=== PATIENT | male | born 1950 | race Caucasian/White ===

== ENCOUNTER 2018-04-05 10:00 | Inpatient (IN) ==
--- NOTE | 2018-04-05 10:06 | Emergency Department Note ---
Disposition Clinical Impression: Non-STEMI (non-ST elevated myocardial infarction) A-fib Qualifiers: Atrial fibrillation type: unspecified Qualified Code(s): I48.91 - Unspecified atrial fibrillation Disposition: Admitted As Inpatient Condition: Fair [facility] Care Provider[facility] - Forms: ED Satisfaction Letter Time of Disposition: 10:35 Chest Pain HPI - General Chief Complaint: ED Chest Pain Time Seen by Provider: 04/05/18 10:03 Source: patient, EMS Mode of arrival: EMS Limitations: no limitations Vital Signs Reviewed: Yes Nursing Notes Reviewed: Yes - History of Present Illness HPI Narrative: 68-year-old male who comes in complaining of intermittent chest pain since Friday. Patient was seen at the [facility] and evaluated was found to be in atrial fibrillation with controlled ventricular response. Patient has no history of A. fib. He was also noted to have an elevated troponin at the OR of 0.064 there are high normal is 0.045. Wrist some renal insufficiency also noted. He is on Plavix. Pt complaint: chest pain Onset (ago): day(s) Duration: intermittent Onset: during rest Pain Location: substernal, left chest Severity: moderate, now resolved Quality: tightness, aching Pain Radiation: none Improves with: nothing Worsens with: nothing Treatments prior to arrival chest pain: aspirin - Related Data Home Medications Medication Instructions Recorded Confirmed Clopidogrel [Plavix] 75 mg PO DAILY 10/29/15 10/29/15 Allergies Allergy/AdvReac Type Severity Reaction Status Date / Time No Known Allergies Allergy Verified 10/29/15 14:38 All systems ED: reviewed and negative except as stated. Constitutional: Denies: fever, chills, weakness, weight change Eyes: Denies: eye pain, eye discharge, vision change ENT ED: Denies: ear pain, throat pain, dental pain, hearing loss, epistaxis, congestion, dysphagia Cardiovascular: Reports: chest pain. Denies: palpitations, dyspnea on exertion , edema, syncope Respiratory: Denies: cough, dyspnea, wheezes, hemoptysis, stridor Gastrointestinal: Reports: nausea. Denies: abdominal pain, vomiting, diarrhea, constipation, hematemesis, melena, hematochezia Genitourinary: Denies: urgency, dysuria, frequency, hematuria Musculoskeletal: Denies: back pain, neck pain, arthralgia, myalgia Integumentary: Denies: rash, abrasion, lesions Neurological: Denies: headache, weakness, numbness, paresthesias, confusion, abnormal gait, vertigo Psychiatric: Denies: anxiety, depression, suicidal thoughts, homicidal thoughts , auditory hallucinations, visual hallucinations Endocrine: Denies: fatigue Hematological/Lymphatic: Denies: easy bleeding, easy bruising Allergic/Immunologic: Denies: facial swelling, urticaria Chest Pain PMH - Past Medical History Medical history: Reports: hypertension, other Psychiatric history: Reports: no psych history - Social History Smoking Status: Current every day smoker Alcohol use: Reports: occasionally Drug use: Reports: none Physical Exam - General Limitations: no limitations General appearance: alert, in no apparent distress - Head Head exam: atraumatic, normocephalic, normal inspection - Eye Eye exam: Present: normal appearance, PERRL, EOMI - ENT ENT exam: normal exam, normal oropharynx, mucous membranes moist - Neck Neck exam: Present: normal inspection, full ROM, trachea midline - Chest Chest inspection: Present: normal inspection, symmetric chest wall rise - Respiratory Respiratory exam: Present: normal lung sounds bilaterally - Cardiovascular Cardiovascular exam: Present: regular rate, irregular rhythm, normal heart sounds - Abdominal Exam Abdominal exam: Present: soft, Non-Tender. Absent: tenderness, distention, guarding, rebound, rigidity - Extremities Exam Extremities exam: Present: normal inspection, full ROM. Absent: tenderness, pedal edema - Expanded Lower Extremity Exam Neurovascular/Tendon exam: Absent: motor deficit, sensory deficit, tendon deficit Gait: observed and normal - Back Exam Back exam: Present: normal inspection, full ROM. Absent: tenderness - Neurological Exam Neurological exam: Present: alert, oriented X3 - Psychiatric Psychiatric exam: Present: normal affect, normal mood - Skin Skin exam: Present: warm, dry, intact, normal color Course - Reevaluation(s) Reevaluation #1: [facility] trop[facility] 0.064, CK 80, calcium 9.3, sodium 133, potassium 4.3, chloride 101, CO2 26, glucose 133, BUN/creatinine 21, creatinine 1.54, GFR 47, WBC 13, H&H 17/48.6, platelets 710 Time: 10:08 - Consultations Consultation #1: Discussed with Dr. Pineda, recommends heparinization he will see in consult. Time: 10:34 Consultation #2: Discussed with Dr. Guadarrama, admit. Time: 10:44 Vital Signs Temperature 98.3 F 04/05/18 10:03 Pulse Rate 73 04/05/18 10:03 Respiratory Rate 14 04/05/18 10:03 Blood Pressure 170/89 04/05/18 10:03 O2 Sat by Pulse Oximetry 98 04/05/18 10:03 Temperature 98.3 F 04/05/18 10:03 Pulse Rate 73 04/05/18 10:03 Respiratory Rate 14 04/05/18 10:03 Blood Pressure 170/89 04/05/18 10:03 O2 Sat by Pulse Oximetry 98 04/05/18 10:03 Oxygen Delivery Oxygen Delivery Room Air Chest Pain - EKG Data EKG attestation: Yes I reviewed and interpreted this EKG. Rate: normal Rhythm: A.Fib [place]/QRS: normal Interpretation: no acute changes Heart Score - Score History: Moderately Suspicious EKG: Non Specific repolarisation Disturbance Age: Greater than 65 Risk Factors: Equal/Greater than 3 risk factor or history of atherosclerotic disease Troponin: 1-3x normal limit HEART Score Total: 7 Critical Care Time Critical Care Time: Yes Total Critical Care Time: 30 Attestation: The high probability of a clinically significant, sudden or life threatening deterioration of the [cardiovascular] system(s) required my full and direct attention, intervention and personal management. The aggregate critical care time was [30] minutes. This time is in addition to time spent performing reported procedures but includes the following: [x] Data Review and interpretation [x] Patient assessment and monitoring of vital signs [x] Documentation [x] Medication orders and management
[2018-04-05] MEDS ORDERED: *HR* Heparin 5,000 UNIT/ML VIAL IVP ONE (10:32)
[2018-04-05] MEDS ORDERED: *HR* Heparin 5,000 UNIT/ML VIAL IVP PRN (10:32)
[2018-04-05 11:06] LABS: Hematocrit 50.6 % (37.5-50.1); Hemoglobin 17.2 g/dL (12.9-16.9); Mean Corpuscular Hemoglobin 31.1 pg (28.0-33.3); Mean Corpuscular Volume 91.5 fL (83.0-100.0); Mean Platelet Volume 9.4 fL (9.4-12.4); Platelet Count 691 K/mcL (140-400); Red Blood Count 5.53 M/mcL (4.19-5.50); Red Cell Distribution Width 14.6 % (11.5-14.5)
[2018-04-05 11:12] LABS: INR 1.1; Prothrombin Time 11.3 Seconds (9.4-12.1)
[2018-04-05 11:15] LABS: Activated Partial Thrombo Time 36.3 Seconds (26.0-36.0)
[2018-04-05] MEDS ORDERED: Acetaminophen 325 MG TABLET PO PRN (11:32)
[2018-04-05] MEDS ORDERED: Naloxone 0.4 MG/ML INJ IVP PRN (11:32)
[2018-04-05] MEDS: Heparin 25,000 UNIT/500 ML D5W 25,000 UNIT/500 ML BAG IVC SCH (11:36)
--- NOTE | 2018-04-05 11:37 | Internal Med History&Physical ---
<Estrella Powell Ravi - Last Filed: 04/05/18 11:51> Date of Encounter: 04/05/18 Time of Encounter: 11:35 Internal Medicine - H&P: HPI Chief complaint: New onset Afib/Chest Pain Admitted From: Emergency Dept History of present illness: Mr. Nair is a 68 year old male with significant past medical history of hyperlipidemia, PAD and hypertension presenting to the emergency department with chief complaint of chest pain and new onset atrial fibrillation. Patient was sent from [facility] after they determined he had new onset atrial fibrillation. He is currently rate controlled. Patient states on Friday he started having some substernal chest pressure that did not radiate. He describes some nausea and dizziness with these symptoms as well. Worst symptoms were Friday afternoon. Now he has had these symptoms on and off since. Denies any chest pain at this time. Denies any history of coronary artery disease. States he had a catheterization approximately 10 years or longer ago with no intervention. Currently taking Plavix and baby aspirin. Patient has history of fem-pop bypass on the right side. States he has a history of stroke with no residual effects. Patient denies any history of GI bleeds. Denies any hematuria, hematemesis, melena, or hematochezia. Past Med Surg Social Fam HX - Past Medical History Medical history: hypertension, other Additional medical history: PVD. Psychiatric history: no psych history - Past Surgical History Additional surgical history: Back surgery. Shoulder surgery. - Social History Smoking Status: Current every day smoker Smokeless Tobacco Status: No Alcohol use: occasionally Drug use: none Internal Medicine - H&P: Meds Clopidogrel [Plavix] 75 mg PO DAILY 10/29/15 [History] Amlodipine Besylate 10 mg PO DAILY 04/05/18 [History] Aspirin [Lo-Dose Aspirin EC] 81 mg PO DAILY 04/05/18 [History] Atenolol [Tenormin] 50 mg PO DAILY 04/05/18 [History] Atorvastatin [Lipitor] 20 mg PO HS 04/05/18 [History] Calcium Carbonate [Calcium] 600 mg PO DAILY 04/05/18 [History] Ergocalciferol (VITAMIN D2) [Vitamin D] 400 unit PO DAILY 04/05/18 [History] Lisinopril [Zestril] 5 mg PO DAILY 04/05/18 [History] Vit C/E/Zn/Coppr/Lutein/Zeaxan [Preservision Areds 2 Softgel] 1 cap PO BID 04/05 [History] 3 Allergy/AdvReac Type Severity Reaction Status Date / Time adhesive tape Allergy See Verified 04/05/18 10:59 Comments Iodinated Contrast- Oral and Allergy See Verified 04/05/18 10:59 IV Dye Comments All Systems PM: A 10-system review of systems was performed and is negative for pertinent findings except as documented above in the HPI. - Constitutional Constitutional: as per HPI - EENT Eyes: as per HPI Nose, mouth and throat: as per HPI - Cardiovascular Cardiovascular ROS IM: chest pain, lightheadedness, palpitations, no syncope - Respiratory Respiratory: no cough, no hemoptysis, no wheezing - Gastrointestinal Gastrointestinal: nausea, no abdominal pain, no hematemesis, no hematochezia, no melena, no vomiting - Genitourinary Genitourinary ROS male: as per HPI - Musculoskeletal Musculoskeletal ROS IM: as per HPI - Neurological Neurological ROS: as per HPI - Constitutional Vitals: Temp Pulse Resp BP Pulse Ox 98.3 F 73 14 170/89 98 04/05/18 10:03 04/05/18 10:03 04/05/18 10:03 04/05/18 10:03 04/05/18 10:03 General appearance: Present: A&O X 3, pleasant, no acute distress, answers questions appropriately - Head Head exam: Present: atraumatic, normocephalic - Respiratory Respiratory exam: Present: CTAB. Absent: accessory muscle use, rales, rhonchi, wheezes - Cardiovascular Cardiovascular exam: Absent: clicks, gallop, rubs Additional comments: regular rate, irregular rhythm - GI/Abdominal GI/Abdominal exam: Present: normal bowel sounds, soft, no peritoneal signs. Absent: distended, tenderness - Neurological Exam Neurological exam: Present: alert, oriented X3, no focal deficits Internal Med - H&P Results - Labs CBC & Chem 7: 04/05/18 10:46 Labs: Short CBC 04/05/18 Range/Units 10:46 WBC 13.1 H (4.3-11.1) K/mcL Hgb 17.2 H (12.9-16.9) g/dL Hct 50.6 H (37.5-50.1) % Plt Count 691 H (140-400) K/mcL - Assessment and plan (1) New onset atrial fibrillation Current Visit: Yes Status: Acute Assessment and plan: New-onset atrial fibrillation. Rate controlled. Patient denies chest pain at this time. Cardiology consulted. Started on heparin drip. Switched patient's atenolol to metoprolol. Repeat troponin 3 pending. Lipid panel in a.m. Magnesium in a.m. (2) Non-STEMI (non-ST elevated myocardial infarction) Current Visit: Yes Status: Acute Assessment and plan: Patient has elevated troponin with history of chest pain. EKG shows new onset atrial fibrillation but no signs of acute ischemia patient on beta gabe, statin, aspirin and heparin drip Cardiology consulted Ordered echo With patient's pmhx and elevated troponin cardiac cath could be considered, will defer decision to cardiology Will place patient NPO at midnight (3) HLD (hyperlipidemia) Current Visit: Yes Status: Chronic Assessment and plan: Continue home medications Qualifiers: Hyperlipidemia type: unspecified Qualified Code(s): E78.5 - Hyperlipidemia , unspecified (4) HTN (hypertension) Current Visit: Yes Status: Chronic Assessment and plan: Discontinued atenolol. Started metoprolol. Patient's blood pressure well controlled at home. Qualifiers: Hypertension type: unspecified Qualified Code(s): I10 - Essential (primary ) hypertension (5) PAD (peripheral artery disease) Current Visit: Yes Status: Chronic Assessment and plan: Patient on plavix and aspirin Fem/Pop bypass with Dr. Canales Continue home medications (6) DVT prophylaxis Current Visit: Yes Status: Acute Assessment and plan: Patient on heparin drip - Time Spent With Patient Total time spent is greater than 50% in coordination of care (as documented) at patient's floor/unit and/or counseling patient: <ChiaraPercygiovanni - Last Filed: 04/05/18 13:52> Date of Encounter: 04/05/18 Internal Medicine - H&P: HPI History of present illness: Mr. Nair is a 68 year old male All Systems PM: A 10-system review of systems was performed and is negative for pertinent findings except as documented above in the HPI. - Constitutional Vitals: Temp Pulse Resp BP Pulse Ox 97.4 F L 86 16 134/82 99 04/05/18 13:19 04/05/18 13:19 04/05/18 13:19 04/05/18 13:19 04/05/18 13:19 Internal Med - H&P Results - Labs CBC & Chem 7: 04/05/18 10:46 - Attending Attestation I examined this patient and my medical decision-making was reviewed with the Resident Physician Dr. Powell. I agree with the documented findings, disposition and treatment plan as described except to the extent set forth below. Mr. Nair is a 68 y/o M with known HTN, HLD, TIA, Severe PAD pt admitted here for acute CP. Pt stated he has been having Left and substernal chest pain since last one week. His pain is non radiating, associated with nausea. His trop was elevated at [facility] so he was sent to our ER for further work up. He also has new onset Afob. He denied any active CP Now. Gen: A, A, O x3 Chest: Diminished BS b/l Heart: S1S2+ Irregular rate and rythm a/p 1. Acute CP 2. Acute NSTEMI trop x 3 Heparin gtt ASA and Nitro PRN BB - Metoprolol 3. New onset Afib rate controlled check TSH on tele d/c Atenolol and placed him on Metoprolol 25mg BID on Heparin gtt for anti coag His CHADVASC 4 - Time Spent With Patient Total time spent is greater than 50% in coordination of care (as documented) at patient's floor/unit and/or counseling patient:
[2018-04-05 12:52] LABS: Troponin I 0.07 ng/mL (< 0.04)
[2018-04-05 13:00] LABS: Thyroid Stimulating Hormone 0.9 mcIU/mL (0.340-5.600)
--- NOTE | 2018-04-05 16:19 | Event Note ---
Date of Encounter: 04/05/18 Time of Encounter: 16:15 - Cardiology Event Note Consult ordered for NSTEMI / chest pain with normal rate. Patient on aspirin/ plavix, recommend heparin drip. Depending on renal function tomorrow, will tentatively plan on [facility] Friday or Friday. Full consult to follow.
[2018-04-05 18:11] LABS: Activated Partial Thrombo Time 119.6 Seconds (26.0-36.0)
[2018-04-05 18:13] LABS: Heparin anti-factor XA UFH 0.5 IU/mL (0.30-0.70)
[2018-04-06 00:41] LABS: Basophils % 0.8 %; Hematocrit 47.9 % (37.5-50.1); Hemoglobin 16.9 g/dL (12.9-16.9); Immature Granulocytes % 0.3 % (0-4); Lymphocytes % 16.6 %; Mean Corpuscular HGB Conc 35.3 g/dL (31.6-35.5); Mean Corpuscular Hemoglobin 31.9 pg (28.0-33.3); Mean Corpuscular Volume 90.4 fL (83.0-100.0); Mean Platelet Volume 9.4 fL (9.4-12.4); Monocytes % 9.8 %; Neutrophils # 10.8 K/mcL (1.6-8.9); Platelet Count 643 K/mcL (140-400); Red Cell Distribution Width 14.9 % (11.5-14.5); Segmented Neutrophils % 72.5 %
[2018-04-06 00:42] LABS: Basophils # 0.1 K/mcL (0.0-0.2); Lymphocytes # 2.5 K/mcL (0.6-4.6); Monocytes # 1.5 K/mcL (0.0-1.3)
[2018-04-06 00:51] LABS: INR 1.1; Prothrombin Time 11.3 Seconds (9.4-12.1)
[2018-04-06 01:00] LABS: BUN/Creatinine Ratio 19 (6-26); Blood Urea Nitrogen 26 mg/dL (8-23); Calcium 9.2 mg/dL (8.6-10.3); Carbon Dioxide 24 mEq/L (23-29); Chloride 99 mEq/L (98-107); Chol/HDL Ratio 2.5 (0-4.9); Cholesterol 133 mg/dL (< 200); Glucose 95 mg/dL (70-105); HDL Cholesterol 54 mg/dL (40-59); LDL Cholesterol,Calculated 60 mg/dL (0-99); Magnesium 2.1 mg/dL (1.6-2.6); Osmolality,Calculated 277 (280-300); Potassium 4.1 mEq/L (3.5-5.1); Sodium 131 mEq/L (136-145); Triglycerides 94 mg/dL (< 150); eGFR For African Americans > 60 (> 60); eGFR For Non-African Americans 52 (> 60)
[2018-04-06] MEDS: *HR* Heparin 5,000 UNIT/ML VIAL IVP PRN (01:33)
--- NOTE | 2018-04-06 08:08 | Cardiology Consult Note ---
Addendum entered and electronically signed by Terrell Cason DO 04/06/18 11:29: Creatinine improving. Clear for LHC. Will get pt on add-on list. Also, reviewed "iodinated contrast dye" allergy; pt has no knowledge of ever having reactions to contrast. Has an LHC about 10 years ago with no associated contrast reaction he is aware of. Also had myelogram utilizing contrast with no known reaction. Unsure where documented allergy originated. Original Note: <Terrell Cason - Last Filed: 04/06/18 10:16> Date of Encounter: 04/06/18 Time of Encounter: 08:07 Assessment and Plan (1) Non-STEMI (non-ST elevated myocardial infarction) Current Visit: Yes Status: Acute Agree with current meds. Cont heparin for now. No known history of CKD, but elevated creatinine; will recheck now and plan to proceed with LHC today ( tentative) if stable/improved. (2) New onset atrial fibrillation Current Visit: Yes Status: Acute New. Paroxysmal. Spontaneously reverted to NSR / sinus bradycardia. [id number] = 5 based on age and history. - cont on telemetry - suspect ischemic trigger; plan is for LHC today or tomorrow pending stable/ improving renal function - no med changes at this time - will need anticoagulant upon discharge; defer initiation until after LHC completed. Discussion w patient/family: The assessment and plan as outlined above was discussed with the patient and/or family members who expressed understanding and agreement. All questions were answered. Thank you for involving us in the care of your patient. Please call with any questions. History of Present Illness Consult date: 04/05/18 Requesting physician: Ja Esparza Consult reason: NSTEMI / CP Chief complaint: CP History of present illness: Mr. Nair is a 68 year old male with past medical history of HLP, PAD, HTN, CVA (no residual deficits), and LHC "10 years ago" without intervenable findings. No known history of chronic kidney disease though he does have a mildly elevated creatinine. Currently on aspirin, Plavix, lisinopril, atenolol , amlodipine, and atorvastatin. No other relevant cardiac history. Denies use of tobacco, alcohol, or illicit substances. Patient states woke up at 0230 [place] morning with retro sternal chest pain he describes as an intense stabbing pain. Pain did not radiate or migrate. Pain was associated with lightheadedness, profuse sweating, and abdominal discomfort/ nausea. Patient states has not had any pain like this in the past. Patient says he slept through most of Friday and woke up Friday morning with relatively minimal pain. Did have one episode throughout Friday that he localizes as more left lateral chest wall and characterizes as "different from the other pain". This episode of pain lasted only a few seconds and then abated on its own. Patient states on Friday, he continued to feel dizzy, lightheaded, and had ongoing abdominal upset prompting his presentation to the [facility]. [facility] transferred patient due to acute chest pain, elevated troponins, and new onset AF (no known history). Patient admitted here to hospital service and started on heparin drip. Initial EKG obtained at this medical Center at 10 AM on 04/05/2018 demonstrated atrial fibrillation with a ventricular rate of 67 beats per minute; there were no ischemic changes on EKG. At this point, patient seems to spontaneously converted to sinus rhythm with pulse rate currently in the 50s to 80s. Patient is not having any ongoing symptoms such as chest pain, dizziness, lightheadedness, palpitations, shortness of breath, abdominal discomfort, or pedal edema. Past Med Surg Social Fam HX - Past Medical History Source: patient, old records reviewed Medical history: atrial fibrillation (NEW DX), CVA, hyperlipidemia, hypertension , peripheral artery disease, other Additional medical history: PVD. Psychiatric history: no psych history - Past Surgical History Surgical History: no surgical history, LE vascular intervention Additional surgical history: Back surgery. Shoulder surgery. - Social History Smokeless Tobacco Status: No Alcohol use: occasionally Drug use: none Medications and Allergies Clopidogrel [Plavix] 75 mg PO DAILY 10/29/15 [History] Amlodipine Besylate 10 mg PO DAILY 04/05/18 [History] Aspirin [Lo-Dose Aspirin EC] 81 mg PO DAILY 04/05/18 [History] Atenolol [Tenormin] 50 mg PO DAILY 04/05/18 [History] Atorvastatin [Lipitor] 20 mg PO HS 04/05/18 [History] Calcium Carbonate [Calcium] 600 mg PO DAILY 04/05/18 [History] Ergocalciferol (VITAMIN D2) [Vitamin D] 400 unit PO DAILY 04/05/18 [History] Lisinopril [Zestril] 5 mg PO DAILY 04/05/18 [History] Vit C/E/Zn/Coppr/Lutein/Zeaxan [Preservision Areds 2 Softgel] 1 cap PO BID 04/05 [History] 3 Allergy/AdvReac Type Severity Reaction Status Date / Time adhesive tape Allergy See Verified 04/05/18 10:59 Comments Iodinated Contrast- Oral and Allergy See Verified 04/05/18 10:59 IV Dye Comments All Systems Review: Otherwise, denies true syncope, fevers, chills, sweats, myalgias, cough, congestion, palpitations, shortness of breath, vomiting, diarrhea, constipation , blood in stools, black tarry stools, dysuria, hematuria, rash, or pedal edema. Physical Examination General: Conversant, No Apparent Distress HEENT: Atraumatic, Normocephaly, Mucus Membranes Moist Cardiac: Reg Rate and Rhythm (rate approximate 60 and regular), Normal S1 and S2 , No Murmur Lungs: Normal Breath Sounds, No Wheeze, Rales, Rhonchi Neuro: Alert and responsive, No focal deficits noted Abdomen: Soft, Non-Tender Skin: No rashes noted on visualized skin Extremities: No Clubbing, No Cyanosis, No Edema, Normal Pulses Results 04/06/18 00:18 04/06/18 00:18 Lab Results 04/05/18 04/05/18 04/06/18 17:31 17:31 00:18 WBC Hgb Hct Plt Count INR APTT 119.6 H* D Sodium Potassium Chloride Carbon Dioxide BUN Creatinine Glucose Calcium Magnesium Troponin I 0.06 H* 0.07 H* 04/06/18 04/06/18 04/06/18 00:18 00:18 00:18 WBC 14.9 H Hgb 16.9 Hct 47.9 Plt Count 643 H INR 1.1 APTT Sodium 131 L Potassium 4.1 Chloride 99 Carbon Dioxide 24 BUN 26 H Creatinine 1.35 H Glucose 95 Calcium 9.2 Magnesium 2.1 Troponin I 04/06/18 00:18 WBC Hgb Hct Plt Count INR APTT 43.8 H D Sodium Potassium Chloride Carbon Dioxide BUN Creatinine Glucose Calcium Magnesium Troponin I Consult Discharge Plan - Plan [facility]errals: [facility] [Primary Care Provider[facility] - <Sarita Marshjaime - Last Filed: 04/06/18 19:28> Date of Encounter: 04/06/18 - Attending Attestation I examined this patient and my medical decision-making was reviewed with the Resident Physician. I agree with the documented findings, disposition and treatment plan as described except to the extent set forth below. 68-year-old male history of PAD, hypertension, hyperlipidemia, atrial fibrillation presents with non-ST elevation myocardial infarction status post left heart catheter found to have three-vessel disease to be evaluated by CT surgery continue heparin for atrial fibrillation and high risk for stroke Assessment and Plan Discussion w patient/family: The assessment and plan as outlined above was discussed with the patient and/or family members who expressed understanding and agreement. All questions were answered. Thank you for involving us in the care of your patient. Please call with any questions. History of Present Illness History of present illness: Mr. Nair is a 68 year old male All Systems Review: The remainder of the systems were reviewed and are negative Physical Examination Vital Signs, Last 4 Hours Temp Pulse Resp BP Pulse Ox 04/06/18 18:56 97.7 F 63 16 123/78 96 04/06/18 16:55 98.2 F 64 16 130/68 96 04/06/18 16:04 65 16 127/68 96 Results 04/06/18 00:18 04/06/18 09:49 Lab Results 04/06/18 04/06/18 04/06/18 00:18 00:18 00:18 WBC 14.9 H Hgb 16.9 Hct 47.9 Plt Count 643 H INR 1.1 APTT Sodium Potassium Chloride Carbon Dioxide BUN Creatinine Glucose Calcium Magnesium Troponin I 0.07 H* 04/06/18 04/06/18 04/06/18 00:18 00:18 08:00 WBC Hgb Hct Plt Count INR APTT 43.8 H D 68.0 H D Sodium 131 L Potassium 4.1 Chloride 99 Carbon Dioxide 24 BUN 26 H Creatinine 1.35 H Glucose 95 Calcium 9.2 Magnesium 2.1 Troponin I 04/06/18 04/06/18 09:49 14:37 WBC Hgb Hct Plt Count INR APTT 40.8 H Sodium 131 L Potassium 4.3 Chloride 98 Carbon Dioxide 25 BUN 22 Creatinine 1.24 Glucose 120 H Calcium 9.7 Magnesium Troponin I
[2018-04-06] MEDS: amLODIPine 5 MG TABLET PO SCH (08:34)
[2018-04-06] MEDS: Cholecalciferol (D-3) 1,000 UNIT TABLET PO SCH (08:34)
[2018-04-06] MEDS: Aspirin Enteric Coated 81 MG Tablet PO SCH (08:35)
[2018-04-06 11:27] LABS: BUN/Creatinine Ratio 18 (6-26); Blood Urea Nitrogen 22 mg/dL (8-23); Calcium 9.7 mg/dL (8.6-10.3); Carbon Dioxide 25 mEq/L (23-29); Chloride 98 mEq/L (98-107); Glucose 120 mg/dL (70-105); Osmolality,Calculated 277 (280-300); Potassium 4.3 mEq/L (3.5-5.1); Sodium 131 mEq/L (136-145); eGFR For African Americans > 60 (> 60); eGFR For Non-African Americans 58 (> 60)
[2018-04-06] MEDS ORDERED: Verapamil 5 MG/2 ML VIAL ONE (11:46)
[2018-04-06] MEDS ORDERED: 0.9 % Sodium Chloride 1,000 ML ONE ×2 (11:47→12:34)
[2018-04-06] MEDS ORDERED: ISOVUE-370 200 ML INFUS..BTL IV ONE (11:47)
[2018-04-06] MEDS ORDERED: Heparin 1,000 UNITS/500 mL 500 ML ONE (11:47)
[2018-04-06] MEDS ORDERED: *HR* Heparin 10,000 UNIT/10 ML VIAL ONE (11:47)
[2018-04-06] MEDS ORDERED: Nitroglycerin 1,000 MCG/10 ML VIAL IV ONE (11:47)
[2018-04-06] MEDS ORDERED: *HR* Midazolam HCl 2 MG/2 ML VIAL ONE ×2 (12:34→12:45)
[2018-04-06] MEDS ORDERED: *HR* FentaNYL (PF) 100 MCG/2 ML VIAL ONE (12:34)
[2018-04-06] MEDS ORDERED: methylPREDNISolone 125 MG/2 ML VIAL ONE (12:35)
--- NOTE | 2018-04-06 12:45 | Pre-Sedation Evaluation ---
Pre-sedation evaluation - Pre-sedation checklist Date of procedure: 04/06/18 Procedure: [facility] Recent Vitals: Last Vital Signs Temp 97.6 F 04/06/18 12:05 Pulse 59 04/06/18 12:05 Resp 15 04/06/18 12:05 BP 146/66 04/06/18 12:05 Pulse Ox 98 04/06/18 12:05 H&P (including ROS) documented in medical record: Yes Previous reaction to sedatives/anesthetics: No Dietary Status: NPO after Midnight Dentition: No loose teeth or bridges ASA Classification *see protocol: CLASS II-Mild systemic disease Plan of Care: Pt appropriate candidate for procedure/moderate/conscious sedation , Risks/benefits of procedure/sedation discussed w/ patient/family
[2018-04-06] MEDS ORDERED: Ondansetron 4 MG/2 ML VIAL IVP PRN (13:38)
--- NOTE | 2018-04-06 13:46 | Invasive Diagnostic Lab Proc ---
Name: Naldo Nair Date of Study: 04/06/2018 Date: 1950 Ht: 68.0in Medical Record#: [id number] Age: 68 Wt: 163.36lb Gender: Male BSA: 1.88 Order #: [id number] BMI: 24.84 Physicians Procedure Physician: Matthew Pineda MD, [facility] Referring MD: Referring MD: Staff Name Position Time In Julieta Valdez RT (R) Scrub 12:34 PM Jorge, Joslyn RT (R) 12:34 PM Julieta Valdez RT (R) Monitor 12:34 PM Jasmin Saldana RN Airline Operations Agent 12:34 PM Wendy Li RN Airline Operations Agent 12:45 PM Sophie Knox RN Airline Operations Agent 12:45 PM Indications Indication Non-Stemi Procedures Performed Procedure L HRT ARTERY/VENTRICLE ANGIO Pre-Procedure Checklist Informed consent is complete signed and on chart. H&P is on chart. ID band is on and ID verified with patient. Patient NPO for procedure The procedure was described for the patient and questions were answered. ECG is on chart. Plan of Care Patient will tolerate the procedure without complications. Adequate level of comfort will be maintained. Hemodynamics will remain stable Patient will recover from procedure without complications. Respiratory function will be maintained. Cardiac rhythm will remain stable. Patient temperature will be maintained. Patient and/or family have verbalized understanding of the procedure. Patient Education Chief Complaint/Reason for Test: Cardiac Cath Developmental Category: Geriatric (65+ years) Developmentally Appropriate for Age: Yes Learning Barriers: None Education Needs: Procedure Education Method: Verbal Information Taught: Cardiac Cath Educational Evaluation: Able to repeat information Intravenous Access Time IV Size Location DC'd Fluid/Drip Rate Units RN 20g 1 10/30" Patent On Arrival 0.9NaCl ml/hr Allergies Iodinated Contrast- Oral and IV Dye adhesive tape TAPE No Known Allergies NKA Vital Signs Time BP (mmHg) HR (bpm) O2 Sat. RR (bpm) LOC 12:39 PM 102 / 73 52 100 % 12:44 PM 113 / 87 62 100 % 12:49 PM 176 / 72 77 99 % 12:54 PM 147 / 99 71 98 % 12:59 PM 145 / 72 64 99 % 01:04 PM 145 / 74 62 99 % 01:09 PM 121 / 86 61 99 % 01:14 PM 129 / 65 66 98 % 01:19 PM 140 / 123 58 98 % 01:24 PM 112 / 55 60 99 % 01:29 PM 125 / 68 60 99 % Procedural Medications Time Medication Dose Units Method Given By 12:35 PM Oxygen 2 L/min nasal cannula Jasmin Saldana RN 12:35 PM Versed 2 mg Intravenous Wendy Li RN 12:35 PM Fentanyl 50 mcg Intravenous Wendy Li RN 12:35 PM Benadryl 50 mg Intravenous Jasmin Saldana RN 12:35 PM Solu-medrol 125 mg Intravenous Jasmin Saldana RN 01:03 PM Lidocaine 2% 0.5 ml Subcutaneous Matthew Pineda MD, [facility] 01:03 PM Versed 1 mg Intravenous Wendy Li RN 01:03 PM Fentanyl 25 mcg Intravenous Wendy Li RN 01:07 PM Lidocaine 2% 18 ml Subcutaneous Matthwe Pineda MD, [facility] ASA Classification: CLASS II- Mild systemic disease (i.e. well-controlled diabetes, hypertension, asthma, cigarette smoking) Fatou Score Preprocedure Postprocedure Activity 2- Moves 4 extremities sustained head lift Activity 2- Moves 4 extremities sustained head lift Circulation 2- SBP +/= 20 points of pre-anesthetic level Circulation 2- SBP +/= 20 points of pre-anesthetic level Consciousness 2- Awake and alert oriented x 3 Consciousness 2- Awake and alert oriented x 3 O2 Saturation 2- Able to maintain O2 satruation of 92% on room air O2 Saturation 2- Able to maintain O2 satruation of 92% on room air Respiratory 2- Able to deep breathe and cough well Respiratory 2- Able to deep breathe and cough well Total Score 10 Total Score 10 Contrast Agent: Isovue Diagnostic Contrast: 56 ml Total Contrast: 56 ml Fluoro Dose: 191 mGy Procedure Log Time Note Enter By 12:33 PM CathStat 12:33 PM Vitals capture started with the following parameters, Patient=Adult, Interval=5 min, Initial Iefmxdzv=180 mmHg, Deflation Rate=5 mmHg, Cuff placed on Right Arm 12:34 PM Pt arrived to phlebotomy lab assistant 2 at 12:34 [email or web address] 12:34 PM Joslyn Patel RT (R) Position: Time in: 12:34 [email or web address] 12:34 PM Julieta Valdez RT (R) Position: Monitor Time in: 12:34 [email or web address] 12:34 PM Jasmin Saldana RN Position: Airline Operations Agent Time in: 12:34 [email or web address] 12:34 PM Patient charges- Angio tray pack, Navilyst 3mm J, Pulse Oximetry and ACIST tubing and transducer [email or web address] 12:34 PM Case Delayed No [email or web address] 12:35 PM Hair removed from procedure site in holding area using clippers. Right wrist prepped with Chloraprep by Joslyn Patel RT (R), then patient was draped. Skin intact. [email or web address] 12:35 PM Hair removed from procedure site in holding area using clippers. Right groin prepped with Chloraprep by Joslyn Patel RT (R), then patient was draped. Skin intact. [email or web address] 12:35 PM Physician arrived 12:35 [email or web address] 12:35 PM ASA Class CLASS II- Mild systemic disease (i.e. well-controlled diabetes, hypertension, asthma, cigarette smoking) [email or web address] 12:35 PM Meet and dada completed [email or web address] 12:35 PM Sign in performed according to hospital policy. [email or web address] 12:35 PM Procedure start 12:35 [email or web address] 12:35 PM Time: 12:35 Oxygen on at 2 L/min per nasal cannula by Jasmin Saldana RN [email or web address] 12:35 PM Time: 12:35 Versed 2 mg Intravenous Given by Wendy Li RN [email or web address] 12:35 PM Time: 12:35 Fentanyl 50 mcg Intravenous Given by Wendy Li RN [email or web address] 12:35 PM Time: 12:35 Benadryl 50 mg Intravenous Given by Jasmin Saldana RN [email or web address] 12:36 PM Time: 12:35 Solu-medrol 125 mg Intravenous Given by Jasmin Saldana RN [email or web address] 12:36 PM Recorded ECG: HR=61 Condition=Condition 1 12:36 PM Recorded ECG: HR=62 Condition=Condition 1 12:38 PM Vitals capture started with the following parameters, Patient=Adult, Interval=5 min, Initial Lnnyfxav=014 mmHg, Deflation Rate=5 mmHg, Cuff placed on Right Arm 12:39 PM HR=52 bpm, AWMH=291/73 mmhg, HzP0=157.0 %, Comment=NSR 12:40 PM Pressure channel 1 zero failed. 12:44 PM HR=62 bpm, SJJL=132/87 mmhg, EcE2=840.0 % 12:45 PM Wendy Li RN Position: Airline Operations Agent Time in: 12:45 to relieve Les Jasmin RN [email or web address] 12:45 PM Sophie Knox RN Position: Airline Operations Agent Time in: 12:45 to relieve Snow Saldanaclyde EAGLE [email or web address] 12:47 PM Pressure channel 1 zeroed. 12:49 PM HR=77 bpm, CPES=166/72 mmhg, SpO2=99.0 %, Comment=NSR 12:54 PM HR=71 bpm, NPKO=532/99 mmhg, SpO2=98.0 %, Comment=NSR 12:59 PM HR=64 bpm, UWBG=298/72 mmhg, SpO2=99.0 %, Comment=NSR 01:03 PM Time out performed according to hospital policy [email or web address] 01:03 PM Time: 13:03 0.5 ml Lidocaine 2% to right radial Subcutaneous Given by Matthew Pineda MD, [facility] [email or web address] 01:03 PM Time: 13:03 Versed 1 mg Intravenous Given by Wendy Li RN [email or web address] 01:04 PM Time: 13:03 Fentanyl 25 mcg Intravenous Given by Wendy Li RN [email or web address] 01:04 PM HR=62 bpm, ZUGQ=392/74 mmhg, SpO2=99.0 %, Comment=NSR 01:06 PM Unsuccessful access attempt # 1 into the right Radial artery. Manual pressure applied to achieve hemostasis.. [email or web address] 01:08 PM Time: 13:07 18 ml Lidocaine 2% to left groin Subcutaneous Given by Matthew Pineda MD, [facility] [email or web address] 01:09 PM HR=61 bpm, GCAA=017/86 mmhg, SpO2=99.0 %, Comment=NSR 01:10 PM Unsuccessful access attempt # 1 into the left Femoral artery. Manual pressure applied to achieve hemostasis.. [email or web address] 01:11 PM Access obtained by percutaneous puncture. 5Fr 10cm Terumo [place] sheath placed in left Femoral artery. [id number] [email or web address] 01:12 PM 0.035 145cm Navilyst 3mmJ wire [id number] [email or web address] 01:12 PM 5Fr FL 4 catheter inserted over the wire DNC [email or web address] 01:12 PM LCA angiography performed in multiple views. [email or web address] 01:13 PM Recorded Pressure: Ao, HR=59, Condition=Condition 1 (Aorta) Ao 113/59/83 01:13 PM Recorded Pressure: Ao, HR=60, Condition=Condition 1 (Aorta) Ao 115/66/88 01:14 PM HR=66 bpm, JDJW=352/65 mmhg, SpO2=98.0 %, Comment=NSR 01:16 PM Lesion found in LMCA. Pre Stenosis: 50 Pre ARJ Flow: 3: Complete and Brisk Flow/Perfusion [email or web address] 01:16 PM Lesion found in LMCA. Pre Stenosis: 50 Pre RAJ Flow: 3: Complete and Brisk Flow/Perfusion [email or web address] 01:16 PM Lesion found in Proximal Circumflex. Pre Stenosis: 90 Pre RAJ Flow: 3: Complete and Brisk Flow/Perfusion [email or web address] 01:17 PM Lesion found in 1st Marginal. Pre Stenosis: 90 Pre RAJ Flow: 3: Complete and Brisk Flow/Perfusion [email or web address] 01:17 PM Catheter removed [email or web address] 01:17 PM 5Fr FR 4 catheter inserted over the wire DN [email or web address] 01:18 PM Pressure channel 1 zero failed. 01:18 PM RCA angiography performed in multiple views. [email or web address] 01:19 PM Recorded Pressure: Ao, HR=59, Condition=Condition 1 (Aorta) Ao 101/60/78 01:19 PM Lesion found in Mid RCA. Pre Stenosis: 90 Pre RAJ Flow: 3: Complete and Brisk Flow/Perfusion [email or web address] 01:19 PM HR=58 bpm, SEBE=059/123 mmhg, SpO2=98.0 %, Comment=NSR 01:19 PM Lesion found in Proximal RCA. Pre Stenosis: 70 Pre RAJ Flow: 3: Complete and Brisk Flow/Perfusion [email or web address] 01:19 PM Coronary Dominance: right [email or web address] 01:19 PM Catheter removed [email or web address] 01:20 PM 5Fr Pigtail catheter inserted over the wire DN [email or web address] 01:20 PM Pressure channel 1 zero failed. 01:20 PM Pressure channel 1 zeroed. 01:20 PM Recorded Pressure: LV, HR=63, Condition=Condition 1 (Left Ventricle) LV 125/-8/2 01:21 PM Catheter selectively placed in left ventricle [email or web address] 01:21 PM Bolus angiogram of left Ventricle complete: 12 ml/sec for a total of 20 mls [email or web address] 01:21 PM Recorded Pressure: LV, Ao, HR=66, Condition=Condition 1 (Left Ventricle) LV 124/-8/3, (Aorta) Ao 125/52/80 01:21 PM Catheter removed [email or web address] 01:22 PM Bolus angiogram of left Femoral complete: 4 ml/sec for a total of 7 mls [email or web address] 01:24 PM HR=60 bpm, BSGO=521/55 mmhg, SpO2=99.0 %, Comment=NSR 01:25 PM Procedure completed at 13:25 [email or web address] 01:25 PM Did you address RAJ flow and Dominance? Yes [email or web address] 01:25 PM Sign out completed: Radiation Dose 191.05 mGy Fluoro Time: 1.1 Isovue 370 - 200ml contrast 56 ml given by Matthew Pineda MD, FACC. Complications: NoneCardiac Rehab Consult needed: NoConfirmed administered medications: Yes [email or web address] 01:25 PM Isovue 370 - 200ml,1 Bottle(s) used. [email or web address] 01:25 PM Arterial sheath pulled, Mynx closure device used and was Successful S/N. [email or web address] 01:26 PM Estimated Blood Loss: minimal [email or web address] 01:26 PM Post ECG NSR [email or web address] 01:26 PM Post Blood Pressure 112/55 [email or web address] 01:26 PM 13:26 Post Pulses Bilateral DP & PT 1+ [email or web address] 01:26 PM Information taught Cardiac Cath and Mynx [email or web address] 01:26 PM Education needs Procedure, Plan of Care, and Disease Process [email or web address] 01:26 PM Learning barriers :None [email or web address] 01:26 PM Education Methods Verbal [email or web address] 01:26 PM Education evaluation Able to repeat information [email or web address] 01:26 PM Site status No bleeding/hematoma - Lt Groin as reported by Joslyn Patel RT (R) at 13:26 [email or web address] 01:26 PM Opsite applied [email or web address] 01:26 PM Delay to floor No [email or web address] 01:27 PM Family placed in not available. [email or web address] 01:27 PM Complications: None [email or web address] 01:27 PM Fluoro Time: 1.1 [email or web address] 01:27 PM Isovue 370 - 200ml contrast [address] Pineda. [email or web address] 01:27 PM Radiation Dose 191.05 mGy [email or web address] 01:29 PM HR=60 bpm, QYVT=304/68 mmhg, SpO2=99.0 %, Comment=NSR 01:35 PM Conversation between Interventionalist and CT Surgeon. [email or web address] 01:37 PM Report given to Anuradha EAGLE Pt taken to 2A Room #26. 13:37 [email or web address] 01:38 PM Patient out of room: 13:38 [email or web address] Complications Complication None None Hemodynamics Pressures Site Systolic/A Wave Diastolic/V Wave Mean AO 113 59 83 AO 115 66 88 AO 101 60 78 LV 125 -8 2 LV 124 -8 3 AO 125 52 80 Post Procedure Information Blood Pressure: 112/55 mmHg Rhythm: NSR Post procedural instructions were given Surgery consult for CABG Closure Device Time Device Success/Fail 04/06/2018 1:27:00 PM Perclose ProGlide Successful Site Checks Time Location Status Staff Sheath In? Note 01:26 PM Lt Groin No bleeding/hematoma Joslyn Patel RT (R) Pulses Time Site Pre-Procedure Post-Procedure Note Bilateral radial 2+ Bilateral DP & PT 1+ 1:26:00 PM Bilateral DP & PT 1+ Updated by Julieta Valdez, RT(R) on 04/06/2018 1:39:04 PM electronically signed on 04/06/2018 1:39:30 PM with status of Final
--- NOTE | 2018-04-06 14:02 | Internal Med Progress Note ---
<Garrett Giraldo - Last Filed: 04/06/18 15:00> Date of Encounter: 04/06/18 Time of Encounter: 10:00 - Assessment and plan (1) Non-STEMI (non-ST elevated myocardial infarction) Current Visit: Yes Status: Acute Assessment and plan: Per cardiology, add-on for [facility] today, creatinine stable Troponin elevated at .07 but adynamic No chest pain, dyspnea, or lightheadedness (2) New onset atrial fibrillation Current Visit: Yes Status: Acute Assessment and plan: Reverted to NSR, on toprol 25mg po BID Possibly due to ischemic trigger, [facility] planned today (3) HTN (hypertension) Current Visit: Yes Status: Chronic Assessment and plan: Continuing metoprolol Qualifiers: Hypertension type: unspecified Qualified Code(s): I10 - Essential (primary ) hypertension (4) DVT prophylaxis Current Visit: Yes Status: Acute Assessment and plan: On Heparin low-dose protocol (5) PAD (peripheral artery disease) Current Visit: Yes Status: Chronic Assessment and plan: Patient on plavix and aspirin Fem/Pop bypass with Dr. Canales Continue home medications - Time Spent With Patient Total time spent is greater than 50% in coordination of care (as documented) at patient's floor/unit and/or counseling patient: - Subjective Interval history: Patient reverted to NSR, paroxysmal afib. Pt without chest pain, dyspnea, syncope, lightheadedness today. - Constitutional Vitals: Temp Pulse Resp BP Pulse Ox 97.6 F 59 15 146/66 98 04/06/18 12:05 04/06/18 12:05 04/06/18 12:05 04/06/18 12:05 04/06/18 12:05 General appearance: Present: A&O X 3, pleasant, no acute distress, answers questions appropriately - Head Head exam: Present: atraumatic, normocephalic - Neck Neck exam general surgery: Present: full ROM - Respiratory Respiratory exam: Present: CTAB. Absent: tachypnea - Cardiovascular Cardiovascular exam: Present: +S1, +S2. Absent: systolic murmur, tachycardia - Extremities Exam Extremities exam: Absent: calf tenderness - Neurological Exam Neurological exam: Present: alert, oriented X3 - Skin Skin exam: Absent: diaphoretic Internal Medicine: Result - Labs CBC & Chem 7: 04/06/18 00:18 04/06/18 09:49 Labs: Short CBC 04/06/18 Range/Units 00:18 WBC 14.9 H (4.3-11.1) K/mcL Hgb 16.9 (12.9-16.9) g/dL Hct 47.9 (37.5-50.1) % Plt Count 643 H (140-400) K/mcL Neutrophils # 10.8 H (1.6-8.9) K/mcL BMP 04/06/18 04/06/18 00:18 09:49 Sodium 131 L 131 L Potassium 4.1 4.3 Chloride 99 98 Carbon Dioxide 24 25 BUN 26 H 22 Creatinine 1.35 H 1.24 Glucose 95 120 H Calcium 9.2 9.7 Cardiac Enzymes 04/05/18 04/06/18 Range/Units 17:31 00:18 Troponin I 0.06 H* 0.07 H* (< 0.04) ng/mL - ABG Interpretation ABG results: PT/INR, D-dimer PT 11.3 Seconds (9.4-12.1) 04/06/18 00:18 - Impressions Impressions Echocardiogram 04/06/18 11:50 Impressions: LVEF 60%. Normal LV chamber size, wall thickness and function. Mild left ventricular diastolic dysfunction. Normal right ventricular structure and function. No evidence of pulmonary hypertension. No significant valvular dysfunction. Left Ventricular Wall Motion: Rest Echo Findings All wall segments showed normal motion. Findings: Study Quality * Technically adequate exam. ECG Findings * Sinus bradycardia. Left Ventricle * LVEF 60%. * Normal LV chamber size, wall thickness and function. * Mild left ventricular diastolic dysfunction. Right Ventricle * Normal right ventricular structure and function. Left Atrium * Mildly dilated left atrium. Right Atrium * Normal right atrial size. Aortic Valve * Trileaflet aortic valve. * Mildly calcified aortic valve leaflets. * No aortic regurgitation. * No aortic stenosis. Mitral Valve * Normal mitral valve structure and function. * No mitral stenosis. * Trace mitral regurgitation. Tricuspid Valve * Normal tricuspid valve structure and function. * Trace tricuspid regurgitation. * No evidence of pulmonary hypertension. Pulmonic Valve * Normal pulmonic valve structure and function. * No pulmonic regurgitation. Aorta * Normally sized aortic root. Pericardium * The pericardium appears normal. IVC * Normal IVC dimensions and inspiratory collapse. Pulmonary Artery * Normal visualized portions of the main pulmonary artery. Consult Discharge Plan - Plan [facility]errals: [facility] Care Provider[facility] - <CullenchanelleeliShaji carias - Last Filed: 04/06/18 16:15> Date of Encounter: 04/06/18 - Assessment and plan (1) Non-STEMI (non-ST elevated myocardial infarction) Current Visit: Yes Status: Acute (2) New onset atrial fibrillation Current Visit: Yes Status: Acute (3) HTN (hypertension) Current Visit: Yes Status: Chronic Qualifiers: Hypertension type: unspecified Qualified Code(s): I10 - Essential (primary ) hypertension (4) DVT prophylaxis Current Visit: Yes Status: Acute (5) PAD (peripheral artery disease) Current Visit: Yes Status: Chronic - Time Spent With Patient Total time spent is greater than 50% in coordination of care (as documented) at patient's floor/unit and/or counseling patient: - Constitutional Vitals: Temp Pulse Resp BP Pulse Ox 98.2 F 65 16 127/68 96 04/06/18 14:08 04/06/18 16:04 04/06/18 16:04 04/06/18 16:04 04/06/18 16:04 Internal Medicine: Result - Labs CBC & Chem 7: 04/06/18 00:18 04/06/18 09:49 Labs: Short CBC 04/06/18 Range/Units 00:18 WBC 14.9 H (4.3-11.1) K/mcL Hgb 16.9 (12.9-16.9) g/dL Hct 47.9 (37.5-50.1) % Plt Count 643 H (140-400) K/mcL Neutrophils # 10.8 H (1.6-8.9) K/mcL BMP 04/06/18 04/06/18 00:18 09:49 Sodium 131 L 131 L Potassium 4.1 4.3 Chloride 99 98 Carbon Dioxide 24 25 BUN 26 H 22 Creatinine 1.35 H 1.24 Glucose 95 120 H Calcium 9.2 9.7 Cardiac Enzymes 04/05/18 04/06/18 Range/Units 17:31 00:18 Troponin I 0.06 H* 0.07 H* (< 0.04) ng/mL - ABG Interpretation ABG results: PT/INR, D-dimer PT 11.3 Seconds (9.4-12.1) 04/06/18 00:18 - Impressions Impressions Echocardiogram 04/06/18 11:50 Impressions: LVEF 60%. Normal LV chamber size, wall thickness and function. Mild left ventricular diastolic dysfunction. Normal right ventricular structure and function. No evidence of pulmonary hypertension. No significant valvular dysfunction. Left Ventricular Wall Motion: Rest Echo Findings All wall segments showed normal motion. Findings: Study Quality * Technically adequate exam. ECG Findings * Sinus bradycardia. Left Ventricle * LVEF 60%. * Normal LV chamber size, wall thickness and function. * Mild left ventricular diastolic dysfunction. Right Ventricle * Normal right ventricular structure and function. Left Atrium * Mildly dilated left atrium. Right Atrium * Normal right atrial size. Aortic Valve * Trileaflet aortic valve. * Mildly calcified aortic valve leaflets. * No aortic regurgitation. * No aortic stenosis. Mitral Valve * Normal mitral valve structure and function. * No mitral stenosis. * Trace mitral regurgitation. Tricuspid Valve * Normal tricuspid valve structure and function. * Trace tricuspid regurgitation. * No evidence of pulmonary hypertension. Pulmonic Valve * Normal pulmonic valve structure and function. * No pulmonic regurgitation. Aorta * Normally sized aortic root. Pericardium * The pericardium appears normal. IVC * Normal IVC dimensions and inspiratory collapse. Pulmonary Artery * Normal visualized portions of the main pulmonary artery. - Attending Attestation I examined this patient and my medical decision-making was reviewed with the Resident Physician Dr. Giraldo. I agree with the documented findings, disposition and treatment plan as described except to the extent set forth below. Mr. Nair is a 68 y/o M with known HTN, HLD, TIA, Severe PAD pt admitted here for acute CP. Pt stated he has been having Left and substernal chest pain since last one week. His pain is non radiating, associated with nausea. His trop was elevated at [facility] so he was sent to our ER for further work up. He also has new onset Afoib. He denied any active CP Now. Converted to NSR now Gen: A, A, O x3 Chest: Diminished BS b/l Heart: S1S2+ RRR a/p 1. Acute CP 2. Acute NSTEMI trop x 3 Heparin gtt ASA and Nitro PRN BB - Metoprolol Scheduled for [facility] today 3. New onset Afib rate controlled and converted to NSR now on tele d/c Atenolol and placed him on Metoprolol 25mg BID on Heparin gtt for anti coag His [facility]VASC 4
--- NOTE | 2018-04-06 15:32 | Electrocardiograph Report ---
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
--- NOTE | 2018-04-06 18:25 | Cardiothoracic Consult Note ---
Date of Encounter: 04/06/18 Time of Encounter: 18:18 Assessment and Plan (1) Non-STEMI (non-ST elevated myocardial infarction) Current Visit: Yes Status: Acute The patient is a 68-year-old hypertensive male with hypercholesterolemia, known cerebrovascular disease, and known peripheral arterial disease. The patient is had 'indigestion' symptoms for the last several months; however, on Friday, 05/2018, he had severe, nonradiating substernal chest pain with associated nausea and vomiting. He was evaluated at the [facility] emergency department and found to have paroxysmal atrial fibrillation and elevated troponin I levels consistent with an acute NSTEMI. He was treated medically and then transferred to [facility] for further cardiac care. The patient underwent cardiac catheterization today was found to have severe 3 vessel CAD and an LVEF 65%. In particular, the patient has a 50% proximal left main lesion, a 50% distal left main lesion, a 95% ostial/proximal LCx lesion, a 90% proximal OM1 lesion, a 70% proximal RCA lesion, and a 90% mid RCA lesion. He has been recommended for combined CABG and modified Maze procedure. I concur with this recommendation. The STS risk calculator gives the patient and operative mortality risk 3.02%, deep sternal wound infection 0.48%, permanent stroke risk 3.03%, renal failure risk 5.05%, and reoperation risk 9.34 %. The patient understands the procedure, benefits, alternatives, and risks, and gives his informed consent. The patient has been on Plavix for his right femoral-popliteal bypass graft and this will need to be stopped for 5-7 days prior to CABG. Tentatively the patient is scheduled for combined CABG and modified Maze procedure on 04/14/2018. The assessment and plan as outlined above was discussed with the patient and/or family members who expressed understanding and agreement. All questions were answered. - History of Present Illness Consult date: 04/06/18 Requesting physician: Matthew Pineda Consult reason: CABG evaluation Chief complaint: NSTEMI History of present illness: Mr. Nair is a 68 year old hypertensive man with hypercholesterolemia, known cerebrovascular disease, and known peripheral arterial disease. He states that during the last several months he is experienced 'indigestion', both with activity and particularly at night. He has had lightheadedness and presyncope, but denies any substernal chest pain, shortness of breath, dyspnea exertion nausea, or vomiting. However, on 04/03/2018 the patient had severe, nonradiating substernal chest pain and nausea and vomiting. The patient was evaluated at the [facility] emergency department where he is found to have atrial fibrillation with a rapid ventricular response. He also had elevated troponin I levels consistent with an acute NSTEMI. He was treated medically with resolution of his chest pain and transferred to [facility] for further cardiac care. A transthoracic echocardiogram revealed a left ventricular ejection fraction 60 % with normal left ventricular chamber size wall thickness, and function. No significant valvular dysfunction was noted, but mild left ventricular diastolic dysfunction was present. The patient underwent cardiac catheterization today was found to have severe 3 vessel CAD and an LVEF 65%. In particular the patient had a 50% proximal left main lesion, a 50% distal left main lesion, a 95 % ostial/proximal LCx lesion, a 90% proximal OM1 lesion, a 70% proximal RCA lesion, and a 90% mid RCA lesion. The patient has been recommended for combined CABG and modified Maze procedure. Past Med Surg Social Fam HX - Past Medical History Medical history: atrial fibrillation (NEW DX), coronary artery disease, CVA, hyperlipidemia, hypertension, peripheral artery disease, other Additional medical history: PVD. Psychiatric history: no psych history - Past Surgical History Surgical History: LE vascular intervention (Right femoral-popliteal bypass), other (Left knee arthroscopy, lumbar laminectomy 3) Additional surgical history: Back surgery. Shoulder surgery. - Social History Smoking Status: Current every day smoker Packs per day: 1 PPD 60 years Smokeless Tobacco Status: No Alcohol use: occasionally Drug use: none Occupational status: retired Current living situation: Home - Independent Activity Level: Independent ambulation Recent Out of Country Travel Within the Last 8 Weeks: No Exposure or Possible Exposure to Illness During Travel: No Medications and Allergies Clopidogrel [Plavix] 75 mg PO DAILY 10/29/15 [History] Amlodipine Besylate 10 mg PO DAILY 04/05/18 [History] Aspirin [Lo-Dose Aspirin EC] 81 mg PO DAILY 04/05/18 [History] Atenolol [Tenormin] 50 mg PO DAILY 04/05/18 [History] Atorvastatin [Lipitor] 20 mg PO HS 04/05/18 [History] Calcium Carbonate [Calcium] 600 mg PO DAILY 04/05/18 [History] Ergocalciferol (VITAMIN D2) [Vitamin D] 400 unit PO DAILY 04/05/18 [History] Lisinopril [Zestril] 5 mg PO DAILY 04/05/18 [History] Vit C/E/Zn/Coppr/Lutein/Zeaxan [Preservision Areds 2 Softgel] 1 cap PO BID 04/05 [History] 3 Allergy/AdvReac Type Severity Reaction Status Date / Time adhesive tape Allergy See Verified 04/05/18 10:59 Comments Iodinated Contrast- Oral and Allergy See Verified 04/05/18 10:59 IV Dye Comments All Systems Review: The remainder of the systems were reviewed and are negative Physical Examination Vital Signs, Last 4 Hours Temp Pulse Resp BP Pulse Ox 04/06/18 16:55 98.2 F 64 16 130/68 96 04/06/18 16:04 65 16 127/68 96 04/06/18 15:15 68 16 145/90 98 04/06/18 14:47 56 16 141/63 98 04/06/18 14:45 57 16 130/69 97 04/06/18 14:20 57 16 136/78 96 General: Conversant, No Apparent Distress HEENT: Atraumatic, Normocephaly, Trachea midline Neck: No JVD, Normal carotid pulses Cardiac: Reg Rate and Rhythm, Normal S1 and S2, No Murmur Lungs: Normal Breath Sounds, No Wheeze, Rales, Rhonchi Neuro: Alert and responsive, No focal deficits noted, Motor nerves intact, Sensory nerves intact Vascular: Normal capillary refill Abdomen: Soft, Non-tender Skin: No rashes noted on visualized skin Musculoskeletal: No Chest Wall Tenderness Extremities: No Clubbing, No Cyanosis, No Edema Results 04/06/18 00:18 04/06/18 09:49 Lab Results, Last 24 hours 04/06/18 04/06/18 04/06/18 00:18 00:18 00:18 WBC 14.9 H Hgb 16.9 Hct 47.9 Plt Count 643 H INR 1.1 APTT Sodium Potassium Chloride Carbon Dioxide BUN Creatinine Glucose Calcium Magnesium Troponin I 0.07 H* 04/06/18 04/06/18 04/06/18 00:18 00:18 08:00 WBC Hgb Hct Plt Count INR APTT 43.8 H D 68.0 H D Sodium 131 L Potassium 4.1 Chloride 99 Carbon Dioxide 24 BUN 26 H Creatinine 1.35 H Glucose 95 Calcium 9.2 Magnesium 2.1 Troponin I 04/06/18 04/06/18 09:49 14:37 WBC Hgb Hct Plt Count INR APTT 40.8 H Sodium 131 L Potassium 4.3 Chloride 98 Carbon Dioxide 25 BUN 22 Creatinine 1.24 Glucose 120 H Calcium 9.7 Magnesium Troponin I Consult Discharge Plan - Plan [facility]: [facility] [Primary Care Provider] -
[2018-04-06] MEDS: Heparin 25,000 UNIT/500 ML D5W 25,000 UNIT/500 ML BAG IVC SCH (20:22)
[2018-04-07 06:37] LABS: Basophils % 0.1 %; Hematocrit 45.3 % (37.5-50.1); Hemoglobin 15.8 g/dL (12.9-16.9); Immature Granulocytes % 0.6 % (0-4); Lymphocytes % 4.9 %; Mean Corpuscular HGB Conc 34.9 g/dL (31.6-35.5); Mean Corpuscular Hemoglobin 31.6 pg (28.0-33.3); Mean Corpuscular Volume 90.6 fL (83.0-100.0); Mean Platelet Volume 9.7 fL (9.4-12.4); Monocytes # 0.8 K/mcL (0.0-1.3); Monocytes % 4.2 %; Platelet Count 618 K/mcL (140-400); Red Cell Distribution Width 14.6 % (11.5-14.5); Segmented Neutrophils % 90.2 %
[2018-04-07 06:47] LABS: BUN/Creatinine Ratio 22 (6-26); Blood Urea Nitrogen 26 mg/dL (8-23); Calcium 9.1 mg/dL (8.6-10.3); Carbon Dioxide 19 mEq/L (23-29); Chloride 101 mEq/L (98-107); Glucose 189 mg/dL (70-105); Osmolality,Calculated 280 (280-300); Potassium 4.3 mEq/L (3.5-5.1); Sodium 130 mEq/L (136-145); eGFR For African Americans > 60 (> 60); eGFR For Non-African Americans > 60 (> 60)
[2018-04-07] MEDS: Cholecalciferol (D-3) 1,000 UNIT TABLET PO SCH (08:24)
[2018-04-07] MEDS: Aspirin Enteric Coated 81 MG Tablet PO SCH (08:24)
[2018-04-07] MEDS: amLODIPine 5 MG TABLET PO SCH (08:24)
--- NOTE | 2018-04-07 09:19 | Cardiothoracic Progress Note ---
Date of Encounter: 04/07/18 Time of Encounter: :18 - Assessment and plan (1) Non-STEMI (non-ST elevated myocardial infarction) Current Visit: Yes Status: Acute The patient is a 68-year-old hypertensive male with hypercholesterolemia, known cerebrovascular disease, and known peripheral arterial disease. The patient is had 'indigestion' symptoms for the last several months; however, on Friday, 05/2018, he had severe, nonradiating substernal chest pain with associated nausea and vomiting. He was evaluated at the [facility] emergency department and found to have paroxysmal atrial fibrillation and elevated troponin I levels consistent with an acute NSTEMI. He was treated medically and then transferred to [facility] for further cardiac care. The patient underwent cardiac catheterization today was found to have severe 3 vessel CAD and an LVEF 65%. In particular, the patient has a 50% proximal left main lesion, a 50% distal left main lesion, a 95% ostial/proximal LCx lesion, a 90% proximal OM1 lesion, a 70% proximal RCA lesion, and a 90% mid RCA lesion. He has been recommended for combined CABG and modified Maze procedure. I concur with this recommendation. The STS risk calculator gives the patient and operative mortality risk 3.02%, deep sternal wound infection 0.48%, permanent stroke risk 3.03%, renal failure risk 5.05%, and reoperation risk 9.34 %. The patient understands the procedure, benefits, alternatives, and risks, and gives his informed consent. The patient has been on Plavix for his right femoral-popliteal bypass graft and this will need to be stopped for 5-7 days prior to CABG. Tentatively the patient is scheduled for combined CABG and modified Maze procedure on 04/14/2018. The assessment and plan as outlined above was discussed with the patient and/or family members who expressed understanding and agreement. All questions were answered. - Subjective Interval history: The patient is resting comfortably in his hospital bed. He has no complaints of sternal chest pain. Vital Signs, Last 4 Hours Temp Pulse Resp BP Pulse Ox 04/07/18 08:30 98 04/07/18 08:00 98.2 F 62 17 135/72 98 Clinical Data, last 8 Hours Output, Urine Amount 250 Output, Urine Amount 400 Weight 04/05/18 04/06/18 04/07/18 23:59 23:59 23:59 Weight 75.189 kg 73.709 kg - Physical Examination General: Conversant, No Apparent Distress Neck: No JVD, Normal carotid pulses Cardiac: Reg Rate and Rhythm, Normal S1 and S2, No Murmur Lungs: Normal Breath Sounds, No Wheeze, Rales, Rhonchi Neuro: Alert and responsive, No focal deficits noted Vascular: Normal capillary refill Musculoskeletal: No Chest Wall Tenderness Extremities: No Clubbing, No Cyanosis, No Edema - Labs 04/07/18 06:08 04/07/18 06:08 Lab Results, Last 24 hours 04/06/18 04/06/18 04/06/18 09:49 14:37 22:29 WBC Hgb Hct Plt Count APTT 40.8 H 99.2 H D Sodium 131 L Potassium 4.3 Chloride 98 Carbon Dioxide 25 BUN 22 Creatinine 1.24 Glucose 120 H Calcium 9.7 04/07/18 04/07/18 04/07/18 06:08 06:08 06:08 WBC 19.9 H Hgb 15.8 Hct 45.3 Plt Count 618 H APTT 66.7 H Sodium 130 L Potassium 4.3 Chloride 101 Carbon Dioxide 19 L BUN 26 H Creatinine 1.19 Glucose 189 H Calcium 9.1 Consult Discharge Plan - Plan [facility]errals: [facility] [Primary Care Provider] -
--- NOTE | 2018-04-07 10:52 | Cardiology Progress Note ---
Date of Encounter: 04/07/18 Time of Encounter: 10:50 Assessment and Plan (1) New onset atrial fibrillation Current Visit: Yes Status: Acute Per Cardiology: Apparent new onset. Spontaneously reverted to NSR / sinus bradycardia. Average heart rate past 12 hrs = 66, remains sinus rhythm. On BB. Planned MAZE with CABG next week. [id number] = 5 based on age and history. On IV Hep gtt. (2) CAD (coronary artery disease) Current Visit: Yes Status: Acute Per Cardiology: [facility]: Impressions: There is severe multivessel coronary artery disease. 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 Recommendations: Optimal medical therapy of patient's disease. Aggressive risk factor modification. Suggest patient have Elective coronary artery bypass surgery. ECHO: Impressions: LVEF 60%. Normal LV chamber size, wall thickness and function. Mild left ventricular diastolic dysfunction. Normal right ventricular structure and function. No evidence of pulmonary hypertension. No significant valvular dysfunction. Left Ventricular Wall Motion: Rest Echo Findings All wall segments showed normal motion. Per CT Surgery: "The patient has been on Plavix for his right femoral-popliteal bypass graft and this will need to be stopped for 5-7 days prior to CABG. Tentatively the patient is scheduled for combined CABG and modified Maze procedure on 04/14/2018". Chest pain-free. On asa, statin, BB, ACEI-- rec hold a few days prior to surgery. On IV Hep gtt. Qualifiers: Coronary Disease-Associated Artery/Lesion type: zuni artery [place] vs. transplanted heart: zuni heart Associated angina: without angina Qualified Code(s): I25.10 - Atherosclerotic heart disease of zuni coronary artery without angina pectoris Discussion w patient/family: The assessment and plan as outlined above was discussed with the patient who expressed understanding and agreement. All questions were answered. Thank you for involving us in the care of your patient. Please call with any questions. Subjective Principal diagnosis: CAD Interval history: Patient denies any chest pain, short of breath, palpitations. Denies any concerns from his right wrist and left groin site. Objective Vital Signs, Last 4 Hours Temp Pulse Resp BP Pulse Ox 04/07/18 08:30 98 04/07/18 08:00 98.2 F 62 17 135/72 98 General: Conversant, No Apparent Distress HEENT: Atraumatic, Normocephaly, Mucus Membranes Moist Neck: No JVD, Normal carotid pulses Cardiac: Reg Rate and Rhythm, Normal S1 and S2, No Murmur Lungs: Normal Breath Sounds, No Wheeze, Rales, Rhonchi Neuro: Alert and responsive, No focal deficits noted Abdomen: Soft, Non-Tender Skin: No rashes noted on visualized skin, Other (Right wrist joint intact with no bleeding or hematoma, right radial pulse 2+ palpable; left femoral site trying intact with no bleeding, no ecchymosis, no hematoma, left PT and DP pulses 1+ palpable) Musculoskeletal: No Chest Wall Tenderness Extremities: No Clubbing, No Cyanosis, No Edema, Normal Pulses Results 04/07/18 06:08 04/07/18 06:08 Lab Results Laboratory Tests 04/05/18 04/05/18 04/05/18 10:46 11:49 17:31 WBC 13.1 H INR Creatinine Est GFR (Non-Af Amer) Troponin I 0.07 H* 0.06 H* TSH 0.900 04/06/18 04/06/18 04/07/18 00:18 00:18 06:08 WBC 19.9 H INR 1.1 Creatinine Est GFR (Non-Af Amer) Troponin I 0.07 H* TSH 04/07/18 06:08 WBC INR Creatinine 1.19 Est GFR (Non-Af Amer) > 60 Troponin I TSH ITS Impressions Echocardiogram 04/06/18 11:50 Impressions: LVEF 60%. Normal LV chamber size, wall thickness and function. Mild left ventricular diastolic dysfunction. Normal right ventricular structure and function. No evidence of pulmonary hypertension. No significant valvular dysfunction. Left Ventricular Wall Motion: Rest Echo Findings All wall segments showed normal motion. Findings: Study Quality * Technically adequate exam. ECG Findings * Sinus bradycardia. Left Ventricle * LVEF 60%. * Normal LV chamber size, wall thickness and function. * Mild left ventricular diastolic dysfunction. Right Ventricle * Normal right ventricular structure and function. Left Atrium * Mildly dilated left atrium. Right Atrium * Normal right atrial size. Aortic Valve * Trileaflet aortic valve. * Mildly calcified aortic valve leaflets. * No aortic regurgitation. * No aortic stenosis. Mitral Valve * Normal mitral valve structure and function. * No mitral stenosis. * Trace mitral regurgitation. Tricuspid Valve * Normal tricuspid valve structure and function. * Trace tricuspid regurgitation. * No evidence of pulmonary hypertension. Pulmonic Valve * Normal pulmonic valve structure and function. * No pulmonic regurgitation. Aorta * Normally sized aortic root. Pericardium * The pericardium appears normal. IVC * Normal IVC dimensions and inspiratory collapse. Pulmonary Artery * Normal visualized portions of the main pulmonary artery. Active Medications Acetaminophen (Tylenol) 650 mg PO Q6HR PRN PRN Reason: Mild Pain/Fever Stop: 10/05/18 11:33 Hydrocodone Bitart/Acetaminophen ([place] 5-325 Mg) 1 tab PO Q6HR PRN PRN Reason: Moderate Pain Stop: 10/05/18 11:33 Amlodipine Besylate (Norvasc) 10 mg PO DAILY CESAR Stop: 10/06/18 09:01 Last Admin: 04/07/18 08:24 Dose: 10 mg Aspirin (Aspirin Ec) 81 mg PO DAILY CESAR Stop: 10/06/18 09:01 Last Admin: 04/07/18 08:24 Dose: 81 mg Atorvastatin Calcium (Lipitor) 20 mg PO HS CESAR Stop: 10/05/18 21:01 Last Admin: 04/06/18 20:16 Dose: 20 mg Calcium Carbonate (Tums) 500 mg PO DAILY CESAR Stop: 10/06/18 09:01 Last Admin: 04/07/18 08:24 Dose: 500 mg Heparin Sodium (Porcine) (Heparin) 4,000 unit IVP Q6HR PRN PRN Reason: SEE COMMENTS Stop: 10/05/18 10:33 Last Admin: 04/06/18 16:08 Dose: 4,000 unit Heparin Sodium (Porcine) (Heparin) 2,000 unit IVP Q6H PRN PRN Reason: SEE COMMENTS Stop: 10/05/18 10:33 Last Admin: 04/06/18 01:33 Dose: 2,000 unit Heparin Sodium/Dextrose (Heparin 25,000 Unit/500 Ml D5w) 25,000 unit in 500 mls @ 17.736 mls/hr IVC .Q24H CESAR; 12 UNIT/KG/HR PRN Reason: Protocol Stop: 10/05/18 10:46 Last Titration: 04/07/18 06:49 Dose: 12.34 unit/kg/hr, 18.253 mls/hr Lisinopril (Zestril) 5 mg PO DAILY CESAR PRN Reason: Protocol Stop: 10/06/18 09:01 Last Admin: 04/07/18 08:24 Dose: 5 mg Metoprolol Tartrate (Lopressor) 25 mg PO BID CESAR Stop: 10/05/18 11:46 Last Admin: 04/07/18 08:24 Dose: 25 mg Naloxone HCl (Narcan) 0.4 mg IVP Q2MIN PRN PRN Reason: SEE COMMENTS Stop: 10/05/18 11:33 Ondansetron HCl (Zofran) 4 mg IVP Q6HR PRN; Protocol PRN Reason: Nausea And Vomiting Stop: 10/06/18 13:39 Vitamin D (Vitamin D) 1,000 unit PO DAILY CESAR Stop: 10/06/18 09:01 Last Admin: 04/07/18 08:24 Dose: 1,000 unit - Imaging and Cardiology Echo: report reviewed Cardiac cath: report reviewed Consult Discharge Plan - Plan [facility]errals: [facility] [Primary Care Provider] -
--- NOTE | 2018-04-07 15:15 | Internal Med Progress Note ---
<Garrett Giraldo - Last Filed: 04/07/18 15:34> Date of Encounter: 04/07/18 Time of Encounter: 09:30 - Assessment and plan (1) Non-STEMI (non-ST elevated myocardial infarction) Current Visit: Yes Status: Acute Assessment and plan: S/p C with multivessel disease. No chest pain, dyspnea, or lightheadedness. Plan for CABG 04/14 after plavix washout. (2) New onset atrial fibrillation Current Visit: Yes Status: Acute Assessment and plan: Reverted to NSR, currently on toprol 25mg po BID Possibly due to ischemic trigger, MAZE procedure also planned in conjunction with CABG with cardiothoracic surgery. (3) HTN (hypertension) Current Visit: Yes Status: Chronic Assessment and plan: Continuing metoprolol Qualifiers: Hypertension type: unspecified Qualified Code(s): I10 - Essential (primary ) hypertension (4) DVT prophylaxis Current Visit: Yes Status: Acute Assessment and plan: Heparin drip (5) PAD (peripheral artery disease) Current Visit: Yes Status: Chronic Assessment and plan: Holding plavix in setting of pre-op optimization for CABG. Fem/Pop bypass with Dr. Canales - Time Spent With Patient Total time spent is greater than 50% in coordination of care (as documented) at patient's floor/unit and/or counseling patient: - Subjective Interval history: Patient has stayed in NSR since yesterday. Pt continues to be without chest pain , dyspnea, syncope, lightheadedness today. He has chosen to go with elective CABG with cardiothoracic, staying inpatient for plavix washout. - Constitutional Vitals: Temp Pulse Resp BP Pulse Ox 97.8 F 63 16 137/70 97 04/07/18 11:34 04/07/18 11:34 04/07/18 11:34 04/07/18 11:34 04/07/18 11:34 General appearance: Present: A&O X 3, pleasant, no acute distress, answers questions appropriately - Head Head exam: Present: atraumatic - Eye Eye exam: Present: EOMI, conjuntiva pink, sclera anicteric - ENT ENT exam: Present: mucous membranes moist - Neck Neck exam general surgery: Present: full ROM. Absent: lymphadenopathy - Respiratory Respiratory exam: Present: CTAB. Absent: accessory muscle use, rhonchi - Cardiovascular Cardiovascular exam: Present: +S1, +S2. Absent: JVD, systolic murmur Additional comments: HR averages in mid 60s, regular - GI/Abdominal GI/Abdominal exam: Present: no peritoneal signs - Extremities Exam Extremities exam: Present: pedal edema, warm - Neurological Exam Neurological exam: Present: no focal deficits - Psychiatric Psychiatric exam: Present: normal affect, normal mood Internal Medicine: Result - Labs CBC & Chem 7: 04/07/18 06:08 04/07/18 06:08 Labs: Short CBC 04/07/18 Range/Units 06:08 WBC 19.9 H (4.3-11.1) K/mcL Hgb 15.8 (12.9-16.9) g/dL Hct 45.3 (37.5-50.1) % Plt Count 618 H (140-400) K/mcL Neutrophils # 18.0 H (1.6-8.9) K/mcL BMP 04/07/18 06:08 Sodium 130 L Potassium 4.3 Chloride 101 Carbon Dioxide 19 L BUN 26 H Creatinine 1.19 Glucose 189 H Calcium 9.1 - ABG Interpretation ABG results: PT/INR, D-dimer PT 11.3 Seconds (9.4-12.1) 04/06/18 00:18 Consult Discharge Plan - Plan [facility]errals: [facility] [Primary Care Provider] - <Shaji Guadarrama - Last Filed: 04/07/18 18:40> Date of Encounter: 04/07/18 - Assessment and plan (1) Non-STEMI (non-ST elevated myocardial infarction) Current Visit: Yes Status: Acute (2) New onset atrial fibrillation Current Visit: Yes Status: Acute (3) HTN (hypertension) Current Visit: Yes Status: Chronic Qualifiers: Hypertension type: unspecified Qualified Code(s): I10 - Essential (primary ) hypertension (4) DVT prophylaxis Current Visit: Yes Status: Acute (5) PAD (peripheral artery disease) Current Visit: Yes Status: Chronic - Time Spent With Patient Total time spent is greater than 50% in coordination of care (as documented) at patient's floor/unit and/or counseling patient: - Constitutional Vitals: Temp Pulse Resp BP Pulse Ox 97.5 F L 5 18 104/62 95 04/07/18 15:48 04/07/18 15:48 04/07/18 15:48 04/07/18 15:48 04/07/18 15:48 Internal Medicine: Result - Labs CBC & Chem 7: 04/07/18 06:08 04/07/18 06:08 Labs: Short CBC 04/07/18 Range/Units 06:08 WBC 19.9 H (4.3-11.1) K/mcL Hgb 15.8 (12.9-16.9) g/dL Hct 45.3 (37.5-50.1) % Plt Count 618 H (140-400) K/mcL Neutrophils # 18.0 H (1.6-8.9) K/mcL BMP 04/07/18 06:08 Sodium 130 L Potassium 4.3 Chloride 101 Carbon Dioxide 19 L BUN 26 H Creatinine 1.19 Glucose 189 H Calcium 9.1 - ABG Interpretation ABG results: PT/INR, D-dimer PT 11.3 Seconds (9.4-12.1) 04/06/18 00:18 - Attending Attestation I examined this patient and my medical decision-making was reviewed with the Resident Physician Dr. Giraldo. I agree with the documented findings, disposition and treatment plan as described except to the extent set forth below. Mr. Nair is a 68 y/o M with known HTN, HLD, TIA, Severe PAD pt admitted here for acute CP. Pt stated he has been having Left and substernal chest pain since last one week. His pain is non radiating, associated with nausea. His trop was elevated at [facility] so he was sent to our ER for further work up. He also has new onset Afoib. He denied any active CP Now. Converted to NSR now Gen: A, A, O x3 Chest: Diminished BS b/l Heart: S1S2+ RRR a/p 1. Acute CP 2. Acute NSTEMI trop x 3 Heparin gtt ASA and Nitro PRN BB - Metoprolol LHC showed severe triple vessel disease CTS consulted for CABG CABG on Friday after Plavix washout 3. New onset Afib rate controlled and converted to NSR now on tele d/c Atenolol and placed him on Metoprolol 25mg BID on Heparin gtt for anti coag His CHADVASC 4
[2018-04-08] MEDS: Heparin 25,000 UNIT/500 ML D5W 25,000 UNIT/500 ML BAG IVC SCH (00:25)
--- NOTE | 2018-04-08 07:26 | Cardiothoracic Progress Note ---
Date of Encounter: 04/08/18 Time of Encounter: 07:24 - Assessment and plan (1) CAD (coronary artery disease) Current Visit: Yes Status: Acute The assessment and plan as outlined above was discussed with the patient and/or family members who expressed understanding and agreement. All questions were answered. We are awaiting approval from the OR concerning possible open heart surgery. We have also stopped his Plavix. We will tentatively plan for his coronary artery bypass grafting on next Friday. Qualifiers: Coronary Disease-Associated Artery/Lesion type: [place] artery [place] vs. transplanted heart: [place] heart Associated angina: without angina Qualified Code(s): I25.10 - Atherosclerotic heart disease of [place] coronary artery without angina pectoris - Subjective Interval history: The patient has had no chest pain and no angina. He has no complaints. Clinical Data, last 8 Hours Output, Urine Amount 300 Weight 04/06/18 04/07/18 04/08/18 23:59 23:59 23:59 Weight 73.709 kg 76.3 kg Lungs are clear to percussion and auscultation. Heart is in a normal sinus rhythm. Carotid duplex reveals a 60-79% block in his left carotid. His right carotid is okay. Echocardiogram reveals no significant valvular dysfunction. - Labs 04/07/18 06:08 04/07/18 06:08 Lab Results, Last 24 hours 04/07/18 13:02 APTT 58.9 H Consult Discharge Plan - Plan [facility]: [facility] [Primary Care Provider[facility] -
--- NOTE | 2018-04-08 09:31 | Internal Med Progress Note ---
<Arvind Gaitan - Last Filed: 04/08/18 09:29> Date of Encounter: 04/08/18 Time of Encounter: 09:29 - Assessment and plan (1) Non-STEMI (non-ST elevated myocardial infarction) Current Visit: Yes Status: Acute Assessment and plan: S/p C with multivessel disease. No chest pain, dyspnea, or lightheadedness. Plan for CABG 04/14 after plavix washout. (2) New onset atrial fibrillation Current Visit: Yes Status: Acute Assessment and plan: Reverted to NSR, currently on toprol 25mg po BID Possibly due to ischemic trigger, MAZE procedure also planned in conjunction with CABG with cardiothoracic surgery. Continue heparin drip for anticoagulation (3) HTN (hypertension) Current Visit: Yes Status: Chronic Assessment and plan: Continuing metoprolol Qualifiers: Hypertension type: unspecified Qualified Code(s): I10 - Essential (primary ) hypertension (4) DVT prophylaxis Current Visit: Yes Status: Acute Assessment and plan: Currently on Heparin drip (5) PAD (peripheral artery disease) Current Visit: Yes Status: Chronic Assessment and plan: Holding plavix in setting of pre-op optimization for CABG. Fem/Pop bypass with Dr. Canales - Time Spent With Patient Total time spent is greater than 50% in coordination of care (as documented) at patient's floor/unit and/or counseling patient: - Subjective Interval history: Patient seen and examined at bedside. Patient states that he feels pretty good today. Denies any chest pain, shortness of breath, abdominal pain, nausea, vomiting - Constitutional Vitals: Temp Pulse Resp BP Pulse Ox 97.6 F 52 15 146/69 100 04/08/18 07:53 04/08/18 07:53 04/08/18 07:53 04/08/18 07:53 04/08/18 07:53 General appearance: Present: A&O X 3, pleasant, no acute distress, answers questions appropriately - Respiratory Respiratory exam: Present: CTAB. Absent: rales, rhonchi, wheezes - Cardiovascular Cardiovascular exam: Present: RRR. Absent: gallop, rubs, systolic murmur, tachycardia - GI/Abdominal GI/Abdominal exam: Present: soft. Absent: distended, tenderness - Extremities Exam Extremities exam: Present: warm. Absent: pedal edema, tenderness - Neurological Exam Neurological exam: Present: alert, oriented X3, no focal deficits Internal Medicine: Result - Labs CBC & Chem 7: 04/07/18 06:08 04/07/18 06:08 - ABG Interpretation ABG results: PT/INR, D-dimer PT 11.3 Seconds (9.4-12.1) 04/06/18 00:18 - Impressions Impressions Chest X-Ray 04/08/18 00:01 IMPRESSION: No acute process. Stable exam. D/ / Rakesh Brown MD / Rakesh Brown MD Interpreting Provider: Rakesh Brown MD Consult Discharge Plan - Plan [facility]errals: [facility] [Primary Care Provider] - <Shaji Guadarrama - Last Filed: 04/08/18 14:30> Date of Encounter: 04/08/18 - Assessment and plan (1) Non-STEMI (non-ST elevated myocardial infarction) Current Visit: Yes Status: Acute (2) New onset atrial fibrillation Current Visit: Yes Status: Acute (3) HTN (hypertension) Current Visit: Yes Status: Chronic Qualifiers: Hypertension type: unspecified Qualified Code(s): I10 - Essential (primary ) hypertension (4) DVT prophylaxis Current Visit: Yes Status: Acute (5) PAD (peripheral artery disease) Current Visit: Yes Status: Chronic - Time Spent With Patient Total time spent is greater than 50% in coordination of care (as documented) at patient's floor/unit and/or counseling patient: - Constitutional Vitals: Temp Pulse Resp BP Pulse Ox 98.0 F 54 16 147/70 98 04/08/18 12:24 04/08/18 12:24 04/08/18 12:24 04/08/18 12:24 04/08/18 12:24 Internal Medicine: Result - Labs CBC & Chem 7: 04/07/18 06:08 04/07/18 06:08 - ABG Interpretation ABG results: PT/INR, D-dimer PT 11.3 Seconds (9.4-12.1) 04/06/18 00:18 - Impressions Impressions Chest X-Ray 04/08/18 00:01 IMPRESSION: No acute process. Stable exam. D/ / Rakesh Brown MD / Rakesh Brown MD Interpreting Provider: Rakesh Brown MD - Attending Attestation I examined this patient and my medical decision-making was reviewed with the Resident Physician Dr. Gaitan. I agree with the documented findings, disposition and treatment plan as described except to the extent set forth below. Mr. Nair is a 68 y/o M with known HTN, HLD, TIA, Severe PAD pt admitted here for acute CP. Pt stated he has been having Left and substernal chest pain since last one week. His pain is non radiating, associated with nausea. His trop was elevated at [facility] so he was sent to our ER for further work up. He also has new onset Afib. He denied any active CP Now. Converted to NSR now Gen: A, A, O x3 Chest: Diminished BS b/l Heart: S1S2+ RRR a/p 1. Acute CP 2. Acute NSTEMI trop x 3 Heparin gtt ASA and Nitro PRN BB - Metoprolol LHC showed severe triple vessel disease CTS consulted for CABG CABG on Friday after Plavix washout 3. Paroxysmal Afib rate controlled and converted to NSR now on tele d/c Atenolol and placed him on Metoprolol 25mg BID on Heparin gtt for anti coag His CHADVASC 4
[2018-04-08] MEDS: Cholecalciferol (D-3) 1,000 UNIT TABLET PO SCH (09:43)
[2018-04-08] MEDS: Aspirin Enteric Coated 81 MG Tablet PO SCH (09:43)
[2018-04-08] MEDS: amLODIPine 5 MG TABLET PO SCH (09:44)
--- NOTE | 2018-04-08 11:03 | Cardiology Progress Note ---
<Terrell Cason - Last Filed: 04/08/18 11:26> Date of Encounter: 04/08/18 Time of Encounter: 11:03 Assessment and Plan (1) CAD (coronary artery disease) Current Visit: Yes Status: Acute No new changes in plan at this time. Tentative plan for CABG on 04/14/18, delayed due to Plavix which is held. LHC: Impressions: There is severe multivessel coronary artery disease. 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 ECHO: LVEF 60%. Normal LV chamber size, wall thickness and function. Mild left ventricular diastolic dysfunction. Qualifiers: Coronary Disease-Associated Artery/Lesion type: [place] artery [place] vs. transplanted heart: [place] heart Associated angina: without angina Qualified Code(s): I25.10 - Atherosclerotic heart disease of [place] coronary artery without angina pectoris (2) New onset atrial fibrillation Current Visit: Yes Status: Acute Apparently new, spontaneously reverted to NSR with no interim recurrence. [id number] = 5 based on age and history. On IV Hep gtt. Planned MAZE with CABG next week. No new suggestions at this time. Discussion w patient/family: The assessment and plan as outlined above was discussed with the patient and/or family members who expressed understanding and agreement. All questions were answered. Thank you for involving us in the care of your patient. Please call with any questions. Subjective Principal diagnosis: CAD Interval history: Asymptomatic at this time explicitly denying chest pain and other ACS equivalent symptoms. No questions or concerns at this time. Objective Vital Signs, Last 4 Hours Temp Pulse Resp BP Pulse Ox 04/08/18 07:53 97.6 F 52 15 146/69 100 General: Conversant, No Apparent Distress HEENT: Atraumatic, Normocephaly, Mucus Membranes Moist Neck: Normal carotid pulses Cardiac: Reg Rate and Rhythm, Normal S1 and S2, No Murmur Lungs: Normal Breath Sounds, No Wheeze, Rales, Rhonchi Neuro: Alert and responsive, No focal deficits noted Abdomen: Soft, Non-Tender Skin: No rashes noted on visualized skin Musculoskeletal: No Chest Wall Tenderness Extremities: No Clubbing, No Cyanosis, No Edema, Normal Pulses Results 04/07/18 06:08 04/07/18 06:08 Lab Results 04/07/18 13:02 APTT 58.9 H - VTE Documentation of Mechanical Device: Graduated compression elastic hosiery Consult Discharge Plan - Plan [facility]errals: [facility] [Primary Care Provider] - <Sparkle Marsh - Last Filed: 04/08/18 11:46> Date of Encounter: 04/08/18 Assessment and Plan (1) CAD (coronary artery disease) Current Visit: Yes Status: Acute No new changes in plan at this time. Tentative plan for CABG on 04/14/18, delayed due to Plavix which is held. C: Impressions: There is severe multivessel coronary artery disease. 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 ECHO: LVEF 60%. Normal LV chamber size, wall thickness and function. Mild left ventricular diastolic dysfunction. I examined this patient and my medical decision-making was reviewed with the Resident Physician. I agree with the documented findings, disposition and treatment plan as described except to the extent set forth below. Awaiting CABG , Stable continue to hold plavix Qualifiers: Coronary Disease-Associated Artery/Lesion type: [place] artery [place] vs. transplanted heart: [place] heart Associated angina: without angina Qualified Code(s): I25.10 - Atherosclerotic heart disease of [place] coronary artery without angina pectoris Discussion w patient/family: The assessment and plan as outlined above was discussed with the patient and/or family members who expressed understanding and agreement. All questions were answered. Thank you for involving us in the care of your patient. Please call with any questions. Objective Vital Signs, Last 4 Hours Temp Pulse Resp BP Pulse Ox 04/08/18 07:53 97.6 F 52 15 146/69 100 Results 04/07/18 06:08 04/07/18 06:08 Lab Results 04/07/18 13:02 APTT 58.9 H
[2018-04-08] MEDS: *HR* Heparin 5,000 UNIT/ML VIAL IVP PRN (18:54)
--- NOTE | 2018-04-09 06:30 | Cardiothoracic Progress Note ---
Date of Encounter: 04/09/18 Time of Encounter: 06:29 - Assessment and plan (1) Non-STEMI (non-ST elevated myocardial infarction) Current Visit: Yes Status: Acute The patient is a 68-year-old hypertensive male with hypercholesterolemia, known cerebrovascular disease, and known peripheral arterial disease. The patient is had 'indigestion' symptoms for the last several months; however, on Friday, 05/2018, he had severe, nonradiating substernal chest pain with associated nausea and vomiting. He was evaluated at the [facility] emergency department and found to have paroxysmal atrial fibrillation and elevated troponin I levels consistent with an acute NSTEMI. He was treated medically and then transferred to [facility] for further cardiac care. The patient underwent cardiac catheterization today was found to have severe 3 vessel CAD and an LVEF 65%. In particular, the patient has a 50% proximal left main lesion, a 50% distal left main lesion, a 95% ostial/proximal LCx lesion, a 90% proximal OM1 lesion, a 70% proximal RCA lesion, and a 90% mid RCA lesion. He has been recommended for combined CABG and modified Maze procedure. I concur with this recommendation. The STS risk calculator gives the patient and operative mortality risk 3.02%, deep sternal wound infection 0.48%, permanent stroke risk 3.03%, renal failure risk 5.05%, and reoperation risk 9.34 %. The patient understands the procedure, benefits, alternatives, and risks, and gives his informed consent. The patient has been on Plavix for his right femoral-popliteal bypass graft and this will need to be stopped for 5-7 days prior to CABG. Tentatively the patient is scheduled for combined CABG and modified Maze procedure on 04/14/2018. The assessment and plan as outlined above was discussed with the patient and/or family members who expressed understanding and agreement. All questions were answered. - Subjective Interval history: The patient is resting comfortably in his hospital bed. He has no complaints of substernal chest pain. Vital Signs, Last 4 Hours Temp Pulse Resp BP Pulse Ox 04/09/18 04:49 98.1 F 61 16 142/70 97 Weight 04/07/18 04/08/18 04/09/18 23:59 23:59 23:59 Weight 76.3 kg 76.7 kg - Physical Examination General: Conversant, No Apparent Distress Neck: No JVD, Normal carotid pulses Cardiac: Reg Rate and Rhythm, Normal S1 and S2, No Murmur Lungs: Normal Breath Sounds, No Wheeze, Rales, Rhonchi Neuro: Alert and responsive, No focal deficits noted Musculoskeletal: No Chest Wall Tenderness Extremities: No Clubbing, No Cyanosis, No Edema - Labs 04/07/18 06:08 04/07/18 06:08 Lab Results, Last 24 hours 04/08/18 04/09/18 14:44 00:51 APTT 50.7 H 88.2 H D - VTE Documentation of Mechanical Device: Graduated compression elastic hosiery Consult Discharge Plan - Plan [facility]errals: [facility] [Primary Care Provider] -
[2018-04-09] MEDS: Heparin 25,000 UNIT/500 ML D5W 25,000 UNIT/500 ML BAG IVC SCH ×2 (07:08→23:39)
[2018-04-09] MEDS: amLODIPine 5 MG TABLET PO SCH (07:30)
[2018-04-09] MEDS: Aspirin Enteric Coated 81 MG Tablet PO SCH (07:30)
[2018-04-09] MEDS: Cholecalciferol (D-3) 1,000 UNIT TABLET PO SCH (07:30)
--- NOTE | 2018-04-09 10:27 | Internal Med Progress Note ---
<Garrett Giraldo - Last Filed: 04/09/18 13:43> Date of Encounter: 04/09/18 Time of Encounter: 08:00 - Assessment and plan (1) Non-STEMI (non-ST elevated myocardial infarction) Current Visit: Yes Status: Acute Assessment and plan: S/p C with multivessel disease. Continues to deny chest pain, dyspnea, or lightheadedness. Plan for CABG and MAZE procedure 04/14 after plavix washout complete. (2) New onset atrial fibrillation Current Visit: Yes Status: Acute Assessment and plan: Reverted to NSR, currently on toprol 25mg po BID Possibly due to ischemic trigger, MAZE procedure also planned in conjunction with CABG with cardiothoracic surgery. Continue heparin drip for anticoagulation (3) HTN (hypertension) Current Visit: Yes Status: Chronic Assessment and plan: Metoprolol 25mg BID, no hypotension, bradycardia Qualifiers: Hypertension type: unspecified Qualified Code(s): I10 - Essential (primary ) hypertension (4) DVT prophylaxis Current Visit: Yes Status: Acute Assessment and plan: Currently on Heparin drip (5) PAD (peripheral artery disease) Current Visit: Yes Status: Chronic Assessment and plan: Holding plavix in setting of pre-op optimization for CABG. Fem/Pop bypass with Dr. Canales - Time Spent With Patient Total time spent is greater than 50% in coordination of care (as documented) at patient's floor/unit and/or counseling patient: - Subjective Interval history: No events overnight, patient continuing plavix washout, has not had dyspnea, lightheadedness, chest discomfort, or weakness. - Constitutional Vitals: Temp Pulse Resp BP Pulse Ox 97.9 F 53 16 154/75 97 04/09/18 07:13 04/09/18 07:13 04/09/18 07:13 04/09/18 07:13 04/09/18 07:13 General appearance: Present: A&O X 3, pleasant, no acute distress, answers questions appropriately - Head Head exam: Present: atraumatic, normal inspection - Eye Eye exam: Present: EOMI. Absent: conjunctival injection - Neck Neck exam general surgery: Present: full ROM - Respiratory Respiratory exam: Present: CTAB. Absent: accessory muscle use - Cardiovascular Cardiovascular exam: Present: RRR, +S1, +S2. Absent: JVD, systolic murmur, tachycardia - Extremities Exam Extremities exam: Absent: calf tenderness, cyanotic - Neurological Exam Neurological exam: Present: no focal deficits - Psychiatric Psychiatric exam: Present: normal affect, normal mood Internal Medicine: Result - Labs CBC & Chem 7: 04/07/18 06:08 04/07/18 06:08 - ABG Interpretation ABG results: PT/INR, D-dimer PT 11.3 Seconds (9.4-12.1) 04/06/18 00:18 - VTE Documentation of Mechanical Device: Graduated compression elastic hosiery Consult Discharge Plan - Plan Referrals: [facility] [Primary Care Provider] - <Shaji Guadarrama - Last Filed: 04/09/18 14:28> Date of Encounter: 04/09/18 - Assessment and plan (1) Non-STEMI (non-ST elevated myocardial infarction) Current Visit: Yes Status: Acute (2) New onset atrial fibrillation Current Visit: Yes Status: Acute (3) HTN (hypertension) Current Visit: Yes Status: Chronic Qualifiers: Hypertension type: unspecified Qualified Code(s): I10 - Essential (primary ) hypertension (4) DVT prophylaxis Current Visit: Yes Status: Acute (5) PAD (peripheral artery disease) Current Visit: Yes Status: Chronic - Time Spent With Patient Total time spent is greater than 50% in coordination of care (as documented) at patient's floor/unit and/or counseling patient: - Constitutional Vitals: Temp Pulse Resp BP Pulse Ox 98.4 F 61 16 145/78 96 04/09/18 11:50 04/09/18 11:50 04/09/18 11:50 04/09/18 11:50 04/09/18 11:50 Internal Medicine: Result - Labs CBC & Chem 7: 04/07/18 06:08 04/07/18 06:08 - ABG Interpretation ABG results: PT/INR, D-dimer PT 11.3 Seconds (9.4-12.1) 04/06/18 00:18 - Attending Attestation I examined this patient and my medical decision-making was reviewed with the Resident Physician Dr. Giraldo. I agree with the documented findings, disposition and treatment plan as described except to the extent set forth below. Mr. Nair is a 68 y/o M with known HTN, HLD, TIA, Severe PAD pt admitted here for acute CP. Pt stated he has been having Left and substernal chest pain since last one week. His pain is non radiating, associated with nausea. His trop was elevated at [facility] so he was sent to our ER for further work up. He also has new onset Afib. He denied any active CP Now. Converted to NSR now. No events over night.. Currently on Heparin gtt Gen: A, A, O x3 Chest: Diminished BS b/l Heart: S1S2+ RRR a/p 1. Acute CP 2. Acute NSTEMI Heparin gtt ASA and Nitro PRN BB - Metoprolol LHC showed severe triple vessel disease CTS consulted for CABG CABG on Friday after Plavix washout 3. Paroxysmal Afib rate controlled and converted to NSR now on tele d/c Atenolol and placed him on Metoprolol 25mg BID on Heparin gtt for anti coag His CHADVASC 4
[2018-04-10] MEDS: Heparin 25,000 UNIT/500 ML D5W 25,000 UNIT/500 ML BAG IVC SCH (07:47)
[2018-04-10] MEDS: Aspirin Enteric Coated 81 MG Tablet PO SCH (07:50)
[2018-04-10] MEDS: Cholecalciferol (D-3) 1,000 UNIT TABLET PO SCH (07:52)
[2018-04-10] MEDS: amLODIPine 5 MG TABLET PO SCH (07:54)
[2018-04-10] MEDS: *HR* HYDROcodone/Acet 5/325 mg TABLET PO PRN (07:59)
--- NOTE | 2018-04-10 08:53 | Cardiothoracic Progress Note ---
Date of Encounter: 04/10/18 Time of Encounter: 08:50 - Assessment and plan (1) CAD (coronary artery disease) Current Visit: Yes Status: Acute The patient is scheduled for open heart surgery on Friday which will include coronary artery bypass grafting, modified Maze procedure and left atrial appendage stapling. Operative consent was obtained. Risks of surgery include , myocardial infarction, stroke, infection, bleeding, clots around the heart, renal or respiratory failure, acute or chronic graft closure, phrenic nerve injury, sternal dehiscence and recurrent atrial fibrillation. The procedure, its risks, benefits and alternatives were explained and he does wish to proceed. He has no questions. Qualifiers: Coronary Disease-Associated Artery/Lesion type: [place] artery [place] vs. transplanted heart: [place] heart Associated angina: without angina Qualified Code(s): I25.10 - Atherosclerotic heart disease of [place] coronary artery without angina pectoris - Subjective Interval history: The patient has had no chest pain and no angina. Vital Signs, Last 4 Hours Temp Pulse Resp BP Pulse Ox 04/10/18 07:26 97.9 F 57 18 160/73 98 04/10/18 05:48 98.5 F 60 18 146/72 94 Clinical Data, last 8 Hours Output, Urine Amount 150 Weight 04/08/18 04/09/18 04/10/18 23:59 23:59 23:59 Weight 76.3 kg 76.7 kg 76.7 kg Lungs are clear to percussion and auscultation. Heart is in a regular rate and rhythm. - Labs 04/07/18 06:08 04/07/18 06:08 Lab Results, Last 24 hours 04/10/18 06:47 APTT 82.2 H - VTE Documentation of Mechanical Device: Graduated compression elastic hosiery Consult Discharge Plan - Plan Referrals: [facility] [Primary Care Provider] -
--- NOTE | 2018-04-10 13:58 | Internal Med Progress Note ---
<Garrett Giraldo - Last Filed: 04/10/18 14:01> Date of Encounter: 04/10/18 Time of Encounter: 10:15 - Assessment and plan (1) Non-STEMI (non-ST elevated myocardial infarction) Current Visit: Yes Status: Acute Assessment and plan: S/p C with multivessel disease. Continues to deny chest pain, dyspnea, or lightheadedness. Plan for CABG, MAZE, and Left atrial appendage stapling procedure 04/14 after plavix washout complete. (2) New onset atrial fibrillation Current Visit: Yes Status: Acute Assessment and plan: Reverted to NSR since day 1, currently on toprol 25mg po BID Possibly due to ischemic trigger, MAZE procedure + JOHN stapling also planned in conjunction with CABG with cardiothoracic surgery. Continue heparin drip for anticoagulation (3) HTN (hypertension) Current Visit: Yes Status: Chronic Assessment and plan: Metoprolol 25mg BID, no hypotension, bradycardia Qualifiers: Hypertension type: unspecified Qualified Code(s): I10 - Essential (primary ) hypertension (4) DVT prophylaxis Current Visit: Yes Status: Acute Assessment and plan: Currently on Heparin drip (5) PAD (peripheral artery disease) Current Visit: Yes Status: Chronic Assessment and plan: Holding plavix in setting of pre-op optimization for CABG. Fem/Pop bypass with Dr. Canales - Time Spent With Patient Total time spent is greater than 50% in coordination of care (as documented) at patient's floor/unit and/or counseling patient: - Subjective Interval history: Patient seen and evaluated at bedside, friend in accompaniment; patient has no questions at this time, continuing plan regarding plavix washout in preparation for CABG/MAZE/Left atrial appendage stapling next Saturday 04/14. Continues to deny chest pain, syncope, shortness of breath, leg swelling. - Constitutional Vitals: Temp Pulse Resp BP Pulse Ox 97.7 F 53 18 156/70 100 04/10/18 11:30 04/10/18 11:30 04/10/18 11:30 04/10/18 11:30 04/10/18 11:30 General appearance: Present: A&O X 3, pleasant, no acute distress, answers questions appropriately - Head Head exam: Present: atraumatic, normal inspection - Eye Eye exam: Present: EOMI, conjuntiva pink, sclera anicteric - Neck Neck exam general surgery: Present: full ROM. Absent: lymphadenopathy - Respiratory Respiratory exam: Present: CTAB. Absent: accessory muscle use - Cardiovascular Cardiovascular exam: Present: RRR, +S1, +S2. Absent: irregular rhythm, systolic murmur, tachycardia - GI/Abdominal GI/Abdominal exam: Absent: distended, firm, guarding - Extremities Exam Extremities exam: Present: warm. Absent: calf tenderness, pedal edema Additional comments: presence of graded compression stockings/hosiery - Neurological Exam Neurological exam: Present: alert, oriented X3. Absent: facial droop, speech deficit - Psychiatric Psychiatric exam: Present: normal affect, normal mood - Skin Skin exam: Present: normal color Internal Medicine: Result - Labs CBC & Chem 7: 04/07/18 06:08 04/07/18 06:08 - ABG Interpretation ABG results: PT/INR, D-dimer PT 11.3 Seconds (9.4-12.1) 04/06/18 00:18 - VTE Documentation of Mechanical Device: Graduated compression elastic hosiery Consult Discharge Plan - Plan [facility]errals: [facility]Primary Care Provider[facility] - <Shaji Guadarrama - Last Filed: 04/10/18 14:21> Date of Encounter: 04/10/18 - Assessment and plan (1) Non-STEMI (non-ST elevated myocardial infarction) Current Visit: Yes Status: Acute (2) New onset atrial fibrillation Current Visit: Yes Status: Acute (3) HTN (hypertension) Current Visit: Yes Status: Chronic Qualifiers: Hypertension type: unspecified Qualified Code(s): I10 - Essential (primary ) hypertension (4) DVT prophylaxis Current Visit: Yes Status: Acute (5) PAD (peripheral artery disease) Current Visit: Yes Status: Chronic - Time Spent With Patient Total time spent is greater than 50% in coordination of care (as documented) at patient's floor/unit and/or counseling patient: - Constitutional Vitals: Temp Pulse Resp BP Pulse Ox 97.7 F 53 18 156/70 100 04/10/18 11:30 04/10/18 11:30 04/10/18 11:30 04/10/18 11:30 04/10/18 11:30 Internal Medicine: Result - Labs CBC & Chem 7: 04/07/18 06:08 04/07/18 06:08 - ABG Interpretation ABG results: PT/INR, D-dimer PT 11.3 Seconds (9.4-12.1) 04/06/18 00:18 - Attending Attestation I examined this patient and my medical decision-making was reviewed with the Resident Physician Dr. Giraldo. I agree with the documented findings, disposition and treatment plan as described except to the extent set forth below. Mr. Nair is a 68 y/o M with known HTN, HLD, TIA, Severe PAD pt admitted here for acute CP. Pt stated he has been having Left and substernal chest pain since last one week. His pain is non radiating, associated with nausea. His trop was elevated at [facility] so he was sent to our ER for further work up. He also has new onset Afib. He denied any active CP Now. Converted to NSR now. No events over night.. Currently on Heparin gtt Gen: A, A, O x3 Chest: Diminished BS b/l Heart: S1S2+ RRR a/p 1. Acute CP 2. Acute NSTEMI Heparin gtt ASA and Nitro PRN BB - Metoprolol LHC showed severe triple vessel disease CTS consulted for CABG CABG on Friday after Plavix washout 3. Paroxysmal Afib rate controlled and converted to NSR now on tele d/c Atenolol and placed him on Metoprolol 25mg BID on Heparin gtt for anti coag His CHADVASC 4
[2018-04-11 01:37] LABS: Basophils # 0.1 K/mcL (0.0-0.2); Basophils % 0.7 %; Hematocrit 47.8 % (37.5-50.1); Hemoglobin 16.5 g/dL (12.9-16.9); Immature Granulocytes % 0.9 % (0-4); Lymphocytes # 2.6 K/mcL (0.6-4.6); Lymphocytes % 14.9 %; Mean Corpuscular HGB Conc 34.5 g/dL (31.6-35.5); Mean Corpuscular Hemoglobin 31.8 pg (28.0-33.3); Mean Corpuscular Volume 92.1 fL (83.0-100.0); Mean Platelet Volume 10.1 fL (9.4-12.4); Monocytes # 1.9 K/mcL (0.0-1.3); Monocytes % 10.7 %; Neutrophils # 12.7 K/mcL (1.6-8.9); Platelet Count 659 K/mcL (140-400); Red Blood Count 5.19 M/mcL (4.19-5.50); Red Cell Distribution Width 14.9 % (11.5-14.5); Segmented Neutrophils % 72.8 %
[2018-04-11 01:55] LABS: BUN/Creatinine Ratio 24 (6-26); Blood Urea Nitrogen 33 mg/dL (8-23); Carbon Dioxide 20 mEq/L (23-29); Chloride 100 mEq/L (98-107); Glucose 116 mg/dL (70-105); Osmolality,Calculated 278 (280-300); Potassium 4.6 mEq/L (3.5-5.1); Sodium 130 mEq/L (136-145); eGFR For African Americans > 60 (> 60); eGFR For Non-African Americans 50 (> 60)
[2018-04-11] MEDS: Aspirin Enteric Coated 81 MG Tablet PO SCH (08:02)
[2018-04-11] MEDS: amLODIPine 5 MG TABLET PO SCH (08:02)
[2018-04-11] MEDS: Cholecalciferol (D-3) 1,000 UNIT TABLET PO SCH (08:02)
[2018-04-11] MEDS: Heparin 25,000 UNIT/500 ML D5W 25,000 UNIT/500 ML BAG IVC SCH (09:39)
--- NOTE | 2018-04-11 09:39 | Cardiothoracic Progress Note ---
Date of Encounter: 04/11/18 Time of Encounter: 09:37 - Assessment and plan (1) CAD (coronary artery disease) Current Visit: Yes Status: Acute The patient is scheduled for open heart surgery on Friday. At this point, he has no questions. Qualifiers: Coronary Disease-Associated Artery/Lesion type: [place] artery [place] vs. transplanted heart: [place] heart Associated angina: without angina Qualified Code(s): I25.10 - Atherosclerotic heart disease of [place] coronary artery without angina pectoris - Subjective Interval history: The patient has had no angina and no chest pain. Vital Signs, Last 4 Hours Temp Pulse Resp BP Pulse Ox 04/11/18 07:10 97.4 F L 60 17 109/66 96 Clinical Data, last 8 Hours Output, Urine Amount 0 Output, Urine Amount 150 Weight 04/09/18 04/10/18 04/11/18 23:59 23:59 23:59 Weight 76.7 kg 76.7 kg 74.09 kg Lungs are clear to percussion and auscultation. Heart is in a normal sinus rhythm. - Labs 04/11/18 01:04 04/11/18 01:04 Lab Results, Last 24 hours 04/11/18 04/11/18 04/11/18 01:04 01:04 08:18 WBC 17.4 H Hgb 16.5 Hct 47.8 Plt Count 659 H APTT 93.7 H Sodium 130 L Potassium 4.6 Chloride 100 Carbon Dioxide 20 L BUN 33 H Creatinine 1.40 H Glucose 116 H Calcium 10.0 - VTE Documentation of Mechanical Device: Graduated compression elastic hosiery Consult Discharge Plan - Plan [facility]errals: [facility] [Primary Care Provider] -
--- NOTE | 2018-04-11 09:44 | Internal Med Progress Note ---
<KandyArvind Emely - Last Filed: 04/11/18 09:42> Date of Encounter: 04/11/18 Time of Encounter: 09:42 - Assessment and plan (1) Non-STEMI (non-ST elevated myocardial infarction) Current Visit: Yes Status: Acute Assessment and plan: S/p [facility] with multivessel disease. Continues to deny chest pain, dyspnea, or lightheadedness. Plan for CABG, MAZE, and Left atrial appendage stapling procedure 04/14 after plavix washout complete. (2) Leukocytosis Current Visit: Yes Status: Acute Assessment and plan: White count 17.4 this morning, was 19.9 on the . Unclear etiology, is neutrophil predominant. Also has thrombocytosis. No fever or any other clinical signs of infection. We will continue to monitor daily Qualifiers: Leukocytosis type: unspecified Qualified Code(s): D72.829 - Elevated white blood cell count, unspecified (3) New onset atrial fibrillation Current Visit: Yes Status: Acute Assessment and plan: Reverted to NSR since day 1, currently on toprol 25mg po BID Possibly due to ischemic trigger, MAZE procedure + JOHN stapling also planned in conjunction with CABG with cardiothoracic surgery. Continue heparin drip for anticoagulation (4) HTN (hypertension) Current Visit: Yes Status: Chronic Assessment and plan: Metoprolol 25mg BID, no hypotension, bradycardia Qualifiers: Hypertension type: unspecified Qualified Code(s): I10 - Essential (primary ) hypertension (5) PAD (peripheral artery disease) Current Visit: Yes Status: Chronic Assessment and plan: Holding plavix in setting of pre-op optimization for CABG. Fem/Pop bypass with Dr. Canales (6) DVT prophylaxis Current Visit: Yes Status: Acute Assessment and plan: Currently on Heparin drip (7) Elevated serum creatinine Current Visit: Yes Status: Acute Assessment and plan: Creatinine 1.4 this morning, with GFR 50. On presentation GFR was 52. Likely chronic kidney disease stage III. Patient continues to have good urine output. Continue to encourage by mouth intake and monitor serum creatinine daily. - Time Spent With Patient Total time spent is greater than 50% in coordination of care (as documented) at patient's floor/unit and/or counseling patient: - Subjective Interval history: Patient seen and examined at bedside. Patient states that he feels pretty good today, he has no complaints. Denies any chest pain, shortness of breath, abdominal pain, nausea, vomiting - Constitutional Vitals: Temp Pulse Resp BP Pulse Ox 97.4 F L 60 17 109/66 96 04/11/18 07:10 04/11/18 07:10 04/11/18 07:10 04/11/18 07:10 04/11/18 07:10 General appearance: Present: A&O X 3, pleasant, no acute distress, answers questions appropriately - Respiratory Respiratory exam: Present: CTAB. Absent: rales, rhonchi, wheezes - Cardiovascular Cardiovascular exam: Present: RRR. Absent: gallop, rubs, systolic murmur - GI/Abdominal GI/Abdominal exam: Present: normal bowel sounds, soft. Absent: distended, tenderness - Extremities Exam Extremities exam: Present: warm. Absent: pedal edema, tenderness Internal Medicine: Result - Labs CBC & Chem 7: 04/11/18 01:04 04/11/18 01:04 Labs: Short CBC 04/11/18 Range/Units 01:04 WBC 17.4 H (4.3-11.1) K/mcL Hgb 16.5 (12.9-16.9) g/dL Hct 47.8 (37.5-50.1) % Plt Count 659 H (140-400) K/mcL Neutrophils # 12.7 H (1.6-8.9) K/mcL BMP 04/11/18 01:04 Sodium 130 L Potassium 4.6 Chloride 100 Carbon Dioxide 20 L BUN 33 H Creatinine 1.40 H Glucose 116 H Calcium 10.0 - ABG Interpretation ABG results: PT/INR, D-dimer PT 11.3 Seconds (9.4-12.1) 04/06/18 00:18 - VTE Documentation of Mechanical Device: Graduated compression elastic hosiery Consult Discharge Plan - Plan [facility]errals: [facility] [Primary Care Provider] - <Shaji Guadarrama - Last Filed: 04/11/18 15:24> Date of Encounter: 04/11/18 - Assessment and plan (1) Non-STEMI (non-ST elevated myocardial infarction) Current Visit: Yes Status: Acute (2) New onset atrial fibrillation Current Visit: Yes Status: Acute (3) HTN (hypertension) Current Visit: Yes Status: Chronic Qualifiers: Hypertension type: unspecified Qualified Code(s): I10 - Essential (primary ) hypertension (4) DVT prophylaxis Current Visit: Yes Status: Acute (5) PAD (peripheral artery disease) Current Visit: Yes Status: Chronic (6) Leukocytosis Current Visit: Yes Status: Acute Qualifiers: Leukocytosis type: unspecified Qualified Code(s): D72.829 - Elevated white blood cell count, unspecified (7) Elevated serum creatinine Current Visit: Yes Status: Acute - Time Spent With Patient Total time spent is greater than 50% in coordination of care (as documented) at patient's floor/unit and/or counseling patient: - Constitutional Vitals: Temp Pulse Resp BP Pulse Ox 97.6 F 65 17 127/67 97 04/11/18 15:18 04/11/18 15:18 04/11/18 15:18 04/11/18 15:18 04/11/18 15:18 Internal Medicine: Result - Labs CBC & Chem 7: 04/11/18 01:04 04/11/18 01:04 Labs: Short CBC 04/11/18 Range/Units 01:04 WBC 17.4 H (4.3-11.1) K/mcL Hgb 16.5 (12.9-16.9) g/dL Hct 47.8 (37.5-50.1) % Plt Count 659 H (140-400) K/mcL Neutrophils # 12.7 H (1.6-8.9) K/mcL BMP 04/11/18 01:04 Sodium 130 L Potassium 4.6 Chloride 100 Carbon Dioxide 20 L BUN 33 H Creatinine 1.40 H Glucose 116 H Calcium 10.0 - ABG Interpretation ABG results: PT/INR, D-dimer PT 11.3 Seconds (9.4-12.1) 04/06/18 00:18 - Attending Attestation I examined this patient and my medical decision-making was reviewed with the Resident Physician Dr. Gaitan. I agree with the documented findings, disposition and treatment plan as described except to the extent set forth below. Mr. Nair is a 68 y/o M with known HTN, HLD, TIA, Severe PAD pt admitted here for acute CP. Pt stated he has been having Left and substernal chest pain since last one week. His pain is non radiating, associated with nausea. His trop was elevated at [facility] so he was sent to our ER for further work up. He also has new onset Afib. He denied any active CP Now. Converted to NSR now. No events over night.. Currently on Heparin gtt Gen: A, A, O x3 Chest: Diminished BS b/l Heart: S1S2+ RRR a/p 1. Acute CP 2. Acute NSTEMI Heparin gtt ASA and Nitro PRN BB - Metoprolol LHC showed severe triple vessel disease CTS consulted for CABG CABG on Friday after Plavix washout 3. Paroxysmal Afib rate controlled and converted to NSR now on tele on Metoprolol 25mg BID on Heparin gtt for anti coag His CHADVASC 4 4. Mild Leukocytosis + Thrombocytosis Seems to be chronic will obtain medical records from PCP office If they are chronically elevated -cocnerning for Myelo proliferative disorder Monitor closely No signs of Inf Reviewed CXR - WNL Will obtain UA 5. CKD-3 He does have chronic kidney disease.. Cr seems to be close to baseline
[2018-04-11 19:12] LABS: Bilirubin,Urine Negative (Negative); Blood,Urine Trace (Negative); Clarity,Urine Clear (Clear); Color,Urine Yellow (Yellow); Glucose,Urine (UA) Normal (Normal); Ketones,Urine Negative (Negative); Leukocyte Esterase,Urine Negative (Negative); Nitrite,Urine Negative (Negative); Protein,Urine 100 mg/dL (Neg-Trace); Specific Gravity,Urine 1.016 (1.010-1.025); Urobilinogen,Urine Normal (Normal)
[2018-04-11 19:14] LABS: Bacteria,Urine None Seen per hpf (None-Few); Hyaline Casts,Urine None Seen per lpf (None-Few); Squamous Epithelial Cell,Urine None Seen per lpf (None-Few); WBC,Urine 0-3 per hpf (0-3)
[2018-04-12 06:10] LABS: Basophils # 0.1 K/mcL (0.0-0.2); Basophils % 0.7 %; Hematocrit 47.6 % (37.5-50.1); Hemoglobin 16.4 g/dL (12.9-16.9); Immature Granulocytes % 1.1 % (0-4); Lymphocytes # 2.3 K/mcL (0.6-4.6); Lymphocytes % 14.2 %; Mean Corpuscular HGB Conc 34.5 g/dL (31.6-35.5); Mean Corpuscular Hemoglobin 31.7 pg (28.0-33.3); Mean Corpuscular Volume 91.9 fL (83.0-100.0); Mean Platelet Volume 10.1 fL (9.4-12.4); Monocytes # 1.6 K/mcL (0.0-1.3); Monocytes % 10.1 %; Neutrophils # 11.8 K/mcL (1.6-8.9); Platelet Count 676 K/mcL (140-400); Red Blood Count 5.18 M/mcL (4.19-5.50); Segmented Neutrophils % 73.9 %
[2018-04-12 06:37] LABS: BUN/Creatinine Ratio 21 (6-26); Blood Urea Nitrogen 29 mg/dL (8-23); Calcium 9.8 mg/dL (8.6-10.3); Carbon Dioxide 22 mEq/L (23-29); Chloride 100 mEq/L (98-107); Glucose 127 mg/dL (70-105); Osmolality,Calculated 279 (280-300); Potassium 4.3 mEq/L (3.5-5.1); Sodium 131 mEq/L (136-145); eGFR For African Americans > 60 (> 60); eGFR For Non-African Americans 52 (> 60)
[2018-04-12] MEDS: Aspirin Enteric Coated 81 MG Tablet PO SCH (07:38)
[2018-04-12] MEDS: Cholecalciferol (D-3) 1,000 UNIT TABLET PO SCH (07:38)
[2018-04-12] MEDS: amLODIPine 5 MG TABLET PO SCH (07:38)
--- NOTE | 2018-04-12 07:59 | Cardiothoracic Progress Note ---
Date of Encounter: 04/12/18 Time of Encounter: 07:57 - Assessment and plan (1) CAD (coronary artery disease) Current Visit: Yes Status: Acute The patient is scheduled for open heart surgery on Friday. He has no questions. Qualifiers: Coronary Disease-Associated Artery/Lesion type: [place] artery [place] vs. transplanted heart: [place] heart Associated angina: without angina Qualified Code(s): I25.10 - Atherosclerotic heart disease of [place] coronary artery without angina pectoris - Subjective Interval history: The patient has had no chest pain and has no complaints. Vital Signs, Last 4 Hours Temp Pulse Resp BP Pulse Ox 04/12/18 07:43 97.7 F 60 18 150/70 97 04/12/18 04:20 97.6 F 62 16 147/82 97 Clinical Data, last 8 Hours Output, Urine Amount 250 Output, Urine Amount 100 Weight 04/10/18 04/11/18 04/12/18 23:59 23:59 23:59 Weight 76.7 kg 74 kg Lungs are clear to percussion and auscultation. Heart is in a normal sinus rhythm. - Labs 04/12/18 05:36 04/12/18 05:36 Lab Results, Last 24 hours 04/11/18 04/11/18 04/11/18 08:18 15:56 22:29 WBC Hgb Hct Plt Count APTT 93.7 H 63.5 H 74.0 H Sodium Potassium Chloride Carbon Dioxide BUN Creatinine Glucose Calcium 04/12/18 04/12/18 05:36 05:36 WBC 16.0 H Hgb 16.4 Hct 47.6 Plt Count 676 H APTT Sodium 131 L Potassium 4.3 Chloride 100 Carbon Dioxide 22 L BUN 29 H Creatinine 1.35 H Glucose 127 H Calcium 9.8 - VTE Documentation of Mechanical Device: Graduated compression elastic hosiery Consult Discharge Plan - Plan [facility]errals: [facility] [Primary Care Provider] -
--- NOTE | 2018-04-12 08:26 | Internal Med Progress Note ---
<Arvind Gaitan - Last Filed: 04/12/18 08:24> Date of Encounter: 04/12/18 Time of Encounter: 08:24 - Assessment and plan (1) Non-STEMI (non-ST elevated myocardial infarction) Current Visit: Yes Status: Acute Assessment and plan: S/p C with multivessel disease. Continues to deny chest pain, dyspnea, or lightheadedness. Plan for CABG, with or without MAZE, and Left atrial appendage stapling procedure 04/14 after plavix washout complete. (2) Leukocytosis Current Visit: Yes Status: Acute Assessment and plan: White count 16.0 this morning, was 17.4 yesterday. Unclear etiology, is neutrophil predominant. Also has thrombocytosis. No fever or any other clinical signs of infection. We order pathology blood smear review. Have attempted to obtain records from [place] for previous lab results to see if this is a chronic issue. Qualifiers: Leukocytosis type: unspecified Qualified Code(s): D72.829 - Elevated white blood cell count, unspecified (3) New onset atrial fibrillation Current Visit: Yes Status: Acute Assessment and plan: Reverted to NSR since day 1, currently on toprol 25mg po BID Possibly due to ischemic trigger, MAZE procedure + JOHN stapling also planned in conjunction with CABG with cardiothoracic surgery. Continue heparin drip for anticoagulation (4) HTN (hypertension) Current Visit: Yes Status: Chronic Assessment and plan: Metoprolol 25mg BID, no hypotension, bradycardia Qualifiers: Hypertension type: unspecified Qualified Code(s): I10 - Essential (primary ) hypertension (5) PAD (peripheral artery disease) Current Visit: Yes Status: Chronic Assessment and plan: Holding plavix in setting of pre-op optimization for CABG. Fem/Pop bypass with Dr. Canales (6) DVT prophylaxis Current Visit: Yes Status: Acute Assessment and plan: Currently on Heparin drip (7) Elevated serum creatinine Current Visit: Yes Status: Acute Assessment and plan: Creatinine 1.35 this morning, with GFR 52. Stable from yesterday. Likely chronic kidney disease stage III however we do not have any old lab results and patient states he has never been told is having problems with his kidneys. Patient continues to have good urine output. [facility] - Time Spent With Patient Total time spent is greater than 50% in coordination of care (as documented) at patient's floor/unit and/or counseling patient: - Subjective Interval history: Patient seen and examined at bedside. Patient states that he feels pretty good today, he has no complaints. Denies any chest pain, shortness of breath, cough , abdominal pain, nausea, vomiting, dysuria - Constitutional Vitals: Temp Pulse Resp BP Pulse Ox 97.7 F 60 18 150/70 97 04/12/18 07:43 04/12/18 07:43 04/12/18 07:43 04/12/18 07:43 04/12/18 07:43 General appearance: Present: A&O X 3, pleasant, no acute distress, answers questions appropriately - Respiratory Respiratory exam: Present: CTAB. Absent: rales, rhonchi, wheezes - Cardiovascular Cardiovascular exam: Present: RRR. Absent: gallop, rubs, systolic murmur - GI/Abdominal GI/Abdominal exam: Present: normal bowel sounds, soft. Absent: distended, tenderness - Extremities Exam Extremities exam: Present: warm. Absent: pedal edema, tenderness - Neurological Exam Neurological exam: Present: alert, CN II-XII intact, oriented X3, no focal deficits Internal Medicine: Result - Labs CBC & Chem 7: 04/12/18 05:36 04/12/18 05:36 Labs: Short CBC 04/12/18 Range/Units 05:36 WBC 16.0 H (4.3-11.1) K/mcL Hgb 16.4 (12.9-16.9) g/dL Hct 47.6 (37.5-50.1) % Plt Count 676 H (140-400) K/mcL Neutrophils # 11.8 H (1.6-8.9) K/mcL BMP 04/12/18 05:36 Sodium 131 L Potassium 4.3 Chloride 100 Carbon Dioxide 22 L BUN 29 H Creatinine 1.35 H Glucose 127 H Calcium 9.8 Urine 04/11/18 Range/Units 19:02 Urine Color Yellow (Yellow) Urine Clarity Clear (Clear) Urine pH 6.0 (5.0-8.0) pH Units Ur Specific [place] 1.016 (1.010-1.025) Urine Protein 100 H (Neg-Trace) mg/dL Urine Glucose (UA) Normal (Normal) mg/dL - ABG Interpretation ABG results: PT/INR, D-dimer PT 11.3 Seconds (9.4-12.1) 04/06/18 00:18 - VTE Documentation of Mechanical Device: Graduated compression elastic hosiery Consult Discharge Plan - Plan Referrals: [facility] [Primary Care Provider] - <Shaji Guadarrama - Last Filed: 04/12/18 14:56> Date of Encounter: 04/12/18 - Assessment and plan (1) Non-STEMI (non-ST elevated myocardial infarction) Current Visit: Yes Status: Acute (2) New onset atrial fibrillation Current Visit: Yes Status: Acute (3) HTN (hypertension) Current Visit: Yes Status: Chronic Qualifiers: Hypertension type: unspecified Qualified Code(s): I10 - Essential (primary ) hypertension (4) DVT prophylaxis Current Visit: Yes Status: Acute (5) PAD (peripheral artery disease) Current Visit: Yes Status: Chronic (6) Leukocytosis Current Visit: Yes Status: Acute Qualifiers: Leukocytosis type: unspecified Qualified Code(s): D72.829 - Elevated white blood cell count, unspecified (7) Elevated serum creatinine Current Visit: Yes Status: Acute - Time Spent With Patient Total time spent is greater than 50% in coordination of care (as documented) at patient's floor/unit and/or counseling patient: - Constitutional Vitals: Temp Pulse Resp BP Pulse Ox 98.1 F 63 16 145/74 96 04/12/18 11:47 04/12/18 11:47 04/12/18 11:47 04/12/18 11:47 04/12/18 11:47 Internal Medicine: Result - Labs CBC & Chem 7: 04/12/18 05:36 04/12/18 05:36 Labs: Short CBC 04/12/18 Range/Units 05:36 WBC 16.0 H (4.3-11.1) K/mcL Hgb 16.4 (12.9-16.9) g/dL Hct 47.6 (37.5-50.1) % Plt Count 676 H (140-400) K/mcL Neutrophils # 11.8 H (1.6-8.9) K/mcL BMP 04/12/18 05:36 Sodium 131 L Potassium 4.3 Chloride 100 Carbon Dioxide 22 L BUN 29 H Creatinine 1.35 H Glucose 127 H Calcium 9.8 Urine 04/11/18 Range/Units 19:02 Urine Color Yellow (Yellow) Urine Clarity Clear (Clear) Urine pH 6.0 (5.0-8.0) pH Units Ur Specific [place] 1.016 (1.010-1.025) Urine Protein 100 H (Neg-Trace) mg/dL Urine Glucose (UA) Normal (Normal) mg/dL - ABG Interpretation ABG results: PT/INR, D-dimer PT 11.3 Seconds (9.4-12.1) 04/06/18 00:18 - Attending Attestation I examined this patient and my medical decision-making was reviewed with the Resident Physician Dr. Gaitan. I agree with the documented findings, disposition and treatment plan as described except to the extent set forth below. Mr. Nair is a 68 y/o M with known HTN, HLD, TIA, Severe PAD pt admitted here for acute CP. Pt stated he has been having Left and substernal chest pain since last one week. His pain is non radiating, associated with nausea. His trop was elevated at [facility] so he was sent to our ER for further work up. He also has new onset Afib. He denied any active CP Now. Converted to NSR now. No events over night.. Currently on Heparin gtt Gen: A, A, O x3 Chest: Diminished BS b/l Heart: S1S2+ RRR a/p 1. Acute CP 2. Acute NSTEMI Heparin gtt ASA and Nitro PRN BB - Metoprolol LHC showed severe triple vessel disease CTS consulted for CABG CABG on Friday after Plavix washout 3. Paroxysmal Afib rate controlled and converted to NSR now on tele on Metoprolol 25mg BID on Heparin gtt for anti coag His CHADVASC 4 4. Mild Leukocytosis + Thrombocytosis Seems to be chronic will obtain medical records from PCP office If they are chronically elevated -concerning for Myelo proliferative disorder Monitor closely No signs of Inf Reviewed CXR - WNL reviewed UA- completely benign 5. CKD-3 He does have chronic kidney disease.. Cr seems to be close to baseline
[2018-04-12] MEDS: Heparin 25,000 UNIT/500 ML D5W 25,000 UNIT/500 ML BAG IVC SCH (10:59)
[2018-04-13 05:18] LABS: Basophils # 0.1 K/mcL (0.0-0.2); Basophils % 0.8 %; Eosinophils % 0.1 %; Hematocrit 46.2 % (37.5-50.1); Hemoglobin 16.1 g/dL (12.9-16.9); Immature Granulocytes % 1.5 % (0-4); Lymphocytes # 2.4 K/mcL (0.6-4.6); Mean Corpuscular HGB Conc 34.8 g/dL (31.6-35.5); Mean Corpuscular Hemoglobin 32.2 pg (28.0-33.3); Mean Corpuscular Volume 92.4 fL (83.0-100.0); Mean Platelet Volume 10.2 fL (9.4-12.4); Monocytes # 1.9 K/mcL (0.0-1.3); Neutrophils # 12.4 K/mcL (1.6-8.9); Platelet Count 638 K/mcL (140-400); Red Cell Distribution Width 15.1 % (11.5-14.5); Segmented Neutrophils % 72.6 %
[2018-04-13 05:40] LABS: BUN/Creatinine Ratio 28 (6-26); Blood Urea Nitrogen 34 mg/dL (8-23); Calcium 9.7 mg/dL (8.6-10.3); Carbon Dioxide 21 mEq/L (23-29); Chloride 100 mEq/L (98-107); Glucose 109 mg/dL (70-105); Magnesium 1.9 mg/dL (1.6-2.6); Osmolality,Calculated 276 (280-300); Potassium 4.5 mEq/L (3.5-5.1); Sodium 129 mEq/L (136-145); eGFR For African Americans > 60 (> 60); eGFR For Non-African Americans 59 (> 60)
--- NOTE | 2018-04-13 06:52 | Cardiothoracic Progress Note ---
Date of Encounter: 04/13/18 Time of Encounter: 06:50 - Assessment and plan (1) CAD (coronary artery disease) Current Visit: Yes Status: Acute The patient is ready for open heart surgery tomorrow. He has no questions concerning the surgery. Qualifiers: Coronary Disease-Associated Artery/Lesion type: [place] artery [place] vs. transplanted heart: [place] heart Associated angina: without angina Qualified Code(s): I25.10 - Atherosclerotic heart disease of [place] coronary artery without angina pectoris - Subjective Interval history: The patient has had no angina. He states that they used the right greater saphenous vein for his right femoropopliteal. However he states that his left leg has no incisions and that the left greater saphenous vein has never been stripped. Vital Signs, Last 4 Hours Temp Pulse Resp BP Pulse Ox 04/13/18 04:15 97.6 F 55 17 135/74 96 Clinical Data, last 8 Hours Output, Urine Amount 1,000 Weight 04/11/18 04/12/18 04/13/18 23:59 23:59 23:59 Weight 74 kg 74.8 kg Lungs are clear to percussion and auscultation. Heart is in a normal sinus rhythm. - Labs 04/13/18 04:39 04/13/18 04:39 Lab Results, Last 24 hours 04/12/18 04/12/18 04/13/18 05:36 22:04 04:39 WBC 16.0 H 17.1 H Hgb 16.4 16.1 Hct 47.6 46.2 Plt Count 676 H 638 H APTT 61.9 H Sodium Potassium Chloride Carbon Dioxide BUN Creatinine Glucose Calcium Magnesium 04/13/18 04:39 WBC Hgb Hct Plt Count APTT Sodium 129 L Potassium 4.5 Chloride 100 Carbon Dioxide 21 L BUN 34 H Creatinine 1.22 Glucose 109 H Calcium 9.7 Magnesium 1.9 - VTE Documentation of Mechanical Device: Graduated compression elastic hosiery Consult Discharge Plan - Plan [facility]errals: [facility]Primary Care Provider[facility] -
[2018-04-13] MEDS: Aspirin Enteric Coated 81 MG Tablet PO SCH (08:32)
[2018-04-13] MEDS: Cholecalciferol (D-3) 1,000 UNIT TABLET PO SCH (08:32)
[2018-04-13] MEDS: amLODIPine 5 MG TABLET PO SCH (08:32)
--- NOTE | 2018-04-13 09:22 | Internal Med Progress Note ---
Addendum entered and electronically signed by Mk Marshall DO 13:10: A/P: (8) Thrombocytosis: possibly chronic, plan to review [facility] records today. Patient will likely need outpatient hematology follow up. Original Note: <Mk Marshall - Last Filed: 04/13/18 09:20> Date of Encounter: 04/13/18 Time of Encounter: 09:00 - Assessment and plan (1) Non-STEMI (non-ST elevated myocardial infarction) Current Visit: Yes Status: Acute Assessment and plan: S/p LHC with multivessel disease. Continues to deny chest pain, dyspnea, or lightheadedness. Plan for CABG, with or without MAZE, and Left atrial appendage stapling procedure 04/14 after plavix washout complete. (2) New onset atrial fibrillation Current Visit: Yes Status: Acute Assessment and plan: Reverted to NSR since day 1, currently on toprol 25mg po BID Possibly due to ischemic trigger, MAZE procedure + JOHN stapling also planned in conjunction with CABG with cardiothoracic surgery. Continue heparin drip for anticoagulation Of note, patient had a 6 beats of VTach yesterday afternoon. Potassium and Magnesium are in the normal range. (3) Leukocytosis Current Visit: Yes Status: Acute Assessment and plan: White count 17.1 this morning, was 17.4 at admission. Unclear etiology, is neutrophil predominant. Also has thrombocytosis. No fever or any other clinical signs of infection. We ordered pathology blood smear review. Have attempted to obtain records from [place] for previous lab results to see if this is a chronic issue. Qualifiers: Leukocytosis type: unspecified Qualified Code(s): D72.829 - Elevated white blood cell count, unspecified (4) HTN (hypertension) Current Visit: Yes Status: Chronic Assessment and plan: Metoprolol 25mg BID. no hypotension or bradycardia Qualifiers: Hypertension type: unspecified Qualified Code(s): I10 - Essential (primary ) hypertension (5) PAD (peripheral artery disease) Current Visit: Yes Status: Chronic Assessment and plan: Holding plavix in setting of pre-op optimization for CABG. Fem/Pop bypass with Dr. Canales (6) DVT prophylaxis Current Visit: Yes Status: Acute Assessment and plan: Currently on Heparin drip (7) Elevated serum creatinine Current Visit: Yes Status: Resolved Assessment and plan: Resolved this morning with Cr today of 1.22. However there is potential with review of recent labs for Cr. to rise. Possibly chronic kidney disease stage III however we do not have any old lab results and patient states he has never been told is having problems with his kidneys. Patient continues to have good urine output. Continue to monitor. May be able to get previous [facility] records. - Time Spent With Patient Total time spent is greater than 50% in coordination of care (as documented) at patient's floor/unit and/or counseling patient: - Subjective Interval history: Patient seen and examined while lying in bed. Patient denies any distress currently; denies shortness of breath, chest pain, abdominal pain, nausea, vomiting. Notes appetite is normal for him. Awaiting CABG tomorrow. - Constitutional Vitals: Temp Pulse Resp BP Pulse Ox 97.6 F 56 16 152/71 98 04/13/18 07:29 04/13/18 07:29 04/13/18 07:29 04/13/18 07:29 04/13/18 07:29 General appearance: Present: cooperative, A&O X 3, pleasant, no acute distress, answers questions appropriately - Head Head exam: Present: atraumatic, normal inspection, normocephalic - Eye Eye exam: Present: EOMI, normal appearance - ENT ENT exam: Present: mucous membranes moist - Neck Neck exam general surgery: Present: full ROM, normal inspection - Respiratory Respiratory exam: Present: CTAB. Absent: rales, respiratory distress, rhonchi, wheezes - Cardiovascular Cardiovascular exam: Present: RRR, +S1, +S2. Absent: gallop, rubs - GI/Abdominal GI/Abdominal exam: Present: normal bowel sounds, soft. Absent: tenderness - Extremities Exam Extremities exam: Present: warm. Absent: pedal edema, tenderness - Neurological Exam Neurological exam: Present: alert, oriented X3, no focal deficits. Absent: speech deficit - Psychiatric Psychiatric exam: Present: normal affect, normal mood - Skin Skin exam: Present: intact, normal color, warm Internal Medicine: Result - Labs CBC & Chem 7: 04/13/18 04:39 04/13/18 04:39 Labs: Short CBC 04/13/18 Range/Units 04:39 WBC 17.1 H (4.3-11.1) K/mcL Hgb 16.1 (12.9-16.9) g/dL Hct 46.2 (37.5-50.1) % Plt Count 638 H (140-400) K/mcL Neutrophils # 12.4 H (1.6-8.9) K/mcL BMP 04/13/18 04:39 Sodium 129 L Potassium 4.5 Chloride 100 Carbon Dioxide 21 L BUN 34 H Creatinine 1.22 Glucose 109 H Calcium 9.7 - ABG Interpretation ABG results: PT/INR, D-dimer PT 11.3 Seconds (9.4-12.1) 04/06/18 00:18 - VTE Documentation of Mechanical Device: Graduated compression elastic hosiery Consult Discharge Plan - Plan [facility]errals: [facility] [Primary Care Provider] - <Shaji Guadarrama - Last Filed: 04/13/18 18:06> Date of Encounter: 04/13/18 - Assessment and plan (1) Non-STEMI (non-ST elevated myocardial infarction) Current Visit: Yes Status: Acute (2) New onset atrial fibrillation Current Visit: Yes Status: Acute (3) HTN (hypertension) Current Visit: Yes Status: Chronic Qualifiers: Hypertension type: unspecified Qualified Code(s): I10 - Essential (primary ) hypertension (4) DVT prophylaxis Current Visit: Yes Status: Acute (5) PAD (peripheral artery disease) Current Visit: Yes Status: Chronic (6) Leukocytosis Current Visit: Yes Status: Acute Qualifiers: Leukocytosis type: unspecified Qualified Code(s): D72.829 - Elevated white blood cell count, unspecified (7) Elevated serum creatinine Current Visit: Yes Status: Resolved - Time Spent With Patient Total time spent is greater than 50% in coordination of care (as documented) at patient's floor/unit and/or counseling patient: - Constitutional Vitals: Temp Pulse Resp BP Pulse Ox 97.6 F 57 15 161/73 96 04/13/18 16:04 04/13/18 16:04 04/13/18 16:04 04/13/18 16:04 04/13/18 16:04 Internal Medicine: Result - Labs CBC & Chem 7: 04/13/18 04:39 04/13/18 04:39 Labs: Short CBC 04/13/18 Range/Units 04:39 WBC 17.1 H (4.3-11.1) K/mcL Hgb 16.1 (12.9-16.9) g/dL Hct 46.2 (37.5-50.1) % Plt Count 638 H (140-400) K/mcL Neutrophils # 12.4 H (1.6-8.9) K/mcL BMP 04/13/18 04:39 Sodium 129 L Potassium 4.5 Chloride 100 Carbon Dioxide 21 L BUN 34 H Creatinine 1.22 Glucose 109 H Calcium 9.7 - ABG Interpretation ABG results: PT/INR, D-dimer PT 11.3 Seconds (9.4-12.1) 04/06/18 00:18 - Attending Attestation I examined this patient and my medical decision-making was reviewed with the Resident Physician Dr. Hardin. I agree with the documented findings, disposition and treatment plan as described except to the extent set forth below. Mr. Nair is a 68 y/o M with known HTN, HLD, TIA, Severe PAD pt admitted here for acute CP. Pt stated he has been having Left and substernal chest pain since last one week. His pain is non radiating, associated with nausea. His trop was elevated at [facility] so he was sent to our ER for further work up. He also has new onset Afib. He denied any active CP Now. Converted to NSR now. No events over night.. Currently on Heparin gtt Gen: A, A, O x3 Chest: Diminished BS b/l Heart: S1S2+ RRR a/p 1. Acute CP 2. Acute NSTEMI Heparin gtt ASA and Nitro PRN BB - Metoprolol LHC showed severe triple vessel disease CTS consulted for CABG CABG on Friday after Plavix washout 3. Paroxysmal Afib rate controlled and converted to NSR now on tele on Metoprolol 25mg BID on Heparin gtt for anti coag His CHADVASC 4 4. Mild Leukocytosis + Thrombocytosis Seems to be chronic Reviewed medical records from PCP office concerning for Myelo proliferative disorder- Path smear pending May need out pt work up Monitor closely No signs of Inf Reviewed CXR - WNL reviewed UA- completely benign 5. CKD-3 He does have chronic kidney disease.. Cr seems to be close to baseline
[2018-04-13 09:34] LABS: Estimated Average Glucose 131 mg/dl; Hemoglobin A1C 6.2 %
[2018-04-13] MEDS: Heparin 25,000 UNIT/500 ML D5W 25,000 UNIT/500 ML BAG IVC SCH (10:50)
--- NOTE | 2018-04-13 17:38 | Anesthesia Evaluation PreOp ---
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 History: CVA (no residual) Other Medical History: Denies Any Significant HX Anesthesia History: No Prior Anesthetic Complications, Past Anesthesia (right Fem-Pop BPG, left AKS, back sx, shoulder sx) Alcohol Use: occasionally Drug use: none Medications and Allergies Clopidogrel [Plavix] 75 mg PO DAILY 10/29/15 [History] Amlodipine Besylate 10 mg PO DAILY 04/05/18 [History] Aspirin [Lo-Dose Aspirin EC] 81 mg PO DAILY 04/05/18 [History] Atenolol [Tenormin] 50 mg PO DAILY 04/05/18 [History] Atorvastatin [Lipitor] 20 mg PO HS 04/05/18 [History] Calcium Carbonate [Calcium] 600 mg PO DAILY 04/05/18 [History] Ergocalciferol (VITAMIN D2) [Vitamin D] 400 unit PO DAILY 04/05/18 [History] Lisinopril [Zestril] 5 mg PO DAILY 04/05/18 [History] Vit C/E/Zn/Coppr/Lutein/Zeaxan [Preservision Areds 2 Softgel] 1 cap PO BID 04/05 [History] 3 Allergy/AdvReac Type Severity Reaction Status Date / Time adhesive tape Allergy See Verified 04/05/18 10:59 Comments Iodinated Contrast- Oral and Allergy See Verified 04/05/18 10:59 IV Dye Comments - Meds/Allergy Pre-op Review Medications Reviewed: Yes Allergies Reviewed: Yes Beta Blockers on Current Med List: Yes Anesthesia Results - Labs 04/14/18 06:05 04/14/18 06:05 - Imaging Additional studies: cath: Impressions: There is severe multivessel coronary artery disease. 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 carotid studies: Impressions: The right carotid arteries have minimal plaque throughout. The left internal carotid artery has a 60-79% stenosis. echo: Impressions: LVEF 60%. Normal LV chamber size, wall thickness and function. Mild left ventricular diastolic dysfunction. Normal right ventricular structure and function. No evidence of pulmonary hypertension. No significant valvular dysfunction. Anesthesia Exam Selected Entries 04/13/18 16:04 Temperature 97.6 F Pulse Rate 57 Respiratory Rate 15 Blood Pressure 161/73 O2 Sat by Pulse Oximetry 96 Oxygen Delivery Method Room Air Weight: 75kg - HEENT Pupil (Motor): EOMI Mallampati: III Teeth: Normal, Poor dentition Oral Opening: Greater than 3 - DIETITIAN HELPER LOC: Oriented DIETITIAN HELPER Motor: Normal RUE, Normal LUE, Normal RLE, Normal LLE, Normal Face DIETITIAN HELPER Sensory: Normal: RUE, LUE, RLE, LLE, Face - Cardiac Rhythm: Regular Murmur: None - Pulmonary Breath Sounds: bilateral Clear Respiratory Effort: Symmetrical Anesthesia Assess/Plan ASA Score: 4 Modified [place] Scale for Level of Consciousness: Cooperative, oriented, and tranquil Anesthetic Plan: General Monitoring Plan: Standard Monitors, A-Line, PAC, KEVIN Recovery Plan: ICU (discussed GA, lines, KEVIN and blood products. Agrees to proceed.)
[2018-04-13] MEDS: Chlorhexidine Rinse 15 ML MOUTHWASH MM SCH (20:48)
[2018-04-13] MEDS: *HR* Heparin 5,000 UNIT/ML VIAL IVP PRN (23:56)
[2018-04-14] MEDS ORDERED: Aspirin 81 MG TAB.CHEW PO ONE (06:00)
[2018-04-14] MEDS ORDERED: Nitroglycerin 25 MG/250 ML INFUS..BTL IVC ONE (06:29)
[2018-04-14] MEDS ORDERED: NiCARdipine 2.5 MG/10 ML Syringe IVPB ONE (06:29)
[2018-04-14] MEDS ORDERED: *HR* PHENYLEPHRINE 1,000 MCG/10 ML SYRINGE IVP ONE (06:36)
[2018-04-14] MEDS ORDERED: *HR* Rocuronium Bromide 50 MG/5 ML VIAL ONE (06:36)
[2018-04-14] MEDS ORDERED: Famotidine 20 MG/2 ML VIAL ONE (06:37)
[2018-04-14] MEDS ORDERED: Tranexamic Acid 1,000 MG/10 ML VIAL ONE ×2 (06:37→09:32)
[2018-04-14] MEDS ORDERED: *HR* Etomidate 20 MG/10 ML AMPUL IVP ONE (06:37)
[2018-04-14] MEDS ORDERED: Protamine Sulfate 250 MG/25 ML VIAL IVP ONE (06:37)
[2018-04-14] MEDS ORDERED: *HR* Midazolam HCl 5 MG/5 ML VIAL IVP ONE (06:43)
[2018-04-14] MEDS ORDERED: *HR* FentaNYL (PF) 1,000 MCG/20 ML VIAL ONE (06:43)
[2018-04-14] MEDS ORDERED: CeFAZolin Syr 2,000MG/20 ML 2,000 MG/20 ML SYRINGE IVPB ONE (07:00)
[2018-04-14] MEDS ORDERED: Verapamil 5 MG/2 ML VIAL ONE (07:12)
[2018-04-14 07:21] LABS: Eosinophils % 0.1 %; Hematocrit 47.5 % (37.5-50.1); Hemoglobin 16.2 g/dL (12.9-16.9); Immature Granulocytes % 1.6 % (0-4); Lymphocytes % 12.6 %; Mean Corpuscular HGB Conc 34.1 g/dL (31.6-35.5); Mean Corpuscular Hemoglobin 31.6 pg (28.0-33.3); Mean Corpuscular Volume 92.8 fL (83.0-100.0); Mean Platelet Volume 10.4 fL (9.4-12.4); Monocytes % 9.5 %; Platelet Count 670 K/mcL (140-400); Red Blood Count 5.12 M/mcL (4.19-5.50); Red Cell Distribution Width 15.2 % (11.5-14.5); Segmented Neutrophils % 75.2 %
[2018-04-14 07:22] LABS: Basophils # 0.2 K/mcL (0.0-0.2); Lymphocytes # 2.4 K/mcL (0.6-4.6); Monocytes # 1.8 K/mcL (0.0-1.3); Neutrophils # 14.1 K/mcL (1.6-8.9)
[2018-04-14] MEDS: Chlorhexidine Rinse 15 ML MOUTHWASH MM SCH ×2 (07:22→20:52)
[2018-04-14 07:35] LABS: BUN/Creatinine Ratio 28 (6-26); Blood Urea Nitrogen 33 mg/dL (8-23); Carbon Dioxide 21 mEq/L (23-29); Chloride 100 mEq/L (98-107); Glucose 98 mg/dL (70-105); Osmolality,Calculated 279 (280-300); Potassium 4.5 mEq/L (3.5-5.1); Sodium 131 mEq/L (136-145); eGFR For African Americans > 60 (> 60); eGFR For Non-African Americans > 60 (> 60)
--- NOTE | 2018-04-14 07:55 | Event Note ---
Date of Encounter: 04/14/18 Time of Encounter: 07:53 Patient went to surgery this morning for CABG. He was not seen before going to surgery. Patient will be transported to the ICU postoperatively and cardiothoracic surgery will assume primary care of the patient. Please do not hesitate to call hospitalist group if anything is needed.
[2018-04-14] MEDS ORDERED: Heparin 15,000 UNIT in 0.9 % Sodium Chloride 500 ML IV SCH (08:00)
[2018-04-14] MEDS ORDERED: Dextrose 50 % in Water (Vial) 30 ML, Sodium Bicarbonate 20 MEQ, Lidocaine 1% 5 ML, Insu... TH SCH (08:00)
[2018-04-14] MEDS ORDERED: Insulin Human Regular 100 UNIT in 0.9 % Sodium Chloride 100 ML IV PRN (08:00)
[2018-04-14] MEDS ORDERED: Norepinephrine 4 MG in D5% in Water 250 ML IVC PRN (08:00)
[2018-04-14] MEDS ORDERED: Dextrose 50 % in Water (Vial) 30 ML, Sodium Bicarbonate 20 MEQ, Potassium Chloride 15 M... TH ONE (08:00)
[2018-04-14 08:41] LABS: ABG Base Excess -2 mEq/L (-2 to 3); ABG Chloride 101 mEq/L (98-107); ABG Glucose 102 mg/dL (60-95); ABG HCO3 23 mEq/L (21-27); ABG Ionized Calcium 1.19 mmol/L (1.15-1.35); ABG Oxygen Saturation 100 % (95-98); ABG PCO2 40 mmHg (35-45); ABG PH 7.37 pH Units (7.32-7.45); ABG PO2 316 mmHg (85-104); ABG TCO2 24 mEq/L (20-26)
--- NOTE | 2018-04-14 09:15 | Anesthesia Procedures ---
Date of Encounter: 04/14/18 Time of Encounter: 08:05 Procedures: Anesthesia - Arterial Line Consent obtained: written consent Time out performed: Yes Sedation: Versed (mg): 3 Sedation: Fentanyl (mcg): 150 Supplemental Oxygen via Nasal Cannula (L/min): 2 Local Anesthetic: Lidocaine 1% Amount of Anesthetic used (mls): 1 Size (Gauge): 20 Length (inches): 5 Technique Used: sterile prep, guide wire technique, direct puncture technique Post-Procedure: line taped into place, dry sterile dressing placed Patient tolerated procedure: well, no complications Complications: none Site: Radial R Comments: attempted left radial, able to access artery but unable to advance wire. A-line placed in right radial after 2 attempts - Central Line Placement Right IJ Consent obtained: written consent Time out performed: Yes Patient placed on monitor/pulse ox: Yes prep: mask, gown, gloves Central line prep: Chlorhexidine scrub, sterile drapes applied Ultrasound used for placement: Yes Technique: Seldinger Lumen Inserted: Introducer Post procedure: sutured in place, good blood return, all ports aspirated, flushed, capped, sterile dressing applied Patient tolerated procedure: well, no complications Complications: none Comments: right IJ introducer placed with US after patient intubated. Attempt x 1, [place] placed easily without arrythmia, wedge approx 58cm
[2018-04-14 09:37] LABS: ABG Base Excess -5 mEq/L (-2 to 3); ABG Chloride 107 mEq/L (98-107); ABG Glucose 130 mg/dL (60-95); ABG HCO3 21 mEq/L (21-27); ABG Ionized Calcium 0.97 mmol/L (1.15-1.35); ABG Oxygen Saturation 99 % (95-98); ABG PCO2 42 mmHg (35-45); ABG PH 7.31 pH Units (7.32-7.45); ABG PO2 152 mmHg (85-104); ABG TCO2 22 mEq/L (20-26)
[2018-04-14 10:06] LABS: ABG Base Excess 1 mEq/L (-2 to 3); ABG Chloride 94 mEq/L (98-107); ABG Glucose 136 mg/dL (60-95); ABG HCO3 26 mEq/L (21-27); ABG Ionized Calcium 1.07 mmol/L (1.15-1.35); ABG Oxygen Saturation 100 % (95-98); ABG PCO2 40 mmHg (35-45); ABG PH 7.42 pH Units (7.32-7.45); ABG PO2 615 mmHg (85-104); ABG TCO2 27 mEq/L (20-26)
[2018-04-14 10:25] LABS: VBG Base Excess 1 mEq/L; VBG Chloride 95 mEq/L (98-107); VBG Glucose 196 mg/dl (65-95); VBG HCO3 25 mEq/L (21-27); VBG Oxygen Saturation 87 %; VBG PCO2 41 mmHg (41-51); VBG PO2 54 mmHg (25-50); VBG Total CO2 27 mEq/L
[2018-04-14 11:06] LABS: ABG Base Excess 2 mEq/L (-2 to 3); ABG Chloride 95 mEq/L (98-107); ABG Glucose 154 mg/dL (60-95); ABG HCO3 27 mEq/L (21-27); ABG Ionized Calcium 0.98 mmol/L (1.15-1.35); ABG Oxygen Saturation 100 % (95-98); ABG PCO2 42 mmHg (35-45); ABG PH 7.42 pH Units (7.32-7.45); ABG PO2 573 mmHg (85-104); ABG TCO2 28 mEq/L (20-26)
[2018-04-14] MEDS ORDERED: Albumin Human 5% 25.0 GM/500 ML VIAL ONE (11:22)
[2018-04-14 12:03] LABS: ABG Base Excess -2 mEq/L (-2 to 3); ABG Chloride 99 mEq/L (98-107); ABG Glucose 74 mg/dL (60-95); ABG HCO3 24 mEq/L (21-27); ABG Oxygen Saturation 99 % (95-98); ABG PCO2 45 mmHg (35-45); ABG PH 7.34 pH Units (7.32-7.45); ABG PO2 134 mmHg (85-104); ABG TCO2 26 mEq/L (20-26)
[2018-04-14] MEDS ORDERED: *HR* Dextrose 50 % in Water (Syg) 50 ML SYRINGE IVP PRN (12:20)
[2018-04-14] MEDS ORDERED: *HR* Promethazine 25 MG/ML VIAL IVP PRN (12:20)
[2018-04-14] MEDS ORDERED: Insulin Regular, Human 100 UNIT/ML IV PRN (12:20)
[2018-04-14] MEDS ORDERED: Potassium Chloride 40 MEQ/200 ML BAG IVPB PRN (12:20)
[2018-04-14] MEDS: Norepinephrine 4 MG in D5% in Water 250 ML IVC SCH (12:30)
[2018-04-14] MEDS ORDERED: *HR* Dextrose 50 % in Water (Syg) 50 ML SYRINGE ONE (12:48)
[2018-04-14 12:57] LABS: ABG Base Excess -4 mEq/L (-2 to 3); ABG HCO3 21 mEq/L (21-27); ABG Oxygen Saturation 98 % (95-98); ABG PCO2 36 mmHg (35-45); ABG PH 7.37 pH Units (7.32-7.45); ABG PO2 112 mmHg (85-104); ABG TCO2 22 mEq/L (20-26); Blood Gas Modality VC; Blood Gas PEEP 5 cm H2O; Blood Gas Respiration Rate 10; Blood Gas VT 600 cc
[2018-04-14 13:00] LABS: Basophils # 0.1 K/mcL (0.0-0.2); Basophils % 0.5 %; Hematocrit 30.9 % (37.5-50.1); Hemoglobin 10.6 g/dL (12.9-16.9); Immature Granulocytes % 1.6 % (0-4); Lymphocytes # 2.9 K/mcL (0.6-4.6); Lymphocytes % 12.5 %; Mean Corpuscular HGB Conc 34.3 g/dL (31.6-35.5); Mean Corpuscular Hemoglobin 32.2 pg (28.0-33.3); Mean Corpuscular Volume 93.9 fL (83.0-100.0); Mean Platelet Volume 9.3 fL (9.4-12.4); Monocytes # 1.7 K/mcL (0.0-1.3); Monocytes % 7.5 %; Neutrophils # 18.1 K/mcL (1.6-8.9); Platelet Count 199 K/mcL (140-400); Red Blood Count 3.29 M/mcL (4.19-5.50); Segmented Neutrophils % 77.9 %
[2018-04-14] MEDS: Nitroglycerin 25 MG/250 ML INFUS..BTL IVC SCH (13:00)
[2018-04-14 13:08] LABS: INR 1.7
[2018-04-14 13:10] LABS: Activated Partial Thrombo Time 46.1 Seconds (26.0-36.0)
[2018-04-14 13:12] LABS: Prothrombin Time 18.7 Seconds (9.4-12.1)
--- NOTE | 2018-04-14 13:14 | Operative Note ---
Date of procedure: 04/14/18 Was there an fitter's assistant present: Yes Mediation Commissioner: Malachi Hernandez Estimated blood loss (cc): 750 Specimen: none Condition: critical Disposition: ICU Procedure in Detail: Preoperative diagnosis. Coronary artery disease and atrial fibrillation. Postoperative diagnosis. Same. Procedures. Coronary artery bypass grafting 3 with the left internal mammary artery to the LAD and saphenous vein grafts to the posterior descending branch of the right coronary artery and obtuse marginal branch of the circumflex coronary artery. Also, modified Maze procedure with bilateral pulmonary vein isolation and left atrial appendage stapling. Surgeon. Dr. Hudson Ewing. The patient is a 68-year-old gentleman who does have a history of smoking and drinks 5-6 beers per day. He presented with paroxysmal atrial fibrillation and a myocardial infarction with positive enzymes. Cardiac catheterization revealed severe coronary artery disease and he was referred for surgery. He was brought to the operating room where he is prepped and draped in standard fashion. The left greater saphenous vein was harvested from below the left knee to the left groin. This was done through 2 small incisions using the scope. These incisions were subsequently closed with a deep layer of 2-0 Vicryl and a 3-0 Vicryl subcuticular stitch. Standard median sternotomy was performed. The left internal mammary artery retractor was inserted and the left internal mammary artery was harvested in standard fashion using the Bovie electrocoagulation. Following this, the mammary retractor was removed and the standard sternal wedding makeup artist was inserted. Pericardium was opened in the midline and suspended with 2-0 silk stay sutures. Double pursestring of 20 [place] was placed in the aorta for the aortic cannulation site. A pursestring of 20 [place] was placed in the right atrial appendage for the venous uptake. The patient was heparinized. The aorta was cannulated without difficulty. 2 stage venous uptake cannula was inserted through the right atrial appendage. A pursestring of 3-0 silk was placed in the aorta and the cardioplegia needle was inserted through here. This was also used is an active and passive aortic vent. The patient was placed on cardiopulmonary bypass. First, we performed pulmonary vein isolation. The right superior and inferior pulmonary veins were encircled. The bipolar device was placed around the veins and the veins were isolated using radiofrequency ablation. Next, we isolated the left superior and inferior pulmonary veins. The veins were encircled and the device was placed. The veins were then isolated using bipolar radiofrequency ablation. Next, we stapled the left atrial appendage with a DRAKE stapler with a knife removed. There was some bleeding from the atrial appendage and we did control this with a stitch of 3-0 Prolene. At this point, the aorta was crossclamped and a liter of antegrade cardioplegia was given. Topical cooling with iced saline slush was also done. The posterior descending branch of the right coronary artery was dissected free with the [place] blade and opened with the [place] blade and the [place] scissors. This had a lumen of 1-1/2 mm and was relatively free of disease. A standard end -to-side anastomosis was constructed using the saphenous vein and a 7-0 Prolene. When this was completed, an additional dose of antegrade cardioplegia was given. Attention was turned to the circumflex. Obtuse marginal branch #2 was dissected free with the [place] blade and opened with the [place] blade and the [place] scissors. This had a lumen of 1-1/2 mm and was relatively free of disease. A standard end-to-side anastomosis was constructed using the saphenous vein and a 7-0 Prolene. When this was completed, the patient received a last dose of antegrade cardioplegia. Mammary pedicle was harvested. Tonsil clamp was placed distally and was divided with the Metzenbaum scissors. Distal end was tied off with 2-0 silk suture. Proximal end was trimmed and brought into the wound. The LAD was dissected free with the [place] blade and opened with the [place] blade and the [place]in scissors. This had a lumen of 1-1/2 mm with mild diffuse disease. A standard end-to-side anastomosis was constructed using the mammary artery and a 7-0 Prolene. When this was completed, the previously placed bulldog clamp was removed and hemostasis was good. Pedicle was tacked to the surface of the heart using 2 interrupted 5-0 silk sutures. Cross-clamp was removed and rewarming was begun. Total cross-clamp time was 46 minutes. A side-biting clamp was placed on the aorta and the cardioplegia needle was removed. 2 holes were made in the aorta using the [place] blade and the 4.4 mm aortic punch. 2 proximal anastomoses were constructed in standard fashion using the saphenous veins and 5-0 Prolene' s. When this is completed, the side-biting clamp was removed. Grafts were de- aired using a #25-gauge needle and the previously placed bulldog clamps were removed. Distal anastomoses were inspected and found to be hemostatic. Proximal anastomoses were marked with the marker from [employer] sponge. A pair of atrial and ventricular pacing wires were left. A 32 right angle chest tube to the left pleural space. A 32 right chest tube to the pericardial well. A 42 mediastinal chest tube. The patient was weaned from bypass and decannulated. I did place some FloSeal and fibrillar around the distal and proximal anastomoses. Pericardium was loosely closed with interrupted 2-0 silk sutures. We did use platelet rich and platelet poor plasma on the sternum and tissues above the sternum. The sternum was closed with #7 sternal wires in simple and [id number] fashion. Fascia was run with #1 Vicryl. Subcutaneous tissues with a 2-0 Vicryl. Skin was closed with a 3-0 Vicryl subcuticular stitch. The patient tolerated the procedure well and was returned to intensive care unit in satisfactory and stable condition. Total bypass time was 98 minutes. Total cross-clamp time was 46 minutes. He been cooled to 34.9 degrees.
[2018-04-14] MEDS: 0.9 % Sodium Chloride w KCl 20 MEQ/1,000 ML MLS IVC SCH (13:16)
[2018-04-14] MEDS ORDERED: Mannitol 25% vial 12.5 GM/50 ML VIAL IVP ONE (13:17)
[2018-04-14] MEDS ORDERED: *HR* Phenylephrine 10 MG/ML VIAL IVC ONE (13:17)
[2018-04-14] MEDS ORDERED: *HR* Magnesium Sulfate 2 GM/50 ML PIGGYBACK IVPB ONE (13:17)
[2018-04-14] MEDS ORDERED: *HR* Heparin 10,000 UNIT/10 ML VIAL IV ONE (13:17)
[2018-04-14] MEDS ORDERED: Lidocaine 2% Syringe 100 MG/5 ML IV ONE (13:17)
[2018-04-14] MEDS ORDERED: Tranexamic Acid 1,000 MG/10 ML VIAL IVPB ONE (13:17)
[2018-04-14] MEDS ORDERED: Sodium Bicarbonate 50 MEQ/50 ML VIAL IVC ONE (13:17)
[2018-04-14] MEDS ORDERED: Albumin Human 25% 25 GM/100 ML IV.SOLN IV ONE (13:17)
[2018-04-14 13:25] LABS: BUN/Creatinine Ratio 31 (6-26); Blood Urea Nitrogen 17 mg/dL (8-23); Calcium 4.7 mg/dL (8.6-10.3); Carbon Dioxide 15 mEq/L (23-29); Chloride 124 mEq/L (98-107); Glucose 24 mg/dL (70-105); Magnesium 1.4 mg/dL (1.6-2.6); Osmolality,Calculated 323 (280-300); Potassium 2.3 mEq/L (3.5-5.1); Sodium 158 mEq/L (136-145); eGFR For African Americans > 60 (> 60); eGFR For Non-African Americans > 60 (> 60)
[2018-04-14] MEDS ORDERED: Calcium Gluconate 2,000 MG in 0.9 % Sodium Chloride 100 ML IVPB ONE (13:52)
[2018-04-14] MEDS: *HR* FentaNYL (PF) 100 MCG/2 ML VIAL IVP PRN ×3 (14:08→21:28)
[2018-04-14] MEDS: niCARdipine 40 MG/200 ML MLS IVC SCH (14:20)
[2018-04-14] MEDS: Aspirin Enteric Coated 81 MG Tablet PO SCH (15:24)
[2018-04-14] MEDS: Cholecalciferol (D-3) 1,000 UNIT TABLET PO SCH (15:25)
[2018-04-14] MEDS: amLODIPine 5 MG TABLET PO SCH (15:25)
[2018-04-14] MEDS: *HR* HYDROcodone/Acet 5/325 mg TABLET PO PRN (15:58)
[2018-04-14] MEDS: Insulin Human Regular 100 UNIT in 0.9 % Sodium Chloride 100 ML IVC SCH (16:00)
[2018-04-14 16:56] LABS: ABG Base Excess -5 mEq/L (-2 to 3); ABG HCO3 20 mEq/L (21-27); ABG Oxygen Saturation 96 % (95-98); ABG PCO2 35 mmHg (35-45); ABG PH 7.36 pH Units (7.32-7.45); ABG PO2 83 mmHg (85-104); ABG TCO2 21 mEq/L (20-26); Blood Gas Modality VC; Blood Gas PEEP 5 cm H2O; Blood Gas Respiration Rate 10; Blood Gas VT 600 cc
--- NOTE | 2018-04-14 17:28 | Electrocardiograph Report ---
[place] [address] Test Date: 2018-04-14 Pat Name: Naldo Nair Department: 112 Room: 2A26 Gender: M Paper Stacker: JUANPABLO : 1950 Requested By: Shaji Guadarrama Order Number: [id number] Reading MD: Rach Richardson Measurements Intervals [place] Rate: 54 P: 64 OK: 163 QRS: 66 QRSD: 85 T: 74 QT: 405 QTc: 390 Interpretive Statements SINUS BRADYCARDIA Electronically Signed On 04-14-2018 17:26:41 EDT by Rach Richardson
--- NOTE | 2018-04-14 17:30 | Electrocardiograph Report ---
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
[2018-04-14 17:54] LABS: Alanine Aminotransferase 32 Units/L (7-52); Albumin 3.9 g/dL (3.5-5.7); Albumin/Globulin Ratio 2.6 (1.1-2.2); Alkaline Phosphatase 34 Units/L (34-104); Aspartate Amino Transferase 36 Units/L (13-39); BUN/Creatinine Ratio 21 (6-26); Bilirubin,Total 0.8 mg/dL (0.3-1.0); Blood Urea Nitrogen 29 mg/dL (8-23); Calcium 9.2 mg/dL (8.6-10.3); Carbon Dioxide 21 mEq/L (23-29); Chloride 104 mEq/L (98-107); Globulin 1.5 g/dL (2.4-3.5); Glucose 207 mg/dL (70-105); Osmolality,Calculated 290 (280-300); Potassium 4.6 mEq/L (3.5-5.1); Sodium 134 mEq/L (136-145); Total Protein 5.4 g/dL (6.4-8.9); eGFR For African Americans > 60 (> 60); eGFR For Non-African Americans 52 (> 60)
[2018-04-14 20:58] LABS: ABG Base Excess -4 mEq/L (-2 to 3); ABG HCO3 21 mEq/L (21-27); ABG Oxygen Saturation 98 % (95-98); ABG PCO2 34 mmHg (35-45); ABG PH 7.39 pH Units (7.32-7.45); ABG PO2 100 mmHg (85-104); ABG TCO2 22 mEq/L (20-26); Blood Gas Modality ASSIST CONTROL; Blood Gas PEEP 5 cm H2O; Blood Gas Respiration Rate 10; Blood Gas VT 600 cc
[2018-04-15] MEDS: *HR* FentaNYL (PF) 100 MCG/2 ML VIAL IVP PRN ×2 (01:05→05:16)
[2018-04-15] MEDS: 0.9 % Sodium Chloride w KCl 20 MEQ/1,000 ML MLS IVC SCH (02:23)
[2018-04-15 04:08] LABS: Basophils # 0.1 K/mcL (0.0-0.2); Basophils % 0.4 %; Hematocrit 31.7 % (37.5-50.1); Hemoglobin 10.7 g/dL (12.9-16.9); Immature Granulocytes % 1.4 % (0-4); Immature Platelets 6.1 % (1.1-6.1); Lymphocytes # 0.5 K/mcL (0.6-4.6); Lymphocytes % 2.3 %; Mean Corpuscular HGB Conc 33.8 g/dL (31.6-35.5); Mean Corpuscular Hemoglobin 31.8 pg (28.0-33.3); Mean Corpuscular Volume 94.3 fL (83.0-100.0); Mean Platelet Volume 10.2 fL (9.4-12.4); Monocytes # 2.8 K/mcL (0.0-1.3); Monocytes % 12.6 %; Neutrophils # 18.3 K/mcL (1.6-8.9); Platelet Count 320 K/mcL (140-400); Red Blood Count 3.36 M/mcL (4.19-5.50); Red Cell Distribution Width 15.4 % (11.5-14.5); Segmented Neutrophils % 83.3 %
[2018-04-15 04:17] LABS: INR 1.2; Prothrombin Time 12.5 Seconds (9.4-12.1)
[2018-04-15 04:32] LABS: BUN/Creatinine Ratio 20 (6-26); Blood Urea Nitrogen 28 mg/dL (8-23); Calcium 8.6 mg/dL (8.6-10.3); Carbon Dioxide 22 mEq/L (23-29); Chloride 106 mEq/L (98-107); Glucose 119 mg/dL (70-105); Osmolality,Calculated 287 (280-300); Potassium 5.8 mEq/L (3.5-5.1); Sodium 135 mEq/L (136-145); eGFR For African Americans > 60 (> 60); eGFR For Non-African Americans 50 (> 60)
[2018-04-15 04:35] LABS: ABG Base Excess -3 mEq/L (-2 to 3); ABG HCO3 22 mEq/L (21-27); ABG Oxygen Saturation 98 % (95-98); ABG PCO2 34 mmHg (35-45); ABG PH 7.41 pH Units (7.32-7.45); ABG PO2 111 mmHg (85-104); ABG TCO2 23 mEq/L (20-26); Blood Gas Modality ASSIST CONTROL; Blood Gas PEEP 5 cm H2O; Blood Gas Respiration Rate 10; Blood Gas VT 500 cc
[2018-04-15] MEDS: Nitroglycerin 25 MG/250 ML INFUS..BTL IVC SCH ×2 (05:36→20:42)
--- NOTE | 2018-04-15 06:33 | Cardiothoracic Progress Note ---
Date of Encounter: 04/15/18 Time of Encounter: 06:31 - Assessment and plan (1) CAD (coronary artery disease) Current Visit: Yes Status: Acute We will remove his Apex-Kimberly catheter and arterial line and discontinue his IV fluids. We will give him 1 dose of IV Lasix. We will leave his Ash catheter until tomorrow per the patient's request. We will leave him in the ICU for pulmonary toilet as he was an active smoker. Qualifiers: Coronary Disease-Associated Artery/Lesion type: [place] artery [place] vs. transplanted heart: [place] heart Associated angina: without angina Qualified Code(s): I25.10 - Atherosclerotic heart disease of [place] coronary artery without angina pectoris - Subjective Interval history: The patient is extubated. He has mild postoperative pain. He requests that we leave his Ash catheter until his chest tubes are removed tomorrow. Vital Signs, Last 4 Hours Temp Pulse Resp BP Pulse Ox 04/15/18 06:00 36.9 F L 77 16 138/78 100 04/15/18 05:00 37.3 F L 80 16 161/73 100 04/15/18 03:59 37.3 F L 78 14 153/65 100 04/15/18 03:46 15 155/61 96 04/15/18 03:00 37.3 F L 76 14 104/54 96 Oxgyen Flow Rate Oxygen Flow Rate (LPM) 3 Clinical Data, last 8 Hours Output, Chest Tube Drainage 10 Amount [#3] Output, Chest Tube Drainage 0 Amount [#3] Output, Chest Tube Drainage 0 Amount [#3] Output, Chest Tube Drainage 0 Amount [#3] Output, Chest Tube Drainage 20 Amount [#3] Output, Chest Tube Drainage 0 Amount [#3] Output, Chest Tube Drainage 0 Amount [#3] Output, Chest Tube Drainage 0 Amount [#3] Output, Chest Tube Drainage 0 Amount [#3] Output, Chest Tube Drainage 5 Amount [#3] Output, Chest Tube Drainage 5 Amount [#2] Output, Chest Tube Drainage 0 Amount [#2] Output, Chest Tube Drainage 0 Amount [#2] Output, Chest Tube Drainage 0 Amount [#2] Output, Chest Tube Drainage 0 Amount [#2] Output, Chest Tube Drainage 15 Amount [#2] Output, Chest Tube Drainage 5 Amount [#2] Output, Chest Tube Drainage 0 Amount [#2] Output, Chest Tube Drainage 0 Amount [#2] Output, Chest Tube Drainage 5 Amount [#2] Output, Chest Tube Drainage 10 Amount [#1] Output, Chest Tube Drainage 0 Amount [#1] Output, Chest Tube Drainage 0 Amount [#1] Output, Chest Tube Drainage 0 Amount [#1] Output, Chest Tube Drainage 0 Amount [#1] Output, Chest Tube Drainage 15 Amount [#1] Output, Chest Tube Drainage 5 Amount [#1] Output, Chest Tube Drainage 0 Amount [#1] Output, Chest Tube Drainage 0 Amount [#1] Output, Chest Tube Drainage 10 Amount [#1] Weight 04/13/18 04/14/18 04/15/18 23:59 23:59 23:59 Weight 75 kg Lungs are clear to percussion and auscultation. Heart is in a normal sinus rhythm. All incisions are healing well without signs of infection and the sternum is stable. Chest tube drainage is minimal and there is no air leak. - Labs 04/15/18 03:40 04/15/18 03:40 Lab Results, Last 24 hours 04/14/18 04/14/18 04/14/18 06:05 06:05 06:05 WBC 18.8 H Hgb 16.2 Hct 47.5 Plt Count 670 H INR APTT 63.1 H Sodium 131 L Potassium 4.5 Chloride 100 Carbon Dioxide 21 L BUN 33 H Creatinine 1.19 Glucose 98 Calcium 10.0 Magnesium 2.0 Total Bilirubin AST ALT Alkaline Phosphatase 04/14/18 04/14/18 04/14/18 12:47 12:47 12:47 WBC 23.2 H Hgb 10.6 L D Hct 30.9 L Plt Count 199 D INR 1.7 APTT 46.1 H Sodium 158 H D Potassium 2.3 L* D Chloride 124 H Carbon Dioxide 15 L BUN 17 Creatinine 0.54 L Glucose 24 L* Calcium 4.7 L* Magnesium 1.4 L Total Bilirubin AST ALT Alkaline Phosphatase 04/14/18 04/15/18 04/15/18 16:50 03:40 03:40 WBC 21.9 H Hgb 10.7 L Hct 31.7 L Plt Count 320 D INR APTT Sodium 134 L D 135 L Potassium 4.6 D 5.8 H D Chloride 104 106 Carbon Dioxide 21 L 22 L BUN 29 H 28 H Creatinine 1.35 H 1.40 H Glucose 207 H 119 H Calcium 9.2 8.6 Magnesium 2.0 Total Bilirubin 0.8 AST 36 ALT 32 Alkaline Phosphatase 34 04/15/18 03:40 WBC Hgb Hct Plt Count INR 1.2 APTT Sodium Potassium Chloride Carbon Dioxide BUN Creatinine Glucose Calcium Magnesium Total Bilirubin AST ALT Alkaline Phosphatase - VTE Documentation of Mechanical Device: Intermittent pneumatic compression device Consult Discharge Plan - Plan [facility]errals: [facility] [Primary Care Provider] -
[2018-04-15] MEDS ORDERED: Furosemide 40 MG/4 ML VIAL IVP ONE (06:36)
[2018-04-15] MEDS: niCARdipine 40 MG/200 ML MLS IVC SCH ×4 (07:16→21:54)
[2018-04-15] MEDS: Chlorhexidine Rinse 15 ML MOUTHWASH MM SCH ×2 (08:30→21:17)
[2018-04-15] MEDS: Aspirin Enteric Coated 81 MG Tablet PO SCH (08:30)
[2018-04-15] MEDS: *HR* OxyCODONE/APAP 5/325 TABLET PO PRN ×3 (08:30→16:50)
[2018-04-15] MEDS: amLODIPine 5 MG TABLET PO SCH (08:31)
[2018-04-15] MEDS: Cholecalciferol (D-3) 1,000 UNIT TABLET PO SCH (08:31)
[2018-04-15 13:27] LABS: BUN/Creatinine Ratio 19 (6-26); Blood Urea Nitrogen 27 mg/dL (8-23); Calcium 9.2 mg/dL (8.6-10.3); Carbon Dioxide 26 mEq/L (23-29); Chloride 100 mEq/L (98-107); Glucose 112 mg/dL (70-105); Osmolality,Calculated 280 (280-300); Potassium 4.8 mEq/L (3.5-5.1); Sodium 132 mEq/L (136-145); eGFR For African Americans > 60 (> 60); eGFR For Non-African Americans 50 (> 60)
[2018-04-15] MEDS: Insulin LISPRO 300 UNITS/3 ML VIAL SQ SCH ×2 (16:29→21:16)
[2018-04-15] MEDS: Insulin Human Regular 100 UNIT in 0.9 % Sodium Chloride 100 ML IVC SCH (16:53)
[2018-04-15] MEDS: Norepinephrine 4 MG in D5% in Water 250 ML IVC SCH (20:43)
[2018-04-15] MEDS ORDERED: SODIUM CHLORIDE 0.9% IVC SCH (21:30)
[2018-04-15] MEDS ORDERED: DILTIAZEM IVC SCH (21:30)
[2018-04-16] MEDS: *HR* OxyCODONE/APAP 5/325 TABLET PO PRN ×4 (01:32→17:28)
[2018-04-16] MEDS: *HR* HYDROcodone/Acet 5/325 mg TABLET PO PRN ×2 (03:29→14:23)
[2018-04-16 03:59] LABS: Basophils # 0.1 K/mcL (0.0-0.2); Basophils % 0.4 %; Hematocrit 30.8 % (37.5-50.1); Hemoglobin 10.4 g/dL (12.9-16.9); Immature Granulocytes % 0.6 % (0-4); Lymphocytes # 1.1 K/mcL (0.6-4.6); Lymphocytes % 5.6 %; Mean Corpuscular HGB Conc 33.8 g/dL (31.6-35.5); Mean Corpuscular Volume 94.8 fL (83.0-100.0); Mean Platelet Volume 10.8 fL (9.4-12.4); Monocytes # 2.5 K/mcL (0.0-1.3); Monocytes % 12.6 %; Neutrophils # 16.1 K/mcL (1.6-8.9); Platelet Count 305 K/mcL (140-400); Red Blood Count 3.25 M/mcL (4.19-5.50); Red Cell Distribution Width 15.5 % (11.5-14.5); Segmented Neutrophils % 80.8 %
[2018-04-16 04:19] LABS: Magnesium 2.2 mg/dL (1.6-2.6); Potassium 4.9 mEq/L (3.5-5.1)
--- NOTE | 2018-04-16 07:16 | Cardiothoracic Progress Note ---
Date of Encounter: 04/16/18 Time of Encounter: 07:13 - Assessment and plan (1) Non-STEMI (non-ST elevated myocardial infarction) Current Visit: Yes Status: Acute The patient remained hemodynamic stable overnight. He redeveloped atrial fibrillation with a rapid ventricular response and is being treated with a Cardizem drip. He now has a controlled rate, though the heart rhythm remains irregular. The chest tubes were removed. The patient will be monitored in the ICU today. The assessment and plan as outlined above was discussed with the patient and/or family members who expressed understanding and agreement. All questions were answered. - Subjective Procedure(s) Performed: POD#2 S/P CABG3, modified Maze procedure Interval history: The patient remained hemodynamically stable overnight; however, the redeveloped atrial fibrillation with rapid ventricular response last evening. He is being treated with Cardizem drip and has a controlled rate. He has no complaints of substernal chest pain. Vital Signs, Last 4 Hours Pulse Resp BP Pulse Ox 04/16/18 06:00 111 12 96/56 94 04/16/18 05:00 103 17 88/60 93 04/16/18 04:00 88 18 93/57 93 04/16/18 03:39 18 93 Oxgyen Flow Rate Oxygen Flow Rate (LPM) 2.5 Clinical Data, last 8 Hours Output, Chest Tube Drainage 30 Amount [#3] Output, Chest Tube Drainage 0 Amount [#3] Output, Chest Tube Drainage 10 Amount [#2] Output, Chest Tube Drainage 16 Amount [#2] Output, Chest Tube Drainage 0 Amount [#1] Output, Chest Tube Drainage 0 Amount [#1] Weight 04/14/18 04/15/18 04/16/18 23:59 23:59 23:59 Weight 78.2 kg - Physical Examination General: Conversant, No Apparent Distress Neck: No JVD, Normal carotid pulses Cardiac: Normal S1 and S2, No Murmur, Other (Irregular rate and rhythm (atrial fibrillation)) Incision: No signs of infection, Dry/intact dressing Sternum: Stable Chest tubes: Minimal drainage, Other (No air leak) Pacing Wires: In place Lungs: Normal Breath Sounds, No Wheeze, Rales, Rhonchi Neuro: Alert and responsive, No focal deficits noted Vascular: Normal capillary refill Extremities: No Clubbing, No Cyanosis, No Edema - Labs 04/16/18 03:20 04/16/18 03:20 Lab Results, Last 24 hours 04/15/18 04/16/18 04/16/18 11:58 03:20 03:20 WBC 19.9 H Hgb 10.4 L Hct 30.8 L Plt Count 305 Sodium 132 L 131 L Potassium 4.8 4.9 Chloride 100 99 Carbon Dioxide 26 25 BUN 27 H 34 H Creatinine 1.40 H 1.73 H Glucose 112 H 175 H Calcium 9.2 9.0 Magnesium 2.2 - VTE Documentation of Mechanical Device: Graduated compression elastic hosiery Consult Discharge Plan - Plan [facility]errals: [facility] [Primary Care Provider] -
[2018-04-16] MEDS: Chlorhexidine Rinse 15 ML MOUTHWASH MM SCH ×2 (09:00→21:17)
[2018-04-16] MEDS: Cholecalciferol (D-3) 1,000 UNIT TABLET PO SCH (09:01)
[2018-04-16] MEDS: Aspirin Enteric Coated 81 MG Tablet PO SCH (09:01)
[2018-04-16] MEDS: amLODIPine 5 MG TABLET PO SCH (09:02)
[2018-04-16] MEDS: Insulin LISPRO 300 UNITS/3 ML VIAL SQ SCH ×4 (09:03→21:21)
[2018-04-16] MEDS: *HR* Heparin 5,000 UNIT/ML VIAL SQ SCH ×2 (09:07→17:51)
--- NOTE | 2018-04-16 09:20 | Anesthesia Evaluation Post Op ---
Date of Encounter: 04/16/18 Time of Encounter: 09:18 - Vital Signs Vital Signs: Selected Entries 04/16/18 07:17 04/16/18 07:30 04/16/18 07:32 Temperature 98.3 F Pulse Rate 98 Respiratory Rate 17 Blood Pressure 119/68 O2 Sat by Pulse Oximetry 92 Fraction of Inspired Oxygen % 28 Oxygen Flow Rate (LPM) 2 Oxygen Delivery Method Nasal Cannula - Lungs Lungs: Clear Ascult./Percussion - Airway Airway: Non-obstructed - Cardiovascular Irregular Rate - Mental Status Mental Status: Alert & Oriented, Answers Appropriately - Pain Pain Scale: 3 Pain Scale used: Numeric (1 - 10) - Nausea Vomiting Nausea Vomiting: Not Present - Hydration Hydration: Tolerates oral liquids Notes: 04/16/18 09:19 Was doing well yesterday, developed A-fib with RVR overnight, was treated. RVR responds to Cardizem but still in a-fib. No apparent anesthesia complications. Patient will remain in ICU today.
[2018-04-16] MEDS: Nitroglycerin 25 MG/250 ML INFUS..BTL IVC SCH ×2 (10:00→18:00)
[2018-04-16] MEDS: Norepinephrine 4 MG in D5% in Water 250 ML IVC SCH (13:22)
[2018-04-16] MEDS: niCARdipine 40 MG/200 ML MLS IVC SCH ×3 (13:22→22:14)
[2018-04-17] MEDS: *HR* OxyCODONE/APAP 5/325 TABLET PO PRN ×5 (00:08→22:27)
[2018-04-17] MEDS: *HR* HYDROcodone/Acet 5/325 mg TABLET PO PRN (03:35)
[2018-04-17 03:45] LABS: Basophils # 0.1 K/mcL (0.0-0.2); Basophils % 0.4 %; Hematocrit 28.4 % (37.5-50.1); Hemoglobin 9.6 g/dL (12.9-16.9); Immature Granulocytes % 0.6 % (0-4); Lymphocytes # 1.2 K/mcL (0.6-4.6); Lymphocytes % 6.6 %; Mean Corpuscular HGB Conc 33.8 g/dL (31.6-35.5); Mean Corpuscular Hemoglobin 31.8 pg (28.0-33.3); Mean Platelet Volume 10.9 fL (9.4-12.4); Monocytes # 1.8 K/mcL (0.0-1.3); Monocytes % 10.1 %; Neutrophils # 14.9 K/mcL (1.6-8.9); Platelet Count 349 K/mcL (140-400); Red Blood Count 3.02 M/mcL (4.19-5.50); Red Cell Distribution Width 15.2 % (11.5-14.5); Segmented Neutrophils % 82.3 %
[2018-04-17 03:58] LABS: Calcium 8.8 mg/dL (8.6-10.3); Magnesium 2.4 mg/dL (1.6-2.6); Potassium 4.6 mEq/L (3.5-5.1)
[2018-04-17] MEDS: *HR* Heparin 5,000 UNIT/ML VIAL SQ SCH ×2 (06:05→16:27)
--- NOTE | 2018-04-17 08:15 | Cardiothoracic Progress Note ---
Date of Encounter: 04/17/18 Time of Encounter: 08:13 - Assessment and plan (1) Non-STEMI (non-ST elevated myocardial infarction) Current Visit: Yes Status: Acute The patient remained hemodynamic stable overnight. He maintained atrial fibrillation with controlled rate on a Cardizem. The patient will be monitored in the ICU today. The assessment and plan as outlined above was discussed with the patient and/or family members who expressed understanding and agreement. All questions were answered. - Subjective Procedure(s) Performed: POD#3 S/P CABG3, modified Maze procedure Interval history: The patient remained hemodynamically stable overnight; however, remains in atrial fibrillation. He is being treated with Cardizem drip and has a controlled rate. He has no complaints of substernal chest pain. Vital Signs, Last 4 Hours Temp Pulse Resp BP Pulse Ox 04/17/18 07:33 98.1 F 04/17/18 06:00 101 18 111/57 90 04/17/18 05:00 97 18 98/61 92 Oxgyen Flow Rate Oxygen Flow Rate (LPM) 4 Clinical Data, last 8 Hours Output, Urine Amount 0 Weight 04/15/18 04/16/18 04/17/18 23:59 23:59 23:59 Weight 78.5 kg - Physical Examination General: Conversant, No Apparent Distress Neck: No JVD, Normal carotid pulses Cardiac: Normal S1 and S2, No Murmur, Other (Irregular rate and rhythm (atrial fibrillation)) Incision: No signs of infection, Dry/intact dressing Sternum: Stable Pacing Wires: In place Lungs: Normal Breath Sounds, No Wheeze, Rales, Rhonchi Neuro: Alert and responsive, No focal deficits noted Vascular: Normal capillary refill Extremities: No Clubbing, No Cyanosis, No Edema - Labs 04/17/18 03:25 04/17/18 03:25 Lab Results, Last 24 hours 04/17/18 04/17/18 03:25 03:25 WBC 18.1 H Hgb 9.6 L Hct 28.4 L Plt Count 349 Sodium 129 L Potassium 4.6 Chloride 99 Carbon Dioxide 23 BUN 37 H Creatinine 1.56 H Glucose 141 H Calcium 8.8 Magnesium 2.4 - VTE Documentation of Mechanical Device: Graduated compression elastic hosiery Consult Discharge Plan - Plan [facility]errals: [facility] [Primary Care Provider] -
[2018-04-17] MEDS: Aspirin Enteric Coated 81 MG Tablet PO SCH (08:45)
[2018-04-17] MEDS: Cholecalciferol (D-3) 1,000 UNIT TABLET PO SCH (08:45)
[2018-04-17] MEDS: Chlorhexidine Rinse 15 ML MOUTHWASH MM SCH ×2 (08:46→20:03)
[2018-04-17] MEDS: amLODIPine 5 MG TABLET PO SCH (08:46)
[2018-04-17] MEDS: Nitroglycerin 25 MG/250 ML INFUS..BTL IVC SCH ×2 (08:47→16:25)
[2018-04-17] MEDS: Insulin LISPRO 300 UNITS/3 ML VIAL SQ SCH ×4 (08:54→20:05)
[2018-04-17] MEDS: niCARdipine 40 MG/200 ML MLS IVC SCH ×2 (11:34→16:31)
[2018-04-17] MEDS: Norepinephrine 4 MG in D5% in Water 250 ML IVC SCH (11:35)
[2018-04-18] MEDS: *HR* OxyCODONE/APAP 5/325 TABLET PO PRN ×2 (03:12→12:17)
[2018-04-18] MEDS: Nitroglycerin 25 MG/250 ML INFUS..BTL IVC SCH (03:14)
[2018-04-18] MEDS: niCARdipine 40 MG/200 ML MLS IVC SCH (03:14)
[2018-04-18 04:07] LABS: BUN/Creatinine Ratio 25 (6-26); Blood Urea Nitrogen 32 mg/dL (8-23); Carbon Dioxide 19 mEq/L (23-29); Chloride 100 mEq/L (98-107); Glucose 141 mg/dL (70-105); Osmolality,Calculated 279 (280-300); Sodium 130 mEq/L (136-145); eGFR For African Americans > 60 (> 60); eGFR For Non-African Americans 57 (> 60)
[2018-04-18] MEDS: *HR* Heparin 5,000 UNIT/ML VIAL SQ SCH ×2 (06:18→16:40)
--- NOTE | 2018-04-18 07:12 | Cardiothoracic Progress Note ---
Date of Encounter: 04/18/18 Time of Encounter: 07:11 - Assessment and plan (1) Non-STEMI (non-ST elevated myocardial infarction) Current Visit: Yes Status: Acute The patient remained hemodynamic stable overnight. He maintained atrial fibrillation with controlled rate on a Cardizem. The patient will be transferred to the stepdown unit later today. The assessment and plan as outlined above was discussed with the patient and/or family members who expressed understanding and agreement. All questions were answered. - Subjective Procedure(s) Performed: POD#4 S/P CABG3, modified Maze procedure Interval history: The patient remained hemodynamically stable overnight; however, remains in atrial fibrillation. He is being treated with Cardizem drip and has a controlled rate. He has no complaints. Vital Signs, Last 4 Hours Pulse Resp BP Pulse Ox 04/18/18 06:00 106 16 107/74 90 04/18/18 05:00 97 16 122/87 93 04/18/18 04:00 109 15 96/59 92 04/18/18 03:48 17 101/68 92 Oxgyen Flow Rate Oxygen Flow Rate (LPM) 4 Clinical Data, last 8 Hours Output, Urine Amount 300 Weight 04/16/18 04/17/18 04/18/18 23:59 23:59 23:59 Weight 78.5 kg 77.8 kg - Physical Examination General: Conversant, No Apparent Distress Neck: No JVD, Normal carotid pulses Cardiac: Normal S1 and S2, No Murmur, Other (Irregular rate and rhythm (atrial fibrillation)) Incision: No signs of infection, Dry/intact dressing Sternum: Stable Pacing Wires: In place Lungs: Normal Breath Sounds, No Wheeze, Rales, Rhonchi Neuro: Alert and responsive, No focal deficits noted Vascular: Normal capillary refill Extremities: No Clubbing, No Cyanosis, No Edema - Labs 04/17/18 03:25 04/18/18 03:20 Lab Results, Last 24 hours 04/18/18 03:20 Sodium 130 L Potassium 4.0 Chloride 100 Carbon Dioxide 19 L BUN 32 H Creatinine 1.26 Glucose 141 H Calcium 9.0 - VTE Documentation of Mechanical Device: Graduated compression elastic hosiery Consult Discharge Plan - Plan [facility]errals: [facility] [Primary Care Provider] -
[2018-04-18] MEDS: Chlorhexidine Rinse 15 ML MOUTHWASH MM SCH ×2 (08:27→20:33)
[2018-04-18] MEDS: Cholecalciferol (D-3) 1,000 UNIT TABLET PO SCH (08:27)
[2018-04-18] MEDS: Aspirin Enteric Coated 81 MG Tablet PO SCH (08:28)
[2018-04-18] MEDS: amLODIPine 5 MG TABLET PO SCH (08:28)
[2018-04-18] MEDS: Insulin LISPRO 300 UNITS/3 ML VIAL SQ SCH ×4 (08:28→20:34)
[2018-04-18] MEDS ORDERED: Ondansetron 4 MG/2 ML VIAL IVP PRN (11:04)
[2018-04-18] MEDS ORDERED: Acetaminophen 325 MG TABLET PO PRN (11:04)
[2018-04-18] MEDS ORDERED: *HR* Dextrose 50 % in Water (Syg) 50 ML SYRINGE IVP PRN (11:04)
[2018-04-18] MEDS ORDERED: Naloxone 0.4 MG/ML INJ IVP PRN (11:04)
[2018-04-19] MEDS: *HR* OxyCODONE/APAP 5/325 TABLET PO PRN ×3 (00:25→21:11)
[2018-04-19 04:19] LABS: BUN/Creatinine Ratio 26 (6-26); Blood Urea Nitrogen 33 mg/dL (8-23); Calcium 8.7 mg/dL (8.6-10.3); Carbon Dioxide 21 mEq/L (23-29); Chloride 101 mEq/L (98-107); Glucose 109 mg/dL (70-105); Osmolality,Calculated 280 (280-300); Potassium 3.9 mEq/L (3.5-5.1); Sodium 131 mEq/L (136-145); eGFR For African Americans > 60 (> 60); eGFR For Non-African Americans 56 (> 60)
[2018-04-19] MEDS: *HR* Heparin 5,000 UNIT/ML VIAL SQ SCH ×2 (06:02→16:56)
[2018-04-19] MEDS: Insulin LISPRO 300 UNITS/3 ML VIAL SQ SCH ×4 (07:16→21:14)
[2018-04-19] MEDS: Cholecalciferol (D-3) 1,000 UNIT TABLET PO SCH (07:23)
[2018-04-19] MEDS: Chlorhexidine Rinse 15 ML MOUTHWASH MM SCH ×2 (07:23→21:12)
[2018-04-19] MEDS: Aspirin Enteric Coated 81 MG Tablet PO SCH (07:23)
--- NOTE | 2018-04-19 07:35 | Cardiothoracic Progress Note ---
Date of Encounter: 04/19/18 Time of Encounter: 07:32 - Assessment and plan (1) Non-STEMI (non-ST elevated myocardial infarction) Current Visit: Yes Status: Acute The patient remained hemodynamic stable overnight. He maintained atrial fibrillation with controlled rate on a Cardizem. The patient will continuing ambulating in the hallways. He will be transferred to the [facility] inpatient rehabilitation unit upon discharge. The assessment and plan as outlined above was discussed with the patient and/or family members who expressed understanding and agreement. All questions were answered. - Subjective Procedure(s) Performed: POD#5 S/P CABG3, modified Maze procedure Interval history: The patient remained hemodynamically stable overnight; however, remains in atrial fibrillation. He is being treated with Cardizem and has a controlled rate. He has no complaints. Vital Signs, Last 4 Hours Temp Pulse Resp BP Pulse Ox 04/19/18 07:05 97.9 F 112 19 103/65 90 04/19/18 03:42 98.3 F 102 18 102/66 96 Oxgyen Flow Rate Oxygen Flow Rate (LPM) 3 Weight 04/17/18 04/18/18 04/19/18 23:59 23:59 23:59 Weight 77.8 kg 76.8 kg - Physical Examination General: Conversant, No Apparent Distress Neck: No JVD, Normal carotid pulses Cardiac: Normal S1 and S2, No Murmur, Other (Irregular rate and rhythm (atrial fibrillation)) Incision: No signs of infection, Dry/intact dressing Sternum: Stable Pacing Wires: In place Lungs: Normal Breath Sounds (Left lung gonzales), Other (Rhonchi in the right lung gonzales) Neuro: Alert and responsive, No focal deficits noted Vascular: Normal capillary refill Extremities: No Clubbing, No Cyanosis, No Edema - Labs 04/17/18 03:25 04/19/18 03:45 Lab Results, Last 24 hours 04/19/18 03:45 Sodium 131 L Potassium 3.9 Chloride 101 Carbon Dioxide 21 L BUN 33 H Creatinine 1.28 Glucose 109 H Calcium 8.7 - VTE Documentation of Mechanical Device: Graduated compression elastic hosiery Consult Discharge Plan - Plan Referrals: [facility] [Primary Care Provider] -
[2018-04-20] MEDS: *HR* OxyCODONE/APAP 5/325 TABLET PO PRN ×3 (06:26→20:07)
[2018-04-20] MEDS: *HR* Heparin 5,000 UNIT/ML VIAL SQ SCH (06:26)
[2018-04-20] MEDS: Cholecalciferol (D-3) 1,000 UNIT TABLET PO SCH (08:56)
[2018-04-20] MEDS: Chlorhexidine Rinse 15 ML MOUTHWASH MM SCH ×2 (08:57→20:07)
[2018-04-20] MEDS: Insulin LISPRO 300 UNITS/3 ML VIAL SQ SCH ×4 (08:57→20:10)
[2018-04-20] MEDS: Aspirin Enteric Coated 81 MG Tablet PO SCH (08:57)
[2018-04-20] MEDS ORDERED: *HR* Metoprolol 5 MG/5 ML VIAL IVP ONE ×2 (09:17→09:39)
--- NOTE | 2018-04-20 09:27 | Cardiothoracic Progress Note ---
Date of Encounter: 04/20/18 Time of Encounter: 09:25 - Assessment and plan (1) Non-STEMI (non-ST elevated myocardial infarction) Current Visit: Yes Status: Acute The patient remained hemodynamic stable overnight. He redeveloped atrial fibrillation with RVR (rate had been controlled to this point ). The patient will be started on Xarelto for his atrial fibrillation and started on digoxin for better rate control. He is unable to take amiodarone because of a contrast allergy and his beta gabe cannot be increased due to low systolic blood pressure. He will be seen by the nutrition tech date. He will continue ambulating in the hallways. The assessment and plan as outlined above was discussed with the patient and/or family members who expressed understanding and agreement. All questions were answered. - Subjective Procedure(s) Performed: POD#6 S/P CABG3, modified Maze procedure Interval history: The patient remained hemodynamically stable overnight; however, remains in atrial fibrillation. He is being treated with Cardizem and has a controlled rate. He has no complaints. Vital Signs, Last 4 Hours Temp Pulse Resp BP Pulse Ox 04/20/18 07:33 17 94 04/20/18 06:38 97.6 F 104 18 131/91 93 Oxgyen Flow Rate Oxygen Flow Rate (LPM) 2 Clinical Data, last 8 Hours Output, Urine Amount 325 Weight 04/18/18 04/19/18 04/20/18 23:59 23:59 23:59 Weight 76.8 kg - Physical Examination General: Conversant, No Apparent Distress Neck: No JVD, Normal carotid pulses Cardiac: Normal S1 and S2, No Murmur, Other Incision: No signs of infection, Dry/intact dressing Sternum: Stable Pacing Wires: In place Lungs: Normal Breath Sounds, No Wheeze, Rales, Rhonchi Neuro: Alert and responsive, No focal deficits noted Vascular: Normal capillary refill Musculoskeletal: No Chest Wall Tenderness Extremities: No Clubbing (Irregular rate and rhythm (atrial fibrillation with RVR)), No Cyanosis, No Edema - Labs 04/17/18 03:25 04/19/18 03:45 - VTE Documentation of Mechanical Device: Graduated compression elastic hosiery Consult Discharge Plan - Plan [facility]errals: [facility] [Primary Care Provider] -
[2018-04-20] MEDS ORDERED: Digoxin Oral Liquid 125 MCG/2.5 ML ORAL.SYG PO SCH (09:45)
--- NOTE | 2018-04-20 10:28 | Cardiology Progress Note ---
Date of Encounter: 04/20/18 Time of Encounter: 10:25 Assessment and Plan (1) Atrial flutter Current Visit: Yes Status: Acute New A-Fib during hospital stay, converted back to SR. Has since went into A- Flutter RVR. HR 140s this AM. S/P CABG x 3 and Modified MAZE procedure 04/14/18. TTE EF preserved, no significant valvular dysfunction. Gave one time dose of IV Lopressor 5mg and increased PO Lopressor from 25mg to 50mg BID. Dr. Martinez gave dose of PO Digoxin this AM--125mcg and started daily dosing. HR improved, 110s at bedside. BP marginal--low 100s systolic. Will re-evaluate later today and if remains RVR will consider IV digoxin loading. [id number] (Age, CAD, HTN). Dose of therapeutic Lovenox given this AM. Recommend nursing home AC. Will sesay check Xarelto. Pt agreeable. HGB 17.2 on admission 04/05/18. HGB 9.6 on 04/17. Will recheck CBC. Qualifiers: Atrial flutter type: unspecified Qualified Code(s): I48.92 - Unspecified atrial flutter (2) CAD (coronary artery disease) Current Visit: Yes Status: Acute S/P CABG x 3 04/14. ASA, Statin, BB. Qualifiers: Coronary Disease-Associated Artery/Lesion type: [place] artery [place] vs. transplanted heart: [place] heart Associated angina: without angina Qualified Code(s): I25.10 - Atherosclerotic heart disease of [place] coronary artery without angina pectoris Discussion w patient/family: The assessment and plan as outlined above was discussed with the patient and/or family members who expressed understanding and agreement. All questions were answered. Thank you for involving us in the care of your patient. Please call with any questions. I will discuss all the above with Dr. Pineda and make changes as necessary. Subjective Principal diagnosis: CAD Interval history: Cardiology reconsulted due to A-Flutter RVR. 12 hr tele AVG HR 93, but HR this AM 140s. S/P CABG x 3 and modified MAZE procedure 04/14/18. Pt denies acute complaints, but states he did feel palpitations this AM. Objective Vital Signs, Last 4 Hours Temp Pulse Resp BP Pulse Ox 04/20/18 07:33 17 94 04/20/18 06:38 97.6 F 104 18 131/91 93 Vital Signs Temp Pulse Resp BP Pulse Ox 04/20/18 07:33 17 94 04/20/18 06:38 97.6 F 104 18 131/91 93 04/20/18 03:53 109 16 117/71 93 04/20/18 03:21 16 92 04/19/18 23:45 17 95 04/19/18 23:12 98 F 68 16 106/64 97 04/19/18 20:07 98.8 F 84 18 98/53 97 04/19/18 19:55 20 97 04/19/18 16:46 19 94 04/19/18 16:30 98.1 F 116 19 105/87 94 04/19/18 16:17 116 04/19/18 11:36 101 04/19/18 11:23 97.7 F 103 18 101/73 89 04/19/18 11:03 19 90 Intake and Output 04/19/18 04/20/18 04/20/18 23:59 07:59 15:59 Intake Total 740 / 740 200 / 200 Output Total 325 / 325 Balance 740 / 740 -125 / -125 Intake: Oral 740 / 740 200 / 200 Output: Urine 325 / 325 Other: Meal Dinner Percent of Meal Consumed 80% # Voids 1 Blood Glucose* 169 118 General: Conversant, No Apparent Distress HEENT: Atraumatic, Normocephaly, Mucus Membranes Moist Neck: No JVD, Normal carotid pulses Cardiac: Other (irregularly irregular rhythm) Lungs: Other (diminished) Neuro: Alert and responsive, No focal deficits noted Abdomen: Soft, Non-Tender Skin: No rashes noted on visualized skin Musculoskeletal: No Chest Wall Tenderness Extremities: No Clubbing, No Cyanosis, No Edema, Normal Pulses Results 04/17/18 03:25 04/19/18 03:45 Active Medications Acetaminophen (Tylenol) 650 mg PO Q6HR PRN PRN Reason: Mild Pain/Fever Stop: 10/05/18 11:33 Albuterol Sulfate (Albuterol Inhaler) 2 puff IH [id number] [facility] Stop: 10/14/18 16:01 Last Admin: 04/20/18 07:32 Dose: 2 puff Aspirin (Aspirin Ec) 81 mg PO DAILY [facility] Stop: 10/06/18 09:01 Last Admin: 04/20/18 08:57 Dose: 81 mg Atorvastatin Calcium (Lipitor) 20 mg PO HS [facility] Stop: 10/05/18 21:01 Last Admin: 04/19/18 21:11 Dose: 20 mg Calcium Carbonate (Tums) 500 mg PO DAILY [facility] Stop: 10/06/18 09:01 Last Admin: 04/20/18 08:57 Dose: 500 mg Chlorhexidine Gluconate (Chlorhexidine Rinse) 15 ml MM BID [facility] Stop: 10/14/18 21:01 Last Admin: 04/20/18 08:57 Dose: 15 ml Dextrose/Water (Dextrose 50% (Syg)) 12.5 ml IVP AD PRN PRN Reason: Hypoglycemia Stop: 10/14/18 12:21 Digoxin (Lanoxin) 125 mcg PO DAILY [facility] Stop: 10/20/18 09:46 Last Admin: 04/20/18 10:08 Dose: 125 mcg Docusate Sodium (Colace) 100 mg PO BID [facility] Stop: 10/14/18 21:01 Last Admin: 04/20/18 08:56 Dose: 100 mg Enoxaparin Sodium (Lovenox) 80 mg 1 mg/kg (80 mg) SQ Q12HCO [facility] PRN Reason: Protocol Stop: 10/20/18 18:01 Insulin Human Lispro (Humalog) 0 units SQ HS [facility] PRN Reason: Protocol Stop: 10/15/18 21:01 Last Admin: 04/19/18 21:14 Dose: Not Given Insulin Human Lispro (Humalog) 0 units SQ TIDAC [facility] PRN Reason: Protocol Stop: 10/15/18 16:31 Last Admin: 04/20/18 08:57 Dose: Not Given Metoprolol Tartrate (Lopressor) 50 mg PO BID [facility] Stop: 10/20/18 21:01 Naloxone HCl (Narcan) 0.4 mg IVP Q2MIN PRN PRN Reason: SEE COMMENTS Stop: 10/05/18 11:33 Ondansetron HCl (Zofran) 4 mg IVP Q6HR PRN; Protocol PRN Reason: Nausea And Vomiting Stop: 10/06/18 13:39 Oxycodone/Acetaminophen (Percocet 5/325) 1 each PO Q4HR PRN PRN Reason: Severe Pain Stop: 10/14/18 12:21 Last Admin: 04/20/18 06:26 Dose: 1 each Polyethylene Glycol (Miralax) 17 gm PO BID PRN PRN Reason: Constipation Stop: 10/18/18 13:40 Last Admin: 04/18/18 14:12 Dose: 17 gm Vitamin D (Vitamin D) 1,000 unit PO DAILY [facility] Stop: 10/06/18 09:01 Last Admin: 04/20/18 08:56 Dose: 1,000 unit - Imaging and Cardiology Echo: report reviewed Cardiac cath: report reviewed - EKG Interpretation EKG results cardiology: other (12 hr tele AVG HR 93, A-Flutter) - VTE Documentation of Mechanical Device: Graduated compression elastic hosiery Consult Discharge Plan - Plan Referrals: Rach Richardson MD [Partnered Physician] - (office will call patient at home with follow up appointment) [place],PCP [Primary Care Provider] - 05/01/18 11:00 am Hudson Ewing MD [Partnered Physician] - 05/14/18 2:30 pm
[2018-04-20 11:22] LABS: Basophils # 0.1 K/mcL (0.0-0.2); Basophils % 0.7 %; Hematocrit 33.2 % (37.5-50.1); Lymphocytes # 1.4 K/mcL (0.6-4.6); Lymphocytes % 8.1 %; Mean Corpuscular Hemoglobin 32.2 pg (28.0-33.3); Mean Corpuscular Volume 94.6 fL (83.0-100.0); Mean Platelet Volume 10.1 fL (9.4-12.4); Monocytes # 1.8 K/mcL (0.0-1.3); Monocytes % 10.9 %; Neutrophils # 13.4 K/mcL (1.6-8.9); Platelet Count 685 K/mcL (140-400); Red Blood Count 3.51 M/mcL (4.19-5.50); Red Cell Distribution Width 14.9 % (11.5-14.5); Segmented Neutrophils % 79.3 %
[2018-04-20 11:30] LABS: Hemoglobin 11.3 g/dL (12.9-16.9)
[2018-04-20] MEDS ORDERED: *HR* Digoxin 0.5 MG/2 ML AMPUL IVP ONE (12:47)
[2018-04-20] MEDS ORDERED: *HR* Enoxaparin 80 MG/0.8 ML SYRINGE SQ SCH (18:00)
[2018-04-20] MEDS: *HR* Digoxin 0.5 MG/2 ML AMPUL IVP SCH ×2 (18:06→23:18)
[2018-04-20] MEDS: *HR* Rivaroxaban 10 MG TABLET PO SCH (18:07)
[2018-04-21] MEDS: *HR* OxyCODONE/APAP 5/325 TABLET PO PRN ×3 (02:39→17:44)
[2018-04-21] MEDS: Insulin LISPRO 300 UNITS/3 ML VIAL SQ SCH ×4 (07:33→21:11)
--- NOTE | 2018-04-21 07:54 | Cardiothoracic Progress Note ---
Date of Encounter: 04/21/18 Time of Encounter: 07:51 - Assessment and plan (1) Non-STEMI (non-ST elevated myocardial infarction) Current Visit: Yes Status: Acute The patient remained hemodynamic stable overnight. He remains in atrial fibrillation; however, the rate is not controlled with the addition of digoxin and increasing the dose of metoprolol. Cardiology had mentioned that the patient will possibly undergo KEVIN cardioversion if he does not regained normal sinus rhythm. He will continue ambulating in the hallways. The assessment and plan as outlined above was discussed with the patient and/or family members who expressed understanding and agreement. All questions were answered. - Subjective Procedure(s) Performed: POD#7 S/P CABG3, modified Maze procedure Interval history: The patient remained hemodynamically stable overnight; however, remains in atrial fibrillation. He is being treated with Cardizem, digoxin, and increased the metoprolol dosage, and has a controlled rate. He has no complaints. Vital Signs, Last 4 Hours Temp Pulse Resp BP Pulse Ox 04/21/18 07:15 97.4 F L 82 18 127/90 94 04/21/18 04:24 17 125/63 97 Oxgyen Flow Rate Oxygen Flow Rate (LPM) 2 Clinical Data, last 8 Hours Output, Urine Amount 725 Output, Urine Amount 450 Weight 04/19/18 04/20/18 04/21/18 23:59 23:59 23:59 Weight 76.8 kg 76.5 kg - Physical Examination General: Conversant, No Apparent Distress Neck: No JVD, Normal carotid pulses Cardiac: Normal S1 and S2, No Murmur, Other (Irregular rate and rhythm (atrial fibrillation)) Incision: No signs of infection, Dry/intact dressing Sternum: Stable Lungs: Normal Breath Sounds, No Wheeze, Rales, Rhonchi Neuro: Alert and responsive, No focal deficits noted Extremities: No Clubbing, No Cyanosis, No Edema - Labs 04/20/18 11:11 04/19/18 03:45 Lab Results, Last 24 hours 04/20/18 04/20/18 11:11 11:11 WBC 16.8 H Hgb 11.3 L D Hct 33.2 L Plt Count 685 H D TSH 1.275 - VTE Documentation of Mechanical Device: Graduated compression elastic hosiery Consult Discharge Plan - Plan Referrals: Rach Richardson MD [Partnered Physician] - (office will call patient at home with follow up appointment) [facility],PC[facility] [Primary Care Provider] - 05/01/18 11:00 am Hudson Ewing MD [Partnered Physician] - 05/14/18 2:30 pm
[2018-04-21] MEDS: Aspirin Enteric Coated 81 MG Tablet PO SCH (08:06)
[2018-04-21] MEDS: Cholecalciferol (D-3) 1,000 UNIT TABLET PO SCH (08:06)
[2018-04-21] MEDS: Chlorhexidine Rinse 15 ML MOUTHWASH MM SCH ×2 (08:06→21:16)
[2018-04-21] MEDS ORDERED: Lidocaine Viscous Oral Soln 15 ML SOLUTION MM PRN (11:01)
[2018-04-21] MEDS ORDERED: 0.9 % Sodium Chloride 500 ML IVC ONE (11:02)
[2018-04-21] MEDS ORDERED: Tetracaine/Benzocaine/Butamben 200MG/SPRAY (100SPY/BOT) MM ONE (11:02)
[2018-04-21] MEDS: *HR* Midazolam HCl 5 MG/5 ML VIAL IVP PRN ×3 (11:40→11:50)
[2018-04-21] MEDS: *HR* FentaNYL (PF) 100 MCG/2 ML VIAL IVP PRN (11:45)
--- NOTE | 2018-04-21 12:28 | Event Note ---
Date of Encounter: 04/21/18 Time of Encounter: 12:26 - Cardiology Event Note Successful KEVIN/DCCV, now in sinus rhythm. Continue BB. Will stop Digoxin. Cardiology signing off. Reconsult PRN. Will coordinate outpt follow-up.
--- NOTE | 2018-04-21 16:17 | Electrocardiograph Report ---
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
--- NOTE | 2018-04-21 16:19 | Electrocardiograph Report ---
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
[2018-04-21] MEDS: *HR* Rivaroxaban 10 MG TABLET PO SCH (16:24)
[2018-04-22 04:37] LABS: BUN/Creatinine Ratio 24 (6-26); Blood Urea Nitrogen 27 mg/dL (8-23); Calcium 8.7 mg/dL (8.6-10.3); Carbon Dioxide 19 mEq/L (23-29); Chloride 105 mEq/L (98-107); Glucose 120 mg/dL (70-105); Osmolality,Calculated 280 (280-300); Potassium 4.6 mEq/L (3.5-5.1); Sodium 132 mEq/L (136-145); eGFR For African Americans > 60 (> 60); eGFR For Non-African Americans > 60 (> 60)
[2018-04-22] MEDS: *HR* OxyCODONE/APAP 5/325 TABLET PO PRN (05:53)
[2018-04-22 07:59] VITALS: BP 146/80
--- NOTE | 2018-04-22 08:15 | Discharge Summary ---
Orders not resulted at time of discharge: Pending orders 04/13/18 07:09 Red Blood Cells [BBK] Routine Type and Screen [BBK] Routine Date of Encounter: 04/22/18 Time of Encounter: 08:12 - Discharge Diagnosis (1) Non-STEMI (non-ST elevated myocardial infarction) Priority: Primary Status: Acute - Hospital Course Hospital course: Mr. Nair is a 68 year old hypertensive man with hypercholesterolemia, known cerebrovascular disease, and known peripheral arterial disease. He states that during the last several months he is experienced 'indigestion', both with activity and particularly at night. He has had lightheadedness and presyncope, but denies any substernal chest pain, shortness of breath, dyspnea exertion nausea, or vomiting. However, on 04/03/2018 the patient had severe, nonradiating substernal chest pain and nausea and vomiting. The patient was evaluated at the [facility] emergency department where he is found to have atrial fibrillation with a rapid ventricular response. He also had elevated troponin I levels consistent with an acute NSTEMI. He was treated medically with resolution of his chest pain and transferred to [facility] for further cardiac care. A transthoracic echocardiogram revealed a left ventricular ejection fraction 60 % with normal left ventricular chamber size wall thickness, and function. No significant valvular dysfunction was noted, but mild left ventricular diastolic dysfunction was present. The patient underwent cardiac catheterization today was found to have severe 3 vessel CAD and an LVEF 65%. In particular the patient had a 50% proximal left main lesion, a 50% distal left main lesion, a 95 % ostial/proximal LCx lesion, a 90% proximal OM1 lesion, a 70% proximal RCA lesion, and a 90% mid RCA lesion. The patient has been recommended for combined CABG and modified Maze procedure. The patient had been on Plavix preoperatively for his right femoropopliteal bypass and this was stopped for 6 days preoperatively. He underwent a CABG 3 with modified Maze procedure and left atrial appendage stapling on 04/14/2018. His postoperative course was uncomplicated; however, he redeveloped atrial fibrillation with a rapid ventricular response on POD #2. This was treated medically for several days, but he remained in atrial fibrillation with a controlled rate. He was ambulating in the hallways without difficulty. He underwent a transthoracic echocardiogram with direct cardioversion on POD #7 with return to normal sinus rhythm. The patient was discharged home on POD #8. - Time Spent with Patient Total time spent providing and/or coordinating discharge services: - Discharge Medications Prescriptions: OxyCODONE/APAP 5/325 [Percocet 5/325 MG] 1 each PO Q4HR PRN 7 Days #42 tablet PRN Reason: Severe Pain Metoprolol [Lopressor] 50 mg PO BID #60 tablet Rivaroxaban [Xarelto] 20 mg PO 1700 #30 tablet Home Medications: Clopidogrel [Plavix] 75 mg PO DAILY 10/29/15 [History] Amlodipine Besylate 10 mg PO DAILY 04/05/18 [History] Aspirin [Lo-Dose Aspirin EC] 81 mg PO DAILY 04/05/18 [History] Atorvastatin [Lipitor] 20 mg PO HS 04/05/18 [History] Calcium Carbonate [Calcium] 600 mg PO DAILY 04/05/18 [History] Ergocalciferol (VITAMIN D2) [Vitamin D] 400 unit PO DAILY 04/05/18 [History] Lisinopril [Zestril] 5 mg PO DAILY 04/05/18 [History] Vit C/E/Zn/Coppr/Lutein/Zeaxan [Preservision Areds 2 Softgel] 1 cap PO BID 04/05 [History] Metoprolol [Lopressor] 50 mg PO BID #60 tablet 04/22/18 [Rx] OxyCODONE/APAP 5/325 [Percocet 5/325 MG] 1 each PO Q4HR PRN 7 Days #42 tablet [Rx] Rivaroxaban [Xarelto] 20 mg PO 1700 #30 tablet 04/22/18 [Rx] Allergies/Adverse Reactions: 3 Allergy/AdvReac Type Severity Reaction Status Date / Time adhesive tape Allergy See Verified 04/05/18 10:59 Comments Iodinated Contrast- Oral and Allergy See Verified 04/05/18 10:59 IV Dye Comments Date of admission: 04/05/18 12:26 Primary care physician: [facility]CP [facility] Consults: 04/06/18 13:50 Consult to Cardiothoracic Surgery [CONS] Routine Consulting Provider: Cardiothoracic Surgery Michelle Reason for Consult: cabg Call Completed: Yes 04/07/18 08:46 Consult to Continuous Improvement Consultant [CONS] Routine Reason for SW Consult: Patient will be having CABG next Friday. Dr. Martinez would like the [facility] notified as well as conformation that the patient can have the open heart surgery at [facility]. 04/14/18 12:20 Consult to Cardiac Rehabilitation-Phase1 [CONS] Routine Comment: Reason for Consult: Post open heart Call Completed: Yes 04/16/18 09:21 Consult to Occupational Therapy [CONS] Stat Comment: Evaluate, develop and implement POC Reason for Consult: s/p open heart surgery Does patient have active BEDREST order?: No Is patient medically & hemodynamically stable?: Yes Consult to Physical Therapy [CONS] Stat Comment: Evaluate, develop and implement POC Reason for Consult: s/p open heart surgery Does patient have active BEDREST order?: No Is patient medically & hemodynamically stable?: Yes 04/20/18 10:09 Consult to Cardiology [CONS] Routine Comment: Consulting Provider: Cardiology [place] Reason for Consult: Atrial fibrillation with RVR Time Notified: 09:24 Call Completed: Yes Procedure(s) Performed: 1. Cardiac catheterization performed 04/06/2018. 2. CABG 3 (METCALF to LAD, SVG to OM1, SVG to PDA) performed 04/14/2018. 3. Modified Maze procedure using radiofrequency ablation performed 04/14/2018. 4. Left atrial appendage stapling performed 04/14/2018. 5. Endoscopic vein harvesting, greater saphenous vein from left lower extremity performed 04/14/2018. 6. Transesophageal echocardiogram with cardioversion performed 04/21/2018. Discharging clinician: Nishi Martinez Anticipated date of discharge: 04/22/18 Physical Examination Vital Signs, Last 4 Hours Temp Pulse Resp BP Pulse Ox 04/22/18 07:50 97.5 F L 76 18 146/80 94 04/22/18 07:34 17 96 04/22/18 04:15 20 97 General: Conversant, No Apparent Distress HEENT: Atraumatic, Normocephaly, Trachea midline Neck: No JVD, Normal carotid pulses Cardiac: Reg Rate and Rhythm, Normal S1 and S2, No Murmur Lungs: Normal Breath Sounds, No Wheeze, Rales, Rhonchi Neuro: Alert and responsive, No focal deficits noted Vascular: Normal capillary refill Abdomen: Soft, Non-tender Skin: No rashes noted on visualized skin Extremities: No Clubbing, No Cyanosis, No Edema - Patient Status Disposition: Home, Self-Care Condition: Good Functional capacity at discharge: independent ambulation Overall status at discharge: patient is progressing back to baseline - Discharge Instructions Follow Up With: Rach Richardson MD [Partnered Physician] - (office will call patient at home with follow up appointment) PA,PCP [Primary Care Provider] - 05/01/18 11:00 am Hudson Ewing MD [Partnered Physician] - 05/14/18 2:30 pm - Diet and Activity Activity: sternal precautions, no driving for four weeks, no lifting greater than 10 pounds for eight weeks Diet: low fat, low cholesterol Open Heart Registry Aspirin Cont/Prescribed at DC: Yes Beta Ralph Cont/Prescribed at DC: Yes Statin Cont/Prescribed at DC: Yes LEONA/ARB Cont/Prescribed at DC: Yes - VTE Documentation of Mechanical Device: Graduated compression elastic hosiery
[2018-04-22] MEDS: Aspirin Enteric Coated 81 MG Tablet PO SCH (08:39)
[2018-04-22] MEDS: Cholecalciferol (D-3) 1,000 UNIT TABLET PO SCH (08:39)
[2018-04-22] MEDS: Chlorhexidine Rinse 15 ML MOUTHWASH MM SCH (08:39)
[2018-04-22] MEDS: Insulin LISPRO 300 UNITS/3 ML VIAL SQ SCH (08:41)
--- NOTE | 2018-04-22 17:46 | Electrocardiograph Report ---
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
== END 2018-04-22 13:10 | disposition home or self-care (01) | DRG 229 ==
LOC: EMEROO 10:00 → 2ANU 12:26 → ICNU 04-14 12:02 → 2NNU 04-18 15:17
PROVIDERS: ADMIT Family Medicine; ATTEND Family Medicine

== ENCOUNTER 2018-08-23 01:11 | Inpatient (IN) ==
--- NOTE | 2018-08-23 01:26 | Emergency Department Note ---
Disposition Clinical Impression: Shortness of breath Chest pain Qualifiers: Chest pain type: unspecified Qualified Code(s): R07.9 - Chest pain, unspecified Disposition: Admitted As Inpatient Condition: Good Time of Disposition: 03:55 Chest Pain HPI - General Chief Complaint: ED Chest Pain Stated Complaint: Chest Pain Time Seen by Provider: 08/23/18 01:19 Vital Signs Reviewed: Yes Nursing Notes Reviewed: Yes - History of Present Illness HPI Narrative: 68-year-old male former smoker with complaint of 8 out of 10 chest pain. He states that that it awoke him from sleep. He also mention he had similar symptoms yesterday. He describes the pain as 8 out of 10, midsternum with radia tion into his back, accompanied with shortness of breath diaphoresis and nausea. He had arrived via squad. Squad reports 92% with some mild labored breathing on room air when they had arrived, they had given aspirin and placed on 4 L which had improved his symptoms. Patient does mention that he has had some slightly worse right lower extremity swelling, but states that he does have peripheral arterial disease, does describe chronic right lower extremity swelling. He does mention he had a bypass surgery approximately 4 months ago as well. He denies any near syncopal symptoms, palpitations, fever, cough, abdominal pain - Related Data Home Medications Medication Instructions Recorded Confirmed Clopidogrel [Plavix] 75 mg PO DAILY 10/29/15 04/05/18 Amlodipine Besylate 10 mg PO DAILY 04/05/18 04/05/18 Aspirin [Lo-Dose Aspirin EC] 81 mg PO DAILY 04/05/18 04/05/18 Atorvastatin [Lipitor] 20 mg PO HS 04/05/18 04/05/18 Calcium Carbonate [Calcium] 600 mg PO DAILY 04/05/18 04/05/18 Ergocalciferol (VITAMIN D2) 400 unit PO DAILY 04/05/18 04/05/18 [Vitamin D] Lisinopril [Zestril] 5 mg PO DAILY 04/05/18 04/05/18 Vit C/E/Zn/Coppr/Lutein/Zeaxan 1 cap PO BID 04/05/18 04/05/18 [Preservision Areds 2 Softgel] Previous Rx's Medication Instructions Recorded Metoprolol [Lopressor] 50 mg PO BID #60 tablet 04/22/18 OxyCODONE/APAP 5/325 [Percocet 1 each PO Q4HR PRN 7 Days #42 04/22/18 5/325 MG] tablet Rivaroxaban [Xarelto] 20 mg PO 1700 #30 tablet 04/22/18 Allergies Allergy/AdvReac Type Severity Reaction Status Date / Time adhesive tape Allergy See Verified 08/23/18 01:15 Comments Iodinated Contrast- Oral and Allergy See Verified 08/23/18 01:15 IV Dye Comments All systems ED: reviewed and negative except as stated. Review of Systems: As Per HPI Constitutional: Denies: fever, chills Eyes: Denies: vision change ENT ED: Denies: throat pain Cardiovascular: Reports: as per HPI Respiratory: Reports: as per HPI. Denies: cough Gastrointestinal: Reports: as per HPI. Denies: abdominal pain Genitourinary: Denies: dysuria Musculoskeletal: Denies: back pain, neck pain Integumentary: Denies: rash Neurological: Denies: headache, weakness, numbness, paresthesias Endocrine: Denies: fatigue Hematological/Lymphatic: Denies: easy bleeding Allergic/Immunologic: Denies: facial swelling Chest Pain PMH - Past Medical History Medical history: Reports: atrial fibrillation, coronary artery disease, CVA, hyperlipidemia, hypertension, peripheral artery disease, other Surgical history: Reports: coronary bypass (CABG), LE vascular intervention, other Psychiatric history: Reports: no psych history - Social History Smoking Status: Former smoker Alcohol use: Reports: occasionally Drug use: Reports: none Physical Exam - General Limitations: no limitations General appearance: alert, in no apparent distress - Head Head exam: normocephalic - Eye Eye exam: Present: EOMI. Absent: conjunctival injection - ENT ENT exam: mucous membranes moist - Neck Neck exam: Present: full ROM - Chest Chest inspection: Present: normal inspection, symmetric chest wall rise - Respiratory Respiratory exam: Present: normal lung sounds bilaterally. Absent: respiratory distress - Cardiovascular Cardiovascular exam: Present: regular rate, normal rhythm - Abdominal Exam Abdominal exam: Present: soft, Non-Tender - Extremities Exam Extremities exam: Present: full ROM, normal capillary refill - Expanded Lower Extremity Exam Hip/Pelvis exam: Present: full ROM. Absent: tenderness Upper leg exam: Absent: tenderness Knee exam: Absent: tenderness Lower leg exam: Present: swelling (Right lower extremity). Absent: palpable cord, Homans' sign Ankle exam: Absent: tenderness Neurovascular/Tendon exam: Absent: pulse deficit, motor deficit, sensory deficit Gait: not tested/not observed - Neurological Exam Neurological exam: Present: alert - Psychiatric Psychiatric exam: Present: normal affect, normal mood - Skin Skin exam: Present: warm, dry, intact, normal color. Absent: rash, cyanosis, diaphoresis Course Course Narrative: Patient is a 68-year-old male former smoker arrives via squad with complaint of chest pain that awoke him from sleep just prior to arrival. He describes as starting out as feeling like bad heart burn, then also pressure with radiation to his back. Pain is accompanied with nausea and diaphoresis shortness of breath. He feels it did worsen when he moved around. Past medical history includes CAD with a CABG in March 2018, PAD, Cecily currie. Reported chronic right lower extremity swelling. Squad had administered aspirin, placed him on 4 L oxygen. Right now he states his pain has improved. Pt takes Plavix and Xarelto. He mentioned he also had a injury on the extensor surface of his left wrist yesterday caused by sheet metal. He had controlled bleeding at home with bandage. Patient seen and examined. No acute distress. No cyanosis or diaphoresis. Lungs CTA. No abdominal tenderness. RLE edema no tenderness. approx 3cm skin tear on left wrist no active bleeding. No evidence of infection. Workup initiated. Analgesics declined. Will need Tdap update. EKG: SR, possible borderline ST depression on anterior leads when compared to previous EKG. - Reevaluation(s) Reevaluation #1: Medical records reviewed. Proximally 5 months ago, patient had presented to this emergency department, and was admitted for an STEMI, had a left heart catheterization with recommendations for a elective CABG which was performed. Patient describes chronic right lower extremity swelling, which had been worsening since the saphenous vein harvesting from his CABG. No history of DVT or PE, however patient does have peripheral arterial disease. Tonight's workup Critical trop called at 0.04. Pt does have elvated creatine, worse than previous but within the range of his previous values in EMR. CXR as read by radiologist 7.3 cm rounded opacity at medial right lung base, and acute pulmonary edema. Differential include infiltrate, mass, airspace disease, eventration of left hemidiaphragm. Discussed with attending Dr. Garrett. We will f/u with CT chest. Will plan for hospital admission as well. Time: 02:06 Reevaluation #2: Pt discussed with and accepted by hospitalist Dr. Wells. We also discussed patient's CT findings of herniated omentum. I will plan to discuss with radiologist to determine if any further evaluation or surgical consult would be useful. Time: 03:43 - Consultations Consultation #1: I discussed patient's CT scan with radiologist Dr. Chong, who mentioned [facility]. Regarding the herniated omentum, he feels that there is no appreciable worsening, and feels since this has not been worsening since 2014 less concerning for any need for surgical intervention. Time: 03:50 Vital Signs Temperature 97.9 F 08/23/18 01:17 Pulse Rate 86 08/23/18 01:17 Respiratory Rate 26 08/23/18 01:17 Blood Pressure 168/71 08/23/18 01:17 O2 Sat by Pulse Oximetry 96 08/23/18 01:17 Temperature 98 F 08/23/18 05:38 Pulse Rate 80 08/23/18 05:38 Respiratory Rate 16 08/23/18 05:38 Blood Pressure 162/69 08/23/18 05:38 O2 Sat by Pulse Oximetry 97 08/23/18 05:38 Oxygen Delivery Oxygen Delivery Room Air Chest Pain - MDM Narrative Medical decision making narrative: Patient presented from home with chest pain shortness of breath. Symptoms had resolved on their own here. Patient did receive aspirin per squad report. Did have an elevated troponin which is new, however he did also have an elevated creatinine as well. His symptoms or worsening on exertion, and with the midsternal, with radiation to his back. His EKG showed some minimal ST depression in anterior leads that appeared to be new as well. He did have an abnormality on his chest x-ray, which was followed up with a CT scan that showed a. Herniated omentum. I had also discussed this with the radiologist who states there is no appreciable change from the previous CT scan at 2013. Patient was discussed with hospitalist who accepted patient for ACS rule out. Pt discussed with Dr. Garrett who also had facetime with patient and agreed for work up and disposition. Chest X-Ray 08/23/18 01:20 IMPRESSION: Acute pulmonary interstitial edema. 7.3 cm rounded opacity at the medial right lung base. This may represent a mass or localized airspace disease. Focal eventration of the left hemidiaphragm not entirely excluded. When the patient is able, a follow-up PA and lateral examination the chest is recommended. D/ / Angel Flores MD / Angel Flores MD Interpreting Provider: Angel Flores MD Chest CT 08/23/18 02:09 IMPRESSION: 1. Trace bilateral pleural effusions with septal thickening most consistent with pulmonary edema. 2. Herniated omentum accounts for the apparent mass noted on conventional radiograph. 3. Ground-glass opacities in the left apex are nonspecific though are most likely infectious or inflammatory. D/ / Kei Chong MD / Kei Chong MD Interpreting Provider: Kei Chong MD Laboratory Tests 08/23/18 08/23/18 08/23/18 01:28 01:28 01:28 WBC 13.7 H RBC 5.26 Hgb 13.5 Hct 41.0 MCV 77.9 L MCH 25.7 L MCHC 32.9 RDW 15.8 H Plt Count 705 H MPV 9.9 Immature Gran % 0.2 Seg Neutrophils % 76.4 Lymphocytes % 12.5 Monocytes % 10.2 Eosinophils % 0.1 Basophils % 0.6 Neutrophils # 10.4 H Lymphocytes # 1.7 Monocytes # 1.4 H Eosinophils # 0.0 Basophils # 0.1 PT 12.6 H INR 1.1 APTT 39.0 H Sodium 129 L Potassium 4.4 Chloride 101 Carbon Dioxide 16 L BUN 29 H Creatinine 1.46 H Est GFR ( Amer) 58 L Est GFR (Non-Af Amer) 48 L BUN/Creatinine Ratio 20 Glucose 110 H Calculated Osmolality 274 L Calcium 9.1 Troponin I 0.04 H* - Lab Data Lab results reviewed: Yes I reviewed the patient's lab results. Result diagrams: 08/23/18 01:28 08/23/18 01:28 Lab Results 08/23/18 08/23/18 08/23/18 Range/Units 01:28 01:28 01:28 WBC 13.7 H (4.3-11.1) K/mcL RBC 5.26 (4.19-5.50) M/mcL Hgb 13.5 (12.9-16.9) g/dL Hct 41.0 (37.5-50.1) % MCV 77.9 L (83.0-100.0) fL MCH 25.7 L (28.0-33.3) pg MCHC 32.9 (31.6-35.5) g/dL RDW 15.8 H (11.5-14.5) % Plt Count 705 H (140-400) K/mcL MPV 9.9 (9.4-12.4) fL Immature Gran % 0.2 (0-4) % Seg Neutrophils % 76.4 % Lymphocytes % 12.5 % Monocytes % 10.2 % Eosinophils % 0.1 % Basophils % 0.6 % Neutrophils # 10.4 H (1.6-8.9) K/mcL Lymphocytes # 1.7 (0.6-4.6) K/mcL Monocytes # 1.4 H (0.0-1.3) K/mcL Eosinophils # 0.0 (0.0-0.6) K/mcL Basophils # 0.1 (0.0-0.2) K/mcL PT 12.6 H (9.4-12.1) Seconds INR 1.1 APTT 39.0 H (26.0-36.0) Seconds Sodium 129 L (136-145) mEq/L Potassium 4.4 (3.5-5.1) mEq/L Chloride 101 (98-107) mEq/L Carbon Dioxide 16 L (23-29) mEq/L BUN 29 H (8-23) mg/dL Creatinine 1.46 H (0.70-1.30) mg/dL Est GFR ( Amer) 58 L (> 60) Est GFR (Non-Af Amer) 48 L (> 60) BUN/Creatinine Ratio 20 (6-26) Glucose 110 H (70-105) mg/dL Calculated Osmolality 274 L (280-300) Calcium 9.1 (8.6-10.3) mg/dL Troponin I 0.04 H* (< 0.04) ng/mL - Radiology Data Radiology results reviewed: Yes I reviewed the patient's radiology results. - EKG Data EKG attestation: Yes I reviewed and interpreted this EKG. EKG shows normal: sinus rhythm Rate: normal Rhythm: NSR [place]/QRS: right axis deviation When compared to previous EKG there are: changes noted (possible borderline ST depression on anterior leads when compared to preivous EKG fro 03/2018.) Heart Score - Score History: Moderately Suspicious EKG: Non Specific repolarisation Disturbance Age: Greater than 65 Risk Factors: Equal/Greater than 3 risk factor or history of atherosclerotic disease Troponin: 1-3x normal limit HEART Score Total: 7
[2018-08-23 01:39] LABS: Basophils # 0.1 K/mcL (0.0-0.2); Basophils % 0.6 %; Eosinophils % 0.1 %; Hemoglobin 13.5 g/dL (12.9-16.9); Immature Granulocytes % 0.2 % (0-4); Lymphocytes # 1.7 K/mcL (0.6-4.6); Lymphocytes % 12.5 %; Mean Corpuscular HGB Conc 32.9 g/dL (31.6-35.5); Mean Corpuscular Hemoglobin 25.7 pg (28.0-33.3); Mean Corpuscular Volume 77.9 fL (83.0-100.0); Mean Platelet Volume 9.9 fL (9.4-12.4); Monocytes # 1.4 K/mcL (0.0-1.3); Monocytes % 10.2 %; Neutrophils # 10.4 K/mcL (1.6-8.9); Platelet Count 705 K/mcL (140-400); Red Blood Count 5.26 M/mcL (4.19-5.50); Red Cell Distribution Width 15.8 % (11.5-14.5); Segmented Neutrophils % 76.4 %
[2018-08-23 01:47] LABS: INR 1.1; Prothrombin Time 12.6 Seconds (9.4-12.1)
[2018-08-23 02:00] LABS: Calcium 9.1 mg/dL (8.6-10.3); Potassium 4.4 mEq/L (3.5-5.1)
[2018-08-23 02:05] LABS: Troponin I 0.04 ng/mL (< 0.04)
--- NOTE | 2018-08-23 03:27 | Emergency Department Note ---
Disposition Clinical Impression: Shortness of breath Chest pain Qualifiers: Chest pain type: unspecified Qualified Code(s): R07.9 - Chest pain, unspecified Disposition: Admitted As Inpatient Condition: Good General Adult HPI - General Chief complaint: ED Chest Pain Stated complaint: Chest Pain Time Seen by Provider: 08/23/18 01:19 Source: patient Limitations: no limitations Nursing Notes Reviewed: Yes Vital Signs Reviewed: Yes - History of Present Illness Pain Scale: 0 - Related Data Home Medications Medication Instructions Recorded Confirmed Clopidogrel [Plavix] 75 mg PO DAILY 10/29/15 04/05/18 Amlodipine Besylate 10 mg PO DAILY 04/05/18 04/05/18 Aspirin [Lo-Dose Aspirin EC] 81 mg PO DAILY 04/05/18 04/05/18 Atorvastatin [Lipitor] 20 mg PO HS 04/05/18 04/05/18 Calcium Carbonate [Calcium] 600 mg PO DAILY 04/05/18 04/05/18 Ergocalciferol (VITAMIN D2) 400 unit PO DAILY 04/05/18 04/05/18 [Vitamin D] Lisinopril [Zestril] 5 mg PO DAILY 04/05/18 04/05/18 Vit C/E/Zn/Coppr/Lutein/Zeaxan 1 cap PO BID 04/05/18 04/05/18 [Preservision Areds 2 Softgel] Previous Rx's Medication Instructions Recorded Metoprolol [Lopressor] 50 mg PO BID #60 tablet 04/22/18 OxyCODONE/APAP 5/325 [Percocet 1 each PO Q4HR PRN 7 Days #42 04/22/18 5/325 MG] tablet Rivaroxaban [Xarelto] 20 mg PO 1700 #30 tablet 04/22/18 Allergies Allergy/AdvReac Type Severity Reaction Status Date / Time adhesive tape Allergy See Verified 08/23/18 01:15 Comments Iodinated Contrast- Oral and Allergy See Verified 08/23/18 01:15 IV Dye Comments Constitutional: Denies: fever, chills Eyes: Denies: vision change ENT ED: Denies: throat pain Cardiovascular: Reports: as per HPI Respiratory: Reports: as per HPI. Denies: cough Gastrointestinal: Reports: as per HPI. Denies: abdominal pain Genitourinary: Denies: dysuria Musculoskeletal: Denies: back pain, neck pain Integumentary: Denies: rash Neurological: Denies: headache, weakness, numbness, paresthesias Endocrine: Denies: fatigue Hematological/Lymphatic: Denies: easy bleeding Allergic/Immunologic: Denies: facial swelling Past Medical History - Past Medical History Medical history: Reports: atrial fibrillation, coronary artery disease, CVA, hyperlipidemia, hypertension, peripheral artery disease, other Surgical history: Reports: coronary bypass (CABG), LE vascular intervention, other Psychiatric history: Reports: no psych history - Social History Smoking Status: Former smoker Smokeless Tobacco Status: No Alcohol use: Reports: occasionally Drug use: Reports: none Physical Exam - General Limitations: no limitations General appearance: alert, in no apparent distress Course Vital Signs Temperature 97.9 F 08/23/18 01:17 Pulse Rate 86 08/23/18 01:17 Respiratory Rate 26 08/23/18 01:17 Blood Pressure 168/71 08/23/18 01:17 O2 Sat by Pulse Oximetry 96 08/23/18 01:17 Temperature 97.9 F 08/23/18 01:17 Pulse Rate 83 08/23/18 04:15 Respiratory Rate 18 08/23/18 04:15 Blood Pressure 133/71 08/23/18 04:15 O2 Sat by Pulse Oximetry 97 08/23/18 04:15 Oxygen Delivery Oxygen Delivery Room Air Medical Decision Making - [facility] Narrative Medical decision making narrative: Chest X-Ray 08/23/18 01:20 IMPRESSION: Acute pulmonary interstitial edema. 7.3 cm rounded opacity at the medial right lung base. This may represent a mass or localized airspace disease. Focal eventration of the left hemidiaphragm not entirely excluded. When the patient is able, a follow-up PA and lateral examination the chest is recommended. D/ / Angel Flores MD / Angel Flores MD Interpreting Provider: Angel Flores MD Chest CT 08/23/18 02:09 IMPRESSION: 1. Trace bilateral pleural effusions with septal thickening most consistent with pulmonary edema. 2. Herniated omentum accounts for the apparent mass noted on conventional radiograph. 3. Ground-glass opacities in the left apex are nonspecific though are most likely infectious or inflammatory. D/ / Kei Chong MD / Kei Chong MD Interpreting Provider: Kei Chong MD - Medical Records Medical records reviewed: Yes I reviewed the patient's medical records. - Lab Data Lab results reviewed: Yes I reviewed the patient's lab results. Result diagrams: 08/23/18 01:28 08/23/18 01:28 Lab Results 08/23/18 08/23/18 08/23/18 Range/Units 01: 01: 01:28 WBC 13.7 H (4.3-11.1) K/mcL RBC 5.26 (4.19-5.50) M/mcL Hgb 13.5 (12.9-16.9) g/dL Hct 41.0 (37.5-50.1) % MCV 77.9 L (83.0-100.0) fL MCH 25.7 L (28.0-33.3) pg MCHC 32.9 (31.6-35.5) g/dL RDW 15.8 H (11.5-14.5) % Plt Count 705 H (140-400) K/mcL MPV 9.9 (9.4-12.4) fL Immature Gran % 0.2 (0-4) % Seg Neutrophils % 76.4 % Lymphocytes % 12.5 % Monocytes % 10.2 % Eosinophils % 0.1 % Basophils % 0.6 % Neutrophils # 10.4 H (1.6-8.9) K/mcL Lymphocytes # 1.7 (0.6-4.6) K/mcL Monocytes # 1.4 H (0.0-1.3) K/mcL Eosinophils # 0.0 (0.0-0.6) K/mcL Basophils # 0.1 (0.0-0.2) K/mcL PT 12.6 H (9.4-12.1) Seconds INR 1.1 APTT 39.0 H (26.0-36.0) Seconds Sodium 129 L (136-145) mEq/L Potassium 4.4 (3.5-5.1) mEq/L Chloride 101 (98-107) mEq/L Carbon Dioxide 16 L (23-29) mEq/L BUN 29 H (8-23) mg/dL Creatinine 1.46 H (0.70-1.30) mg/dL Est GFR ( Amer) 58 L (> 60) Est GFR (Non-Af Amer) 48 L (> 60) BUN/Creatinine Ratio 20 (6-26) Glucose 110 H (70-105) mg/dL Calculated Osmolality 274 L (280-300) Calcium 9.1 (8.6-10.3) mg/dL Troponin I 0.04 H* (< 0.04) ng/mL - Radiology Data Radiology results reviewed: Yes I reviewed the patient's radiology results. Chest X-Ray 08/23/18 01:20 IMPRESSION: Acute pulmonary interstitial edema. 7.3 cm rounded opacity at the medial right lung base. This may represent a mass or localized airspace disease. Focal eventration of the left hemidiaphragm not entirely excluded. When the patient is able, a follow-up PA and lateral examination the chest is recommended. D/ / Angel Flores MD / Angel Flores MD Interpreting Provider: Angel Flores MD Chest CT 08/23/18 02:09 IMPRESSION: 1. Trace bilateral pleural effusions with septal thickening most consistent with pulmonary edema. 2. Herniated omentum accounts for the apparent mass noted on conventional radiograph. 3. Ground-glass opacities in the left apex are nonspecific though are most likely infectious or inflammatory. D/ / Kei Chong MD / Kei Chong MD Interpreting Provider: Kei Chong MD - EKG Data EKG #1 EKG attestation: Yes I reviewed and interpreted this EKG. EKG results narrative: EKG shows a normal sinus rhythm with ventricular rate of 83. No ST segment elevation. There is minimal anterior ST segment depressions with normal upright T waves. No arrhythmia or ectopy. Critical Care Time Critical Care Time: No Attestation Statement - Attestation Attestation: I, Hudson Garrett MD, personally evaluated this patient and discussed their management with the midlevel provicer, PAC/PULPING MACHINE OPERATOR. I reviewed the midlevel provider's note and agree with the documented findings, medical decision making, and plan of care. 68-year-old male with history of coronary artery disease and CABG about 4 months ago presents to the emergency department with a complaint of some mid chest pain which awoke him from sleep about 2-3 hours prior to arrival in the emergency department. The pain radiated to the right shoulder. There was some nausea and diaphoresis associated with the pain. Also shortness of breath. Patient is pain-free at time of my examination. He states that he did have a similar episode of pain yesterday which resolved spontaneously. On examination patient is a well-developed well-nourished well-appearing elderly male in no acute distress. He is alert and oriented 3. There is no cyanosis or diaphoresis. Chest is nontender to palpation. Breath sounds are clear and equal bilaterally. Heart regular rate and rhythm. Abdomen soft and nontender with normal bowel sounds. There is edema of the right lower extremity which patient states is chronic and unchanged. EKG shows a normal sinus rhythm with mild anterior ST segment depression. No ST elevation or T-wave changes. Labs reviewed. Troponin 0.04 however 3 previous troponins back in March were 0.06-0.07. Chest x-ray showed a rounded masslike lesion in the right medial lower chest. Also read as some interstitial edema. A CT of the chest was obtained and the masslike lesion was felt to be herniated omentum which was present on prior CT 4 years ago and not significantly changed per consultation with the radiologist to read this CT. The hospitalist, Dr. Wells, was consulted and accepted admission of the patient.
[2018-08-23] MEDS ORDERED: Tdap (Boostrix) Vaccine 0.5 ML SYRINGE IM ONE (03:33)
[2018-08-23] MEDS ORDERED: Furosemide 20 MG/2 ML VIAL IVP ONE (03:34)
--- NOTE | 2018-08-23 04:14 | Internal Med History&Physical ---
<Shannan Garrett N - Last Filed: 08/23/18 06:51> Date of Encounter: 08/23/18 Time of Encounter: 04:14 Internal Medicine - H&P: HPI Chief complaint: Chest pain Admitted From: Emergency Dept History of present illness: Mr. Nair is a 68 year old male with a history of atrial fibrillation, CAD, CVA, hyperlipidemia, HTN, and PAD. He is approximately 4 months s/p CABG. He presented to the ED due to 9/10 chest pain that was midsternal and radiated to his right shoulder. He states that this pain woke him up from sleeping. He reports associated diaphoresis, nausea, and shortness of breath. He reports a similar episode yesterday that initially felt like indigestion; however, that discomfort resolved on its own. He states that this pain feels like what he experienced prior to his CABG. He received aspirin from EMS en route to the ED. EKG performed in the ED demonstrated borderline right axis deviation with borderline ST depression in anterolateral leads. Troponin was elevated at 0.04. Laboratory studies were also significant for elevated WBC count at 13.7 and elevated serum creatinine at 1.46. He was admitted to the hospitalist service for further workup and management. ROS was negative for recent fever, sinus pain/congestion, sore throat, cough, or wheezing. He denied any abdominal pain or change in bowel habits. He did report urinary frequency and urgency; however, he states that this is a chronic problem. He denies any dysuria. Patient was seen and evaluated at the bedside. He voices no chest pain or discomfort at this time. He denies any ongoing shortness of breath or nausea. Past Med Surg Social Fam HX - Past Medical History Medical history: atrial fibrillation, coronary artery disease, CVA, hyperlipidemia, hypertension, peripheral artery disease, other Additional medical history: PVD. Psychiatric history: no psych history - Past Surgical History Surgical History: coronary bypass (CABG), LE vascular intervention, other Additional surgical history: Back surgery. Shoulder surgery, Left Knee. - Social History Smoking Status: Former smoker Smokeless Tobacco Status: No Alcohol use: occasionally Drug use: none - Family History Mother Living Status: Age at : 48 Hx Family Cancer: Yes (Stomach) Father Living Status: Age at : 64 Hx Family Cardiac Disorders: Yes ([place] cause of ) Internal Medicine - H&P: Meds Clopidogrel [Plavix] 75 mg PO DAILY 10/29/15 [History] Amlodipine Besylate 10 mg PO DAILY 04/05/18 [History] Aspirin [Lo-Dose Aspirin EC] 81 mg PO DAILY 04/05/18 [History] Atorvastatin [Lipitor] 20 mg PO HS 04/05/18 [History] Calcium Carbonate [Calcium] 600 mg PO DAILY 04/05/18 [History] Ergocalciferol (VITAMIN D2) [Vitamin D] 400 unit PO DAILY 04/05/18 [History] Lisinopril [Zestril] 5 mg PO DAILY 04/05/18 [History] Vit C/E/Zn/Coppr/Lutein/Zeaxan [Preservision Areds 2 Softgel] 1 cap PO BID 04/05/18 [History] Metoprolol [Lopressor] 50 mg PO BID #60 tablet 04/22/18 [Rx] OxyCODONE/APAP 5/325 [Percocet 5/325 MG] 1 each PO Q4HR PRN 7 Days #42 tablet 04/22/18 [Rx] Rivaroxaban [Xarelto] 20 mg PO 1700 #30 tablet 04/22/18 [Rx] Allergy/AdvReac Type Severity Reaction Status Date / Time adhesive tape Allergy See Verified 08/23/18 01:15 Comments Iodinated Contrast- Oral and Allergy See Verified 08/23/18 01:15 IV Dye Comments All Systems PM: A 10-system review of systems was performed and is negative for pertinent findings except as documented above in the HPI. - Constitutional Vitals: Temp Pulse Resp BP Pulse Ox 97.9 F 83 19 157/69 96 08/23/18 01:17 08/23/18 03:48 08/23/18 03:48 08/23/18 03:48 08/23/18 03:48 Exam: GENERAL: Pleasant elderly male sitting at the side of the bed. He is awake and alert and does not appear to be in acute distress. HEENT: Atraumatic and normocephalic. NECK: Soft and nontender. No JVD or lymphadenopathy. CARDIOVASCULAR: Regular rate and rhythm. S1 and S2 present. No murmurs, gallops, or rubs. RESPIRATORY: Diffusely decreased breath sounds bilaterally. No wheezes, rales, or rhonchi present. No accessory muscle use noted. GASTROINTESTINAL: Active bowel sounds x 4 quadrants. Abdomen is soft and nontender. EXTREMITIES: No clubbing or cyanosis. Right lower extremity demonstrates 1+ pitting edema. 2+ pedal pulses bilaterally. SKIN: Warm and dry. Small abrasion to left forearm that appears to be healing well without evidence of infection. NEUROLOGIC: Alert and oriented x 3. Patient is cooperative with exam and answers questions appropriately. No apparent focal deficits. Internal Med - H&P Results - Labs CBC & Chem 7: 08/23/18 01:28 08/23/18 01:28 Labs: Short CBC 08/23/18 Range/Units 01:28 WBC 13.7 H (4.3-11.1) K/mcL Hgb 13.5 (12.9-16.9) g/dL Hct 41.0 (37.5-50.1) % Plt Count 705 H (140-400) K/mcL Neutrophils # 10.4 H (1.6-8.9) K/mcL BMP 08/23/18 01:28 Sodium 129 L Potassium 4.4 Chloride 101 Carbon Dioxide 16 L BUN 29 H Creatinine 1.46 H Glucose 110 H Calcium 9.1 Cardiac Enzymes 08/23/18 Range/Units 01:28 Troponin I 0.04 H* (< 0.04) ng/mL - Impressions ITS Impressions Chest X-Ray 08/23/18 01:20 IMPRESSION: Acute pulmonary interstitial edema. 7.3 cm rounded opacity at the medial right lung base. This may represent a mass or localized airspace disease. Focal eventration of the left hemidiaphragm not entirely excluded. When the patient is able, a follow-up PA and lateral examination the chest is recommended. D/ / Angel Flores MD / Angel Flores MD Interpreting Provider: Angel Flores MD Chest CT 08/23/18 02:09 IMPRESSION: 1. Trace bilateral pleural effusions with septal thickening most consistent with pulmonary edema. 2. Herniated omentum accounts for the apparent mass noted on conventional radiograph. 3. Ground-glass opacities in the left apex are nonspecific though are most likely infectious or inflammatory. D/ / Kei Chong MD / Kei Chong MD Interpreting Provider: Kei Chong MD - Assessment and plan (1) Chest pain Current Visit: Yes Status: Acute Assessment and plan: Initial EKG performed in the ED demonstrated borderline ST depressions in rene lateral leads; however, these were not present on repeat EKG performed later in the morning. Repeat EKG demonstrated new peaked T-waves in V3-V5. Initial troponin was elevated at 0.04; repeat troponin pending. - Trend troponins - Telemetry monitoring - Continue home dose of aspirin, statin, and beta gabe - Heparin gtt - Consult to cardiology - Nitroglycerin SL PRN chest pain Qualifiers: Chest pain type: unspecified Qualified Code(s): R07.9 - Chest pain, unspecified (2) HTN (hypertension) Current Visit: Yes Status: Chronic Assessment and plan: Patient's blood pressure was elevated at the time of presentation to the ED. Repeat BP measurements have continued to be elevated; however, patient states that he has not had the blood pressure medications he normally takes at night. Will continue home blood pressure medications: - Amlodipine 10mg daily - Lisinopril 5mg daily - Metoprolol 50mg BID Qualifiers: Hypertension type: essential hypertension Qualified Code(s): I10 - Essent ial (primary) hypertension (3) HLD (hyperlipidemia) Current Visit: Yes Status: Chronic Assessment and plan: - Continue home medication of atorvastatin 20mg QHS Qualifiers: Hyperlipidemia type: unspecified Qualified Code(s): E78.5 - Hyperlipidemia, unspecified (4) PAD (peripheral artery disease) Current Visit: Yes Status: Chronic Assessment and plan: - Continue plavix 75mg daily (5) DVT prophylaxis Current Visit: Yes Status: Acute Assessment and plan: - Continue plavix and heparin gtt (6) JUAN MANUEL (acute kidney injury) Current Visit: Yes Status: Suspected Assessment and plan: Laboratory studies revealed an elevated serum creatinine of 1.46. Chest CT demo nstrated trace bilateral pleural effusions with septal thickening most consistent with pulmonary edema and ground-glass opacitices in left apex. He was administered one dose of lasix while in the ED. - Repeat electrolyte panels - BNP - Time Spent With Patient Total time spent is greater than 50% in coordination of care (as documented) at patient's floor/unit and/or counseling patient: <Ruth Wells - Last Filed: 08/23/18 07:39> Internal Medicine - H&P: HPI History of present illness: Mr. Nair is a 68 year old male All Systems PM: A 10-system review of systems was performed and is negative for pertinent findings except as documented above in the HPI. - Constitutional Vitals: Temp Pulse Resp BP Pulse Ox 97.9 F 82 16 131/73 97 08/23/18 07:24 08/23/18 07:24 08/23/18 07:24 08/23/18 07:24 08/23/18 07:24 Internal Med - H&P Results - Labs CBC & Chem 7: 08/23/18 01:28 08/23/18 01:28 Labs: Short CBC 08/23/18 Range/Units 01:28 WBC 13.7 H (4.3-11.1) K/mcL Hgb 13.5 (12.9-16.9) g/dL Hct 41.0 (37.5-50.1) % Plt Count 705 H (140-400) K/mcL Neutrophils # 10.4 H (1.6-8.9) K/mcL BMP 08/23/18 01:28 Sodium 129 L Potassium 4.4 Chloride 101 Carbon Dioxide 16 L BUN 29 H Creatinine 1.46 H Glucose 110 H Calcium 9.1 Cardiac Enzymes 08/23/18 Range/Units 01:28 Troponin I 0.04 H* (< 0.04) ng/mL - Impressions ITS Impressions Chest X-Ray 08/23/18 01:20 IMPRESSION: Acute pulmonary interstitial edema. 7.3 cm rounded opacity at the medial right lung base. This may represent a mass or localized airspace disease. Focal eventration of the left hemidiaphragm not entirely excluded. When the patient is able, a follow-up PA and lateral examination the chest is recommended. D/ / Angel Flores MD / Angel Flores MD Interpreting Provider: Angel Flores MD Chest CT 08/23/18 02:09 IMPRESSION: 1. Trace bilateral pleural effusions with septal thickening most consistent with pulmonary edema. 2. Herniated omentum accounts for the apparent mass noted on conventional radiograph. 3. Ground-glass opacities in the left apex are nonspecific though are most likely infectious or inflammatory. D/ / Kei Chong MD / Kei Chong MD Interpreting Provider: Kei Chong MD - Assessment and plan (1) HLD (hyperlipidemia) Current Visit: Yes Status: Chronic Qualifiers: Hyperlipidemia type: unspecified Qualified Code(s): E78.5 - Hyperlipidemia, unspecified (2) HTN (hypertension) Current Visit: Yes Status: Chronic Qualifiers: Hypertension type: essential hypertension Qualified Code(s): I10 - Essential (primary) hypertension (3) DVT prophylaxis Current Visit: Yes Status: Acute (4) PAD (peripheral artery disease) Current Visit: Yes Status: Chronic (5) Chest pain Current Visit: Yes Status: Acute Qualifiers: Chest pain type: unspecified Qualified Code(s): R07.9 - Chest pain, unspecified (6) JUAN MANUEL (acute kidney injury) Current Visit: Yes Status: Suspected - Time Spent With Patient Total time spent is greater than 50% in coordination of care (as documented) at patient's floor/unit and/or counseling patient: - Attending Attestation Patient seen and examined. Chart reviewed. Case discussed with resident. Agree with assessment and plan. Review of EKG does not show any significant changes. Second troponin is still pending. Resident discussed case this morning with cardiology who recommended starting patient on heparin drip for now. Will see patient in the morning.
[2018-08-23] MEDS ORDERED: Naloxone 0.4 MG/ML INJ IVP PRN (05:07)
[2018-08-23] MEDS ORDERED: *HR* OxyCODONE/APAP 5/325 TABLET PO PRN (05:59)
[2018-08-23] MEDS ORDERED: Nitroglycerin 0.4 MG TAB.SUBL SL PRN (06:54)
[2018-08-23] MEDS ORDERED: *HR* Heparin 5,000 UNIT/ML VIAL IVP ONE (07:22)
[2018-08-23] MEDS ORDERED: *HR* Heparin 5,000 UNIT/ML VIAL IVP PRN ×2 (07:22)
[2018-08-23] MEDS: amLODIPine 5 MG TABLET PO SCH (08:03)
[2018-08-23] MEDS: Aspirin Enteric Coated 81 MG Tablet PO SCH (08:03)
[2018-08-23] MEDS: Heparin 25,000 UNIT/500 ML D5W 25,000 UNIT/500 ML BAG IVC SCH (08:04)
[2018-08-23 08:23] LABS: Hematocrit 41.2 % (37.5-50.1); Hemoglobin 13.6 g/dL (12.9-16.9); Mean Corpuscular Hemoglobin 25.5 pg (28.0-33.3); Mean Corpuscular Volume 77.3 fL (83.0-100.0); Mean Platelet Volume 10.1 fL (9.4-12.4); Platelet Count 692 K/mcL (140-400); Red Blood Count 5.33 M/mcL (4.19-5.50); Red Cell Distribution Width 15.8 % (11.5-14.5)
[2018-08-23 08:30] LABS: Heparin anti-factor XA UFH 0.51 IU/mL (0.30-0.70)
[2018-08-23 08:31] LABS: INR 1.2
[2018-08-23 08:44] LABS: BUN/Creatinine Ratio 21 (6-26); Blood Urea Nitrogen 28 mg/dL (8-23); Calcium 9.3 mg/dL (8.6-10.3); Carbon Dioxide 21 mEq/L (23-29); Chloride 102 mEq/L (98-107); Glucose 109 mg/dL (70-105); Osmolality,Calculated 280 (280-300); Sodium 132 mEq/L (136-145); eGFR For Non-African Americans 53 (> 60)
[2018-08-23 08:47] LABS: Troponin I 0.32 ng/mL (< 0.04)
--- NOTE | 2018-08-23 09:11 | Cardiology History & Physical ---
Date of Encounter: 08/23/18 Time of Encounter: 09:00 Assessment and Plan (1) JUAN MANUEL (acute kidney injury) Current Visit: Yes Status: Suspected Gentle hydration NS 50 cc/ hr. The assessment and plan as outlined above was discussed with the patient and/or family members who expressed understanding and agreement. All questions were answered. (2) CAD (coronary artery disease) Current Visit: No Status: Acute Continue medical therapy. The assessment and plan as outlined above was discu ssed with the patient and/or family members who expressed understanding and agreement. All questions were answered. Qualifiers: Coronary Disease-Associated Artery/Lesion type: [place] artery [place] vs. transplanted heart: [place] heart Associated angina: without angina Qualified Code(s): I25.10 - Atherosclerotic heart disease of [place] coronary artery without angina pectoris (3) Non-STEMI (non-ST elevated myocardial infarction) Current Visit: No Status: Acute Continue heparin drip, trend troponin. Troponin increasing with history of typical angina. A/R/B of [facility] discussed w him, he is aware and agreeable with p joanie. Steroids will be given overnight for IVP dye allergy. The assessment and plan as outlined above was discussed with the patient and/or family members who expressed understanding and agreement. All questions were answered. History of Present Illness Chief complaint: chest pain HPI: Mr. Nair is a 68 year old male with history of dyslipidemia, previous CVA, CAD sp 03/2018 CABG 3vsl, AF sp MAZE w recurrence and on anticoagulation/rate control w history of DCCV after CABG. He presents with his typical angina with feeling of severe indigestion 10/10 then dyspnea that did not resolve until given medical therapy in ED. Currently asymptomatic and EKG negative. Past Med Surg Social Fam HX - Past Medical History Medical history: atrial fibrillation, coronary artery disease, CVA, hyperlipidemia, hypertension, peripheral artery disease, other Additional medical history: PVD. Psychiatric history: no psych history - Past Surgical History Surgical History: coronary bypass (CABG), LE vascular intervention, other Additional surgical history: Back surgery. Shoulder surgery, Left Knee. - Social History Smoking Status: Former smoker Smokeless Tobacco Status: No Alcohol use: occasionally Drug use: none - Family History Mother Living Status: Age at : 48 Hx Family Cancer: Yes (Stomach) Father Living Status: Age at : 64 Hx Family Cardiac Disorders: Yes (PR cause of ) Medications and Allergies Clopidogrel [Plavix] 75 mg PO DAILY 10/29/15 [History] Amlodipine Besylate 10 mg PO DAILY 04/05/18 [History] Aspirin [Lo-Dose Aspirin EC] 81 mg PO DAILY 04/05/18 [History] Atorvastatin [Lipitor] 20 mg PO HS 04/05/18 [History] Calcium Carbonate [Calcium] 600 mg PO DAILY 04/05/18 [History] Ergocalciferol (VITAMIN D2) [Vitamin D] 800 unit PO DAILY 04/05/18 [History] Lisinopril [Zestril] 5 mg PO DAILY 04/05/18 [History] Vit C/E/Zn/Coppr/Lutein/Zeaxan [Preservision Areds 2 Softgel] 1 cap PO BID 04/05/18 [History] OxyCODONE/APAP 5/325 [Percocet 5/325 MG] 1 each PO Q4HR PRN 7 Days #42 tablet 04/22/18 [Rx] Rivaroxaban [Xarelto] 20 mg PO 1700 #30 tablet 04/22/18 [Rx] Metoprolol [Lopressor] 50 mg PO BID 08/23/18 [History] Allergy/AdvReac Type Severity Reaction Status Date / Time adhesive tape Allergy See Verified 08/23/18 01:15 Comments Iodinated Contrast- Oral and Allergy See Verified 08/23/18 01:15 IV Dye Comments All Systems Review: The remainder of the systems were reviewed and are negative - Constitutional Constitutional: no chills, no fever(s) - EENT Eyes: no loss of vision, no pain Nose, mouth and throat: no bleeding gums, no epistaxis - Cardiovascular Cardiovascular: chest pain at rest, chest pain with exertion - Respiratory Respiratory: no hemoptysis, no wheezing - Gastrointestinal Gastrointestinal: no hematemesis, no hematochezia - Genitourinary Genitourinary: no dysuria, no hematuria - Musculoskeletal Musculoskeletal: no abnormal gait, no myalgias - Neurological Neurological: no abnormal speech, no syncope - Psychiatric Psychiatric: no hallucinations, no panic attacks - Hematological/Lymphatic Hematologic/Lymphatic: no easy bleeding, no easy bruising Physical Examination Vital Signs, Last 4 Hours Temp Pulse Resp BP Pulse Ox 08/23/18 07:24 97.9 F 82 16 131/73 97 08/23/18 05:38 98 F 80 16 162/69 97 General: Conversant HEENT: Atraumatic Neck: No JVD Cardiac: Reg Rate and Rhythm Lungs: Normal Breath Sounds Neuro: Alert and responsive Abdomen: Soft Skin: No rashes noted on visualized skin Musculoskeletal: No Chest Wall Tenderness Extremities: No Edema Results 08/23/18 08:10 08/23/18 08:10 Lab Results 08/23/18 08/23/18 08/23/18 01:28 01:28 01:28 WBC 13.7 H Hgb 13.5 Hct 41.0 Plt Count 705 H INR 1.1 APTT 39.0 H Sodium 129 L Potassium 4.4 Chloride 101 Carbon Dioxide 16 L BUN 29 H Creatinine 1.46 H Glucose 110 H Calcium 9.1 Troponin I 0.04 H* B-Natriuretic Peptide 08/23/18 08/23/18 08/23/18 08:10 08:10 08:10 WBC 12.6 H Hgb 13.6 Hct 41.2 Plt Count 692 H INR APTT Sodium 132 L Potassium 5.0 Chloride 102 Carbon Dioxide 21 L BUN 28 H Creatinine 1.33 H Glucose 109 H Calcium 9.3 Troponin I 0.32 H* B-Natriuretic Peptide 798 H 08/23/18 08:10 WBC Hgb Hct Plt Count INR 1.2 APTT Sodium Potassium Chloride Carbon Dioxide BUN Creatinine Glucose Calcium Troponin I B-Natriuretic Peptide - EKG Interpretation EKG results cardiology: personally reviewed, sinus rhythm, no diagnostic ischemia
[2018-08-23] MEDS ORDERED: 0.9 % Sodium Chloride 1,000 ML IVC SCH (09:15)
--- NOTE | 2018-08-23 19:07 | Event Note ---
Date of Encounter: 08/23/18 Time of Encounter: 11:00 Patient seen by nocturnalist earlier this morning and also by myself. Patient is a 68-year-old male with history of significant coronary arterial disease who presents with non-STEMI Plans for left heart catheterization on 08/24/18
[2018-08-23] MEDS: predniSONE 20 MG TABLET PO SCH (20:02)
[2018-08-24 09:04] LABS: BUN/Creatinine Ratio 21 (6-26); Blood Urea Nitrogen 25 mg/dL (8-23); Carbon Dioxide 22 mEq/L (23-29); Chloride 103 mEq/L (98-107); Glucose 167 mg/dL (70-105); Osmolality,Calculated 282 (280-300); Potassium 4.5 mEq/L (3.5-5.1); Sodium 132 mEq/L (136-145); eGFR For Non-African Americans > 60 (> 60)
[2018-08-24] MEDS: amLODIPine 5 MG TABLET PO SCH (09:25)
[2018-08-24] MEDS: Isosorbide MONOnitrate (24 HR) 30 MG TAB.ER.24H PO SCH (09:26)
[2018-08-24] MEDS: Aspirin Enteric Coated 81 MG Tablet PO SCH (09:26)
[2018-08-24] MEDS: predniSONE 20 MG TABLET PO SCH (09:26)
--- NOTE | 2018-08-24 10:14 | Event Note ---
Date of Encounter: 08/24/18 Time of Encounter: 09:30 - Cardiology Event Note BMP 08/24/18 Range/Units 08:32 Sodium 132 L (136-145) mEq/L Potassium 4.5 (3.5-5.1) mEq/L Chloride 103 (98-107) mEq/L Carbon Dioxide 22 L (23-29) mEq/L BUN 25 H (8-23) mg/dL Creatinine 1.18 (0.70-1.30) mg/dL Glucose 167 H (70-105) mg/dL Calcium 9.0 (8.6-10.3) mg/dL Cardiac Enzymes 08/23/18 Range/Units 14:00 Troponin I 0.62 H* (< 0.04) ng/mL Seen and examined. SCr now within normal limits. Plan for [facility] today as per Dr. Pineda's recommendations. Further recommendations to follow.
[2018-08-24] MEDS: Heparin 25,000 UNIT/500 ML D5W 25,000 UNIT/500 ML BAG IVC SCH (12:30)
[2018-08-24] MEDS ORDERED: ISOVUE-370 200 ML INFUS..BTL ONE ×2 (14:39→16:14)
[2018-08-24] MEDS ORDERED: 0.9 % Sodium Chloride 1,000 ML ONE ×2 (14:39→15:34)
[2018-08-24] MEDS ORDERED: *HR* Heparin 10,000 UNIT/10 ML VIAL ONE (14:39)
[2018-08-24] MEDS ORDERED: Heparin 1,000 UNITS/500 mL 500 ML ONE (14:39)
[2018-08-24] MEDS ORDERED: Nitroglycerin 1,000 MCG/10 ML VIAL IV ONE (14:40)
[2018-08-24] MEDS ORDERED: *HR* Midazolam HCl 2 MG/2 ML VIAL ONE (15:39)
[2018-08-24] MEDS ORDERED: *HR* FentaNYL (PF) 100 MCG/2 ML VIAL ONE (15:39)
--- NOTE | 2018-08-24 15:49 | Pre-Sedation Evaluation ---
Pre-sedation evaluation - Pre-sedation checklist Date of procedure: 08/24/18 Procedure: C Recent Vitals: Last Vital Signs Temp 98.0 F 08/24/18 15:05 Pulse 80 08/24/18 15:05 Resp 20 08/24/18 15:05 BP 151/76 08/24/18 15:05 Pulse Ox 97 08/24/18 15:05 H&P (including ROS) documented in medical record: Yes Previous reaction to sedatives/anesthetics: No Dietary Status: NPO after Midnight Dentition: No loose teeth or bridges ASA Classification *see protocol: CLASS II-Mild systemic disease Cardiac Registry (Cardio Only) - Functional Capacity Functional Capacity: >=4 METS with symptoms - Clincal Frailty Scale Clinical Frailty Scale: Vulnerable
--- NOTE | 2018-08-24 16:07 | Internal Med Progress Note ---
Hospitalist Progress Note - Encounter Date of Encounter: 08/24/18 Time of Encounter: 16:06 - Subjective Interval History: Pt denies CP or SOB. Pt states he is s/p quadruple bypass in March of 2018. He denies fever, chills, N/V or diarrhea. - Exam Vitals: Temp Pulse Resp BP Pulse Ox 98.0 F 80 20 151/76 97 08/24/18 15:05 08/24/18 15:05 08/24/18 15:05 08/24/18 15:05 08/24/18 15:05 Exam: GENERAL: Pleasant elderly male sitting at the side of the bed. He is awake and alert and does not appear to be in acute distress. HEENT: Atraumatic and normocephalic. NECK: Soft and nontender. No JVD or lymphadenopathy. CARDIOVASCULAR: Regular rate and rhythm. S1 and S2 present. No murmurs, gallops, or rubs. RESPIRATORY: Diffusely decreased breath sounds bilaterally. No wheezes, rales, or rhonchi present. No accessory muscle use noted. GASTROINTESTINAL: Active bowel sounds x 4 quadrants. Abdomen is soft and nontender. EXTREMITIES: No clubbing or cyanosis. Right lower extremity demonstrates 1+ pitting edema. 2+ pedal pulses bilaterally. SKIN: Warm and dry. Small abrasion to left forearm that appears to be healing well without evidence of infection. NEUROLOGIC: Alert and oriented x 3. Patient is cooperative with exam and answers questions appropriately. No apparent focal deficits. - Assessment and Plan (1) Non-STEMI (non-ST elevated myocardial infarction) Current Visit: No Status: Acute Assessment and Plan: Initial EKG performed in the ED demonstrated borderline ST depressions in anterolateral leads; however, these were not present on repeat EKG performed later in the morning. Repeat EKG demonstrated new peaked T-waves in V3-V5. Initial troponin 0.04; repeat troponin elevated at 0.32, then 0.62. -Pt was seen by cardiology and he is s/p LHC via R groin and 2 stents placed. - Cont telemetry monitoring - Continue home dose of aspirin, statin, and beta gabe - Heparin gtt per cardiology recommendations - Nitroglycerin SL PRN chest pain (2) Chest pain Current Visit: Yes Status: Acute Assessment and Plan: Improved sp LHC (3) HTN (hypertension) Current Visit: Yes Status: Chronic Assessment and Plan: Patient's blood pressure was elevated at the time of presentation to the ED. - will continue home blood pressure medications: - Amlodipine 10mg daily - Lisinopril 5mg daily - Metoprolol 50mg BID (4) HLD (hyperlipidemia) Current Visit: Yes Status: Chronic Assessment and Plan: - Continue home medication of atorvastatin 20mg QHS (5) PAD (peripheral artery disease) Current Visit: Yes Status: Chronic Assessment and Plan: - Continue plavix 75mg daily (6) JUAN MANUEL (acute kidney injury) Current Visit: Yes Status: Suspected Assessment and Plan: Laboratory studies revealed an elevated serum creatinine of 1.46. Chest CT demonstrated trace bilateral pleural effusions with septal thickening most consistent with pulmonary edema and ground-glass opacitices in left apex. He was administered one dose of lasix while in the ED. - Resolved, repeat Cr 1.18. - BNP 798 but no signs of overt overload at this time. (7) Hyponatremia Current Visit: Yes Status: Acute Assessment and Plan: Possibly medication induced. Will recheck levels in am. Will check sodium studies. Chest CT CT/CT chest wo con IMPRESSION: 1. Trace bilateral pleural effusions with septal thickening most consistent with pulmonary edema. 2. Herniated omentum accounts for the apparent mass noted on conventional radiograph. 3. Ground-glass opacities in the left apex are nonspecific though are most likely infectious or inflammatory. Chest x ray XR/XR chest 1V portable IMPRESSION: Acute pulmonary interstitial edema. 7.3 cm rounded opacity at the medial right lung base. This may represent a mass or localized airspace disease. Focal eventration of the left hemidiaphragm not entirely excluded. When the patient is able, a follow-up PA and lateral examination the chest is recommended. DVT Prophylaxis: Heparin gtt - Summary of Assessment and Plan Summary of Assessment and Plan: Mr. Nair is a 68 year old male with a history of atrial fibrillation, CAD, CVA, hyperlipidemia, HTN, and PAD. He is approximately 4 months s/p CABG. He presented to the ED due to 9/10 chest pain that was midsternal and radiated to his right shoulder. He states that this pain woke him up from sleeping. He reports associated diaphoresis, nausea, and shortness of breath. He reports a similar episode yesterday that initially felt like indigestion; however, that discomfort resolved on its own. He states that this pain feels like what he experienced prior to his CABG. He received aspirin from EMS en route to the ED. EKG performed in the ED demonstrated borderline right axis deviation with borderline ST depression in anterolateral leads. Troponin was elevated at 0.04. Laboratory studies were also significant for elevated WBC count at 13.7 and elevated serum creatinine at 1.46. He was admitted to the hospitalist service for further workup and management. ROS was negative for recent fever, sinus pain/congestion, sore throat, cough, or wheezing. He denied any abdominal pain or change in bowel habits. He did report urinary frequency and urgency; however, he states that this is a chronic problem. He denies any dysuria. Patient was seen and evaluated at the bedside. He voices no chest pain or discomfort at this time. He denies any ongoing shortness of breath or nausea. - Time Spent with Patient Total time spent is greater than 50% in coordination of care (as documented) at patient's floor/unit and/or counseling patient: less than 15 minutes Plan of Care Discussed with: patient Internal Medicine: Result - Labs CBC & Chem 7: 08/23/18 08:10 08/24/18 08:32 Labs: BMP 08/24/18 08:32 Sodium 132 L Potassium 4.5 Chloride 103 Carbon Dioxide 22 L BUN 25 H Creatinine 1.18 Glucose 167 H Calcium 9.0 - ABG Interpretation ABG results: PT/INR, D-dimer PT 13.0 Seconds (9.4-12.1) H 08/23/18 08:10 Consult Discharge Plan - Plan [facility]errals: [facility] [Primary Care Provider] - (2) Chest pain Qualifiers: Chest pain type: unspecified Qualified Code(s): R07.9 - Chest pain, unspecified (3) HTN (hypertension) Qualifiers: Hypertension type: essential hypertension Qualified Code(s): I10 - Essential (primary) hypertension (4) HLD (hyperlipidemia) Qualifiers: Hyperlipidemia type: unspecified Qualified Code(s): E78.5 - Hyperlipidemia, unspecified
[2018-08-24] MEDS ORDERED: Tirofiban 12.5 MG/250ML 12.5 MG/250 ML BAG ONE (16:18)
[2018-08-24] MEDS ORDERED: *HR* Nitroprusside 50 MG VIAL IVC ONE (16:53)
[2018-08-24] MEDS ORDERED: D5% in Water 250 ML ONE (16:55)
[2018-08-24] MEDS ORDERED: Tirofiban 12.5 MG/250ML 12.5 MG/250 ML BAG IVC SCH (17:30)
[2018-08-24 21:09] LABS: Basophils % 0.2 %; Hematocrit 37.4 % (37.5-50.1); Hemoglobin 12.4 g/dL (12.9-16.9); Immature Granulocytes % 0.5 % (0-4); Lymphocytes # 0.8 K/mcL (0.6-4.6); Lymphocytes % 5.8 %; Mean Corpuscular HGB Conc 33.2 g/dL (31.6-35.5); Mean Corpuscular Hemoglobin 25.9 pg (28.0-33.3); Mean Corpuscular Volume 78.2 fL (83.0-100.0); Mean Platelet Volume 10.2 fL (9.4-12.4); Monocytes # 0.6 K/mcL (0.0-1.3); Monocytes % 4.8 %; Neutrophils # 11.7 K/mcL (1.6-8.9); Platelet Count 681 K/mcL (140-400); Red Blood Count 4.78 M/mcL (4.19-5.50); Red Cell Distribution Width 15.9 % (11.5-14.5); Segmented Neutrophils % 88.7 %
[2018-08-25 04:44] LABS: Basophils % 0.2 %; Hematocrit 35.7 % (37.5-50.1); Hemoglobin 11.7 g/dL (12.9-16.9); Immature Granulocytes % 0.3 % (0-4); Lymphocytes # 1.1 K/mcL (0.6-4.6); Lymphocytes % 7.2 %; Mean Corpuscular HGB Conc 32.8 g/dL (31.6-35.5); Mean Corpuscular Hemoglobin 25.8 pg (28.0-33.3); Mean Corpuscular Volume 78.6 fL (83.0-100.0); Mean Platelet Volume 10.2 fL (9.4-12.4); Monocytes # 2.3 K/mcL (0.0-1.3); Monocytes % 15.6 %; Neutrophils # 11.4 K/mcL (1.6-8.9); Platelet Count 619 K/mcL (140-400); Red Blood Count 4.54 M/mcL (4.19-5.50); Red Cell Distribution Width 15.9 % (11.5-14.5); Segmented Neutrophils % 76.7 %
[2018-08-25 05:06] LABS: BUN/Creatinine Ratio 19 (6-26); Blood Urea Nitrogen 22 mg/dL (8-23); Calcium 8.9 mg/dL (8.6-10.3); Carbon Dioxide 22 mEq/L (23-29); Chloride 104 mEq/L (98-107); Glucose 114 mg/dL (70-105); Osmolality,Calculated 280 (280-300); Potassium 4.2 mEq/L (3.5-5.1); Sodium 133 mEq/L (136-145); eGFR For Non-African Americans > 60 (> 60)
[2018-08-25] MEDS: Isosorbide MONOnitrate (24 HR) 30 MG TAB.ER.24H PO SCH (08:11)
[2018-08-25] MEDS: Aspirin Enteric Coated 81 MG Tablet PO SCH (08:11)
[2018-08-25] MEDS: amLODIPine 5 MG TABLET PO SCH (08:11)
[2018-08-25] MEDS: Heparin 25,000 UNIT/500 ML D5W 25,000 UNIT/500 ML BAG IVC SCH (08:12)
--- NOTE | 2018-08-25 11:18 | Cardiology Progress Note ---
Date of Encounter: 08/25/18 Time of Encounter: 11:00 Assessment and Plan (1) Non-STEMI (non-ST elevated myocardial infarction) Current Visit: No Status: Acute S/p LHC that demonstrated 50% stenosis LMCA, 90% stenosis pLCx artery and 90% stenosis in the SVG to OM s/p PTCA and EDD. There was 80% stenosis in the mRCA s/p PTCA and EDD. The SVG to RPDA with 70% stenosis. TTE 07/08/18- LVEF 60%. Normal LV chamber size, wall thickness and function. Atypical septal motion consistent with post-operative status. Limited study; valves not assessed. Continue asa and plavix uninterrupted for min one year. Pt voiced understanding. He will require triple therapy secondary to atrial fibrillation. He was on triple therapy prior to procedure with no complication. Continue bb and statin. Cardiac rehab. Out-pt f/u will be coordinated with [facility]. Please call with questions. (2) A-fib Current Visit: No Status: Acute H/o atrial fibrillation. S/p maze procedure with re-occurrence. Currently NSR. Okay to restart xarelto. Heparin gtt discontinued. Qualifiers: Atrial fibrillation type: paroxysmal Qualified Code(s): I48.0 - Paroxysmal atrial fibrillation (3) CAD (coronary artery disease) Current Visit: Yes Status: Acute H/o CABG and maze procedure and now PCI. Continue medical therapy. The assessment and plan as outlined above was discussed with the patient and/or family members who expressed understanding and agreement. All questions were answered. Qualifiers: Coronary Disease-Associated Artery/Lesion type: [place] artery [place] vs. transplanted heart: [place] heart Associated angina: angina presence unspecified Qualified Code(s): I25.10 - Atherosclerotic heart disease of [place] coronary artery without angina pectoris (4) JOSE (acute kidney injury) Current Visit: Yes Status: Resolved Jose resolved. IV hydration given boni-procedure. Discussion w patient/family: The assessment and plan as outlined above was discussed with the patient and/or family members who expressed understanding and agreement. All questions were answered. Thank you for involving us in the care of your patient. Please call with any questions. Subjective Principal diagnosis: NSTEMI Interval history: Mr. Nair is ambulating in his room with no complaints. Denies chest pain. Objective Vital Signs, Last 4 Hours Temp Pulse Resp BP Pulse Ox 08/25/18 08:25 95 08/25/18 07:55 97.5 F L 75 17 141/73 96 General: Conversant, No Apparent Distress HEENT: Atraumatic, Normocephaly, Mucus Membranes Moist Neck: No JVD, Normal carotid pulses Cardiac: Reg Rate and Rhythm, Normal S1 and S2, No Murmur Lungs: Normal Breath Sounds, No Wheeze, Rales, Rhonchi Neuro: Alert and responsive, No focal deficits noted Abdomen: Soft, Non-Tender Skin: No rashes noted on visualized skin Musculoskeletal: No Chest Wall Tenderness Extremities: No Clubbing, No Cyanosis, No Edema, Normal Pulses, Other (Left femoral access site without hematoma or redness. ) Results 08/25/18 04:14 08/25/18 04:14 Lab Results 08/24/18 08/24/18 08/25/18 20:51 20:51 04:14 WBC 13.2 H 14.9 H Hgb 12.4 L 11.7 L Hct 37.4 L 35.7 L Plt Count 681 H 619 H Sodium 131 L Potassium Chloride Carbon Dioxide BUN Creatinine Glucose Calcium 08/25/18 04:14 WBC Hgb Hct Plt Count Sodium 133 L Potassium 4.2 Chloride 104 Carbon Dioxide 22 L BUN 22 Creatinine 1.18 Glucose 114 H Calcium 8.9 - Imaging and Cardiology Cardiac cath: report reviewed - EKG Interpretation EKG results cardiology: personally reviewed (EKG -NSR, no acute ST changes) Consult Discharge Plan - Plan Referrals: [facility] [Primary Care Provider] -
[2018-08-25 11:33] VITALS: BP 139/74
[2018-08-25] MEDS ORDERED: *HR* Rivaroxaban 10 MG TABLET PO SCH (12:00)
--- NOTE | 2018-08-25 13:07 | Discharge Summary ---
- NOTES TO OUTPATIENT PROVIDER Notes to Outpatient Provider: PCP in 5 to 7 days Orders not resulted at time of discharge: Pending orders 08/27/18 CBC out pt Date of Encounter: 08/25/18 Time of Encounter: 13:05 - Discharge Diagnosis (1) Non-STEMI (non-ST elevated myocardial infarction) Priority: Primary Status: Acute Assessment and Plan: Initial EKG performed in the ED demonstrated borderline ST depressions in anterolateral leads; however, these were not present on repeat EKG performed later in the morning. Repeat EKG demonstrated new peaked T-waves in V3-V5. Initial troponin 0.04; repeat troponin elevated at 0.32, then 0.62. -Pt was seen by cardiology and he is s/p LHC via R groin and 2 stents placed. - LHC demonstrated 50% stenosis LMCA, 90% stenosis pLCx artery and 90% stenosis in the SVG to OM s/p PTCA and EDD. There was 80% stenosis in the mRCA s/p PTCA and EDD. The SVG to RPDA with 70% stenosis. - Cont telemetry monitoring - Continue home dose of aspirin, statin, and beta gabe - Nitroglycerin SL PRN chest pain - Cardiology recommends cardiac rehab and out-pt f/u will be coordinated with [facility]. (2) A-fib Priority: Secondary Status: Acute Assessment and Plan: H/o atrial fibrillation. S/p maze procedure with re-occurrence. Currently NSR. Will restart xarelto. Heparin gtt discontinued. Qualifiers: Atrial fibrillation type: paroxysmal Qualified Code(s): I48.0 - Paroxysmal atrial fibrillation (3) Chest pain Priority: Primary Status: Acute Assessment and Plan: Resolved sp C Qualifiers: Chest pain type: unspecified Qualified Code(s): R07.9 - Chest pain, unspecified (4) HTN (hypertension) Priority: Secondary Status: Chronic Assessment and Plan: Patient's blood pressure was elevated at the time of presentation to the ED. - will continue home blood pressure medications: - Amlodipine 10mg daily - Lisinopril 5mg daily - Metoprolol 50mg BID Qualifiers: Hypertension type: essential hypertension Qualified Code(s): I10 - Essential (primary) hypertension (5) HLD (hyperlipidemia) Priority: Secondary Status: Chronic Assessment and Plan: - Continue home medication of atorvastatin 20mg QHS Qualifiers: Hyperlipidemia type: unspecified Qualified Code(s): E78.5 - Hyperlipidemia, unspecified (6) PAD (peripheral artery disease) Priority: Secondary Status: Chronic Assessment and Plan: - Continue plavix 75mg daily (7) JUAN MANUEL (acute kidney injury) Priority: Primary Status: Resolved Assessment and Plan: Laboratory studies revealed an elevated serum creatinine of 1.46. Chest CT demonstrated trace bilateral pleural effusions with septal thickening most consistent with pulmonary edema and ground-glass opacitices in left apex. He was administered one dose of lasix while in the ED. - Resolved, repeat Cr 1.18. - BNP 798 but no signs of overt overload at this time. (8) Hyponatremia Priority: Secondary Status: Acute Assessment and Plan: Possibly medication induced. Will recheck levels in am. Sodium studies ordered and showing serum osmolality 296, serum osmo 280, Serum Na 133. Urine NA not yet colleted. Na improved with IVF. Follow up out pt with PCP for close monitoring. Chest CT CT/CT chest wo con IMPRESSION: 1. Trace bilateral pleural effusions with septal thickening most consistent with pulmonary edema. 2. Herniated omentum accounts for the apparent mass noted on conventional radiograph. 3. Ground-glass opacities in the left apex are nonspecific though are most likely infectious or inflammatory. Chest x ray XR/XR chest 1V portable IMPRESSION: Acute pulmonary interstitial edema. 7.3 cm rounded opacity at the medial right lung base. This may represent a mass or localized airspace disease. Focal eventration of the left hemidiaphragm not entirely excluded. When the patient is able, a follow-up PA and lateral examination the chest is recommended. (9) CAD (coronary artery disease) Priority: Secondary Status: Acute Assessment and Plan: H/o CABG, March 2018, and maze procedure and now PCI. Continue medical therapy. Qualifiers: Coronary Disease-Associated Artery/Lesion type: [place] artery [place] vs. transplanted heart: [place] heart Associated angina: angina presence unspecified Qualified Code(s): I25.10 - Atherosclerotic heart disease of [place] coronary artery without angina pectoris (10) Leukocytosis Priority: Secondary Status: Acute Assessment and Plan: Likely reactive. Recommend repeat CBC in 08/27/2018 Pt has been afebrile. He denies fever or chills, sore throat, cough, or sputum. No diarrhea. Chest x ray 08/23/2018 XR/XR chest 1V portable IMPRESSION: Acute pulmonary interstitial edema. 7.3 cm rounded opacity at the medial right lung base. This may represent a mass or localized airspace disease. Focal eventration of the left hemidiaphragm not entirely excluded. When the patient is able, a follow-up PA and lateral examination the chest is recommended. Qualifiers: Leukocytosis type: unspecified Qualified Code(s): D72.829 - Elevated white blood cell count, unspecified Hospital course: History of presenting illness. Mr. Nair is a 68 year old male with past medical history of atrial fibrillation, CAD, CVA, hyperlipidemia, HTN, and PAD. He is approximately 4 months s/p CABG. He presented to the ED due to 9/10 chest pain that was midsternal and radiated to his right shoulder. He states that this pain woke him up from sleeping. He reports associated diaphoresis, nausea, and shortness of breath. He reports a similar episode yesterday that initially felt like indigestion; however, that discomfort resolved on its own. He states that this pain feels like what he experienced prior to his CABG. He received aspirin from EMS en route to the ED. EKG performed in the ED demonstrated borderline right axis deviation with borderline ST depression in anterolateral leads. Troponin was elevated at 0.04. Laboratory studies were also significant for elevated WBC count at 13.7 and elevated serum creatinine at 1.46. He was admitted to the hospitalist service for further workup and management. ROS was negative for recent fever, sinus pain/congestion, sore throat, cough, or wheezing. He denied any abdominal pain or change in bowel habits. He did report urinary frequency and urgency; however, he states that this is a chronic problem. He denies any dysuria. Patient was seen and evaluated at the bedside. He voices no chest pain or discomfort at this time. He denies any ongoing shortness of breath or nausea. See assessment and plan for complete history and physical. Discharge discussed with: patient - Time Spent with Patient Total time spent providing and/or coordinating discharge services: Greater than 30 minutes - Discharge Medications Home Medications: Clopidogrel [Plavix] 75 mg PO DAILY 10/29/15 [History] Amlodipine Besylate 10 mg PO DAILY 04/05/18 [History] Aspirin [Lo-Dose Aspirin EC] 81 mg PO DAILY 04/05/18 [History] Atorvastatin [Lipitor] 20 mg PO HS 04/05/18 [History] Calcium Carbonate [Calcium] 600 mg PO DAILY 04/05/18 [History] Ergocalciferol (VITAMIN D2) [Vitamin D] 800 unit PO DAILY 04/05/18 [History] Lisinopril [Zestril] 5 mg PO DAILY 04/05/18 [History] Vit C/E/Zn/Coppr/Lutein/Zeaxan [Preservision Areds 2 Softgel] 1 cap PO BID 04/05/18 [History] OxyCODONE/APAP 5/325 [Percocet 5/325 MG] 1 each PO Q4HR PRN 7 Days #42 tablet 04/22/18 [Rx] Rivaroxaban [Xarelto] 20 mg PO 1700 #30 tablet 04/22/18 [Rx] Metoprolol [Lopressor] 50 mg PO BID 08/23/18 [History] Allergies/Adverse Reactions: Allergy/AdvReac Type Severity Reaction Status Date / Time adhesive tape Allergy See Verified 08/23/18 01:15 Comments Iodinated Contrast- Oral and Allergy See Verified 08/23/18 01:15 IV Dye Comments Date of admission: 08/23/18 19:00 Primary care physician: [facility] Consults: 08/23/18 07:20 Consult to Cardiology [CONS] Routine Comment: Consulting Provider: [facility] Reason for Consult: Chest pain with elevated troponin and new peaked T waves on EKG Time Notified: 06:57 Call Completed: Yes 08/24/18 17:19 Consult to Cardiac Rehabilitation-Phase1 [CONS] Routine Comment: Reason for Consult: AMI Call Completed: Yes Consult to Nurse Navigator [CONS] Routine Comment: Discharging clinician: Karen Hannah Anticipated date of discharge: 08/25/18 - Constitutional Vitals: Temp Pulse Resp BP Pulse Ox 97.8 F 71 18 139/74 96 08/25/18 11:31 08/25/18 11:31 08/25/18 11:31 08/25/18 11:31 08/25/18 11:31 General appearance: Present: A&O X 3, no acute distress Exam: . - Head Head exam: Present: atraumatic, normocephalic - Eye Eye exam: Present: PERRL, conjuntiva pink, sclera anicteric Pupils: Present: PERRL - Neck Neck exam general surgery: Present: supple, trachea midline. Absent: ly mphadenopathy - Respiratory Respiratory exam: Present: CTAB. Absent: accessory muscle use, rales, rhonchi, wheezes - Cardiovascular Cardiovascular exam: Present: RRR, +S1, +S2. Absent: diastolic murmur, gallop, rubs, systolic murmur - GI/Abdominal GI/Abdominal exam: Present: normal bowel sounds, soft, no peritoneal signs. Absent: distended, tenderness - Extremities Exam Extremities exam: Present: warm, radial pulses palpable and symmetrical. Absent: calf tenderness, cyanotic, pedal edema - Neurological Exam Neurological exam: Present: CN II-XII intact, oriented X3, no focal deficits. Absent: pronater drift, facial droop, speech deficit - Skin Skin exam: Present: dry, intact - Patient Status Disposition: Home, Self-Care Condition: Good Overall status at discharge: patient is back to baseline - Discharge Instructions Follow [facility] With: [facility] [Primary Care Provider[facility] - - Diet and Activity Activity: increase activity as tolerated Diet: low fat, low cholesterol, low salt diet
--- NOTE | 2018-08-25 13:43 | Invasive Diagnostic Lab Proc ---
Name: Naldo Nair Date of Study: 08/24/2018 Date: 1950 Ht: 68.1in Medical Record#: [id number] Age: 68 Wt: 180.78lb Gender: Male BSA: 1.96 Order #: [id number] BMI: 27.4 Physicians Procedure Physician: Sparkle Marsh MD Referring MD: Referring MD: Staff Name Position Time In Julieta Valdez RT (R) Scrub 03:36 PM Jason Le RN Meat Process Worker 03:36 PM June Esteban RT Monitor 03:36 PM Indications Indication Non-Stemi Procedures Performed Procedure PRQ CARD EDD STENT W/ANGIO 1 VSL CORONARY ART/GRFT ANGIO S&I PRQ CARD EDD STENT W/ANGIO 1 VSL Pre-Procedure Checklist Informed consent is complete signed and on chart. H&P is on chart. ID band is on and ID verified with patient. Patient NPO for procedure The procedure was described for the patient and questions were answered. Blood Pressure: 162/92 ECG is on chart. Rhythm: NSR Plan of Care Patient will tolerate the procedure without complications. Adequate level of comfort will be maintained. Hemodynamics will remain stable Patient will recover from procedure without complications. Respiratory function will be maintained. Cardiac rhythm will remain stable. Patient temperature will be maintained. Patient and/or family have verbalized understanding of the procedure. Patient Education Chief Complaint/Reason for Test: Cardiac Cath Developmental Category: Geriatric (65+ years) Developmentally Appropriate for Age: Yes Learning Barriers: None Education Needs: Procedure Education Method: Verbal Information Taught: Cardiac Cath Educational Evaluation: Able to repeat information Intravenous Access Time IV Size Location DC'd Fluid/Drip Rate Units RN 05:09 PM 20g 1 10/30" Patent On Arrival Rt Wrist 0.9NaCl 25 ml/hr Allergies Iodinated Contrast- Oral and IV Dye adhesive tape TAPE Vital Signs Time BP (mmHg) HR (bpm) O2 Sat. RR (bpm) LOC 03:41 PM 162 / 92 83 97 % 20 03:45 PM 159 / 90 85 97 % 16 03:50 PM 147 / 89 81 95 % 15 03:55 PM 146 / 87 81 94 % 22 04:00 PM 145 / 79 79 94 % 21 04:05 PM 136 / 80 78 94 % 18 04:10 PM 145 / 76 66 96 % 18 04:15 PM 145 / 82 78 93 % 19 04:20 PM 146 / 83 76 93 % 17 04:25 PM 151 / 84 79 94 % 20 04:30 PM 146 / 81 83 95 % 21 04:35 PM 144 / 80 77 94 % 20 04:40 PM 138 / 80 79 92 % 21 04:45 PM 142 / 76 77 91 % 21 04:50 PM 143 / 82 74 94 % 23 04:55 PM 135 / 89 79 93 % 21 05:00 PM 139 / 80 75 94 % 18 05:05 PM 142 / 83 81 96 % 20 05:10 PM 143 / 81 76 92 % 18 05:34 PM 152 / 78 78 93 % 16 5 = Fully awake and oriented or at pre-proc level 05:46 PM 150 / 86 78 92 % 16 5 = Fully awake and oriented or at pre-proc level 06:20 PM 142 / 84 78 93 % 16 5 = Fully awake and oriented or at pre-proc level 06:38 PM 151 / 84 75 92 % 16 5 = Fully awake and oriented or at pre-proc level 06:52 PM 140 / 88 84 92 % 16 5 = Fully awake and oriented or at pre-proc level 07:00 PM 146 / 87 83 83 % 19 5 = Fully awake and oriented or at pre-proc level 07:20 PM 150 / 81 81 94 % 11 5 = Fully awake and oriented or at pre-proc level 07:29 PM 145 / 72 81 95 % 18 5 = Fully awake and oriented or at pre-proc level Procedural Medications Time Medication Dose Units Method Given By 03:53 PM Lidocaine 2% 10 ml Subcutaneous Sparkle Marsh MD 04:01 PM Nitroglycerin 100 mcg Intracoronary Tabitha Marsh MD 04:05 PM Heparin 1000 units Intravenous Jason Le RN 04:21 PM Aggrastat Bolus: 42 ml Intravenous Jason Le RN 04:21 PM Aggrastat 12.5mg/250ml 15 ml Intravenous Jason Le RN 04:22 PM Heparin 2500 units Intravenous Jason Le RN 04:57 PM Heparin 500 units Intravenous Jason Le RN 03:40 PM Versed 1 mg Intravenous Jason Le RN 03:40 PM Fentanyl 50 mcg Intravenous Jason Le RN 05:33 PM Plavix 75 mg Orally Jason Le RN ASA Classification: CLASS II- Mild systemic disease (i.e. well-controlled diabetes, hypertension, asthma, cigarette smoking) Fatou Score Preprocedure Postprocedure Activity 2- Moves 4 extremities sustained head lift Activity 2- Moves 4 extremities sustained head lift Circulation 2- SBP +/= 20 points of pre-anesthetic level Circulation 2- SBP +/= 20 points of pre-anesthetic level Consciousness 2- Awake and alert oriented x 3 Consciousness 2- Awake and alert oriented x 3 O2 Saturation 2- Able to maintain O2 satruation of 92% on room air O2 Saturation 2- Able to maintain O2 satruation of 92% on room air Respiratory 2- Able to deep breathe and cough well Respiratory 2- Able to deep breathe and cough well Total Score 10 Total Score 10 Contrast Agent: Isovue Diagnostic Contrast: 235 ml Total Contrast: 235 ml Fluoro Dose: 208 mGy Activated Clotting Time Time Seconds to Clot 04:22 PM 182 04:54 PM 205 05:13 PM 198 06:35 PM 162 Procedure Log Time Note Enter By 03:36 PM CathStat 03:36 PM [ Start or Stop Vital ] 03:36 PM Pt arrived to clam bed laborer 1 at 15:36 [email or web address] 03:36 PM Julieta Valdez RT (R) Position: Scrub Time in: 15:36 [email or web address] 03:36 PM Jason Le RN Position: Meat Process Worker Time in: 15:36 [email or web address] 03:36 PM June Esteban RT Position: Monitor Time in: 15:36 [email or web address] 03:36 PM Patient charges- Angio tray pack, Navilyst 3mm J, Pulse Oximetry and ACIST tubing and transducer kkallner 03:36 PM IV Supplies used: J loop Angio Cath. kkallner 03:37 PM Case Delayed No kkallner 03:37 PM Hair removed from procedure site in procedure lab using clippers. Bilateral groin prepped with Chloraprep by June Esteban RT, then patient was draped. Skin intact. [email or web address] 03:37 PM Physician arrived 15:37 kkallner 03:37 PM Meet and greet completed kkallner 03:37 PM Sign in performed according to hospital policy. Informed consent was obtained. kkallner 03:37 PM Procedure start 15:37 kkallner 03:39 PM Vitals capture started with the following parameters, Patient=Adult, Interval=5 min, Initial Wtgjcrfh=454 mmHg, Deflation Rate=3 mmHg, Cuff placed on Right Arm 03:39 PM Recorded ECG: HR=84 Condition=Condition 1 03:40 PM Time: 17:31 Versed 1 mg Intravenous Given by Jason Le RN kk 03:41 PM HR=83 bpm, LFSV=502/92 mmhg, SpO2=97.0 %, Resp=20 B/min 03:45 PM HR=85 bpm, AEBN=821/90 mmhg, SpO2=97.0 %, Resp=16 B/min 03:50 PM HR=81 bpm, HKQJ=212/89 mmhg, SpO2=95.0 %, Resp=15 B/min 03:53 PM Time out was performed according to hospital policy. Conscious sedation and anesthesia was achieved (see medication log with in this report above) kkallner 03:53 PM Clinical Presentation: Stable angina kkallner 03:53 PM Time: 15:53 Benadryl 25 mg Intravenous Given by Jason Le RN 03:53 PM Time: 15:53 10 ml Lidocaine 2% to left groin Subcutaneous Given by Sparkle Marsh MD kk 03:55 PM HR=81 bpm, NVNC=341/87 mmhg, SpO2=94.0 %, Resp=22 B/min 03:55 PM ASA Class CLASS II- Mild systemic disease (i.e. well-controlled diabetes, hypertension, asthma, cigarette smoking) [email or web address] 03:56 PM Pressure channel 1 zero failed. 03:56 PM Pressure channel 1 zero failed. 03:56 PM Pressure channel 1 zeroed. 03:56 PM Access obtained by percutaneous puncture. 6Fr 10cm Cordis Molly sheath placed in left Femoral artery. [id number] kkallner 03:57 PM Bolus angiogram of left Femoral complete: hand injected mls kkallner 03:57 PM 5Fr FR 4 catheter inserted over the wire DNC kkallner 03:58 PM wire removed kkallner 03:58 PM RCA angiography performed in multiple views. [email or web address] 03:58 PM Recorded Pressure: Ao, HR=81, Condition=Condition 1 (Aorta) Ao 160/89/121 03:59 PM Recorded Pressure: Ao, HR=76, Condition=Condition 1 (Aorta) Ao 110/70/88 04:00 PM SVG to the RPDA angio performed in multiple views. [email or web address] 04:00 PM HR=79 bpm, ONID=249/79 mmhg, SpO2=94.0 %, Resp=21 B/min 04:01 PM Time: 16:01 Nitroglycerin 100 mcg Intracoronary Given by Tabitha Marsh MD kk 04:03 PM SVG to the 1st OM angio performed in multiple views. [email or web address] 04:03 PM Left BRAYDON to the LAD angio performed in multiple views. [email or web address] 04:05 PM HR=78 bpm, CSZH=138/80 mmhg, SpO2=94.0 %, Resp=18 B/min 04:05 PM Catheter removed kk 04:05 PM Time: 16:05 Heparin 1000 units Intravenous Given by Jason Le RN kk 04:06 PM 0.035 260cm Navilyst 3mmJ wire [id number] kkallner 04:06 PM 5Fr IM catheter inserted over the wire [id number] kkallner 04:06 PM Recorded Pressure: Ao, HR=77, Condition=Condition 1 (Aorta) Ao 143/93/117 04:08 PM Left BRAYDON to the LAD angio performed in multiple views. kkallner 04:08 PM Catheter removed kk 04:08 PM 5Fr FL 4 catheter inserted over the wire DN kkallner 04:10 PM HR=66 bpm, WGRH=132/76 mmhg, SpO2=96.0 %, Resp=18 B/min 04:12 PM LCA angiography performed in multiple views. kkallner 04:13 PM Catheter removed kkner 04:13 PM 4Fr FR 4 catheter inserted over the wire [facility] kkner 04:15 PM HR=78 bpm, AQSU=996/82 mmhg, SpO2=93.0 %, Resp=19 B/min 04:16 PM Catheter removed kkallner 04:17 PM 6Fr JR 4 [place] Bright-Tip guide catheter was used to cannulate the PCI vessel successfully. reused? No kkallner 04:18 PM Inflation device was opened. [email or web address] 04:18 PM Recorded Pressure: Ao, HR=79, Condition=Condition 1 (Aorta) Ao 172/89/124 04:20 PM .014 [employer] [place] 190cm guide wire across target lesion- successful. reused? No kkallner 04:20 PM HR=76 bpm, ZITH=358/83 mmhg, SpO2=93.0 %, Resp=17 B/min 04:20 PM ACT drawn [email or web address] 04:21 PM 2.0 mm x 20 mm Emerge Monorail balloon across target lesion- successful. reused? No kk 04:21 PM Time: 16:21 Aggrastat Bolus: 42 ml Intravenous Given by Jason Le RN Eckert pump kkner 04:22 PM Time: 16:21 Aggrastat 12.5mg/250ml 15 ml Intravenous Given by Jason Le RN Eckert pump kk 04:22 PM At 16:22 the ACT was 182 seconds. kk 04:22 PM Time: 16:22 Heparin 2500 units Intravenous Given by Jason Le RN kkner 04:23 PM Balloon inflated @ 6 linnea for 8 seconds kkallner 04:23 PM Balloon inflated @ 10 linnea for 5 seconds kkallner 04:24 PM Balloon catheter removed intact. kkner 04:25 PM Recorded Pressure: Ao, HR=79, Condition=Condition 1 (Aorta) Ao 83/55/66 04:25 PM HR=79 bpm, PLUF=599/84 mmhg, SpO2=94.0 %, Resp=20 B/min 04:26 PM Recorded Pressure: Ao, HR=82, Condition=Condition 1 (Aorta) Ao 161/94/125 04:26 PM 3.5mm x 32mm Synergy drug-eluting stent across target lesion- successful Lot #[id number] kkallner 04:29 PM Stent deployed @ 11 linnea for 10 seconds kkallner 04:30 PM Stent balloon reinflated @ 12 linnea for 12 seconds kkallner 04:30 PM HR=83 bpm, SJTQ=776/81 mmhg, SpO2=95.0 %, Resp=21 B/min 04:30 PM Stent balloon reinflated @ 16 linnea for 10 seconds kkallner 04:31 PM Stent balloon reinflated @ 16 linnea for 20 seconds kkallner 04:31 PM Stent delivery system removed intact. kkallner 04:35 PM 3.5mm x 17mm Cordis EluNIR drug-eluting stent across target lesion- successful Lot #[id number] kkallner 04:35 PM HR=77 bpm, WQFG=608/80 mmhg, SpO2=94.0 %, Resp=20 B/min 04:37 PM Stent deployed @ 14 linnea for 12 seconds kkallner 04:38 PM Stent delivery system removed intact. kkallner 04:39 PM wire removed kkallner 04:40 PM Guide catheter removed intact. kkallner 04:40 PM HR=79 bpm, MXVZ=082/80 mmhg, SpO2=92.0 %, Resp=21 B/min 04:43 PM 6Fr XB LAD 3.5 [place] Bright-Tip guide catheter was used to cannulate the PCI vessel successfully. reused? No kkallner 04:43 PM wire removed kkallner 04:44 PM Recorded Pressure: Ao, HR=60, Condition=Condition 1 (Aorta) Ao 137/72/97 04:45 PM HR=77 bpm, IILQ=125/76 mmhg, SpO2=91.0 %, Resp=21 B/min 04:45 PM Recorded Pressure: Ao, HR=77, Condition=Condition 1 (Aorta) Ao 147/81/109 04:50 PM HR=74 bpm, YNBP=224/82 mmhg, SpO2=94.0 %, Resp=23 B/min 04:51 PM LCA angiography performed in multiple views. [email or web address] 04:51 PM 6Fr IM Runway guide catheter was used to cannulate the PCI vessel successfully. reused? No kkallner 04:51 PM wire removed kkallner 04:52 PM Recorded Pressure: Ao, HR=77, Condition=Condition 1 (Aorta) Ao 152/88/117 04:53 PM BMW reinserted SVG to OM kkallner 04:54 PM At 16:54 the ACT was 205 seconds. kkallner 04:55 PM HR=79 bpm, WOTD=929/89 mmhg, SpO2=93.0 %, Resp=21 B/min 04:56 PM 2.0 mm x 12 mm Emerge Monorail balloon across target lesion- successful. reused? No kkallner 04:57 PM Time: 16:57 Heparin 500 units Intravenous Given by Jason Le RN kkallner 04:58 PM Balloon inflated @ 6 linnea for 10 seconds kkallner 04:58 PM Balloon inflated @ 6 linnea for 9 seconds kkallner 04:59 PM Balloon inflated @ 8 linnea for 9 seconds kkallner 04:59 PM Balloon inflated @ 8 linnea for 8 seconds kkallner 05:00 PM HR=75 bpm, PXST=743/80 mmhg, SpO2=94.0 %, Resp=18 B/min 05:01 PM Balloon catheter removed intact. [email or web address] 05:04 PM 2.25mm x 16mm Synergy drug-eluting stent across target lesion- successful Lot #[id number] kkall 05:05 PM Stent deployed @ 11 linnea for 11 seconds kkallner 05:05 PM HR=81 bpm, VITX=019/83 mmhg, SpO2=96.0 %, Resp=20 B/min 05:06 PM Stent balloon reinflated @ 11 linnea for 8 seconds kkallner 05:07 PM Stent delivery system removed intact. kkall 05:07 PM wire removed kkallner 05:07 PM Guide catheter removed intact. kkallner 05:10 PM HR=76 bpm, VNPC=378/81 mmhg, SpO2=92.0 %, Resp=18 B/min 05:12 PM Procedure completed at 17:12 08/24/2018 kkall 05:12 PM Did you address RAJ flow and Dominance? Yes kkallner 05:13 PM Sign out completed: Radiation Dose 1965.37 mGy, 208.47 Gy/cm2 Fluoro Time: 25.1 Isovue 370 - 200ml contrast 235 ml given by Sparkle Marsh MD. Complications: None. The patient was discharged out of the manager labor delivery in stable condition. Cardiac Rehab Consult needed: YesConfirmed administered medications: Yes [email or web address] 05:14 PM At 17:13 the ACT was 198 seconds. [email or web address] 05:16 PM Time: 17:16 Plavix 75 mg Orally Given by Jason Le RN kkall 05:18 PM Coronary Dominance: right kkallner 05:18 PM Lesion found in Proximal LMCA. Pre Stenosis: 50 Pre RAJ Flow: [email or web address] 05:18 PM Lesion found in Mid RCA. Pre Stenosis: 80 Pre RAJ Flow: kkallner 05:19 PM Lesion found in Proximal Circumflex. Pre Stenosis: 90 Pre RAJ Flow: kkallner 05:24 PM Lesion found in 1st Marginal. Pre Stenosis: 90 Pre RAJ Flow: kkallner 05:27 PM Left Main Coronary Artery with 50% stenosis kkallner 05:27 PM Proximal Left Anterior Descending Coronary Artery with 0% stenosis. If graft is supplying this territory, 0 % stenosis. kkallner 05:27 PM Mid/Distal Left Anterior Descending Coronary Artery and diagonal branches with 0% stenosis. If graft is supplying this area, 0 % stenosis kkallner 05:27 PM Circumflex, Obtuse Marginal, Left Posterior Descending, and Left Posterolateral Coronary Arteries with 90 % stenosis. If graft is supplying this area, 0 % stenosis kkallner 05:27 PM Right Coronary, Right Posterior Descending Arteries with Right Posterolateral and Acute Marginal branches with 80 % stenosis. If graft is supplying this area, 0 % stenosis kkallner 05:27 PM Ramus with 0% stenosis. If graft is supplying this area, 0 % stenosis kkallner 05:32 PM Patient arrive to HR2. mprater 05:32 PM Patient out of room: 17:32 scoates 05:32 PM Post Blood Pressure 152/78 scoates 05:32 PM Time: 15:40 Fentanyl 50 mcg Intravenous Given by Jason Le RN [facility] 05:39 PM left groin sheath dressing soiled with 5.5 cm blood. Jason Le changed dressing. Sheath flushed and oozing stoppped mprater 05:41 PM Report given to Tennille EAGLE Pt taken to Room #10. 17:41 kkallner 05:56 PM Patient voided 300cc per urinal mprater 06:39 PM At 18:35 the ACT was 162 seconds. ejohnson 06:52 PM Arterial sheath pulled using manual compression and V+ Pad for 15 minutes by June Esteban scoates 07:10 PM Post ECG NSR scoates Complications Complication None None Hemodynamics Pressures Site Systolic/A Wave Diastolic/V Wave Mean AO 160 89 121 AO 110 70 88 AO 143 93 117 AO 172 89 124 AO 83 55 66 AO 161 94 125 AO 137 72 97 AO 147 81 109 AO 152 88 117 Post Procedure Information Blood Pressure: 152/78 mmHg Rhythm: NSR Post procedural instructions were given Closure Device Time Device Success/Fail 08/24/2018 6:52:00 PM Mechanical Compression Successful Site Checks Time Location Status Staff Sheath In? Note 05:34 PM Lt Groin Oozing Ann Marie Johnston RN Yes 05:46 PM Lt Groin No bleeding/ No Hematoma Ann Marie Johnston RN Yes 06:19 PM Lt Groin No bleeding/ No Hematoma Jason Le RN Yes 06:37 PM Lt Groin No bleeding/ No Hematoma Jason Le RN Sheath pulled manual pressure held 20 minutes to site 06:52 PM Lt Groin No bleeding/ No Hematoma Jason Le RN 07:00 PM Lt Groin No bleeding/ No Hematoma [place], Em RN 07:20 PM Lt Groin No bleeding/ No Hematoma June Esteban RT 07:29 PM Lt Groin No bleeding/ No Hematoma June Esteban RT Pulses Time Site Pre-Procedure Post-Procedure Note 08/24/2018 5:17:00 PM Bilateral DP 2+ 08/24/2018 6:38:00 PM Bilateral DP 2+ 08/24/2018 7:30:00 PM Bilateral DP 2+ Updated by RT Jose Alfredo (R) on 08/25/2018 1:34:42 PM electronically signed on 08/25/2018 1:35:16 PM with status of Final
--- NOTE | 2018-08-28 18:35 | Electrocardiograph Report ---
[place] [address] Test Date: 2018-08-23 Pat Name: Naldo Nair Department: [id number] Room: 2N10 Gender: M Criminal Intelligence Analyst: : 1950 Requested By: Devante Ellsworth Order Number: [id number] Reading MD: Sagar Rodriguez Measurements Intervals [place] Rate: 83 P: 84 OR: 188 QRS: 82 QRSD: 100 T: 82 QT: 374 QTc: 440 Interpretive Statements Sinus rhythm Nonspecific ST-T changes Electronically Signed On 08-28-2018 18:33:12 EDT by Sagar Rodriguez
--- NOTE | 2018-08-28 18:36 | Electrocardiograph Report ---
[address] [address] Test Date: 2018-08-23 Pat Name: Naldo Nair Department: 109 Room: 2N10 Gender: M Collator: : 1950 Requested By: Shannan Garrett Order Number: [id number] Reading MD: Sagar Rodriguez Measurements Intervals [place] Rate: 78 P: 59 TN: 170 QRS: 48 QRSD: 101 T: 68 QT: 360 QTc: 393 Interpretive Statements SINUS RHYTHM Electronically Signed On 08-28-2018 18:34:58 EDT by Sagar Rodriguez
== END 2018-08-25 16:04 | disposition home or self-care (01) | DRG 246 ==
LOC: EMEROOARM 01:11 → 2ANU 01:11 → SUATTDRO 04:00 → 2ANU 05:15 → 2NNU 08-24 19:40
PROVIDERS: ADMIT Internal Medicine; ATTEND Hospitalist

== ENCOUNTER 2019-01-27 10:20 | Inpatient (IN) ==
--- NOTE | 2019-01-27 09:05 | Anesthesia Evaluation PreOp ---
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 History: CVA Other Medical History: Renal (CKD3), Other (ANEMIA, THRMBOCYTOSIS) Anesthesia History: No Prior Anesthetic Complications, Past Anesthesia Alcohol Use: occasionally Drug use: none Medications and Allergies Clopidogrel [Plavix] 75 mg PO DAILY 10/29/15 [History] Amlodipine Besylate 10 mg PO DAILY 04/05/18 [History] Aspirin [Lo-Dose Aspirin EC] 81 mg PO DAILY 04/05/18 [History] Atorvastatin [Lipitor] 20 mg PO DAILY 04/05/18 [History] Calcium Carbonate [Calcium] 600 mg PO DAILY 04/05/18 [History] Ergocalciferol (VITAMIN D2) [Vitamin D] 800 unit PO DAILY 04/05/18 [History] Lisinopril [Zestril] 10 mg PO DAILY 04/05/18 [History] Vit C/E/Zn/Coppr/Lutein/Zeaxan [Preservision Areds 2 Softgel] 1 cap PO BID 04/05/18 [History] Metoprolol [Lopressor] 50 mg PO BID 08/23/18 [History] Rivaroxaban [Xarelto] 20 mg PO DAILY 10/18/18 [History] Albuterol Sulfate [Ventolin Hfa] 18 gm IH Q4H PRN #1 hfa.aer.ad 10/20/18 [Rx] Azithromycin [Zithromax] 500 mg PO DAILY #3 tablet 10/20/18 [Rx] Cefdinir [Omnicef] 300 mg PO BID #14 capsule 10/20/18 [Rx] predniSONE [PredniSONE] 20 mg PO DAILY #15 tablet 10/20/18 [Rx] Albuterol Sulfate [Albuterol Inhaler] 2 puff IH Q6HR #1 hfa.aer.ad 11/16/18 [Rx] Doxycycline 100 mg PO BID #14 capsule 11/16/18 [Rx] PredniSONE [Deltasone] 40 mg PO DAILY #10 tablet 11/16/18 [Rx] Allergy/AdvReac Type Severity Reaction Status Date / Time adhesive tape Allergy See Verified 08/23/18 01:15 Comments - Meds/Allergy Pre-op Review Medications Reviewed: Yes Allergies Reviewed: Yes Beta Blockers on Current Med List: Yes Anesthesia Results - Labs Laboratory Tests 11/16/18 01/19/19 01/19/19 17:18 08:17 08:17 WBC Hgb Hct Plt Count PT 26.0 H INR 2.3 APTT 52.6 H Sodium 133 L Potassium 4.9 Creatinine 1.48 H Est GFR (Non-Af Amer) 47 L B-Natriuretic Peptide 376 H 01/25/19 16:05 WBC 14.3 H Hgb 10.3 L Hct 34.4 L Plt Count 873 H PT INR APTT Sodium Potassium Creatinine Est GFR (Non-Af Amer) B-Natriuretic Peptide - Imaging Additional studies: CTA NECK 12/15/2018: 1. Diffuse atherosclerosis of the extracranial vasculature. 2. Approximately 65-70% stenosis of the proximal left ICA by NASCET criteria. 3. No flow limiting stenosis of the right ICA. 4. Moderate focal stenosis of the left vertebral artery within the C3 neural foramen. 5. Moderate focal stenosis at the origin of the right vertebral artery. CAROTID DUPLEX 04/06/2018: The right carotid arteries have minimal plaque throughout. The left internal carotid artery has a 60-79% stenosis. Bilateral vertebral artery antegrade flow. [facility] 08/23/2018: Impressions: There is severe two vessel coronary artery disease. Patient had successful PTCA/Drug-Eluting Stent placement in the mid RCA. Patient had successful PTCA/Drug-Eluting Stent placement in the SVG to OM. Coronary Dominance: right Lesion Findings/Interventions * Left Main Coronary Artery There is a 50% stenosis in the Proximal LMCA. * Left Anterior Descending The LAD is angiographically free of disease. The 1st Diagonal is angiographically free of disease. * Circumflex There is a 90% stenosis in the Proximal Circumflex. There is a 16 mm long, 90% stenosis in the SVG to the 1st Marginal. The lesion has a RAJ flow of 3 and has no thrombus present. An intervention was performed on the 1st Marginal with a final stenosis of 0%. There were no lesion complications. The final RAJ flow was 3. * Right Coronary Artery There is a 49 mm long, 80% stenosis in the Mid RCA. The lesion has a RAJ flow of 3 and has no thrombus present. An intervention was performed on the Mid RCA with a final stenosis of 0%. There were no lesion complications. Additional Findings: Grafts * The saphenous vein graft to the Right PDA has a 70% stenosis. * An Intervetnion was performed with final stenosis 0%. 2.25 x 16 Synergy. * The saphenous vein graft to the 1st Marginal has a 90% stenosis. Anesthesia Exam O2 Sat Height 1.7 m Weight 86.183 kg O2 Sat by Pulse Oximetry 96 O2 Sat by Pulse Oximetry 96 Vital Signs Temp Pulse Resp BP Pulse Ox 97.9 F 77 18 136/68 96 01/27/19 10:53 01/27/19 10:53 01/27/19 10:53 01/27/19 10:53 01/27/19 10:53 LEFT ARM NIBP 140/69 RIGHT ARM NIBP 146/66 NPO (# of Hours): 8 - HEENT Mallampati: II Teeth: Missing, Poor dentition (LOOSE #25) Oral Opening: Greater than 3 - Cardiac Rhythm: Regular - Pulmonary Breath Sounds: bilateral Clear Respiratory Effort: Symmetrical Anesthesia Assess/Plan ASA Score: 4 Anesthetic Plan: General Monitoring Plan: Standard Monitors, A-Line Recovery Plan: PACU
[2019-01-27] MEDS ORDERED: *HR* Remifentanil 2 MG VIAL IVP ONE (10:31)
[2019-01-27] MEDS ORDERED: *HR* FentaNYL (PF) 100 MCG/2 ML VIAL ONE ×2 (10:31→12:06)
[2019-01-27] MEDS ORDERED: EPHEDrine 50 MG/ML VIAL ONE (10:31)
[2019-01-27] MEDS ORDERED: *HR* Midazolam HCl 2 MG/2 ML VIAL ONE (10:32)
[2019-01-27] MEDS ORDERED: *HR* Propofol 200 MG/20 ML VIAL IVP ONE (10:32)
[2019-01-27] MEDS ORDERED: Ondansetron 4 MG/2 ML VIAL ONE ×2 (10:45→16:41)
[2019-01-27] MEDS ORDERED: Lidocaine -MPF 4% 5 ML AMPUL ONE (10:45)
[2019-01-27] MEDS ORDERED: *HR* Rocuronium Bromide 50 MG/5 ML VIAL ONE ×2 (10:45→14:27)
[2019-01-27] MEDS ORDERED: Lidocaine -MPF 2% 2 ML VIAL ONE (10:45)
[2019-01-27] MEDS ORDERED: Heparin 1,000 UNITS/500 mL 500 ML ONE (10:47)
[2019-01-27] MEDS ORDERED: CeFAZolin Syr 2,000MG/20 ML 2,000 MG/20 ML SYRINGE IVPB ONE (10:53)
[2019-01-27] MEDS ORDERED: Ringers Solution, Lactated 1,000 ML IVC SCH (11:00)
[2019-01-27] MEDS ORDERED: Albuterol 2.5 MG/3 ML NEBULIZER IH ONE (11:09)
--- NOTE | 2019-01-27 11:35 | History & Physical Report ---
Date of Encounter: 01/27/19 Time of Encounter: 11:30 24 Hour HP Update - Instructions Instructions: If the History and Physical is less than 30 days old and was completed prior to A.M. admission and or procedure and has NOT been updated on calendar day of procedure please complete this update prior to performing procedure. - Update Patient reports changes in Medical Condition: No Changes in examination, assessment, or condition: No Changes in Medication: No Preop tests/diagnostics Reviewed: Yes Surgery Remains Indicated: Yes Consent for Planned Operative Procedure(s) Verified: Yes - Pre-Operative Checklist Preoperative Checklist Indicated: Yes Prophylactic Antibiotic Ordered: Yes (vancomycin due to MRSA risk) Home Medications Include Beta Ralph: Yes Beta Ralph Taken Today (Day of Surgery): Yes Beta Ralph Taken Yesterday (Day Prior to Surgery): Yes Is VTE Prophylaxis Indicated?: Yes
[2019-01-27] MEDS ORDERED: Ipratropium/Albuterol Neb 3 ML IH ONE (11:55)
[2019-01-27] MEDS ORDERED: *HR* HYDROmorphone (PF) 1 MG/ML SYRINGE IVP PRN (11:55)
[2019-01-27] MEDS ORDERED: Ondansetron 4 MG/2 ML VIAL IVP ONE (11:55)
[2019-01-27] MEDS ORDERED: Acetaminophen IV 1,000 MG/100 ML INFUS..BTL ONE (12:06)
[2019-01-27] MEDS ORDERED: Heparin 1,000 UNITS/500 mL 1,000 ML ONE (12:21)
[2019-01-27] MEDS ORDERED: Protamine Sulfate 50 MG/5 ML VIAL IVP ONE ×2 (12:21→16:42)
[2019-01-27] MEDS ORDERED: Bupivacaine-MPF 0.25% 10 ML VIAL ONE (12:21)
[2019-01-27] MEDS ORDERED: Vancomycin 1,000 MG, Sodium Chloride IRRigation 1,000 ML IR ONE (12:30)
[2019-01-27] MEDS ORDERED: Furosemide 40 MG/4 ML VIAL ONE ×2 (12:37→16:01)
[2019-01-27] MEDS ORDERED: Nitroglycerin 25 MG/250 ML INFUS..BTL IVC ONE (12:37)
--- NOTE | 2019-01-27 12:55 | Anesthesia Procedures ---
Date of Encounter: 01/27/19 Time of Encounter: 12:15
[2019-01-27] MEDS ORDERED: *HR* Heparin 5,000 UNIT/ML VIAL ONE ×2 (15:12)
[2019-01-27] MEDS ORDERED: Dexamethasone 4 MG/ML VIAL ONE (15:29)
[2019-01-27] MEDS ORDERED: Neostigmine Methylsulfate 3 MG/3 ML SYRINGE ONE (15:32)
--- NOTE | 2019-01-27 16:39 | Operative Note ---
Date of procedure: 01/27/19 Pre-op diagnosis: 80-99% left internal carotid artery stenosis Post-op diagnosis: same Procedure: Left carotid endarterectomy with Hemashield patch angioplasty. Complications: None Anesthesia: GETA Surgeon: Angel Howard Was there an assistant sales director present: No Estimated blood loss (cc): 50 Specimen: Left carotid plaque Condition: stable Disposition: PACU Procedure in Detail: Indications: The patient is a 68-year-old male with hypertension, hyperlipidemia, peripheral vascular disease and coronary artery disease. The patient was found have significant carotid stenosis by duplex. A CT angiogram revealed a greater than 80% left internal carotid artery stenosis. A left carotid endarterectomy was recommended to reduce his risk of cerebrovascular accident. Procedure: The patient was identified in the preoperative area. The risks, benefits, and alternatives of the procedure were discussed and all questions were answered. He was then taken to the operating room and placed in supine position on the operating table. After the induction of general endotracheal anesthesia, he was cleaned and draped in normal sterile fashion. A longitudinal incision was made anterior to the left sternocleidomastoid muscle. Hemostasis was obtained via electrocautery. Through a process of blunt, sharp, and electrocautery dissection, the platysma was traversed and the jugular vein was identified. The facial vein was dissected, clamped, divided and ligated with a 2-0 silk suture ligature. The jugular vein was retracted to expose the carotid bifurcation. The patient received 3000 units of heparin intravenously at this time. Proximal dissection of the common and external carotid arteries were performed circumferentially. Dissection of the internal carotid was performed circumferentially. Vessels loops were then passed around the internal and external carotid. An umbilical tape was passed from the common carotid artery. The patient received additional 2000 units of heparin intravenously. Additional heparin was given to maintain adequate anticoagulation throughout the case After waiting adequate time for the heparin to circulate, the vessels were occluded and a longitudinal arteriotomy was made into the common carotid artery. The arteriotomy was extended into the internal carotid artery beyond the plaque with Perrin scissors. Vigorous and pulsatile retrograde flow consistent with significant retrograde perfusion was present in the internal carotid artery upon release of the vessel loop. Given the significant retrograde perfusion, a shunt was not placed.. A dental Fitzpatrick was then used to perform a standard endarterectomy. Proximal and distal endpoints were inspected. No elevated flaps were noted. Additional heparin was given throughout the procedure to maintain adequate anticoagulation. A Hemashield patch was cut to fit the defect and sutured in place with running 6-0 Prolene. Prior to completing the closure, each vessel was flushed and then reoccluded. Heparinized saline was infused into the lumen. The patch was completed. Flow was restored in the external carotid artery, followed the common carotid artery, lastly the internal carotid artery was opened. A low resistance arterialized signal was present within the internal carotid artery beyond the patch. Thrombin and Gelfoam were used to aid in hemostasis. Meticulous hemostasis was obtained throughout the wound with electrocautery. Platelet rich and platelet poor plasma were infused into the wounds. The sternocleidomastoid was reapproximated with interrupted 3-0 Vicryl. Platelet rich and platelet poor plasma were infused into the wound. A TLS drain was brought through a separate stab incision and sutured in place with 0 silk suture. The platysma was reapproximated with running 3-0 Vicryl. Local anesthetic was infused in the skin. A 3-0 Monocryl was used to reapproximate the skin. A sterile dressing was applied. The patient was extubated, taken to the recovery room in stable condition.
[2019-01-27] MEDS ORDERED: *HR* Phenylephrine 10 MG/ML VIAL ONE (16:43)
--- NOTE | 2019-01-27 17:19 | Event Note ---
Date of Encounter: 01/27/19 Time of Encounter: 17:00 Patient was seen and examined. He was noted to be alert and oriented. His neurologic exam is intact without focal deficits. His exam reveals no evidence of hematoma. He received protamine and has minimal drainage and his TLS drain. Clear liquids tonight and analgesics tonight. The patient's diet will be advanced in the morning.. Continue with neurologic exams.
--- NOTE | 2019-01-27 17:29 | Anesthesia Evaluation Post Op ---
Date of Encounter: 01/27/19 Time of Encounter: 17:28 - Vital Signs Vital Signs: Vital Signs/O2 Sat, Most Current Temp Pulse Resp BP Pulse Ox 97.9 F 65 24 136/61 96 01/27/19 17:01 01/27/19 17:11 01/27/19 17:11 01/27/19 17:11 01/27/19 17:11 - Lungs Lungs: Clear Ascult./Percussion - Airway Airway: Non-obstructed - Cardiovascular Regular Rate - Mental Status Mental Status: Alert & Oriented, Answers Appropriately - Pain Pain Scale: 3 Pain Scale used: Numeric (1 - 10) - Nausea Vomiting Nausea Vomiting: Not Present - Hydration Hydration: Ice chips, Ash catheter - Discharge PostOp Status: Transfer Patient to floor
[2019-01-27] MEDS ORDERED: *HR* Labetalol 20 MG/4 ML SYRINGE IVP PRN (18:21)
[2019-01-27] MEDS ORDERED: *HR* HYDROcodone/Acet 5/325 mg TABLET PO PRN (18:21)
[2019-01-27] MEDS ORDERED: Acetaminophen 325 MG TABLET PO PRN (18:21)
[2019-01-27] MEDS ORDERED: OXYCODONE Oral CONC 10 MG/0.5 ML ORAL.SYG SL PRN ×2 (18:21)
[2019-01-27] MEDS ORDERED: *HR* OxyCODONE Immed Rel 5 MG TABLET PO PRN (18:21)
[2019-01-27] MEDS ORDERED: Naloxone 0.4 MG/ML INJ IVP PRN (18:21)
[2019-01-27] MEDS ORDERED: Ondansetron 4 MG/2 ML VIAL IVP PRN (18:21)
[2019-01-27] MEDS: *HR* Metoprolol 5 MG/5 ML VIAL IVP SCH (20:10)
[2019-01-27] MEDS: Multivit/Ca/Min/Fe/FA 1 TAB TABLET PO SCH (20:31)
[2019-01-28] MEDS: *HR* Metoprolol 5 MG/5 ML VIAL IVP SCH ×2 (00:04→05:27)
[2019-01-28] MEDS ORDERED: *HR* Heparin 5,000 UNIT/ML VIAL SQ SCH ×2 (06:00)
--- NOTE | 2019-01-28 07:20 | Discharge Summary ---
Orders not resulted at time of discharge: Pending orders 01/27/19 11:55 US anesthesia pain block [US] Routine 01/27/19 16:38 Surgical Pathology [PTH] Routine Date of Encounter: 01/28/19 Time of Encounter: 07:40 - Discharge Diagnosis (1) Carotid stenosis, bilateral Priority: Primary Status: Chronic Comments: The patient is postoperative day #1 after left carotid artery. His incision is healing well. He has no hematoma. He has no neurologic deficits. He will be discharged today. (2) HLD (hyperlipidemia) Priority: Secondary Status: Chronic Qualifiers: Hyperlipidemia type: mixed hyperlipidemia Qualified Code(s): E78.2 - Mixed hyperlipidemia (3) HTN (hypertension) Priority: Secondary Status: Chronic Qualifiers: Hypertension type: essential hypertension Qualified Code(s): I10 - Essential (primary) hypertension (4) PAD (peripheral artery disease) Priority: Secondary Status: Chronic (5) CAD (coronary artery disease) Priority: Secondary Status: Chronic Qualifiers: Coronary Disease-Associated Artery/Lesion type: [place] artery [place] vs. transplanted heart: [place] heart Associated angina: without angina Qualified Code(s): I25.10 - Atherosclerotic heart disease of [place] coronary artery without angina pectoris (6) Diastolic heart failure Priority: Secondary Status: Chronic Comments: The patient has chronic diastolic heart failure. He is chronically treated with Lasix. He remained asymptomatic throughout his hospital course. Qualifiers: Heart failure chronicity: chronic Qualified Code(s): I50.32 - Chronic diastolic (congestive) heart failure (7) Chronic kidney disease, stage III (moderate) Priority: Secondary Status: Chronic (8) Chronic anemia Priority: Secondary Status: Chronic - Hospital Course Hospital course: Mr. Nair is a 68 year old male with history of chronic diastolic heart failure, essential hypertension, chronic kidney disease stage III, chronic anemia, coronary artery disease, essential hypertension, etc. hyperlipidemia, tobacco abuse and carotid stenosis. The patient was found to have a greater than 80% left internal carotid artery stenosis. He underwent a left carotid endarterectomy and tolerated the procedure well. He was discharged on postoperative day #1 without complication. - Time Spent with Patient Total time spent providing and/or coordinating discharge services: - Discharge Medications Prescriptions: Continue RX: Clopidogrel [Plavix] 75 mg PO DAILY RX: Atorvastatin [Lipitor] 20 mg PO DAILY RX: Calcium Carbonate [Calcium] 600 mg PO DAILY RX: Aspirin [Lo-Dose Aspirin EC] 81 mg PO DAILY RX: Metoprolol [Lopressor] 50 mg PO BID RX: Rivaroxaban [Xarelto] 20 mg PO DAILY RX: Diltiazem CD (24hr) [Cardizem CD] 240 mg PO DAILY RX: Ergocalciferol (VITAMIN D2) [Vitamin D] 400 unit PO DAILY RX: Furosemide [Lasix] 40 mg PO DAILY RX: Lisinopril [Zestril] 40 mg PO DAILY RX: Vit C/E/Zn/Coppr/Lutein/Zeaxan [Ocuvite Lutein & Zeaxanthin Cp] 1 cap PO BID Home Medications: RX: Clopidogrel [Plavix] 75 mg PO DAILY 10/29/15 [History] RX: Aspirin [Lo-Dose Aspirin EC] 81 mg PO DAILY 04/05/18 [History] RX: Atorvastatin [Lipitor] 20 mg PO DAILY 04/05/18 [History] RX: Calcium Carbonate [Calcium] 600 mg PO DAILY 04/05/18 [History] RX: Metoprolol [Lopressor] 50 mg PO BID 08/23/18 [History] RX: Rivaroxaban [Xarelto] 20 mg PO DAILY 10/18/18 [History] RX: Diltiazem CD (24hr) [Cardizem CD] 240 mg PO DAILY 01/27/19 [History] RX: Ergocalciferol (VITAMIN D2) [Vitamin D] 400 unit PO DAILY 01/27/19 [History] RX: Furosemide [Lasix] 40 mg PO DAILY 01/27/19 [History] RX: Lisinopril [Zestril] 40 mg PO DAILY 01/27/19 [History] RX: Vit C/E/Zn/Coppr/Lutein/Zeaxan [Ocuvite Lutein & Zeaxanthin Cp] 1 cap PO BID 01/27/19 [History] Allergies/Adverse Reactions: Allergy/AdvReac Type Severity Reaction Status Date / Time adhesive tape Allergy See Verified 08/23/18 01:15 Comments Date of admission: 01/27/19 18:12 [facility] care physician: [facility] Procedure(s) Performed: Left carotid endarterectomy Discharging clinician: Angel Howard Anticipated date of discharge: 01/28/19 Exam Vital Signs, Last 4 Hours Temp Pulse Resp BP Pulse Ox 01/28/19 04:06 97.4 F L 79 17 114/58 92 General: Present: Conversant, No Apparent Distress HEENT: Present: Pupils equal Neck: Present: Other (Incision clean, dry and intact without erythema or drainage, no hematoma). Absent: JVD Cardiac: Present: Reg Rate and Rhythm Lungs: Present: Normal Breath Sounds Neuro: Present: Alert and responsive, Motor nerves grossly intact, Sensory nerves grossly intact Abdomen: Present: Soft Vascular: Present: Normal capillary refill. Absent: Edema Skin: Present: No rashes noted on visualized skin - Patient Status Disposition: Home, Self-Care Condition: Good Functional capacity at discharge: independent ambulation Overall status at discharge: patient is back to baseline - Discharge Instructions Instructions: Carotid Endarterectomy (DC) Follow Up With: Angel Howard MD [Partnered Physician] - 02/17/19 10:10 am [place],PCP [Primary Care Provider] - 02/04/19 10:30 am (your appointment for 01-28-19 has been cancelled) Additional Instructions: May remove bandage and shower on 01/29/19. Wash wound gently and pat to dry. No driving for [address] Howard at [phone] with questions or concerns. - Diet and Activity Activity: increase activity as tolerated Diet: advance to your usual diet
[2019-01-28 07:34] VITALS: BP 109/65
[2019-01-28] MEDS: Multivit/Ca/Min/Fe/FA 1 TAB TABLET PO SCH (07:56)
[2019-01-28] MEDS ORDERED: Aspirin Enteric Coated 81 MG Tablet PO SCH (09:00)
[2019-01-28] MEDS ORDERED: Diltiazem CD (24hr) 240 MG CAPSULE PO SCH (09:00)
[2019-01-28] MEDS ORDERED: Cholecalciferol (D-3) 1,000 UNIT TABLET PO SCH (09:00)
[2019-01-28] MEDS ORDERED: Furosemide 40 MG TABLET PO SCH (09:00)
[2019-01-28] MEDS ORDERED: Lisinopril 20 MG TABLET PO SCH (09:00)
== END 2019-01-28 11:06 | disposition home or self-care (01) | DRG 38 ==
LOC: SAMDAY 10:20 → 2NNU 18:12
PROVIDERS: ADMIT Surgery; ATTEND Surgery

== ENCOUNTER 2020-06-01 08:12 | Inpatient (IN) ==
[2020-06-01] MEDS ORDERED: Lidocaine -MPF 4% 5 ML AMPUL ONE (08:23)
[2020-06-01] MEDS ORDERED: Dexamethasone 4 MG/ML VIAL ONE (08:27)
[2020-06-01] MEDS ORDERED: *HR* Rocuronium Bromide 50 MG/5 ML VIAL ONE (08:27)
[2020-06-01] MEDS ORDERED: *HR* Succinylcholine 200 MG/10 ML VIAL IVP ONE (08:27)
[2020-06-01] MEDS ORDERED: *HR* Midazolam HCl 2 MG/2 ML VIAL ONE (08:27)
[2020-06-01] MEDS ORDERED: Ondansetron 4 MG/2 ML VIAL ONE (08:27)
[2020-06-01] MEDS ORDERED: Lidocaine -MPF 2% 2 ML VIAL ONE (08:27)
[2020-06-01] MEDS ORDERED: *HR* FentaNYL (PF) 100 MCG/2 ML VIAL ONE (08:27)
[2020-06-01] MEDS ORDERED: *HR* HYDROMORPHONE 2 MG/ML VIAL ONE (08:27)
[2020-06-01] MEDS ORDERED: CeFAZolin Syr 2,000MG/20 ML 2,000 MG/20 ML SYRINGE IVPB ONE (08:53)
[2020-06-01] MEDS ORDERED: Famotidine 20 MG/2 ML VIAL IVP ONE (09:04)
[2020-06-01] MEDS ORDERED: *HR* OxyCODONE Immed Rel 5 MG TABLET PO PRN (09:04)
[2020-06-01] MEDS ORDERED: *HR* Promethazine 25 MG/ML VIAL IVP PRN (09:04)
[2020-06-01] MEDS ORDERED: Albuterol 2.5 MG/3 ML NEBULIZER IH PRN ×2 (09:04→12:13)
[2020-06-01] MEDS ORDERED: Ondansetron 4 MG/2 ML VIAL IVP ONE (09:04)
[2020-06-01] MEDS ORDERED: *HR* Metoprolol 5 MG/5 ML VIAL IVP PRN (09:04)
[2020-06-01] MEDS ORDERED: Gabapentin 100 MG CAPSULE PO ONE (09:04)
[2020-06-01] MEDS ORDERED: Acetaminophen IV 1,000 MG/100 ML INFUS..BTL IVPB ONE (09:04)
[2020-06-01] MEDS: Ringers Solution, Lactated 1,000 ML IVC SCH ×2 (09:29→11:39)
[2020-06-01] MEDS ORDERED: *HR* PHENYLEPHRINE 1,000 MCG/10 ML SYRINGE IVP ONE (10:21)
[2020-06-01] MEDS: *HR* FentaNYL (PF) 100 MCG/2 ML VIAL IVP PRN ×6 (11:03→11:28)
[2020-06-01] MEDS: *HR* HYDROmorphone PF 0.5 MG/0.5 ML SYRINGE IVP PRN ×2 (11:35→11:44)
[2020-06-01] MEDS ORDERED: 0.9 % Sodium Chloride 1,000 ML IVC SCH (13:18)
[2020-06-01] MEDS ORDERED: Ondansetron 4 MG/2 ML VIAL IVP PRN (13:18)
[2020-06-01] MEDS ORDERED: Ipratropium/Albuterol Neb 3 ML IH SCH (13:18)
[2020-06-01] MEDS ORDERED: Naloxone 0.4 MG/ML INJ IVP PRN (13:18)
[2020-06-01] MEDS: *HR* HYDROcodone/Acet 5/325 mg TABLET PO PRN ×3 (13:52→22:33)
[2020-06-01] MEDS: Gabapentin 300 MG CAPSULE PO SCH ×2 (13:52→21:51)
[2020-06-01] MEDS: *HR* Heparin 5,000 UNIT/ML VIAL SQ SCH ×2 (13:52→21:50)
[2020-06-01] MEDS: Tiotropium 18 MCG inhalation IH SCH (15:00)
[2020-06-01] MEDS: Metoprolol 100 MG TABLET PO SCH (21:50)
[2020-06-01] MEDS: Sennosides/Docusate Sodium TABLET PO SCH (21:51)
[2020-06-01] MEDS: Famotidine 20 MG TABLET PO SCH (21:51)
[2020-06-02] MEDS ORDERED: Furosemide 20 MG/2 ML VIAL IVP ONE (00:23)
[2020-06-02] MEDS: *HR* HYDROcodone/Acet 5/325 mg TABLET PO PRN ×3 (00:55→20:26)
[2020-06-02] MEDS: *HR* HYDROmorphone (PF) 1 MG/ML SYRINGE IVP PRN ×3 (00:56→23:20)
[2020-06-02] MEDS: Levalbuterol Neb 1.25 MG/3 ML IH SCH ×7 (01:38→23:58)
[2020-06-02 05:20] LABS: Hematocrit 38.8 % (37.5-50.1); Hemoglobin 12.9 g/dL (12.9-16.9); Mean Corpuscular HGB Conc 33.2 g/dL (31.6-35.5); Mean Corpuscular Hemoglobin 33.7 pg (28.0-33.3); Mean Corpuscular Volume 101.3 fL (83.0-100.0); Mean Platelet Volume 10.4 fL (9.4-12.4); Platelet Count 210 K/mcL (140-400); Red Blood Count 3.83 M/mcL (4.19-5.50); Red Cell Distribution Width 15.4 % (11.5-14.5); White Blood Count 16.4 K/mcL (4.3-11.1)
[2020-06-02 05:36] LABS: Calcium 8.6 mg/dL (8.6-10.3); Potassium 4.8 mEq/L (3.5-5.1)
[2020-06-02] MEDS: *HR* Heparin 5,000 UNIT/ML VIAL SQ SCH ×3 (06:55→20:26)
[2020-06-02] MEDS: Tiotropium 18 MCG inhalation IH SCH (07:19)
[2020-06-02] MEDS: Sennosides/Docusate Sodium TABLET PO SCH ×2 (07:24→20:25)
[2020-06-02] MEDS: Famotidine 20 MG TABLET PO SCH ×2 (07:24→20:25)
[2020-06-02] MEDS: DilTIAZem CD (24hr) 240 MG CAP.ER.24H PO SCH (07:24)
[2020-06-02] MEDS: Gabapentin 300 MG CAPSULE PO SCH ×3 (07:24→20:25)
[2020-06-02] MEDS: Metoprolol 100 MG TABLET PO SCH ×2 (07:24→20:28)
[2020-06-02] MEDS: Furosemide 20 MG TABLET PO SCH (07:24)
[2020-06-02] MEDS ORDERED: Furosemide 40 MG/4 ML VIAL IVP ONE (20:48)
[2020-06-03] MEDS: Levalbuterol Neb 1.25 MG/3 ML IH SCH ×6 (03:39→23:26)
[2020-06-03] MEDS: *HR* HYDROmorphone (PF) 1 MG/ML SYRINGE IVP PRN ×2 (04:43→15:24)
[2020-06-03] MEDS: *HR* Heparin 5,000 UNIT/ML VIAL SQ SCH ×2 (04:50→17:31)
[2020-06-03] MEDS: Tiotropium 18 MCG inhalation IH SCH (07:41)
[2020-06-03 08:06] LABS: Calcium 8.7 mg/dL (8.6-10.3); Potassium 4.5 mEq/L (3.5-5.1)
[2020-06-03] MEDS: Sennosides/Docusate Sodium TABLET PO SCH ×2 (08:12→20:58)
[2020-06-03] MEDS: Famotidine 20 MG TABLET PO SCH ×2 (08:13→20:58)
[2020-06-03] MEDS: Metoprolol 100 MG TABLET PO SCH ×2 (08:13→20:59)
[2020-06-03] MEDS: Gabapentin 300 MG CAPSULE PO SCH ×3 (08:13→20:56)
[2020-06-03] MEDS: Furosemide 20 MG TABLET PO SCH (08:13)
[2020-06-03] MEDS: DilTIAZem CD (24hr) 240 MG CAP.ER.24H PO SCH (08:13)
[2020-06-03] MEDS ORDERED: methylPREDNISolone 125 MG/2 ML VIAL IVP ONE (09:37)
[2020-06-03] MEDS: Furosemide 20 MG/2 ML VIAL IVP SCH ×2 (10:11→20:56)
[2020-06-03 10:40] LABS: Basophils % 0.1 %; Eosinophils % 0.1 %; Hematocrit 38.3 % (37.5-50.1); Hemoglobin 12.3 g/dL (12.9-16.9); Immature Granulocytes % 4.7 % (0-4); Lymphocytes # 0.5 K/mcL (0.6-4.6); Lymphocytes % 2.7 %; Mean Corpuscular HGB Conc 32.1 g/dL (31.6-35.5); Mean Corpuscular Hemoglobin 33.4 pg (28.0-33.3); Mean Corpuscular Volume 104.1 fL (83.0-100.0); Mean Platelet Volume 10.6 fL (9.4-12.4); Monocytes # 5.2 K/mcL (0.0-1.3); Monocytes % 28.3 %; Neutrophils # 11.8 K/mcL (1.6-8.9); Platelet Count 216 K/mcL (140-400); Red Blood Count 3.68 M/mcL (4.19-5.50); Red Cell Distribution Width 15.9 % (11.5-14.5); Segmented Neutrophils % 64.1 %; White Blood Count 18.4 K/mcL (4.3-11.1)
[2020-06-03 11:06] LABS: INR 1.1; Prothrombin Time 12.7 Seconds (9.4-12.1)
[2020-06-03 11:11] LABS: Platelet Estimate Normal (Normal)
[2020-06-03 11:12] LABS: Anisocytosis 1+ (Not Present)
[2020-06-03] MEDS: *HR* HYDROcodone/Acet 5/325 mg TABLET PO PRN ×2 (13:33→20:56)
[2020-06-04] MEDS: *HR* HYDROmorphone (PF) 1 MG/ML SYRINGE IVP PRN ×2 (00:18→05:21)
[2020-06-04] MEDS: *HR* HYDROcodone/Acet 5/325 mg TABLET PO PRN ×3 (02:28→20:15)
[2020-06-04] MEDS: Levalbuterol Neb 1.25 MG/3 ML IH SCH ×5 (03:50→20:10)
[2020-06-04] MEDS: *HR* Heparin 5,000 UNIT/ML VIAL SQ SCH ×2 (05:22→17:02)
[2020-06-04] MEDS: Tiotropium 18 MCG inhalation IH SCH (07:33)
[2020-06-04] MEDS: DilTIAZem CD (24hr) 240 MG CAP.ER.24H PO SCH (08:03)
[2020-06-04] MEDS: Metoprolol 100 MG TABLET PO SCH ×2 (08:03→20:10)
[2020-06-04] MEDS: Sennosides/Docusate Sodium TABLET PO SCH ×2 (08:03→20:10)
[2020-06-04] MEDS: Famotidine 20 MG TABLET PO SCH ×2 (08:03→20:10)
[2020-06-04] MEDS: Gabapentin 300 MG CAPSULE PO SCH ×3 (08:03→20:10)
[2020-06-04] MEDS: Furosemide 20 MG/2 ML VIAL IVP SCH ×2 (08:03→20:10)
[2020-06-04] MEDS: Budesonide/Formoterol 160/4.5 1 PUFF INH IH SCH ×2 (11:32→20:10)
[2020-06-04 11:58] LABS: Basophils % 0.1 %; Eosinophils # 0.1 K/mcL (0.0-0.6); Eosinophils % 0.3 %; Hematocrit 40.5 % (37.5-50.1); Hemoglobin 13.4 g/dL (12.9-16.9); Immature Granulocytes % 6.3 % (0-4); Lymphocytes # 0.5 K/mcL (0.6-4.6); Mean Corpuscular HGB Conc 33.1 g/dL (31.6-35.5); Mean Corpuscular Hemoglobin 34.4 pg (28.0-33.3); Mean Corpuscular Volume 103.8 fL (83.0-100.0); Mean Platelet Volume 10.8 fL (9.4-12.4); Monocytes # 4.3 K/mcL (0.0-1.3); Monocytes % 24.7 %; Neutrophils # 11.3 K/mcL (1.6-8.9); Platelet Count 225 K/mcL (140-400); Red Cell Distribution Width 15.5 % (11.5-14.5); Segmented Neutrophils % 65.6 %; White Blood Count 17.2 K/mcL (4.3-11.1)
[2020-06-04 12:12] LABS: Calcium 8.9 mg/dL (8.6-10.3); Potassium 4.6 mEq/L (3.5-5.1)
[2020-06-04 12:42] LABS: Anisocytosis 1+ (Not Present); Platelet Estimate Normal (Normal)
[2020-06-05] MEDS: Levalbuterol Neb 1.25 MG/3 ML IH SCH ×7 (04:16→23:33)
[2020-06-05 05:48] LABS: Basophils % 0.2 %; Eosinophils % 0.1 %; Monocytes % 28.5 %
[2020-06-05 05:50] LABS: Hematocrit 42.9 % (37.5-50.1); Hemoglobin 13.8 g/dL (12.9-16.9); Immature Granulocytes % 5.4 % (0-4); Immature Platelets 5.5 % (1.1-6.1); Lymphocytes # 0.9 K/mcL (0.6-4.6); Lymphocytes % 5.4 %; Mean Corpuscular HGB Conc 32.2 g/dL (31.6-35.5); Mean Corpuscular Hemoglobin 33.7 pg (28.0-33.3); Mean Corpuscular Volume 104.9 fL (83.0-100.0); Mean Platelet Volume 10.7 fL (9.4-12.4); Monocytes # 4.9 K/mcL (0.0-1.3); Neutrophils # 10.3 K/mcL (1.6-8.9); Platelet Count 190 K/mcL (140-400); Red Blood Count 4.09 M/mcL (4.19-5.50); Red Cell Distribution Width 15.8 % (11.5-14.5); Segmented Neutrophils % 60.4 %; White Blood Count 17.1 K/mcL (4.3-11.1)
[2020-06-05] MEDS: *HR* Heparin 5,000 UNIT/ML VIAL SQ SCH ×2 (05:59→16:58)
[2020-06-05 06:04] LABS: Calcium 8.6 mg/dL (8.6-10.3); Potassium 4.6 mEq/L (3.5-5.1)
[2020-06-05 06:11] LABS: Platelet Estimate Normal (Normal)
[2020-06-05] MEDS: Sennosides/Docusate Sodium TABLET PO SCH ×2 (07:41→20:26)
[2020-06-05] MEDS: Tiotropium 18 MCG inhalation IH SCH (07:41)
[2020-06-05] MEDS: Gabapentin 300 MG CAPSULE PO SCH ×3 (07:41→20:26)
[2020-06-05] MEDS: Metoprolol 100 MG TABLET PO SCH ×2 (07:41→20:26)
[2020-06-05] MEDS: Furosemide 20 MG/2 ML VIAL IVP SCH ×2 (07:42→20:26)
[2020-06-05] MEDS: DilTIAZem CD (24hr) 240 MG CAP.ER.24H PO SCH (07:42)
[2020-06-05] MEDS: Famotidine 20 MG TABLET PO SCH ×2 (07:42→20:25)
[2020-06-05] MEDS: Budesonide/Formoterol 160/4.5 1 PUFF INH IH SCH ×2 (07:51→19:51)
[2020-06-05] MEDS ORDERED: Perflutren Lipid Microsphere 1.3 ML in 0.9 % Sodium Chloride 8.7 ML IVP PRN (08:09)
[2020-06-05] MEDS: *HR* HYDROcodone/Acet 5/325 mg TABLET PO PRN (14:30)
[2020-06-06] MEDS: Levalbuterol Neb 1.25 MG/3 ML IH SCH ×6 (03:29→23:34)
[2020-06-06 04:09] LABS: Hematocrit 38.2 % (37.5-50.1); Hemoglobin 12.5 g/dL (12.9-16.9); Mean Corpuscular HGB Conc 32.7 g/dL (31.6-35.5); Mean Corpuscular Hemoglobin 33.5 pg (28.0-33.3); Mean Corpuscular Volume 102.4 fL (83.0-100.0); Mean Platelet Volume 10.4 fL (9.4-12.4); Platelet Count 233 K/mcL (140-400); Red Blood Count 3.73 M/mcL (4.19-5.50); Red Cell Distribution Width 15.5 % (11.5-14.5); White Blood Count 13.4 K/mcL (4.3-11.1)
[2020-06-06 04:29] LABS: Calcium 8.5 mg/dL (8.6-10.3); Potassium 4.1 mEq/L (3.5-5.1)
[2020-06-06 04:52] LABS: Eosinophils # 0.3 K/mcL (0.0-0.6); Lymphocytes # 1.3 K/mcL (0.6-4.6); Neutrophils # 8.8 K/mcL (1.6-8.9); Platelet Estimate Normal (Normal)
[2020-06-06] MEDS: *HR* Heparin 5,000 UNIT/ML VIAL SQ SCH ×2 (05:10→17:46)
[2020-06-06] MEDS: Tiotropium 18 MCG inhalation IH SCH (07:14)
[2020-06-06] MEDS: Budesonide/Formoterol 160/4.5 1 PUFF INH IH SCH ×2 (07:15→20:00)
[2020-06-06] MEDS: DilTIAZem CD (24hr) 240 MG CAP.ER.24H PO SCH (07:33)
[2020-06-06] MEDS: Famotidine 20 MG TABLET PO SCH ×2 (07:33→09:34)
[2020-06-06] MEDS: Sennosides/Docusate Sodium TABLET PO SCH ×2 (07:33→21:31)
[2020-06-06] MEDS: Metoprolol 100 MG TABLET PO SCH ×2 (07:34→21:30)
[2020-06-06] MEDS: Gabapentin 300 MG CAPSULE PO SCH ×3 (07:34→21:31)
[2020-06-06] MEDS: polyethylene glycoL 3350 17 GM POWD.PACK PO SCH (09:32)
[2020-06-07] MEDS: Levalbuterol Neb 1.25 MG/3 ML IH SCH ×6 (03:54→23:21)
[2020-06-07] MEDS: *HR* Heparin 5,000 UNIT/ML VIAL SQ SCH ×2 (05:43→17:03)
[2020-06-07 05:44] LABS: Hematocrit 38.2 % (37.5-50.1); Hemoglobin 12.8 g/dL (12.9-16.9); Mean Corpuscular HGB Conc 33.5 g/dL (31.6-35.5); Mean Corpuscular Hemoglobin 34.4 pg (28.0-33.3); Mean Corpuscular Volume 102.7 fL (83.0-100.0); Mean Platelet Volume 10.4 fL (9.4-12.4); Platelet Count 246 K/mcL (140-400); Red Blood Count 3.72 M/mcL (4.19-5.50); Red Cell Distribution Width 15.2 % (11.5-14.5); White Blood Count 13.3 K/mcL (4.3-11.1)
[2020-06-07 06:01] LABS: Calcium 8.6 mg/dL (8.6-10.3)
[2020-06-07 06:26] LABS: Lymphocytes # 2.1 K/mcL (0.6-4.6); Monocytes # 3.7 K/mcL (0.0-1.3); Neutrophils # 7.5 K/mcL (1.6-8.9)
[2020-06-07 06:27] LABS: Platelet Estimate Normal (Normal)
[2020-06-07] MEDS: Budesonide/Formoterol 160/4.5 1 PUFF INH IH SCH ×2 (07:30→19:57)
[2020-06-07] MEDS: Tiotropium 18 MCG inhalation IH SCH (07:30)
[2020-06-07] MEDS: Gabapentin 300 MG CAPSULE PO SCH ×3 (07:59→20:58)
[2020-06-07] MEDS: Metoprolol 100 MG TABLET PO SCH ×2 (07:59→20:56)
[2020-06-07] MEDS: Sennosides/Docusate Sodium TABLET PO SCH ×2 (07:59→20:58)
[2020-06-07] MEDS: Famotidine 20 MG TABLET PO SCH (07:59)
[2020-06-07] MEDS: DilTIAZem CD (24hr) 240 MG CAP.ER.24H PO SCH (07:59)
[2020-06-07] MEDS: polyethylene glycoL 3350 17 GM POWD.PACK PO SCH (07:59)
[2020-06-07] MEDS: Furosemide 40 MG TABLET PO SCH (09:36)
[2020-06-08] MEDS: Levalbuterol Neb 1.25 MG/3 ML IH SCH ×6 (03:32→22:55)
[2020-06-08] MEDS: *HR* Heparin 5,000 UNIT/ML VIAL SQ SCH ×2 (05:15→17:13)
[2020-06-08 06:04] LABS: Calcium 8.8 mg/dL (8.6-10.3); Magnesium 2.1 mg/dL (1.6-2.6); Potassium 4.2 mEq/L (3.5-5.1)
[2020-06-08] MEDS: Budesonide/Formoterol 160/4.5 1 PUFF INH IH SCH ×2 (07:35→19:47)
[2020-06-08] MEDS: Tiotropium 18 MCG inhalation IH SCH (07:45)
[2020-06-08] MEDS: Furosemide 40 MG TABLET PO SCH (08:18)
[2020-06-08] MEDS: Famotidine 20 MG TABLET PO SCH (08:18)
[2020-06-08] MEDS: polyethylene glycoL 3350 17 GM POWD.PACK PO SCH (08:19)
[2020-06-08] MEDS: Metoprolol 100 MG TABLET PO SCH ×2 (08:19→19:31)
[2020-06-08] MEDS: Gabapentin 300 MG CAPSULE PO SCH ×3 (08:19→19:31)
[2020-06-08] MEDS: DilTIAZem CD (24hr) 240 MG CAP.ER.24H PO SCH (08:19)
[2020-06-08] MEDS: Sennosides/Docusate Sodium TABLET PO SCH ×2 (08:19→19:31)
[2020-06-09 01:57] LABS: Calcium 8.7 mg/dL (8.6-10.3); Potassium 4.2 mEq/L (3.5-5.1)
[2020-06-09] MEDS: Levalbuterol Neb 1.25 MG/3 ML IH SCH ×6 (03:43→23:22)
[2020-06-09] MEDS: *HR* Heparin 5,000 UNIT/ML VIAL SQ SCH ×2 (05:01→17:58)
[2020-06-09] MEDS: Budesonide/Formoterol 160/4.5 1 PUFF INH IH SCH ×2 (07:20→19:50)
[2020-06-09] MEDS: Furosemide 40 MG TABLET PO SCH (08:30)
[2020-06-09] MEDS: Metoprolol 100 MG TABLET PO SCH ×2 (08:30→20:37)
[2020-06-09] MEDS: Famotidine 20 MG TABLET PO SCH (08:30)
[2020-06-09] MEDS: Sennosides/Docusate Sodium TABLET PO SCH ×2 (08:30→20:37)
[2020-06-09] MEDS: Gabapentin 300 MG CAPSULE PO SCH ×3 (08:30→20:37)
[2020-06-09] MEDS: DilTIAZem CD (24hr) 240 MG CAP.ER.24H PO SCH (08:31)
[2020-06-09] MEDS: polyethylene glycoL 3350 17 GM POWD.PACK PO SCH (08:32)
[2020-06-09] MEDS: Tiotropium 18 MCG inhalation IH SCH (11:36)
[2020-06-10] MEDS: Levalbuterol Neb 1.25 MG/3 ML IH SCH ×2 (03:38→07:46)
[2020-06-10 04:06] LABS: Calcium 8.8 mg/dL (8.6-10.3); Potassium 4.2 mEq/L (3.5-5.1)
[2020-06-10] MEDS: *HR* Heparin 5,000 UNIT/ML VIAL SQ SCH (04:35)
[2020-06-10 07:21] VITALS: BP 169/84
[2020-06-10] MEDS: Tiotropium 18 MCG inhalation IH SCH (07:46)
[2020-06-10] MEDS: Budesonide/Formoterol 160/4.5 1 PUFF INH IH SCH (07:46)
[2020-06-10] MEDS: polyethylene glycoL 3350 17 GM POWD.PACK PO SCH (08:09)
[2020-06-10] MEDS: Furosemide 40 MG TABLET PO SCH (08:10)
[2020-06-10] MEDS: Gabapentin 300 MG CAPSULE PO SCH (08:10)
[2020-06-10] MEDS: Sennosides/Docusate Sodium TABLET PO SCH (08:10)
[2020-06-10] MEDS: Famotidine 20 MG TABLET PO SCH (08:10)
[2020-06-10] MEDS: Metoprolol 100 MG TABLET PO SCH (08:10)
[2020-06-10] MEDS: DilTIAZem CD (24hr) 240 MG CAP.ER.24H PO SCH (08:11)
== END 2020-06-10 11:11 | disposition home or self-care (01) | DRG 163 ==
LOC: SAMDAY 08:12 → 2NNU 12:44
PROVIDERS: ADMIT Thoracic Surgery (Cardiothoracic Vascular Surgery); ATTEND Thoracic Surgery (Cardiothoracic Vascular Surgery)

== ENCOUNTER 2020-06-24 09:36 | Inpatient (IN) ==
[2020-06-24] MEDS ORDERED: Aspirin 81 MG TAB.CHEW PO ONE (09:48)
[2020-06-24 10:44] LABS: Hematocrit 39.8 % (37.5-50.1); Hemoglobin 13.1 g/dL (12.9-16.9); Mean Corpuscular HGB Conc 32.9 g/dL (31.6-35.5); Mean Corpuscular Hemoglobin 33.5 pg (28.0-33.3); Mean Corpuscular Volume 101.8 fL (83.0-100.0); Mean Platelet Volume 10.2 fL (9.4-12.4); Platelet Count 375 K/mcL (140-400); Red Blood Count 3.91 M/mcL (4.19-5.50); Red Cell Distribution Width 14.9 % (11.5-14.5); White Blood Count 10.3 K/mcL (4.3-11.1)
[2020-06-24 10:45] LABS: INR 3.6; Prothrombin Time 40.5 Seconds (9.4-12.1)
[2020-06-24 10:48] LABS: Activated Partial Thrombo Time 60.7 Seconds (26.0-36.0)
[2020-06-24 10:51] LABS: Bilirubin,Urine Negative (Negative); Blood,Urine Negative (Negative); Clarity,Urine Clear (Clear); Color,Urine Colorless (Yellow); Glucose,Urine (UA) Normal (Normal); Ketones,Urine Negative (Negative); Leukocyte Esterase,Urine Negative (Negative); Nitrite,Urine Negative (Negative); Protein,Urine 100 mg/dL (Neg-Trace); Urobilinogen,Urine Normal (Normal); WBC,Urine 0-3 per hpf (0-3)
[2020-06-24 10:58] LABS: BUN/Creatinine Ratio 11 (6-26); Blood Urea Nitrogen 19 mg/dL (8-23); Calcium 10.6 mg/dL (8.6-10.3); Carbon Dioxide 24 mEq/L (23-29); Chloride 100 mEq/L (98-107); Glucose 132 mg/dL (70-105); Osmolality,Calculated 284 (280-300); Potassium 4.6 mEq/L (3.5-5.1); Sodium 135 mEq/L (136-145); Troponin I < 0.03 ng/mL (< 0.04); eGFR For African Americans 48 (> 60); eGFR For Non-African Americans 40 (> 60)
[2020-06-24] MEDS ORDERED: Azithromycin 500 MG in 0.9 % Sodium Chloride 250 ML IVPB ONE (11:34)
[2020-06-24] MEDS ORDERED: cefTRIAXone 1,000 MG in 0.9 % Sodium Chloride Mini Bag 100 ML IVPB ONE (11:34)
[2020-06-24 11:43] LABS: Lymphocytes # 1.9 K/mcL (0.6-4.6); Neutrophils # 6.6 K/mcL (1.6-8.9)
[2020-06-24 11:44] LABS: Monocytes # 1.9 K/mcL (0.0-1.3); Platelet Estimate Normal (Normal)
[2020-06-24] MEDS ORDERED: Ondansetron 4 MG/2 ML VIAL IVP PRN (12:36)
[2020-06-24] MEDS ORDERED: Naloxone 0.4 MG/ML INJ IVP PRN (12:36)
[2020-06-24] MEDS ORDERED: Vancomycin 1,250 MG/262.5 ML IV.SOLN IVPB SCH (13:00)
[2020-06-24] MEDS ORDERED: *HR* Labetalol 20 MG/4 ML SYRINGE IVP PRN (13:02)
[2020-06-24 13:21] LABS: C-Reactive Protein 30 mg/L (Less than 10)
[2020-06-24 13:57] LABS: Adenovirus Not Detected (Not Detect); Coronavirus 229E Not Detected (Not Detect); Coronavirus HKU1 Not Detected (Not Detect); Coronavirus NL63 Not Detected (Not Detect); Coronavirus OC43 Not Detected (Not Detect)
[2020-06-24 13:58] LABS: Bordetella Pertussis Not Detected (Not Detect); Chlamydophila pneumoniae Not Detected (Not Detect); Human Metapneumovirus Not Detected (Not Detect); Human Rhinovirus/Enterovirus Not Detected (Not Detect); Influenza A Subtype 2009 H1 Not Detected (Not Detect); Influenza B Not Detected (Not Detect); Mycoplasma pneumoniae Not Detected (Not Detect); Parainfluenza Virus 1 Not Detected (Not Detect); Parainfluenza Virus 2 Not Detected (Not Detect); Parainfluenza Virus 3 Not Detected (Not Detect); Parainfluenza Virus 4 Not Detected (Not Detect); Respiratory Syncytial Virus Not Detected (Not Detect)
[2020-06-24] MEDS: Piperacillin/Tazobactam 3.375 GM in 0.9 % Sodium Chloride Mini Bag 100 ML IVPB SCH ×2 (15:09→21:09)
[2020-06-24] MEDS: Ipratropium/Albuterol Neb 3 ML IH SCH ×3 (15:25→23:52)
[2020-06-24] MEDS: predniSONE 20 MG TABLET PO SCH (15:47)
[2020-06-25 04:08] LABS: Hematocrit 37.4 % (37.5-50.1); Hemoglobin 12.1 g/dL (12.9-16.9); Mean Corpuscular HGB Conc 32.4 g/dL (31.6-35.5); Mean Corpuscular Hemoglobin 32.9 pg (28.0-33.3); Mean Corpuscular Volume 101.6 fL (83.0-100.0); Mean Platelet Volume 10.2 fL (9.4-12.4); Platelet Count 317 K/mcL (140-400); Red Blood Count 3.68 M/mcL (4.19-5.50); Red Cell Distribution Width 14.5 % (11.5-14.5); White Blood Count 7.7 K/mcL (4.3-11.1)
[2020-06-25] MEDS: Ipratropium/Albuterol Neb 3 ML IH SCH ×5 (04:09→19:53)
[2020-06-25 04:15] LABS: INR 2.4; Prothrombin Time 27.7 Seconds (9.4-12.1)
[2020-06-25 04:23] LABS: Lymphocytes # 0.6 K/mcL (0.6-4.6); Monocytes # 0.2 K/mcL (0.0-1.3); Neutrophils # 6.9 K/mcL (1.6-8.9)
[2020-06-25 04:26] LABS: Calcium 9.3 mg/dL (8.6-10.3); Magnesium 1.8 mg/dL (1.6-2.6)
[2020-06-25] MEDS: Piperacillin/Tazobactam 3.375 GM in 0.9 % Sodium Chloride Mini Bag 100 ML IVPB SCH ×3 (05:37→20:04)
[2020-06-25] MEDS: predniSONE 20 MG TABLET PO SCH (09:26)
[2020-06-25] MEDS: Metoprolol 100 MG TABLET PO SCH ×2 (12:30→20:05)
[2020-06-25] MEDS ORDERED: *HR* Metoprolol 5 MG/5 ML VIAL IVP ONE ×3 (13:47→23:14)
[2020-06-25] MEDS: Gabapentin 300 MG CAPSULE PO SCH (18:02)
[2020-06-25] MEDS: *HR* HYDROcodone/Acet 5/325 mg TABLET PO SCH (18:03)
[2020-06-25] MEDS: Levalbuterol Neb 1.25 MG/3 ML IH SCH (23:44)
[2020-06-26 02:47] LABS: Hematocrit 33.9 % (37.5-50.1); Hemoglobin 10.8 g/dL (12.9-16.9); Mean Corpuscular HGB Conc 31.9 g/dL (31.6-35.5); Mean Corpuscular Hemoglobin 32.4 pg (28.0-33.3); Mean Corpuscular Volume 101.8 fL (83.0-100.0); Mean Platelet Volume 10.4 fL (9.4-12.4); Platelet Count 289 K/mcL (140-400); Red Blood Count 3.33 M/mcL (4.19-5.50); Red Cell Distribution Width 14.9 % (11.5-14.5); White Blood Count 11.1 K/mcL (4.3-11.1)
[2020-06-26 02:53] LABS: INR 1.3; Prothrombin Time 15.3 Seconds (9.4-12.1)
[2020-06-26 03:05] LABS: Calcium 8.9 mg/dL (8.6-10.3); Magnesium 1.9 mg/dL (1.6-2.6); Potassium 4.2 mEq/L (3.5-5.1)
[2020-06-26 03:08] LABS: Lymphocytes # 0.9 K/mcL (0.6-4.6); Monocytes # 0.7 K/mcL (0.0-1.3); Neutrophils # 9.6 K/mcL (1.6-8.9); Platelet Estimate Normal (Normal)
[2020-06-26] MEDS: Levalbuterol Neb 1.25 MG/3 ML IH SCH ×6 (03:56→23:41)
[2020-06-26] MEDS: *HR* Metoprolol 5 MG/5 ML VIAL IVP PRN ×2 (04:06→23:54)
[2020-06-26] MEDS: Piperacillin/Tazobactam 3.375 GM in 0.9 % Sodium Chloride Mini Bag 100 ML IVPB SCH ×3 (04:16→21:00)
[2020-06-26] MEDS ORDERED: Furosemide 20 MG TABLET PO SCH (09:00)
[2020-06-26 09:07] LABS: Thyroid Stimulating Hormone 0.547 mcIU/mL (0.340-5.600)
[2020-06-26] MEDS: Pantoprazole 40 MG VIAL IVP SCH ×2 (09:08→18:50)
[2020-06-26] MEDS: Metoprolol 100 MG TABLET PO SCH ×2 (09:09→20:59)
[2020-06-26] MEDS: predniSONE 20 MG TABLET PO SCH (09:09)
[2020-06-26] MEDS: DilTIAZem CD (24hr) 240 MG CAP.ER.24H PO SCH (09:09)
[2020-06-26 09:18] LABS: Folate 10.7 ng/mL (3.0-16.0)
[2020-06-26 12:28] LABS: Hematocrit 35.6 % (37.5-50.1); Hemoglobin 11.2 g/dL (12.9-16.9)
[2020-06-26] MEDS ORDERED: 0.9 % Sodium Chloride 1,000 ML IVC SCH (12:30)
[2020-06-26] MEDS: *HR* HYDROcodone/Acet 5/325 mg TABLET PO SCH (17:54)
[2020-06-26] MEDS: Gabapentin 300 MG CAPSULE PO SCH (17:58)
[2020-06-27] MEDS: Levalbuterol Neb 1.25 MG/3 ML IH SCH ×3 (03:32→11:22)
[2020-06-27] MEDS: Pantoprazole 40 MG VIAL IVP SCH (05:41)
[2020-06-27] MEDS: Piperacillin/Tazobactam 3.375 GM in 0.9 % Sodium Chloride Mini Bag 100 ML IVPB SCH (05:42)
[2020-06-27 05:44] LABS: Hematocrit 35.4 % (37.5-50.1); Mean Corpuscular HGB Conc 31.1 g/dL (31.6-35.5); Mean Corpuscular Volume 102.9 fL (83.0-100.0); Mean Platelet Volume 10.2 fL (9.4-12.4); Platelet Count 264 K/mcL (140-400); Red Blood Count 3.44 M/mcL (4.19-5.50); Red Cell Distribution Width 15.3 % (11.5-14.5); White Blood Count 11.3 K/mcL (4.3-11.1)
[2020-06-27 06:03] LABS: Calcium 8.7 mg/dL (8.6-10.3); Magnesium 1.9 mg/dL (1.6-2.6); Potassium 4.3 mEq/L (3.5-5.1)
[2020-06-27 06:32] LABS: Lymphocytes # 1.1 K/mcL (0.6-4.6); Monocytes # 0.5 K/mcL (0.0-1.3); Neutrophils # 9.7 K/mcL (1.6-8.9); Platelet Estimate Normal (Normal)
[2020-06-27] MEDS: predniSONE 20 MG TABLET PO SCH (09:42)
[2020-06-27] MEDS: DilTIAZem CD (24hr) 240 MG CAP.ER.24H PO SCH (09:43)
[2020-06-27] MEDS: Metoprolol 100 MG TABLET PO SCH (09:43)
[2020-06-27 13:56] VITALS: BP 166/85
== END 2020-06-27 15:01 | disposition home health service (06) | DRG 194 ==
LOC: 3ANU 09:36 → EMEROOARM 09:36 → SUATTDRO 14:06 → 3ANU 14:30
PROVIDERS: ADMIT Internal Medicine; ATTEND Internal Medicine

== ENCOUNTER 2020-11-01 | Observation (INO) ==
[2020-11-01 00:40] LABS: Nucleated Red Blood Cells 0.3 /100 WBC (0)
[2020-11-01 01:12] LABS: Hematocrit 45.8 % (37.5-50.1); Hemoglobin 14.3 g/dL (12.9-16.9); Mean Corpuscular HGB Conc 31.2 g/dL (31.6-35.5); Mean Corpuscular Hemoglobin 31.2 pg (28.0-33.3); Mean Platelet Volume 10.6 fL (9.4-12.4); Platelet Count 257 K/mcL (140-400); Red Blood Count 4.59 M/mcL (4.19-5.50); Red Cell Distribution Width 15.7 % (11.5-14.5)
[2020-11-01 01:14] LABS: Mean Corpuscular Volume 99.8 fL (83.0-100.0); White Blood Count 10.8 K/mcL (4.3-11.1)
[2020-11-01 01:34] LABS: Lymphocytes # 2.2 K/mcL (0.6-4.6); Monocytes # 1.9 K/mcL (0.0-1.3); Neutrophils # 6.7 K/mcL (1.6-8.9)
[2020-11-01 01:41] LABS: Adenovirus Not Detected (Not Detect); Bordetella Pertussis Not Detected (Not Detect); Chlamydophila pneumoniae Not Detected (Not Detect); Coronavirus 229E Not Detected (Not Detect); Coronavirus HKU1 Not Detected (Not Detect); Coronavirus NL63 Not Detected (Not Detect); Coronavirus OC43 Not Detected (Not Detect); Human Metapneumovirus Not Detected (Not Detect); Human Rhinovirus/Enterovirus Not Detected (Not Detect); Influenza A Subtype 2009 H1 Not Detected (Not Detect); Influenza B Not Detected (Not Detect); Mycoplasma pneumoniae Not Detected (Not Detect); Parainfluenza Virus 1 Not Detected (Not Detect); Parainfluenza Virus 2 Not Detected (Not Detect); Parainfluenza Virus 3 Not Detected (Not Detect); Parainfluenza Virus 4 Not Detected (Not Detect); Respiratory Syncytial Virus Not Detected (Not Detect); SARS-CoV-2 Not Detected (Not Detect)
[2020-11-01] MEDS ORDERED: Aspirin 81 MG TAB.CHEW PO ONE (01:45)
[2020-11-01 01:53] LABS: BUN/Creatinine Ratio 10 (6-26); Blood Urea Nitrogen 18 mg/dL (8-23); Carbon Dioxide 19 mEq/L (23-29); Chloride 105 mEq/L (98-107); Glucose 139 mg/dL (70-105); Osmolality,Calculated 288 (280-300); Potassium 4.9 mEq/L (3.5-5.1); Sodium 137 mEq/L (136-145); Troponin I < 0.03 ng/mL (< 0.04); eGFR For African Americans 44 (> 60); eGFR For Non-African Americans 36 (> 60)
[2020-11-01] MEDS ORDERED: Furosemide 40 MG/4 ML VIAL IVP ONE (02:11)
[2020-11-01] MEDS ORDERED: Naloxone 0.4 MG/ML INJ IVP PRN (03:34)
[2020-11-01] MEDS: DilTIAZem CD (24hr) 240 MG CAP.ER.24H PO SCH (16:11)
[2020-11-01] MEDS ORDERED: Ipratropium/Albuterol Neb 3 ML IH PRN (17:40)
[2020-11-01] MEDS ORDERED: *HR* Rivaroxaban 15 MG TABLET PO SCH (18:00)
[2020-11-01] MEDS: Hydroxyurea 500 MG CAPSULE PO SCH (18:29)
[2020-11-01] MEDS ORDERED: NON-FORMULARY MEDICATION 1 EACH EACH (Calcium Carbonate/Vitamin D3 [Calcium 600 + Vit D Ta PO SCH (21:00)
[2020-11-01] MEDS: Metoprolol 100 MG TABLET PO SCH (21:36)
[2020-11-02 05:25] LABS: Basophils % 0.2 %; Hematocrit 36.5 % (37.5-50.1); Lymphocytes # 1.4 K/mcL (0.6-4.6); Lymphocytes % 11.4 %; Mean Corpuscular HGB Conc 32.3 g/dL (31.6-35.5); Mean Corpuscular Hemoglobin 31.9 pg (28.0-33.3); Mean Corpuscular Volume 98.6 fL (83.0-100.0); Mean Platelet Volume 10.6 fL (9.4-12.4); Monocytes # 4.1 K/mcL (0.0-1.3); Monocytes % 32.7 %; Neutrophils # 6.5 K/mcL (1.6-8.9); Platelet Count 214 K/mcL (140-400); Red Cell Distribution Width 15.4 % (11.5-14.5); Segmented Neutrophils % 51.7 %; White Blood Count 12.6 K/mcL (4.3-11.1)
[2020-11-02 05:36] LABS: Hemoglobin 11.8 g/dL (12.9-16.9)
[2020-11-02 05:55] LABS: Calcium 8.8 mg/dL (8.6-10.3); Potassium 3.9 mEq/L (3.5-5.1)
[2020-11-02] MEDS: Metoprolol 100 MG TABLET PO SCH (08:35)
[2020-11-02] MEDS: DilTIAZem CD (24hr) 240 MG CAP.ER.24H PO SCH (08:35)
[2020-11-02] MEDS ORDERED: Multivit/Ca/Min/Fe/FA 1 TAB TABLET PO SCH (09:00)
[2020-11-02] MEDS ORDERED: lisinopriL 20 MG TABLET PO SCH (09:00)
[2020-11-02] MEDS ORDERED: Cholecalciferol (D-3) 1,000 UNIT (25MCG) TABLET PO SCH (09:00)
[2020-11-02] MEDS ORDERED: *HR* Rivaroxaban 15 MG TABLET PO SCH (09:00)
[2020-11-02] MEDS ORDERED: Cyanocobalamin (B-12) 1,000 MCG TABLET PO SCH (09:00)
[2020-11-02] MEDS ORDERED: Furosemide 20 MG TABLET PO SCH (09:00)
[2020-11-02] MEDS: Hydroxyurea 500 MG CAPSULE PO SCH (09:01)
[2020-11-02 10:32] VITALS: BP 147/72
== END 2020-11-02 13:36 | disposition home or self-care (01) ==
LOC: CDU → EMEROOARM → SUATTDRO 02:42 → CDU 03:04
PROVIDERS: ADMIT Family Medicine; ATTEND Internal Medicine

== ENCOUNTER 2020-12-21 11:16 | Inpatient (IN) ==
[2020-12-21 12:32] LABS: Hematocrit 35.9 % (37.5-50.1); Hemoglobin 11.3 g/dL (12.9-16.9); Mean Corpuscular HGB Conc 31.5 g/dL (31.6-35.5); Mean Corpuscular Hemoglobin 30.4 pg (28.0-33.3); Mean Corpuscular Volume 96.5 fL (83.0-100.0); Mean Platelet Volume 10.6 fL (9.4-12.4); Platelet Count 251 K/mcL (140-400); Red Blood Count 3.72 M/mcL (4.19-5.50); White Blood Count 10.1 K/mcL (4.3-11.1)
[2020-12-21 12:36] LABS: Bilirubin,Urine Negative (Negative); Blood,Urine Negative (Negative); Clarity,Urine Clear (Clear); Color,Urine Light-Yellow (Yellow); Glucose,Urine (UA) Normal (Normal); Hyaline Casts,Urine Few per lpf (None Seen); Ketones,Urine Negative (Negative); Leukocyte Esterase,Urine Negative (Negative); Mucus,Urine Few per lpf (None-Few); Nitrite,Urine Negative (Negative); PH,Urine 6.5 pH Units (5.0-8.0); Protein,Urine >=300 mg/dL (Neg-Trace); RBC,Urine 0-3 per hpf (0-3); Specific Gravity,Urine 1.019 (1.010-1.025); Urobilinogen,Urine Normal (Normal)
[2020-12-21 12:55] LABS: BUN/Creatinine Ratio 16 (6-26); Blood Urea Nitrogen 37 mg/dL (8-23); Calcium 9.2 mg/dL (8.6-10.3); Carbon Dioxide 24 mEq/L (23-29); Chloride 100 mEq/L (98-107); Glucose 119 mg/dL (70-105); Osmolality,Calculated 290 (280-300); Potassium 4.5 mEq/L (3.5-5.1); Sodium 135 mEq/L (136-145); Troponin I < 0.03 ng/mL (< 0.04); eGFR For African Americans 33 (> 60); eGFR For Non-African Americans 27 (> 60)
[2020-12-21 13:08] LABS: Lymphocytes # 1.8 K/mcL (0.6-4.6); Monocytes # 2.6 K/mcL (0.0-1.3); Neutrophils # 5.7 K/mcL (1.6-8.9); Platelet Estimate Normal (Normal)
[2020-12-21 13:09] LABS: Polychromasia 1+ (Not Present)
[2020-12-21 13:10] LABS: Anisocytosis 1+ (Not Present)
[2020-12-21] MEDS ORDERED: Ondansetron ODT 4 MG TAB.RAPDIS SL PRN (15:35)
[2020-12-21] MEDS ORDERED: Acetaminophen 325 MG TABLET PO PRN (15:35)
[2020-12-21] MEDS ORDERED: Furosemide 20 MG/2 ML VIAL IVP ONE (15:40)
[2020-12-21] MEDS ORDERED: Ipratropium/Albuterol Neb 3 ML IH PRN (16:07)
[2020-12-21] MEDS ORDERED: Furosemide 40 MG/4 ML VIAL IVP ONE (17:19)
[2020-12-21] MEDS: Metoprolol 100 MG TABLET PO SCH (21:01)
[2020-12-22 04:07] LABS: Calcium 9.4 mg/dL (8.6-10.3); Magnesium 2.2 mg/dL (1.6-2.6); Phosphorous 4.2 mg/dL (2.7-4.5); Potassium 4.1 mEq/L (3.5-5.1)
[2020-12-22] MEDS: DilTIAZem CD (24hr) 240 MG CAP.ER.24H PO SCH (10:27)
[2020-12-22] MEDS: Furosemide 40 MG/4 ML VIAL IVP SCH ×2 (10:27→19:39)
[2020-12-22] MEDS: Metoprolol 100 MG TABLET PO SCH ×2 (10:27→19:39)
[2020-12-22] MEDS: *HR* Rivaroxaban 15 MG TABLET PO SCH (10:27)
[2020-12-22 13:28] LABS: Protein/Creatinine Ratio,Urine 4.59 mg/mg (0.00-0.20); Sodium, Urine 110.4 mEq/L
[2020-12-23 03:29] LABS: Basophils % 0.3 %; Hematocrit 35.7 % (37.5-50.1); Hemoglobin 11.3 g/dL (12.9-16.9); Immature Granulocytes % 4.7 % (0-4); Lymphocytes # 1.5 K/mcL (0.6-4.6); Lymphocytes % 11.9 %; Mean Corpuscular HGB Conc 31.7 g/dL (31.6-35.5); Mean Corpuscular Hemoglobin 30.7 pg (28.0-33.3); Mean Platelet Volume 10.9 fL (9.4-12.4); Monocytes # 4.1 K/mcL (0.0-1.3); Monocytes % 32.1 %; Neutrophils # 6.5 K/mcL (1.6-8.9); Platelet Count 236 K/mcL (140-400); Red Blood Count 3.68 M/mcL (4.19-5.50); Red Cell Distribution Width 15.9 % (11.5-14.5); White Blood Count 12.7 K/mcL (4.3-11.1)
[2020-12-23 03:42] LABS: Bacteria,Urine Few per hpf (None-Few); Squamous Epithelial Cell,Urine Few per hpf (None-Few)
[2020-12-23 03:46] LABS: Calcium 9.3 mg/dL (8.6-10.3); Potassium 3.9 mEq/L (3.5-5.1); Uric Acid 10.2 mg/dL (2.3-7.6)
[2020-12-23 04:33] LABS: Hepatitis B Surface Antigen Nonreactive (Nonreactive)
[2020-12-23 05:02] LABS: Hepatitis B Core IgM Nonreactive (Nonreactive)
[2020-12-23 05:03] LABS: Hepatitis C Virus Antibody Nonreactive (Nonreactive)
[2020-12-23] MEDS: Metoprolol 100 MG TABLET PO SCH ×2 (08:08→20:35)
[2020-12-23] MEDS: *HR* Rivaroxaban 15 MG TABLET PO SCH (08:08)
[2020-12-23] MEDS: DilTIAZem CD (24hr) 240 MG CAP.ER.24H PO SCH (08:08)
[2020-12-23 09:17] LABS: Hepatitis A Antibody IgM Equivocal (Nonreactive)
[2020-12-24 03:52] LABS: Basophils % 0.3 %; Hematocrit 33.7 % (37.5-50.1); Hemoglobin 10.8 g/dL (12.9-16.9); Immature Granulocytes % 3.9 % (0-4); Lymphocytes # 1.7 K/mcL (0.6-4.6); Lymphocytes % 15.9 %; Mean Corpuscular Hemoglobin 30.1 pg (28.0-33.3); Mean Corpuscular Volume 93.9 fL (83.0-100.0); Mean Platelet Volume 10.6 fL (9.4-12.4); Monocytes # 3.3 K/mcL (0.0-1.3); Monocytes % 31.8 %; Platelet Count 204 K/mcL (140-400); Red Blood Count 3.59 M/mcL (4.19-5.50); Segmented Neutrophils % 48.1 %; White Blood Count 10.4 K/mcL (4.3-11.1)
[2020-12-24 04:10] LABS: Calcium 9.2 mg/dL (8.6-10.3)
[2020-12-24 04:34] LABS: Anisocytosis 1+ (Not Present); Platelet Estimate Normal (Normal); Poikilocytosis 1+ (Not Present); Reactive Lymphocytes Present (Not Present)
[2020-12-24 07:17] VITALS: BP 148/71
[2020-12-24] MEDS: *HR* Rivaroxaban 15 MG TABLET PO SCH (08:57)
[2020-12-24] MEDS: DilTIAZem CD (24hr) 240 MG CAP.ER.24H PO SCH (08:57)
[2020-12-24] MEDS: Metoprolol 100 MG TABLET PO SCH (08:57)
== END 2020-12-24 12:50 | disposition home or self-care (01) | DRG 291 ==
LOC: EMEROOARM 11:16 → 2ANU 11:16 → SUATTDRO 12-23 18:37
PROVIDERS: ADMIT Internal Medicine; ATTEND Internal Medicine

== ENCOUNTER 2021-01-13 00:34 | Inpatient (IN) ==
[2021-01-13] MEDS ORDERED: Ipratropium/Albuterol Neb 3 ML IH ONE (00:44)
[2021-01-13] MEDS ORDERED: Azithromycin 500 MG in 0.9 % Sodium Chloride 250 ML IVPB ONE (00:44)
[2021-01-13] MEDS ORDERED: methylPREDNISolone 125 MG/2 ML VIAL IVP ONE (00:44)
[2021-01-13 01:09] LABS: Basophils % 0.3 %; Hematocrit 32.2 % (37.5-50.1); Hemoglobin 10.3 g/dL (12.9-16.9); Immature Granulocytes % 4.1 % (0-4); Lymphocytes # 1.6 K/mcL (0.6-4.6); Lymphocytes % 12.1 %; Mean Corpuscular Hemoglobin 30.4 pg (28.0-33.3); Mean Platelet Volume 10.8 fL (9.4-12.4); Monocytes # 2.7 K/mcL (0.0-1.3); Monocytes % 20.9 %; Neutrophils # 8.1 K/mcL (1.6-8.9); Platelet Count 259 K/mcL (140-400); Red Blood Count 3.39 M/mcL (4.19-5.50); Red Cell Distribution Width 16.1 % (11.5-14.5); Segmented Neutrophils % 62.6 %
[2021-01-13 01:17] LABS: INR 2.3; Prothrombin Time 26.1 Seconds (9.4-12.1)
[2021-01-13 01:20] LABS: Activated Partial Thrombo Time 44.2 Seconds (26.0-36.0)
[2021-01-13 01:23] LABS: Platelet Estimate Normal (Normal)
[2021-01-13 01:51] LABS: Alanine Aminotransferase 14 Units/L (7-52); Albumin/Globulin Ratio 1.2 (1.1-2.2); Alkaline Phosphatase 115 Units/L (34-104); Aspartate Amino Transferase 15 Units/L (13-39); BUN/Creatinine Ratio 21 (6-26); Bilirubin,Direct 0.1 mg/dL (0.0-0.2); Bilirubin,Indirect 0.3 mg/dL (0.0-1.0); Bilirubin,Total 0.4 mg/dL (0.3-1.0); Blood Urea Nitrogen 43 mg/dL (8-23); Calcium 9.2 mg/dL (8.6-10.3); Carbon Dioxide 24 mEq/L (23-29); Chloride 101 mEq/L (98-107); Globulin 3.4 g/dL (2.4-3.5); Glucose 143 mg/dL (70-105); Osmolality,Calculated 293 (280-300); Potassium 4.5 mEq/L (3.5-5.1); Sodium 135 mEq/L (136-145); Total Protein 7.4 g/dL (6.4-8.9); Troponin I < 0.03 ng/mL (< 0.04); eGFR For African Americans 39 (> 60); eGFR For Non-African Americans 32 (> 60)
[2021-01-13] MEDS ORDERED: Isovue-370 500 ML BOTTLE IVP ONE (02:03)
[2021-01-13 02:27] LABS: Bilirubin,Urine Negative (Negative); Blood,Urine Negative (Negative); Clarity,Urine Clear (Clear); Color,Urine Light-Yellow (Yellow); Glucose,Urine (UA) Normal (Normal); Ketones,Urine Negative (Negative); Leukocyte Esterase,Urine Negative (Negative); Nitrite,Urine Negative (Negative); Protein,Urine >=300 mg/dL (Neg-Trace); RBC,Urine 0-3 per hpf (0-3); Specific Gravity,Urine 1.016 (1.010-1.025); Urobilinogen,Urine Normal (Normal); WBC,Urine 0-3 per hpf (0-3)
[2021-01-13] MEDS ORDERED: Naloxone 0.4 MG/ML INJ IVP PRN (06:02)
[2021-01-13] MEDS ORDERED: Furosemide 40 MG/4 ML VIAL IVP ONE (06:07)
[2021-01-13 07:55] LABS: Magnesium 2.1 mg/dL (1.6-2.6); Phosphorous 3.5 mg/dL (2.7-4.5)
[2021-01-13] MEDS: Ipratropium/Albuterol Neb 3 ML IH SCH ×5 (08:00→23:10)
[2021-01-13] MEDS: Nicotine 14 MG PATCH.TD24 TD SCH (08:59)
[2021-01-13] MEDS ORDERED: lisinopriL 20 MG TABLET PO SCH (09:00)
[2021-01-13] MEDS ORDERED: cefTRIAXone 1,000 MG in Water for inj. (sterile) 10 ML IVP SCH (09:00)
[2021-01-13] MEDS: DilTIAZem CD (24hr) 240 MG CAP.ER.24H PO SCH (09:02)
[2021-01-13] MEDS: Metoprolol 100 MG TABLET PO SCH ×2 (09:02→20:54)
[2021-01-13] MEDS: *HR* Rivaroxaban 10 MG TABLET PO SCH (09:02)
[2021-01-13] MEDS ORDERED: Furosemide 40 MG/4 ML VIAL IVP SCH (17:00)
[2021-01-14 03:03] LABS: Hematocrit 28.6 % (37.5-50.1); Hemoglobin 8.9 g/dL (12.9-16.9); Mean Corpuscular HGB Conc 31.1 g/dL (31.6-35.5); Mean Corpuscular Hemoglobin 30.3 pg (28.0-33.3); Mean Corpuscular Volume 97.3 fL (83.0-100.0); Mean Platelet Volume 11.2 fL (9.4-12.4); Platelet Count 194 K/mcL (140-400); Red Blood Count 2.94 M/mcL (4.19-5.50); Red Cell Distribution Width 16.3 % (11.5-14.5); White Blood Count 12.5 K/mcL (4.3-11.1)
[2021-01-14 03:15] LABS: Calcium 9.1 mg/dL (8.6-10.3); Magnesium 2.3 mg/dL (1.6-2.6); Phosphorous 3.3 mg/dL (2.7-4.5); Potassium 4.6 mEq/L (3.5-5.1)
[2021-01-14] MEDS: Ipratropium/Albuterol Neb 3 ML IH SCH ×5 (04:22→19:59)
[2021-01-14] MEDS ORDERED: Azithromycin 500 MG in 0.9 % Sodium Chloride 250 ML IVPB SCH (07:00)
[2021-01-14] MEDS: Nicotine 14 MG PATCH.TD24 TD SCH (09:06)
[2021-01-14] MEDS: DilTIAZem CD (24hr) 240 MG CAP.ER.24H PO SCH (09:11)
[2021-01-14] MEDS: *HR* Rivaroxaban 10 MG TABLET PO SCH (09:11)
[2021-01-14] MEDS: Metoprolol 100 MG TABLET PO SCH ×2 (09:11→20:06)
[2021-01-14] MEDS: predniSONE 20 MG TABLET PO SCH (09:12)
[2021-01-15] MEDS: Ipratropium/Albuterol Neb 3 ML IH SCH ×7 (00:13→23:19)
[2021-01-15 05:24] LABS: Calcium 9.3 mg/dL (8.6-10.3); Potassium 4.6 mEq/L (3.5-5.1)
[2021-01-15] MEDS: predniSONE 20 MG TABLET PO SCH (07:48)
[2021-01-15] MEDS: Nicotine 14 MG PATCH.TD24 TD SCH (07:48)
[2021-01-15] MEDS: *HR* Rivaroxaban 15 MG TABLET PO SCH (07:48)
[2021-01-15] MEDS: DilTIAZem CD (24hr) 240 MG CAP.ER.24H PO SCH (07:48)
[2021-01-15] MEDS: Metoprolol 100 MG TABLET PO SCH ×2 (07:48→21:53)
[2021-01-15] MEDS: Hydroxyurea 500 MG CAPSULE PO SCH (07:54)
[2021-01-15] MEDS: Torsemide 20 MG TABLET PO SCH ×2 (09:24→16:43)
[2021-01-16 02:00] LABS: Basophils % 0.1 %; Hematocrit 30.9 % (37.5-50.1); Hemoglobin 9.8 g/dL (12.9-16.9); Immature Granulocytes % 4.4 % (0-4); Lymphocytes % 6.8 %; Mean Corpuscular HGB Conc 31.7 g/dL (31.6-35.5); Mean Corpuscular Hemoglobin 30.2 pg (28.0-33.3); Mean Corpuscular Volume 95.4 fL (83.0-100.0); Mean Platelet Volume 10.7 fL (9.4-12.4); Monocytes # 2.6 K/mcL (0.0-1.3); Monocytes % 18.3 %; Neutrophils # 9.9 K/mcL (1.6-8.9); Platelet Count 172 K/mcL (140-400); Red Blood Count 3.24 M/mcL (4.19-5.50); Red Cell Distribution Width 16.5 % (11.5-14.5); Segmented Neutrophils % 70.4 %
[2021-01-16 02:20] LABS: Calcium 9.4 mg/dL (8.6-10.3); Magnesium 2.1 mg/dL (1.6-2.6); Potassium 4.2 mEq/L (3.5-5.1)
[2021-01-16 03:03] LABS: Anisocytosis 1+ (Not Present); Platelet Estimate Normal (Normal)
[2021-01-16] MEDS: Ipratropium/Albuterol Neb 3 ML IH SCH ×2 (03:33→07:23)
[2021-01-16] MEDS: Torsemide 20 MG TABLET PO SCH (07:18)
[2021-01-16] MEDS ORDERED: Azithromycin 250 MG TABLET PO ONE (07:25)
[2021-01-16 07:30] VITALS: BP 159/91
[2021-01-16] MEDS: *HR* Rivaroxaban 15 MG TABLET PO SCH (08:10)
[2021-01-16] MEDS: Nicotine 14 MG PATCH.TD24 TD SCH (08:10)
[2021-01-16] MEDS: DilTIAZem CD (24hr) 240 MG CAP.ER.24H PO SCH (08:10)
[2021-01-16] MEDS: Metoprolol 100 MG TABLET PO SCH (08:10)
[2021-01-16] MEDS: predniSONE 20 MG TABLET PO SCH (08:10)
[2021-01-16] MEDS: Hydroxyurea 500 MG CAPSULE PO SCH (08:16)
[2021-01-16] MEDS ORDERED: Torsemide 20 MG TABLET PO SCH (17:00)
== END 2021-01-16 10:57 | disposition home health service (06) | DRG 291 ==
LOC: EMEROOARM 00:34 → 2ANU 00:34 → SUATTDRO 05:51 → 2ANU 06:40
PROVIDERS: ADMIT Family Medicine; ATTEND Internal Medicine

== ENCOUNTER 2021-03-21 11:56 | Observation (INO) ==
[2021-03-21] MEDS ORDERED: Aspirin 81 MG TAB.CHEW PO ONE (12:10)
[2021-03-21 13:14] LABS: Basophils % 0.2 %; Hematocrit 32.3 % (37.5-50.1); Hemoglobin 9.6 g/dL (12.9-16.9); Immature Granulocytes % 4.7 % (0-4); Lymphocytes # 1.3 K/mcL (0.6-4.6); Lymphocytes % 11.3 %; Mean Corpuscular HGB Conc 29.7 g/dL (31.6-35.5); Mean Corpuscular Hemoglobin 26.1 pg (28.0-33.3); Mean Corpuscular Volume 87.8 fL (83.0-100.0); Mean Platelet Volume 11.1 fL (9.4-12.4); Monocytes # 3.1 K/mcL (0.0-1.3); Monocytes % 26.9 %; Neutrophils # 6.5 K/mcL (1.6-8.9); Platelet Count 515 K/mcL (140-400); Red Blood Count 3.68 M/mcL (4.19-5.50); Red Cell Distribution Width 16.4 % (11.5-14.5); Segmented Neutrophils % 56.9 %; White Blood Count 11.5 K/mcL (4.3-11.1)
[2021-03-21 13:35] LABS: BUN/Creatinine Ratio 19 (6-26); Blood Urea Nitrogen 51 mg/dL (8-23); Carbon Dioxide 24 mEq/L (23-29); Chloride 100 mEq/L (98-107); Glucose 129 mg/dL (70-105); Osmolality,Calculated 297 (280-300); Potassium 4.7 mEq/L (3.5-5.1); Sodium 136 mEq/L (136-145); Troponin I < 0.03 ng/mL (< 0.04); eGFR For African Americans 28 (> 60); eGFR For Non-African Americans 23 (> 60)
[2021-03-21] MEDS ORDERED: Furosemide 40 MG/4 ML VIAL IVP ONE (13:38)
[2021-03-21] MEDS ORDERED: Ondansetron ODT 4 MG TAB.RAPDIS SL PRN (14:37)
[2021-03-21] MEDS ORDERED: Perflutren Lipid Microsphere 1.3 ML in 0.9 % Sodium Chloride 8.7 ML IVP PRN (14:37)
[2021-03-21] MEDS ORDERED: MOM Conc 10 ML UD.LIQ PO PRN (14:37)
[2021-03-21] MEDS ORDERED: Naloxone 0.4 MG/ML INJ IVP PRN (14:37)
[2021-03-21] MEDS ORDERED: Melatonin 3 MG TABLET PO PRN (14:37)
[2021-03-21] MEDS ORDERED: Mag Hydrox/Al Hydrox/Simeth 30 ML UDC PO PRN (14:37)
[2021-03-21] MEDS: Apixaban 5 MG TABLET PO SCH (19:40)
[2021-03-21] MEDS: Metoprolol 100 MG TABLET PO SCH (19:40)
[2021-03-22 02:07] LABS: Hemoglobin 9.3 g/dL (12.9-16.9); Mean Corpuscular Hemoglobin 26.9 pg (28.0-33.3); Mean Corpuscular Volume 86.7 fL (83.0-100.0); Platelet Count 487 K/mcL (140-400); Red Blood Count 3.46 M/mcL (4.19-5.50); Red Cell Distribution Width 16.5 % (11.5-14.5); White Blood Count 10.5 K/mcL (4.3-11.1)
[2021-03-22 02:25] LABS: Albumin 3.7 g/dL (3.5-5.7); Albumin/Globulin Ratio 1.2 (1.1-2.2); Bilirubin,Total 0.3 mg/dL (0.3-1.0); Calcium 9.4 mg/dL (8.6-10.3); Potassium 4.1 mEq/L (3.5-5.1); Total Protein 6.7 g/dL (6.4-8.9)
[2021-03-22] MEDS: DilTIAZem CD (24hr) 240 MG CAP.ER.24H PO SCH (08:36)
[2021-03-22] MEDS: lisinopriL 20 MG TABLET PO SCH (08:37)
[2021-03-22] MEDS: Metoprolol 100 MG TABLET PO SCH ×2 (08:37→19:45)
[2021-03-22] MEDS: Apixaban 5 MG TABLET PO SCH ×2 (08:37→19:45)
[2021-03-22] MEDS ORDERED: Regadenoson 0.4 MG/5 ML SYRINGE IVP ONE (10:14)
[2021-03-22] MEDS ORDERED: Furosemide 40 MG/4 ML VIAL IVP ONE (14:33)
[2021-03-22] MEDS: Torsemide 20 MG TABLET PO SCH (15:26)
[2021-03-23] MEDS: Apixaban 5 MG TABLET PO SCH (07:52)
[2021-03-23] MEDS: DilTIAZem CD (24hr) 240 MG CAP.ER.24H PO SCH (07:52)
[2021-03-23] MEDS: Metoprolol 100 MG TABLET PO SCH (07:53)
[2021-03-23] MEDS: Torsemide 20 MG TABLET PO SCH (07:53)
[2021-03-23] MEDS: lisinopriL 20 MG TABLET PO SCH (07:53)
[2021-03-23 15:16] VITALS: BP 127/65
== END 2021-03-23 17:40 | disposition home or self-care (01) ==
LOC: EMEROOARM 11:56 → 3BNU 11:56 → SUATTDRO 14:09 → 3BNU 15:23
PROVIDERS: ADMIT Internal Medicine; ATTEND Registered Nurse

== ENCOUNTER 2021-06-12 11:05 | Inpatient (IN) ==
[2021-06-12] MEDS ORDERED: Nitroglycerin 0.4 MG TAB.SUBL SL PRN (11:47)
[2021-06-12] MEDS ORDERED: Ipratropium/Albuterol Neb 3 ML IH ONE (11:47)
[2021-06-12] MEDS ORDERED: Aspirin 81 MG TAB.CHEW PO ONE (11:47)
[2021-06-12] MEDS ORDERED: methylPREDNISolone 125 MG/2 ML VIAL IVP ONE (11:54)
[2021-06-12 11:56] LABS: Hematocrit 38.1 % (37.5-50.1); Hemoglobin 11.4 g/dL (12.9-16.9); Mean Corpuscular HGB Conc 29.9 g/dL (31.6-35.5); Mean Corpuscular Hemoglobin 24.5 pg (28.0-33.3); Mean Corpuscular Volume 81.9 fL (83.0-100.0); Platelet Count 417 K/mcL (140-400); Red Blood Count 4.65 M/mcL (4.19-5.50); Red Cell Distribution Width 22.9 % (11.5-14.5); White Blood Count 12.3 K/mcL (4.3-11.1)
[2021-06-12 12:07] LABS: Activated Partial Thrombo Time 46.3 Seconds (26.0-36.0); INR 1.3; Prothrombin Time 15.3 Seconds (9.4-12.1)
[2021-06-12 12:17] LABS: Anisocytosis 1+ (Not Present); Eosinophils # 0.3 K/mcL (0.0-0.6); Lymphocytes # 2.7 K/mcL (0.6-4.6); Monocytes # 2.7 K/mcL (0.0-1.3); Neutrophils # 6.6 K/mcL (1.6-8.9); Platelet Estimate Normal (Normal); Poikilocytosis 1+ (Not Present)
[2021-06-12 12:18] LABS: Microcytosis Present (Not Present)
[2021-06-12 12:26] LABS: Potassium 3.8 mEq/L (3.5-5.1); Troponin I 0.06 ng/mL (< 0.04)
[2021-06-12] MEDS ORDERED: 0.9 % Sodium Chloride 1,000 ML IVC ONE (12:38)
[2021-06-12] MEDS ORDERED: Naloxone 0.4 MG/ML INJ IVP PRN (14:09)
[2021-06-12] MEDS ORDERED: Acetaminophen 325 MG TABLET PO PRN (14:09)
[2021-06-12] MEDS ORDERED: Ondansetron 4 MG/2 ML VIAL IVP PRN (14:09)
[2021-06-12] MEDS ORDERED: Ipratropium/Albuterol Neb 3 ML IH PRN (14:11)
[2021-06-12] MEDS ORDERED: Benzonatate 100 MG CAPSULE PO PRN (14:11)
[2021-06-12] MEDS: 0.9 % Sodium Chloride 1,000 ML IVC SCH (15:19)
[2021-06-12] MEDS: Nicotine 14 MG PATCH.TD24 TD SCH (15:23)
[2021-06-12] MEDS: Ipratropium/Albuterol Neb 3 ML IH SCH ×2 (16:23→22:34)
[2021-06-12] MEDS ORDERED: *HR* Rivaroxaban 15 MG TABLET PO SCH (17:00)
[2021-06-12 19:14] LABS: VBG Ionized Calcium 1.53 mmol/L (1.15-1.35)
[2021-06-12] MEDS: Metoprolol 100 MG TABLET PO SCH (20:54)
[2021-06-13 02:50] LABS: VBG Ionized Calcium 1.48 mmol/L (1.15-1.35)
[2021-06-13 02:55] LABS: Hematocrit 33.9 % (37.5-50.1); Hemoglobin 10.3 g/dL (12.9-16.9); Mean Corpuscular HGB Conc 30.4 g/dL (31.6-35.5); Mean Corpuscular Hemoglobin 24.7 pg (28.0-33.3); Mean Corpuscular Volume 81.3 fL (83.0-100.0); Mean Platelet Volume 11.1 fL (9.4-12.4); Platelet Count 327 K/mcL (140-400); Red Blood Count 4.17 M/mcL (4.19-5.50); Red Cell Distribution Width 22.2 % (11.5-14.5); White Blood Count 11.1 K/mcL (4.3-11.1)
[2021-06-13 03:15] LABS: Calcium 12.2 mg/dL (8.6-10.3); Phosphorous 3.2 mg/dL (2.7-4.5); Potassium 3.9 mEq/L (3.5-5.1); Troponin I 0.03 ng/mL (< 0.04)
[2021-06-13] MEDS: Ipratropium/Albuterol Neb 3 ML IH SCH (04:04)
[2021-06-13 04:06] LABS: Anisocytosis 1+ (Not Present); Lymphocytes # 0.9 K/mcL (0.6-4.6); Neutrophils # 10.2 K/mcL (1.6-8.9)
[2021-06-13 04:07] LABS: Large Platelets Present (Not Present); Platelet Estimate Normal (Normal)
[2021-06-13] MEDS: predniSONE 20 MG TABLET PO SCH (08:46)
[2021-06-13] MEDS: DilTIAZem CD (24hr) 240 MG CAP.ER.24H PO SCH (08:46)
[2021-06-13] MEDS: Metoprolol 100 MG TABLET PO SCH ×2 (08:47→21:12)
[2021-06-13] MEDS: Apixaban 5 MG TABLET PO SCH ×2 (08:47→21:12)
[2021-06-13] MEDS: lisinopriL 20 MG TABLET PO SCH (08:47)
[2021-06-13] MEDS: Nicotine 14 MG PATCH.TD24 TD SCH (08:47)
[2021-06-13] MEDS: Cyanocobalamin (B-12) 1,000 MCG TABLET PO SCH (08:47)
[2021-06-13] MEDS: Finasteride 5 MG TABLET PO SCH (08:47)
[2021-06-13] MEDS: 0.9 % Sodium Chloride 1,000 ML IVC SCH (08:49)
[2021-06-13] MEDS: Tiotropium 10 INH DOSE IH SCH (10:30)
[2021-06-13] MEDS ORDERED: Simethicone 80 MG TAB.CHEW PO PRN (15:39)
[2021-06-14 04:31] LABS: VBG Ionized Calcium 1.39 mmol/L (1.15-1.35)
[2021-06-14 04:35] LABS: Basophils % 0.2 %; Hematocrit 32.4 % (37.5-50.1); Hemoglobin 9.8 g/dL (12.9-16.9); Immature Granulocytes % 3.5 % (0-4); Lymphocytes # 0.8 K/mcL (0.6-4.6); Mean Corpuscular HGB Conc 30.2 g/dL (31.6-35.5); Mean Corpuscular Hemoglobin 24.3 pg (28.0-33.3); Mean Corpuscular Volume 80.4 fL (83.0-100.0); Mean Platelet Volume 11.2 fL (9.4-12.4); Monocytes # 3.4 K/mcL (0.0-1.3); Monocytes % 17.3 %; Neutrophils # 14.7 K/mcL (1.6-8.9); Platelet Count 353 K/mcL (140-400); Red Blood Count 4.03 M/mcL (4.19-5.50); Red Cell Distribution Width 22.5 % (11.5-14.5); White Blood Count 19.6 K/mcL (4.3-11.1)
[2021-06-14 04:53] LABS: Calcium 10.9 mg/dL (8.6-10.3); Potassium 3.8 mEq/L (3.5-5.1)
[2021-06-14] MEDS: Tiotropium 10 INH DOSE IH SCH (07:28)
[2021-06-14] MEDS: Nicotine 14 MG PATCH.TD24 TD SCH (08:23)
[2021-06-14] MEDS: lisinopriL 20 MG TABLET PO SCH (08:24)
[2021-06-14] MEDS: Metoprolol 100 MG TABLET PO SCH ×2 (08:24→20:17)
[2021-06-14] MEDS: Finasteride 5 MG TABLET PO SCH (08:24)
[2021-06-14] MEDS: Apixaban 5 MG TABLET PO SCH ×2 (08:24→20:16)
[2021-06-14] MEDS: Cyanocobalamin (B-12) 1,000 MCG TABLET PO SCH (08:24)
[2021-06-14] MEDS: predniSONE 20 MG TABLET PO SCH (08:24)
[2021-06-14] MEDS: DilTIAZem CD (24hr) 240 MG CAP.ER.24H PO SCH (08:24)
[2021-06-14] MEDS ORDERED: 0.9 % Sodium Chloride 1,000 ML IVC SCH (11:30)
[2021-06-14] MEDS: polyethylene glycoL 3350 17 GM POWD.PACK PO SCH (11:48)
[2021-06-14 12:32] LABS: Bilirubin,Urine Negative (Negative); Blood,Urine Small (Negative); Clarity,Urine Clear (Clear); Color,Urine Colorless (Yellow); Glucose,Urine (UA) 500 mg/dL (Normal); Ketones,Urine Negative (Negative); Leukocyte Esterase,Urine Negative (Negative); Nitrite,Urine Negative (Negative); PH,Urine 6.5 pH Units (5.0-8.0); Protein,Urine >=300 mg/dL (Neg-Trace); Specific Gravity,Urine 1.014 (1.010-1.025); Urobilinogen,Urine Normal (Normal); WBC,Urine 0-3 per hpf (0-3)
[2021-06-14] MEDS ORDERED: Bisacodyl 10 MG RECTAL SUPPOSITORY RC PRN (15:56)
[2021-06-15 05:26] LABS: Basophils % 0.2 %; Hematocrit 34.6 % (37.5-50.1); Hemoglobin 10.3 g/dL (12.9-16.9); Immature Granulocytes % 3.8 % (0-4); Lymphocytes # 0.7 K/mcL (0.6-4.6); Lymphocytes % 3.9 %; Mean Corpuscular HGB Conc 29.8 g/dL (31.6-35.5); Mean Corpuscular Hemoglobin 24.4 pg (28.0-33.3); Monocytes # 2.9 K/mcL (0.0-1.3); Monocytes % 16.8 %; Platelet Count 336 K/mcL (140-400); Red Blood Count 4.22 M/mcL (4.19-5.50); Red Cell Distribution Width 22.6 % (11.5-14.5); Segmented Neutrophils % 75.3 %; White Blood Count 17.3 K/mcL (4.3-11.1)
[2021-06-15 05:37] LABS: VBG Ionized Calcium 1.34 mmol/L (1.15-1.35)
[2021-06-15 05:40] LABS: Calcium 10.3 mg/dL (8.6-10.3)
[2021-06-15] MEDS: Metoprolol 100 MG TABLET PO SCH (08:20)
[2021-06-15] MEDS: DilTIAZem CD (24hr) 240 MG CAP.ER.24H PO SCH (08:20)
[2021-06-15] MEDS: lisinopriL 20 MG TABLET PO SCH (08:20)
[2021-06-15] MEDS: predniSONE 20 MG TABLET PO SCH (08:20)
[2021-06-15] MEDS: Cyanocobalamin (B-12) 1,000 MCG TABLET PO SCH (08:20)
[2021-06-15] MEDS: Apixaban 5 MG TABLET PO SCH (08:21)
[2021-06-15] MEDS: Finasteride 5 MG TABLET PO SCH (08:21)
[2021-06-15] MEDS: polyethylene glycoL 3350 17 GM POWD.PACK PO SCH (08:21)
[2021-06-15] MEDS: Nicotine 14 MG PATCH.TD24 TD SCH (08:21)
[2021-06-15] MEDS ORDERED: Torsemide 20 MG TABLET PO SCH (09:45)
[2021-06-15] MEDS: Tiotropium 10 INH DOSE IH SCH (10:41)
[2021-06-15 11:59] VITALS: BP 174/75; PULSE 65; TEMP 98.7; O2SAT 97
== END 2021-06-15 13:29 | disposition home or self-care (01) | DRG 640 ==
LOC: 2ANU 11:05 → EMEROOARM 11:05 → SUATTDRO 14:42 → 2ANU 15:35
PROVIDERS: ADMIT Internal Medicine; ATTEND Internal Medicine

== ENCOUNTER 2021-07-13 10:12 | Inpatient (IN) ==
[2021-07-13 10:51] LABS: Hemoglobin 11.5 g/dL (12.9-16.9); Mean Corpuscular HGB Conc 31.1 g/dL (31.6-35.5); Mean Corpuscular Hemoglobin 26.1 pg (28.0-33.3); Mean Corpuscular Volume 84.1 fL (83.0-100.0); Mean Platelet Volume 10.7 fL (9.4-12.4); Platelet Count 363 K/mcL (140-400); Red Cell Distribution Width 23.4 % (11.5-14.5); White Blood Count 11.2 K/mcL (4.3-11.1)
[2021-07-13 11:13] LABS: Calcium 9.7 mg/dL (8.6-10.3); Potassium 4.5 mEq/L (3.5-5.1)
[2021-07-13 11:21] LABS: Troponin I 0.05 ng/mL (< 0.04)
[2021-07-13 11:24] LABS: Lymphocytes # 1.8 K/mcL (0.6-4.6); Monocytes # 1.5 K/mcL (0.0-1.3); Platelet Estimate Normal (Normal); Reactive Lymphocytes Present (Not Present)
[2021-07-13] MEDS ORDERED: Furosemide 40 MG/4 ML VIAL IVP ONE (13:57)
[2021-07-13 14:26] LABS: INR 1.2; Prothrombin Time 14.3 Seconds (9.4-12.1)
[2021-07-13] MEDS ORDERED: Naloxone 0.4 MG/ML INJ IVP PRN (15:04)
[2021-07-13] MEDS ORDERED: Ondansetron 4 MG/2 ML VIAL IVP PRN (15:04)
[2021-07-13 15:21] LABS: Adenovirus Not Detected (Not Detect); Bordetella Pertussis Not Detected (Not Detect); Chlamydophila pneumoniae Not Detected (Not Detect); Coronavirus 229E Not Detected (Not Detect); Coronavirus HKU1 Not Detected (Not Detect); Coronavirus NL63 Not Detected (Not Detect); Coronavirus OC43 Not Detected (Not Detect); Human Metapneumovirus Not Detected (Not Detect); Human Rhinovirus/Enterovirus Not Detected (Not Detect); Influenza A Subtype 2009 H1 Not Detected (Not Detect); Influenza B Not Detected (Not Detect); Mycoplasma pneumoniae Not Detected (Not Detect); Parainfluenza Virus 1 Not Detected (Not Detect); Parainfluenza Virus 2 Not Detected (Not Detect); Parainfluenza Virus 3 Not Detected (Not Detect); Parainfluenza Virus 4 Not Detected (Not Detect); Respiratory Syncytial Virus Not Detected (Not Detect); SARS-CoV-2 Not Detected (Not Detect)
[2021-07-13] MEDS ORDERED: D5% in Water 1,000 ML IVC PRN (15:48)
[2021-07-13] MEDS ORDERED: *HR* Dextrose 50 % in Water (Syg) 50 ML SYRINGE IVP PRN (15:48)
[2021-07-13] MEDS ORDERED: Dextrose Gel 15 GM/37.5 ML TUBE PO PRN ×2 (15:48)
[2021-07-13] MEDS: Ipratropium/Albuterol Neb 3 ML IH SCH ×2 (16:25→22:16)
[2021-07-13] MEDS: MethylPREDNISolone 40 MG/ML VIAL IVP SCH (17:02)
[2021-07-13] MEDS: Insulin LISPRO 300 UNITS/3 ML VIAL SUBQ SCH ×2 (17:03→20:38)
[2021-07-13 18:10] LABS: Estimated Average Glucose 157 mg/dl; Hemoglobin A1C 7.1 %
[2021-07-14] MEDS: MethylPREDNISolone 40 MG/ML VIAL IVP SCH ×2 (00:32→09:45)
[2021-07-14] MEDS: Ipratropium/Albuterol Neb 3 ML IH SCH ×4 (03:24→21:03)
[2021-07-14 06:52] LABS: Basophils % 0.1 %; Hematocrit 37.1 % (37.5-50.1); Hemoglobin 11.4 g/dL (12.9-16.9); Immature Granulocytes % 3.1 % (0-4); Lymphocytes # 0.7 K/mcL (0.6-4.6); Lymphocytes % 5.3 %; Mean Corpuscular HGB Conc 30.7 g/dL (31.6-35.5); Mean Corpuscular Hemoglobin 25.9 pg (28.0-33.3); Mean Corpuscular Volume 84.1 fL (83.0-100.0); Mean Platelet Volume 11.1 fL (9.4-12.4); Monocytes # 0.2 K/mcL (0.0-1.3); Monocytes % 1.8 %; Neutrophils # 11.6 K/mcL (1.6-8.9); Platelet Count 362 K/mcL (140-400); Red Blood Count 4.41 M/mcL (4.19-5.50); Segmented Neutrophils % 89.7 %; White Blood Count 12.9 K/mcL (4.3-11.1)
[2021-07-14 07:14] LABS: Albumin 3.9 g/dL (3.5-5.7); Albumin/Globulin Ratio 1.2 (1.1-2.2); Bilirubin,Total 0.3 mg/dL (0.3-1.0); Calcium 9.7 mg/dL (8.6-10.3); Globulin 3.2 g/dL (2.4-3.5); Potassium 4.4 mEq/L (3.5-5.1); Total Protein 7.1 g/dL (6.4-8.9); Troponin I 0.03 ng/mL (< 0.04)
[2021-07-14] MEDS ORDERED: Torsemide 20 MG TABLET PO SCH (08:00)
[2021-07-14] MEDS ORDERED: Furosemide 40 MG/4 ML VIAL IVP SCH (09:00)
[2021-07-14] MEDS ORDERED: Aspirin 81 MG TAB.CHEW PO SCH (09:00)
[2021-07-14] MEDS: Cholecalciferol (D-3) 1,000 UNIT (25MCG) TABLET PO SCH (09:43)
[2021-07-14] MEDS: lisinopriL 20 MG TABLET PO SCH (09:43)
[2021-07-14] MEDS: Apixaban 5 MG TABLET PO SCH ×2 (09:43→20:47)
[2021-07-14] MEDS: Metoprolol 100 MG TABLET PO SCH ×2 (09:43→20:47)
[2021-07-14] MEDS: Cyanocobalamin (B-12) 1,000 MCG TABLET PO SCH (09:44)
[2021-07-14] MEDS: DilTIAZem CD (24hr) 240 MG CAP.ER.24H PO SCH (09:44)
[2021-07-14] MEDS: Finasteride 5 MG TABLET PO SCH (09:48)
[2021-07-14] MEDS: Insulin LISPRO 300 UNITS/3 ML VIAL SUBQ SCH ×4 (09:48→20:46)
[2021-07-14] MEDS ORDERED: Perflutren Lipid Microsphere 1.3 ML in 0.9 % Sodium Chloride 8.7 ML IVP PRN (10:01)
[2021-07-14] MEDS: Isosorbide MONOnitrate (24 HR) 30 MG TAB.ER.24H PO SCH (13:29)
[2021-07-14] MEDS: Torsemide 20 MG TABLET PO SCH (17:54)
[2021-07-14] MEDS: Azithromycin 250 MG TABLET PO SCH (17:54)
[2021-07-15 02:52] LABS: Basophils % 0.1 %; Hematocrit 35.6 % (37.5-50.1); Immature Granulocytes % 2.4 % (0-4); Lymphocytes % 3.1 %; Mean Corpuscular HGB Conc 30.9 g/dL (31.6-35.5); Mean Corpuscular Hemoglobin 26.3 pg (28.0-33.3); Mean Corpuscular Volume 85.2 fL (83.0-100.0); Mean Platelet Volume 10.5 fL (9.4-12.4); Monocytes # 2.6 K/mcL (0.0-1.3); Monocytes % 15.1 %; Neutrophils # 13.9 K/mcL (1.6-8.9); Platelet Count 357 K/mcL (140-400); Red Blood Count 4.18 M/mcL (4.19-5.50); Red Cell Distribution Width 23.8 % (11.5-14.5); Segmented Neutrophils % 79.3 %; White Blood Count 17.5 K/mcL (4.3-11.1)
[2021-07-15 02:58] LABS: Lymphocytes # 0.5 K/mcL (0.6-4.6)
[2021-07-15 03:42] LABS: Calcium 9.4 mg/dL (8.6-10.3); Potassium 4.4 mEq/L (3.5-5.1)
[2021-07-15] MEDS: Ipratropium/Albuterol Neb 3 ML IH SCH ×4 (04:24→21:40)
[2021-07-15] MEDS: Insulin LISPRO 300 UNITS/3 ML VIAL SUBQ SCH ×4 (09:17→20:54)
[2021-07-15] MEDS: lisinopriL 20 MG TABLET PO SCH (09:18)
[2021-07-15] MEDS: DilTIAZem CD (24hr) 240 MG CAP.ER.24H PO SCH (09:18)
[2021-07-15] MEDS: Finasteride 5 MG TABLET PO SCH (09:18)
[2021-07-15] MEDS: Cyanocobalamin (B-12) 1,000 MCG TABLET PO SCH (09:18)
[2021-07-15] MEDS: Apixaban 5 MG TABLET PO SCH ×2 (09:18→20:53)
[2021-07-15] MEDS: Metoprolol 100 MG TABLET PO SCH ×2 (09:18→20:54)
[2021-07-15] MEDS: Cholecalciferol (D-3) 1,000 UNIT (25MCG) TABLET PO SCH (09:18)
[2021-07-15] MEDS: Isosorbide MONOnitrate (24 HR) 30 MG TAB.ER.24H PO SCH (09:18)
[2021-07-15] MEDS: Torsemide 20 MG TABLET PO SCH (09:18)
[2021-07-15] MEDS: predniSONE 20 MG TABLET PO SCH (09:18)
[2021-07-15] MEDS: Azithromycin 250 MG TABLET PO SCH (15:47)
[2021-07-16] MEDS: Ipratropium/Albuterol Neb 3 ML IH SCH ×4 (04:03→21:55)
[2021-07-16 05:30] LABS: Basophils % 0.1 %; Hematocrit 36.9 % (37.5-50.1); Hemoglobin 11.8 g/dL (12.9-16.9); Lymphocytes % 5.9 %; Mean Corpuscular Hemoglobin 26.8 pg (28.0-33.3); Mean Corpuscular Volume 83.9 fL (83.0-100.0); Mean Platelet Volume 10.6 fL (9.4-12.4); Monocytes # 2.5 K/mcL (0.0-1.3); Monocytes % 14.4 %; Neutrophils # 13.3 K/mcL (1.6-8.9); Platelet Count 402 K/mcL (140-400); Red Cell Distribution Width 23.7 % (11.5-14.5); Segmented Neutrophils % 76.6 %; White Blood Count 17.4 K/mcL (4.3-11.1)
[2021-07-16 05:44] LABS: Anisocytosis 1+ (Not Present)
[2021-07-16 05:45] LABS: Platelet Estimate Normal (Normal)
[2021-07-16 05:52] LABS: Calcium 9.9 mg/dL (8.6-10.3); Potassium 4.1 mEq/L (3.5-5.1)
[2021-07-16] MEDS: Insulin LISPRO 300 UNITS/3 ML VIAL SUBQ SCH ×4 (08:35→21:00)
[2021-07-16] MEDS: lisinopriL 20 MG TABLET PO SCH (08:36)
[2021-07-16] MEDS: Cyanocobalamin (B-12) 1,000 MCG TABLET PO SCH (08:36)
[2021-07-16] MEDS: Apixaban 5 MG TABLET PO SCH ×2 (08:36→20:59)
[2021-07-16] MEDS: Finasteride 5 MG TABLET PO SCH (08:36)
[2021-07-16] MEDS: Cholecalciferol (D-3) 1,000 UNIT (25MCG) TABLET PO SCH (08:36)
[2021-07-16] MEDS: Metoprolol 100 MG TABLET PO SCH ×2 (08:36→20:59)
[2021-07-16] MEDS: Isosorbide MONOnitrate (24 HR) 30 MG TAB.ER.24H PO SCH (08:36)
[2021-07-16] MEDS: Torsemide 20 MG TABLET PO SCH (08:36)
[2021-07-16] MEDS: predniSONE 20 MG TABLET PO SCH (08:36)
[2021-07-16] MEDS: DilTIAZem CD (24hr) 240 MG CAP.ER.24H PO SCH (08:36)
[2021-07-16] MEDS: amLODIPine 5 MG TABLET PO SCH (13:00)
[2021-07-16] MEDS: Azithromycin 250 MG TABLET PO SCH (15:48)
[2021-07-17] MEDS: Ipratropium/Albuterol Neb 3 ML IH SCH ×4 (04:00→22:04)
[2021-07-17 06:37] LABS: Basophils % 0.1 %; Hematocrit 40.1 % (37.5-50.1); Hemoglobin 12.6 g/dL (12.9-16.9); Immature Granulocytes % 3.4 % (0-4); Lymphocytes # 1.6 K/mcL (0.6-4.6); Lymphocytes % 9.6 %; Mean Corpuscular HGB Conc 31.4 g/dL (31.6-35.5); Mean Corpuscular Hemoglobin 26.5 pg (28.0-33.3); Mean Corpuscular Volume 84.2 fL (83.0-100.0); Mean Platelet Volume 10.4 fL (9.4-12.4); Monocytes # 2.5 K/mcL (0.0-1.3); Monocytes % 14.5 %; Neutrophils # 12.4 K/mcL (1.6-8.9); Platelet Count 439 K/mcL (140-400); Red Blood Count 4.76 M/mcL (4.19-5.50); Red Cell Distribution Width 23.5 % (11.5-14.5); Segmented Neutrophils % 72.4 %; White Blood Count 17.1 K/mcL (4.3-11.1)
[2021-07-17 06:48] LABS: Calcium 10.2 mg/dL (8.6-10.3); Phosphorous 4.8 mg/dL (2.7-4.5); Potassium 4.4 mEq/L (3.5-5.1)
[2021-07-17] MEDS ORDERED: 0.9 % Sodium Chloride 1,000 ML IVC SCH (09:45)
[2021-07-17 10:13] LABS: Troponin I 0.04 ng/mL (< 0.04)
[2021-07-17] MEDS: Insulin LISPRO 300 UNITS/3 ML VIAL SUBQ SCH ×4 (11:11→19:48)
[2021-07-17] MEDS: predniSONE 20 MG TABLET PO SCH (11:14)
[2021-07-17] MEDS: Isosorbide MONOnitrate (24 HR) 30 MG TAB.ER.24H PO SCH (11:14)
[2021-07-17] MEDS: Cyanocobalamin (B-12) 1,000 MCG TABLET PO SCH (11:14)
[2021-07-17] MEDS: DilTIAZem CD (24hr) 240 MG CAP.ER.24H PO SCH (11:14)
[2021-07-17] MEDS: Azithromycin 250 MG TABLET PO SCH (11:15)
[2021-07-17] MEDS: Metoprolol 100 MG TABLET PO SCH ×2 (11:15→19:47)
[2021-07-17] MEDS: Cholecalciferol (D-3) 1,000 UNIT (25MCG) TABLET PO SCH (11:15)
[2021-07-17] MEDS: Finasteride 5 MG TABLET PO SCH (11:16)
[2021-07-17] MEDS: Apixaban 5 MG TABLET PO SCH ×2 (11:16→19:48)
[2021-07-17] MEDS: amLODIPine 5 MG TABLET PO SCH ×2 (11:16→19:48)
[2021-07-17] MEDS: lisinopriL 20 MG TABLET PO SCH (11:18)
[2021-07-17] MEDS: Torsemide 20 MG TABLET PO SCH (11:19)
[2021-07-17 20:41] LABS: Protein/Creatinine Ratio,Urine 2.41 mg/mg (0.00-0.20); Sodium, Urine 29.7 mEq/L
[2021-07-18 01:19] LABS: Basophils % 0.1 %; Hematocrit 37.1 % (37.5-50.1); Hemoglobin 11.5 g/dL (12.9-16.9); Immature Granulocytes % 4.7 % (0-4); Mean Corpuscular Hemoglobin 25.8 pg (28.0-33.3); Mean Corpuscular Volume 83.4 fL (83.0-100.0); Monocytes # 1.3 K/mcL (0.0-1.3); Monocytes % 9.7 %; Neutrophils # 10.8 K/mcL (1.6-8.9); Platelet Count 408 K/mcL (140-400); Red Blood Count 4.45 M/mcL (4.19-5.50); Red Cell Distribution Width 22.7 % (11.5-14.5); Segmented Neutrophils % 78.5 %; White Blood Count 13.8 K/mcL (4.3-11.1)
[2021-07-18 01:37] LABS: Albumin 3.7 g/dL (3.5-5.7); Calcium 9.3 mg/dL (8.6-10.3); Phosphorous 4.2 mg/dL (2.7-4.5); Potassium 4.6 mEq/L (3.5-5.1)
[2021-07-18] MEDS: Ipratropium/Albuterol Neb 3 ML IH SCH ×2 (04:44→10:41)
[2021-07-18] MEDS: Finasteride 5 MG TABLET PO SCH (08:51)
[2021-07-18] MEDS: Insulin LISPRO 300 UNITS/3 ML VIAL SUBQ SCH ×4 (08:51→20:14)
[2021-07-18] MEDS: DilTIAZem CD (24hr) 240 MG CAP.ER.24H PO SCH (08:51)
[2021-07-18] MEDS: Cyanocobalamin (B-12) 1,000 MCG TABLET PO SCH (08:52)
[2021-07-18] MEDS: amLODIPine 5 MG TABLET PO SCH (08:52)
[2021-07-18] MEDS: predniSONE 20 MG TABLET PO SCH (08:52)
[2021-07-18] MEDS: Apixaban 5 MG TABLET PO SCH ×2 (08:52→19:46)
[2021-07-18] MEDS: Cholecalciferol (D-3) 1,000 UNIT (25MCG) TABLET PO SCH (08:52)
[2021-07-18] MEDS: Metoprolol 100 MG TABLET PO SCH ×2 (08:52→19:46)
[2021-07-18] MEDS: Isosorbide MONOnitrate (24 HR) 30 MG TAB.ER.24H PO SCH (08:52)
[2021-07-18] MEDS: hydrALAZINE 25 MG TABLET PO SCH ×3 (10:00→23:08)
[2021-07-18] MEDS ORDERED: Ipratropium/Albuterol Neb 3 ML IH PRN (10:50)
[2021-07-18] MEDS ORDERED: Sodium Bicarbonate 75 MEQ in 0.45 % Sodium Chloride 1,000 ML IVC SCH (12:56)
[2021-07-18] MEDS: Azithromycin 250 MG TABLET PO SCH (15:22)
[2021-07-19 06:51] LABS: Hematocrit 36.3 % (37.5-50.1); Hemoglobin 11.5 g/dL (12.9-16.9); Mean Corpuscular HGB Conc 31.7 g/dL (31.6-35.5); Mean Corpuscular Hemoglobin 26.3 pg (28.0-33.3); Mean Corpuscular Volume 82.9 fL (83.0-100.0); Mean Platelet Volume 10.8 fL (9.4-12.4); Platelet Count 440 K/mcL (140-400); Red Blood Count 4.38 M/mcL (4.19-5.50); Red Cell Distribution Width 23.3 % (11.5-14.5); White Blood Count 19.3 K/mcL (4.3-11.1)
[2021-07-19 07:02] LABS: Calcium 9.4 mg/dL (8.6-10.3); Magnesium 2.3 mg/dL (1.6-2.6); Phosphorous 4.2 mg/dL (2.7-4.5); Potassium 4.6 mEq/L (3.5-5.1)
[2021-07-19 08:19] LABS: Lymphocytes # 1.5 K/mcL (0.6-4.6); Monocytes # 3.1 K/mcL (0.0-1.3); Neutrophils # 14.7 K/mcL (1.6-8.9)
[2021-07-19 08:24] LABS: Anisocytosis 1+ (Not Present); Poikilocytosis 1+ (Not Present)
[2021-07-19] MEDS ORDERED: amLODIPine 5 MG TABLET PO SCH (09:00)
[2021-07-19] MEDS ORDERED: Isosorbide MONOnitrate (24 HR) 30 MG TAB.ER.24H PO SCH (09:00)
[2021-07-19] MEDS: Insulin LISPRO 300 UNITS/3 ML VIAL SUBQ SCH ×2 (09:20→11:36)
[2021-07-19] MEDS: predniSONE 20 MG TABLET PO SCH (10:12)
[2021-07-19] MEDS: Apixaban 5 MG TABLET PO SCH (10:12)
[2021-07-19] MEDS: Cholecalciferol (D-3) 1,000 UNIT (25MCG) TABLET PO SCH (10:14)
[2021-07-19] MEDS: Cyanocobalamin (B-12) 1,000 MCG TABLET PO SCH (10:14)
[2021-07-19] MEDS: DilTIAZem CD (24hr) 240 MG CAP.ER.24H PO SCH (10:14)
[2021-07-19] MEDS: Finasteride 5 MG TABLET PO SCH (10:14)
[2021-07-19] MEDS: hydrALAZINE 25 MG TABLET PO SCH (10:14)
[2021-07-19] MEDS: Metoprolol 100 MG TABLET PO SCH (10:14)
[2021-07-19 11:22] VITALS: BP 160/68; PULSE 69; TEMP 98.7; O2SAT 97
[2021-07-19 12:36] LABS: Hematocrit 38.9 % (37.5-50.1); Hemoglobin 12.2 g/dL (12.9-16.9); Mean Corpuscular HGB Conc 31.4 g/dL (31.6-35.5); Mean Corpuscular Hemoglobin 26.2 pg (28.0-33.3); Mean Corpuscular Volume 83.5 fL (83.0-100.0); Mean Platelet Volume 10.9 fL (9.4-12.4); Monocytes # 4.5 K/mcL (0.0-1.3); Platelet Count 486 K/mcL (140-400); Red Blood Count 4.66 M/mcL (4.19-5.50); Red Cell Distribution Width 23.2 % (11.5-14.5); White Blood Count 22.6 K/mcL (4.3-11.1)
[2021-07-19 13:10] LABS: Lymphocytes # 3.6 K/mcL (0.6-4.6); Neutrophils # 13.6 K/mcL (1.6-8.9)
[2021-07-19 13:11] LABS: Anisocytosis 2+ (Not Present); Platelet Estimate Increased (Normal)
[2021-07-20 04:18] LABS: Lambda Qnt Free Light Chains 32.71 mg/L (5.71-26.30)
[2021-07-20] MEDS ORDERED: Torsemide 20 MG TABLET PO SCH (09:00)
[2021-07-20 11:15] LABS: Serine Protease-3 Antibody 2 AU/mL (0-19)
[2021-07-20 11:22] LABS: Kappa Qnt Free Light Chains 67.6 mg/L (3.30-19.40)
== END 2021-07-19 15:02 | disposition home or self-care (01) | DRG 280 ==
LOC: 3BNU 10:12 → EMEROOARM 10:12 → SUATTDRO 14:13 → 3BNU 16:17
PROVIDERS: ADMIT Internal Medicine; ATTEND Internal Medicine

== ENCOUNTER 2021-07-26 08:02 | Inpatient (IN) ==
[2021-07-26 08:55] LABS: Hematocrit 38.6 % (37.5-50.1); Hemoglobin 12.1 g/dL (12.9-16.9); Mean Corpuscular HGB Conc 31.3 g/dL (31.6-35.5); Mean Corpuscular Hemoglobin 26.2 pg (28.0-33.3); Mean Corpuscular Volume 83.5 fL (83.0-100.0); Mean Platelet Volume 10.8 fL (9.4-12.4); Platelet Count 357 K/mcL (140-400); Red Blood Count 4.62 M/mcL (4.19-5.50); Red Cell Distribution Width 23.5 % (11.5-14.5); White Blood Count 13.6 K/mcL (4.3-11.1)
[2021-07-26 09:06] LABS: INR 1.3; Prothrombin Time 14.1 Seconds (9.4-12.1)
[2021-07-26 09:09] LABS: Activated Partial Thrombo Time 36.4 Seconds (26.0-36.0)
[2021-07-26 09:24] LABS: Albumin 3.9 g/dL (3.5-5.7); Albumin/Globulin Ratio 1.1 (1.1-2.2); Bilirubin,Direct 0.1 mg/dL (0.0-0.2); Bilirubin,Indirect 0.2 mg/dL (0.0-1.0); Bilirubin,Total 0.3 mg/dL (0.3-1.0); Globulin 3.6 g/dL (2.4-3.5); Total Protein 7.5 g/dL (6.4-8.9)
[2021-07-26 09:25] LABS: Potassium 4.3 mEq/L (3.5-5.1)
[2021-07-26 09:28] LABS: Troponin I 0.04 ng/mL (< 0.04)
[2021-07-26 09:36] LABS: Anisocytosis 1+ (Not Present); Large Platelets Present (Not Present); Lymphocytes # 1.6 K/mcL (0.6-4.6); Monocytes # 5.7 K/mcL (0.0-1.3); Neutrophils # 6.3 K/mcL (1.6-8.9); Platelet Estimate Normal (Normal)
[2021-07-26] MEDS ORDERED: *HR* Labetalol 20 MG/4 ML SYRINGE IVP ONE (11:12)
[2021-07-26 11:16] LABS: Bilirubin,Urine Negative (Negative); Blood,Urine Trace (Negative); Clarity,Urine Clear (Clear); Color,Urine Light-Yellow (Yellow); Glucose,Urine (UA) Normal (Normal); Ketones,Urine Negative (Negative); Leukocyte Esterase,Urine Negative (Negative); Mucus,Urine Few per lpf (None-Few); Nitrite,Urine Negative (Negative); Protein,Urine 200 mg/dL (Neg-Trace); RBC,Urine 0-3 per hpf (0-3); Specific Gravity,Urine 1.014 (1.010-1.025); Squamous Epithelial Cell,Urine Few per hpf (None-Few); Urobilinogen,Urine Normal (Normal); WBC,Urine 0-3 per hpf (0-3)
[2021-07-26] MEDS ORDERED: Ondansetron 4 MG/2 ML VIAL IVP ONE (11:33)
[2021-07-26 12:09] LABS: Influenza A PCR Negative (Negative); Influenza B PCR Negative (Negative); Resp. Syncytial Virus PCR Negative (Negative)
[2021-07-26 12:17] LABS: SARS-CoV-2 by PCR (In House) Positive (Negative)
[2021-07-26] MEDS ORDERED: *HR* Promethazine 25 MG/ML VIAL IM ONE (14:52)
[2021-07-26] MEDS ORDERED: Naloxone 0.4 MG/ML INJ IVP PRN (15:03)
[2021-07-26] MEDS ORDERED: GI Cocktail 40 ML EACH PO ONE (15:41)
[2021-07-26] MEDS ORDERED: *HR* HYDROcodone/Acet 5/325 mg TABLET PO PRN (16:51)
[2021-07-26] MEDS ORDERED: Acetaminophen 325 MG TABLET PO PRN (16:51)
[2021-07-26] MEDS ORDERED: Levalbuterol Neb 0.63 MG/3 ML IH PRN (17:28)
[2021-07-26] MEDS ORDERED: Lidocaine 5% OINT 35 APPL/35.44 GM TUBE TP PRN (17:29)
[2021-07-26] MEDS: Nystatin SUSP 5 ML UD.LIQ PO SCH ×2 (19:58→20:05)
[2021-07-26] MEDS: Pantoprazole 40 MG VIAL IVP SCH (20:04)
[2021-07-26] MEDS: Metoprolol 100 MG TABLET PO SCH (20:05)
[2021-07-26] MEDS: Apixaban 5 MG TABLET PO SCH (20:05)
[2021-07-27] MEDS: hydrALAZINE 25 MG TABLET PO SCH ×4 (00:55→23:34)
[2021-07-27 03:02] LABS: Basophils % 0.1 %; Hematocrit 38.7 % (37.5-50.1); Hemoglobin 12.2 g/dL (12.9-16.9); Immature Granulocytes % 2.4 % (0-4); Lymphocytes # 0.7 K/mcL (0.6-4.6); Lymphocytes % 4.5 %; Mean Corpuscular HGB Conc 31.5 g/dL (31.6-35.5); Mean Corpuscular Hemoglobin 27.1 pg (28.0-33.3); Mean Corpuscular Volume 85.8 fL (83.0-100.0); Monocytes # 7.2 K/mcL (0.0-1.3); Monocytes % 44.4 %; Neutrophils # 7.9 K/mcL (1.6-8.9); Platelet Count 347 K/mcL (140-400); Red Blood Count 4.51 M/mcL (4.19-5.50); Red Cell Distribution Width 23.9 % (11.5-14.5); Segmented Neutrophils % 48.6 %; White Blood Count 16.3 K/mcL (4.3-11.1)
[2021-07-27 03:20] LABS: Calcium 9.3 mg/dL (8.6-10.3); Potassium 4.8 mEq/L (3.5-5.1)
[2021-07-27 03:29] LABS: Troponin I 0.11 ng/mL (< 0.04)
[2021-07-27 05:15] LABS: Platelet Estimate Normal (Normal)
[2021-07-27 05:16] LABS: Anisocytosis 2+ (Not Present)
[2021-07-27] MEDS ORDERED: 0.9 % Sodium Chloride 1,000 ML IVC SCH (08:15)
[2021-07-27] MEDS: Tiotropium 10 INH DOSE IH SCH (08:21)
[2021-07-27] MEDS ORDERED: Torsemide 20 MG TABLET PO SCH (09:00)
[2021-07-27] MEDS: Apixaban 5 MG TABLET PO SCH ×2 (09:40→20:33)
[2021-07-27] MEDS: Isosorbide MONOnitrate (24 HR) 30 MG TAB.ER.24H PO SCH (09:40)
[2021-07-27] MEDS: DilTIAZem CD (24hr) 240 MG CAP.ER.24H PO SCH (09:40)
[2021-07-27] MEDS: Cyanocobalamin (B-12) 1,000 MCG TABLET PO SCH (09:41)
[2021-07-27] MEDS: Pantoprazole 40 MG VIAL IVP SCH (09:41)
[2021-07-27] MEDS: Nystatin SUSP 5 ML UD.LIQ PO SCH ×4 (09:41→20:34)
[2021-07-27] MEDS: Finasteride 5 MG TABLET PO SCH (09:41)
[2021-07-27] MEDS: lisinopriL 20 MG TABLET PO SCH (09:41)
[2021-07-27] MEDS: Metoprolol 100 MG TABLET PO SCH ×2 (09:41→20:33)
[2021-07-27] MEDS ORDERED: D5% in Water 1,000 ML IVC PRN (12:28)
[2021-07-27] MEDS ORDERED: *HR* Dextrose 50 % in Water (Syg) 50 ML SYRINGE IVP PRN (12:28)
[2021-07-27] MEDS ORDERED: Dextrose Gel 15 GM/37.5 ML TUBE PO PRN ×2 (12:28)
[2021-07-27] MEDS: Insulin LISPRO 300 UNITS/3 ML VIAL SUBQ SCH ×2 (18:40→20:42)
[2021-07-28] MEDS: Insulin LISPRO 300 UNITS/3 ML VIAL SUBQ SCH ×4 (07:26→20:34)
[2021-07-28] MEDS: Tiotropium 10 INH DOSE IH SCH (09:03)
[2021-07-28] MEDS: Nystatin SUSP 5 ML UD.LIQ PO SCH ×4 (10:19→20:37)
[2021-07-28] MEDS: lisinopriL 20 MG TABLET PO SCH (10:20)
[2021-07-28] MEDS: DilTIAZem CD (24hr) 240 MG CAP.ER.24H PO SCH (10:20)
[2021-07-28] MEDS: Metoprolol 100 MG TABLET PO SCH ×2 (10:20→20:37)
[2021-07-28] MEDS: Finasteride 5 MG TABLET PO SCH (10:20)
[2021-07-28] MEDS: Pantoprazole 40 MG VIAL IVP SCH (10:20)
[2021-07-28] MEDS: Isosorbide MONOnitrate (24 HR) 30 MG TAB.ER.24H PO SCH (10:20)
[2021-07-28] MEDS: hydrALAZINE 25 MG TABLET PO SCH ×3 (10:20→23:37)
[2021-07-28] MEDS: Apixaban 5 MG TABLET PO SCH ×2 (10:20→20:36)
[2021-07-28] MEDS: Cyanocobalamin (B-12) 1,000 MCG TABLET PO SCH (10:21)
[2021-07-28] MEDS: dexAMETHasone 4 MG TABLET PO SCH (13:19)
[2021-07-29 05:46] LABS: Basophils % 0.1 %; Hematocrit 34.3 % (37.5-50.1); Immature Granulocytes % 4.5 % (0-4); Lymphocytes # 0.5 K/mcL (0.6-4.6); Lymphocytes % 5.8 %; Mean Corpuscular HGB Conc 30.6 g/dL (31.6-35.5); Mean Corpuscular Hemoglobin 26.1 pg (28.0-33.3); Mean Corpuscular Volume 85.3 fL (83.0-100.0); Mean Platelet Volume 10.6 fL (9.4-12.4); Monocytes # 1.1 K/mcL (0.0-1.3); Monocytes % 12.6 %; Neutrophils # 6.7 K/mcL (1.6-8.9); Platelet Count 273 K/mcL (140-400); Red Blood Count 4.02 M/mcL (4.19-5.50); Red Cell Distribution Width 22.8 % (11.5-14.5); White Blood Count 8.7 K/mcL (4.3-11.1)
[2021-07-29 05:49] LABS: Hemoglobin 10.5 g/dL (12.9-16.9)
[2021-07-29] MEDS: Insulin LISPRO 300 UNITS/3 ML VIAL SUBQ SCH ×2 (08:20→12:35)
[2021-07-29] MEDS: Nystatin SUSP 5 ML UD.LIQ PO SCH ×2 (08:20→12:41)
[2021-07-29] MEDS: dexAMETHasone 4 MG TABLET PO SCH (08:21)
[2021-07-29] MEDS: Pantoprazole 40 MG VIAL IVP SCH (08:21)
[2021-07-29] MEDS: Cyanocobalamin (B-12) 1,000 MCG TABLET PO SCH (08:21)
[2021-07-29] MEDS: DilTIAZem CD (24hr) 240 MG CAP.ER.24H PO SCH (08:21)
[2021-07-29] MEDS: Finasteride 5 MG TABLET PO SCH (08:22)
[2021-07-29] MEDS: lisinopriL 20 MG TABLET PO SCH (08:22)
[2021-07-29] MEDS: Apixaban 5 MG TABLET PO SCH (08:22)
[2021-07-29] MEDS: Metoprolol 100 MG TABLET PO SCH (08:23)
[2021-07-29] MEDS: Isosorbide MONOnitrate (24 HR) 30 MG TAB.ER.24H PO SCH (08:23)
[2021-07-29] MEDS: hydrALAZINE 25 MG TABLET PO SCH (08:23)
[2021-07-29] MEDS: Tiotropium 10 INH DOSE IH SCH (08:52)
[2021-07-29] MEDS ORDERED: amLODIPine 5 MG TABLET PO SCH (09:00)
[2021-07-29 12:12] VITALS: BP 123/57; PULSE 56; TEMP 97.2
[2021-07-29 13:58] VITALS: O2SAT 93
== END 2021-07-29 16:26 | disposition home or self-care (01) | DRG 391 ==
LOC: EMEROOARM 08:02 → 3BNU 08:02 → SUATTDRO 17:03 → 3BNU 18:10
PROVIDERS: ADMIT Internal Medicine; ATTEND Internal Medicine

== ENCOUNTER 2022-06-01 10:21 | Observation (INO) ==
[2022-06-01] MEDS ORDERED: Morphine Sulfate 2 MG/ML SYRINGE IVP ONE (11:18)
[2022-06-01 12:01] LABS: Hematocrit 35.7 % (37.5-50.1); Hemoglobin 11.8 g/dL (12.9-16.9); Mean Corpuscular HGB Conc 33.1 g/dL (31.6-35.5); Mean Corpuscular Hemoglobin 31.9 pg (28.0-33.3); Mean Corpuscular Volume 96.5 fL (83.0-100.0); Mean Platelet Volume 11.2 fL (9.4-12.4); Platelet Count 249 K/mcL (140-400); White Blood Count 10.6 K/mcL (4.3-11.1)
[2022-06-01 12:26] LABS: INR 1.9; Prothrombin Time 21.1 Seconds (9.4-12.1)
[2022-06-01 12:27] LABS: BUN/Creatinine Ratio 24 (6-26); Blood Urea Nitrogen 78 mg/dL (8-23); Calcium 9.2 mg/dL (8.6-10.3); Carbon Dioxide 24 mEq/L (23-29); Chloride 102 mEq/L (98-107); Glucose 111 mg/dL (70-105); Osmolality,Calculated 306 (280-300); Potassium 4.8 mEq/L (3.5-5.1); Sodium 136 mEq/L (136-145); Troponin I < 0.03 ng/mL (< 0.04); eGFR For African Americans 22 (> 60); eGFR For Non-African Americans 19 (> 60)
[2022-06-01 12:34] LABS: Monocytes # 1.1 K/mcL (0.0-1.3); Neutrophils # 6.6 K/mcL (1.6-8.9); Platelet Estimate Normal (Normal)
[2022-06-01] MEDS ORDERED: Melatonin 3 MG TABLET PO PRN (15:49)
[2022-06-01] MEDS ORDERED: Naloxone 0.4 MG/ML INJ IVP PRN (15:49)
[2022-06-01] MEDS ORDERED: Ondansetron 4 MG/2 ML VIAL IVP PRN (15:49)
[2022-06-01] MEDS ORDERED: *HR* Heparin 5,000 UNIT/ML VIAL SQ SCH (18:00)
[2022-06-01 22:00] LABS: Hematocrit 34.6 % (37.5-50.1); Hemoglobin 11.3 g/dL (12.9-16.9)
[2022-06-02 01:30] LABS: Hemoglobin 10.3 g/dL (12.9-16.9); Mean Corpuscular HGB Conc 32.2 g/dL (31.6-35.5); Mean Corpuscular Hemoglobin 30.8 pg (28.0-33.3); Mean Corpuscular Volume 95.8 fL (83.0-100.0); Mean Platelet Volume 11.7 fL (9.4-12.4); Platelet Count 238 K/mcL (140-400); Red Blood Count 3.34 M/mcL (4.19-5.50); Red Cell Distribution Width 13.9 % (11.5-14.5); White Blood Count 11.1 K/mcL (4.3-11.1)
[2022-06-02 01:43] LABS: Calcium 8.7 mg/dL (8.6-10.3); Potassium 4.3 mEq/L (3.5-5.1)
[2022-06-02 02:25] LABS: Lymphocytes # 1.3 K/mcL (0.6-4.6)
[2022-06-02 02:29] LABS: Eosinophils # 0.1 K/mcL (0.0-0.6); Monocytes # 1.6 K/mcL (0.0-1.3); Neutrophils # 8.1 K/mcL (1.6-8.9); Platelet Estimate Normal (Normal)
[2022-06-02] MEDS ORDERED: Nitroglycerin 0.4 MG TAB.SUBL SL PRN (07:43)
[2022-06-02] MEDS ORDERED: Pantoprazole 40 MG VIAL IVP SCH (08:15)
[2022-06-02 08:36] VITALS: BP 172/79; PULSE 78; TEMP 97.9; O2SAT 100
[2022-06-02] MEDS ORDERED: Isosorbide MONOnitrate (24 HR) 30 MG TAB.ER.24H PO SCH (09:00)
[2022-06-02] MEDS ORDERED: Metoprolol 100 MG TABLET PO SCH (09:00)
[2022-06-02] MEDS ORDERED: Torsemide 20 MG TABLET PO SCH (09:00)
[2022-06-02] MEDS ORDERED: Cyanocobalamin (B-12) 1,000 MCG TABLET PO SCH (09:00)
[2022-06-02] MEDS ORDERED: Finasteride 5 MG TABLET PO SCH (09:00)
[2022-06-02] MEDS ORDERED: Tiotropium 10 INH DOSE IH SCH (10:00)
== END 2022-06-02 11:45 | disposition home or self-care (01) ==
LOC: 3NENU 10:21 → EMEROOARM 10:21 → 3NENU 17:37
PROVIDERS: ADMIT Internal Medicine; ATTEND Internal Medicine